=== PATIENT | female | born 1995 | race Caucasian/White ===

== ENCOUNTER 2020-08-02 21:28 | Emergency (ER) | payer OTHER, SELFPAY ==
[2020-08-02 21:30] VITALS: PULSE 84; RESP 16; TEMP 37.3; O2SAT 100; BMI 21.5
[2020-08-02 22:00] VITALS: BP 127/61; PULSE 92; PULSE 98; RESP 18; TEMP 37.3; O2SAT 98
--- NOTE | 2020-08-02 22:18 | ED.CHESTPAIN ---
HPI - Chest Pain General Chief Complaint: Chest Pain Stated Complaint: chest pressure Time Seen by Provider: 08/02/20 22:18 Source: patient Mode of arrival: ambulatory Limitations: no limitations History of Present Illness HPI narrative: Patient with chest pain that started this afternoon, patient states she has depression but is not suicidal. Vesna has had chest pain due to stress. Patient states that she has anterior chest pain with movement. MD complaint: chest pain Onset (ago): hour(s) Timing of current episode: constant Prior episodes: Yes Pain location: substernal Severity: mild Related Data Previous Rx's Medication Instructions Recorded naproxen [Naprosyn] 500 mg PO BID #20 tab 08/02/20 Allergies Allergy/AdvReac Type Severity Reaction Status Date / Time No Known Allergies Allergy Unverified 06/07/20 17:31 Review of Systems Constitutional: Constitutional: Reports no additional constitutional complaints Eyes: Eyes: Reports no additional eye complaints ENT: Denies dizziness Cardiovascular: Cardiovascular: Reports no additional cardiovascular complaints Respiratory: Respiratory: Reports as per HPI Gastrointestinal: Gastrointestinal: Reports no additional gastrointestinal complaints Genitourinary: Genitourinary: Reports no additional female genitourinary complaints Musculoskeletal: Musculoskeletal: Reports no additional musculoskeletal complaints Integumentary/Breasts: Skin/Breast: Denies rash Neurologic: Reports system reviewed and no additional complaints, except as documented, Denies dizziness and Denies Sensory deficit (Neuro) Psychiatric: Psychiatric: Denies anxiety PMFSH Past Medical History Medical History No known health problems Social History Social History Advance Directives: No Advance Directives Information Provided: Yes Physical Exam Vital Signs: Vital Signs: Last Vital Signs Temp 99.2 F 08/02/20 21:30 Pulse 84 08/02/20 21:30 Resp 16 08/02/20 21:30 Pulse Ox 100 08/02/20 21:30 Body Mass Index 21.5 Const: General: healthy appearing Nutritional Appearance: average body habitus Orientation/consciousness: oriented to person and patient oriented x3 Limitations: no limitations HENMT: Head: Yes normal to inspection Ears: external ears normal General nose exam: Normal external nose present Mouth: Normal oral and palatal mucosa present and oropharynx normal Throat: Yes posterior oropharynx normal Eyes: General: appearance normal, both eyes and all related structures Neck: Other: supple Neck: Yes normal visual inspection Chest: Other: reproducible chest pain on palpation Resp: Auscultation: clear to auscultation bilaterally Cardio: Jugular venous distension: no JVD Rate: regular rate Rhythm: regular rhythm Heart sounds: S1 normal heart sound present and S2 normal heart sound present GI: Inspection: Yes normal to inspection Palpation (GI): Soft to palpation, nontender and No hepatosplenomegaly present Auscultation: normal bowel sounds : General: Yes no CVA tenderness Back/Spine/Pelvis: Back: no CVA tenderness Skin: General skin exam: no rashes or lesions noted Neuro: General: oriented to person and patient oriented x3 Cranial nerves: Yes CN's II-XII intact bilaterally Motor exam (neuro): 5/5 motor strength present throughout Sensory Exam: No Sensory deficit (Neuro) Extrem: General: Yes normal to inspection Psych: Appearance: grossly normal Course Course Course Narrative: EKG and chest xray normal. patient with reproducible chest pain will dc home on NSAIDs MDM - Chest Pain MDM Narrative Medical decision making narrative: Patient with normal EKG and xray, physical exam most consistent with costrochondritis Differential Diagnosis Differential diagnosis: Likely atypical chest pain and costochondritis ECG Data ECG #1: Attestation: I personally reviewed and interpreted this ECG as follows: Interpretation: normal sinus rate of [address] or twave changes Discharge Plan Discharge Clinical Impression: Atypical chest pain, Costalchondritis Patient Disposition: Home, Self-Care Instructions: Costochondritis (ED) Prescriptions: New naproxen [Naprosyn] 500 mg tablet 500 mg PO BID Qty: 20 RF: 0 Referrals: Physician,Unknown [Primary Care Provider] - 2 days
--- NOTE | 2020-08-02 22:23 | XR_ITS ---
EXAMINATION: XR CHEST CLINICAL INFORMATION: Chest pain COMPARISON: None TECHNIQUE: Frontal view of the chest was obtained. FINDINGS: No significant abnormality is noted involving the heart, lungs, mediastinum, bony thorax or soft tissues. XR/XR chest 1V IMPRESSION: Unremarkable examination.
[2020-08-02] MEDS: Ketorolac Tromethamine 60 MG/2 ML VIAL IM (22:55)
== END 2020-08-02 23:01 | disposition home or self-care (01) ==
PROVIDERS: Emergency Provider Emergency Medicine
DX: M94.0 Chondrocostal junction syndrome [Tietze] (principal); R07.9 Chest pain, unspecified; Z79.899 Other long term (current) drug therapy; Z20.828 Contact with and (suspected) exposure to other viral communicable diseases
CPT/HCPCS: 71045; 96372; 99284; J1885; U0003

== ENCOUNTER 2020-11-22 12:43 | Emergency (ER) | payer OTHER, SELFPAY ==
[2020-11-22 12:45] VITALS: BP 151/80; PULSE 84; RESP 16; TEMP 36.5; O2SAT 99; BMI 22.1
--- NOTE | 2020-11-22 13:11 | ECG_ITS ---
Test Reason : ARM PAIN Blood Pressure : / mmHG Vent. Rate : 073 BPM Atrial Rate : 073 BPM P-R Int : 176 ms QRS Dur : 076 ms QT Int : 342 ms P-R-T Axes : 028 077 045 degrees QTc Int : 376 ms Normal sinus rhythm Normal ECG When compared with ECG of 02-AUG-2020 21:33, No significant change was found Referred By: Bladimir Jackson Electronically Signed By:ROGERIO HIGGINS
[2020-11-22 13:47] LABS: COVID-19 Test Negative (Negative)
--- NOTE | 2020-11-22 14:07 | ED_ITS ---
HPI - General Adult General Chief complaint: General Medical Stated complaint: pain and numbness arm and leg Time Seen by Provider: 11/22/20 13:11 History of Present Illness HPI narrative: Patient complains of left arm pain that began this morning with some tingling, was there when she woke up, the pain continues but the tingling is gone, the pain is worse with certain movements and when pressed around the biceps area, there is no chest pain no shortness of breath no palpitations no s weating no nausea no vomiting, no injury to the arm, there is no relation to exertion, there was no injury Patient also complains of for about a week having runny nose body aches fatigue and a mild sore throat, has not yet been tested for COVID Related Data Previous Rx's Medication Instructions Recorded naproxen [Naprosyn] 500 mg PO BID #20 tab 08/02/20 ibuprofen 600 mg PO Q6H PRN #20 tab 11/22/20 Allergies Allergy/AdvReac Type Severity Reaction Status Date / Time No Known Allergies Allergy Unverified 06/07/20 17:31 Review of Systems Review of Systems: Review of systems is positive for left arm pain, runny nose body aches and fatigue Negatives are no fever no chills no dizziness no weakness no numbness no fainting no confusion no headache no neck pain no chest pain no shortness of breath no palpitations no diaphoresis no exertional symptoms no abdominal pain no nausea no vomiting no diarrhea no changes to bowel or bladder no dysuria no urinary symptoms no rash no numbness no weakness Yes all other systems are reviewed and are negative [facility] [place] Past Medical History [facility] [place] Narrative: Patient did developed hypertension during and was told to follow-up to see if it resolved on its own but has not followed up with a primary doctor and is not sure if the hypertension resolved Medical History No known health problems Social History Social History Alcohol intake: never Smoking Status: Never smoker Smoked in Last 30 Days: No Use of substances other than those prescribed or required for medical reasons: No Advance Directives: No Advance Directives Information Provided: No Physical Exam Vital Signs: Vital Signs: Last Vital Signs Temp 97.7 F 11/22/20 12:45 Pulse 84 11/22/20 12:45 Resp 16 11/22/20 12:45 BP 151/80 H 11/22/20 12:45 Pulse Ox 99 11/22/20 12:45 Body Mass Index 22.1 General appearance is no acute distress comfortable cooperative The head is normocephalic atraumatic Neck is supple and nontender The chest is clear to auscultation bilaterally with full symmetric and breath sounds The abdomen is soft and nontender Extremities is full range of motion x4 The left arm did have tenderness around the bicep area and pain was reproduced with movement in the upper arm area, the arm is normal in appearance and neurovascular intact distal The skin no rash Neuro is no focal deficit, there is no facial asymmetry there is no motor deficit, motor is 5/5 x4, sensation is intact and symmetrical, gait is normal, balance and cerebellar are normal, cranial nerves 2-12 are intact as tested, gait is normal Course Course Course Narrative: EKG was normal sinus rhythm no evidence of ischemia, patient's symptoms were not consistent with cardiac event as pain was reproducible in the left upper arm there was no chest pain or shortness of breath and symptoms were not related to exertion COVID testing was negative and patient is diagnosed with both viral syndrome for about a week and left arm pain musculoskeletal pain for a day Medical Decision Making Lab Data Labs: Lab Results 11/22/20 Range/Units 13:23 COVID-19 ([facility]IAM) Negative (Negative) COVID-19 Clin Com See Note Discharge Plan Discharge Clinical Impression: Arm pain, left, Acute viral syndrome High blood pressure Qualifiers: Hypertension type: unspecified Qualified Code(s): I10 - Essential (primary) hypertension Patient Disposition: Home, Self-Care Additional Instructions: At this time there is no sign of heart attack or stroke or any dangerous condition Her COVID test today was negative, but your symptoms may have been from COVID and testing does not always find it so wear mask and use care being around other people Her blood pressure was high in the emergency room today, we recommend to get a home blood pressure cuff keep a log of the readings and follow with primary care doctor to determine whether you actually have high blood pressure or for was just 1 reading here in the ER Return any time any worse condition or concerns Prescriptions: New ibuprofen 600 mg tablet 600 mg PO Q6H PRN (Reason: pain) Qty: 20 RF: 0 No Action naproxen [Naprosyn] 500 mg tablet 500 mg PO BID Qty: 20 RF: 0
== END 2020-11-22 14:30 | disposition home or self-care (01) ==
PROVIDERS: Physician Assistant Medical; Emergency Provider Emergency Medicine
DX: M79.602 Pain in left arm (principal); B34.9 Viral infection, unspecified; I10 Essential (primary) hypertension; Z20.822 Contact with and (suspected) exposure to COVID-19
CPT/HCPCS: 36415; 87635; 93005; 99283

== ENCOUNTER 2021-02-06 00:06 | Emergency (ER) | payer OTHER, SELFPAY ==
--- NOTE | ~2021-02-06 | CT_ITS ---
EXAMINATION: CT ABDOMEN AND PELVIS WITH CONTRAST CLINICAL INFORMATION: Right lower quadrant pain COMPARISON: None TECHNIQUE: Multidetector volumetric images were obtained from the superior aspect of the liver through the pubic symphysis following administration 85 mL of Omnipaque 350 intravenous contrast. Sagittal and coronal reformatted images were obtained on the technologist's workstation. Oral contrast: No This CT examination was performed using dose optimization techniques as appropriate, variously including the following: *Automated exposure control *Adjustment of mA and/or kV according to patient size (this includes techniques or standardized protocols for targeted exams where dose is matched to indication/reason for exam; i.e. extremities or head) *Use of iterative reconstruction technique DLP: 372 mGy-cm FINDINGS: LUNG BASES: The visualized lung bases are unremarkable. LIVER, GALLBLADDER, AND BILIARY TREE: The liver is normal in size, shape, and attenuation. No focal hepatic lesion or biliary ductal dilatation is present. The gallbladder is unremarkable with no evidence of radiopaque gallstones, gallbladder wall thickening, or obvious pericholecystic inflammatory changes. PANCREAS: Unremarkable. SPLEEN: Unremarkable. ADRENAL GLANDS: Unremarkable. KIDNEYS AND URETERS: The kidneys are normal in size, shape, and attenuation. No hydronephrosis, hydroureter, or obstructing calculi seen. No perinephric stranding. BLADDER: Unremarkable. GASTROINTESTINAL TRACT: The small and large bowel are unremarkable. The appendix is unremarkable. No free air identified. ABDOMINAL WALL: No significant hernia is appreciated. LYMPH NODES: Normal. VASCULAR: Unremarkable. PELVIC VISCERA: There is a right adnexal cyst measuring up to approximately 4.7 cm. Small amount of pelvic free fluid is noted. OSSEOUS STRUCTURES: Unremarkable. CT/CT abdomen pelvis w con IMPRESSION: Right adnexal cyst measuring up to 4.7 cm, presumably ovarian. Follow-up pelvic ultrasound is recommended to assess for resolution. Small amount of pelvic free fluid.
[2021-02-06 00:53] VITALS: BP 150/102; PULSE 73; RESP 18; TEMP 37; O2SAT 100; BMI 21.9
[2021-02-06 01:27] LABS: Glucose Urine UA NEG (NEG); Leukocyte Esterase Urine NEG (NEG); Nitrite Urine NEG (NEG); Specific Gravity - Urine >= 1.030 (1.005-1.025); Urine Blood NEG (NEG); Urine Ketones NEG (NEG); Urine Protein NEG (NEG-TRACE)
[2021-02-06 01:29] LABS: Appearance Urine CLEAR; Color Urine YELLOW; UPreg QC Valid YES; Urine Pregnancy NEGATIVE (NEGATIVE)
--- NOTE | 2021-02-06 02:42 | ED.ABDPAIN ---
HPI - Abdominal Pain General Chief Complaint: Abdominal Pain Stated Complaint: Abdominal pain Time Seen by Provider: 02/06/21 02:39 Source: patient Mode of arrival: ambulatory Limitations: no limitations History of Present Illness MD elicited complaint: abdominal pain Onset (ago): day(s) (started this weekend on Thursday ) Pain Consistency: intermittent Location: RLQ and pelvis Severity: moderate Quality: cramping Radiation: none Migration to: no migration Exacerbating factors: movement Relieving factors: nothing Associated symptoms: nausea Related Data Previous Rx's Medication Instructions Recorded naproxen [Naprosyn] 500 mg PO BID #20 tab 08/02/20 ibuprofen 600 mg PO Q6H PRN #20 tab 11/22/20 cyclobenzaprine 10 mg PO TID PRN #14 tab 02/06/21 ondansetron 4 mg PO Q8H PRN #20 tab 02/06/21 Allergies Allergy/AdvReac Type Severity Reaction Status Date / Time No Known Allergies Allergy Verified 02/06/21 00:53 Review of Systems Review of Systems Constitutional : No Weight loss, No Fever, No Chills ENT/Mouth : No sore throat, No Rhinorrhea Eyes: No Swelling, No Redness Cardiovascular : No Chest Pain, No SOB, NoEdema Respiratory : No Cough, No Sputum, No Wheezing Gastrointestinal : Positive Nausea, no Vomiting, no Diarrhea, positive abdominal Pain, No Hematochezia, No Melena Genitourinary : No Dysuria, No Urinary Frequency, No Hematuria, No Urgency Musculoskeletal : No joint pain, No Myalgias, No Joint Swelling Skin : No Skin Lesions, No rash Neuro : No Weakness, No Numbness, No Dizziness, No Headache Psych : No Anxiety/Panic, No Depression Heme/Lymph: No Bruising, No Lymphadenopathy Endocrine : No Polyuria, No Polydipsia All other systems reviewed and are negative. Physical Exam Vital Signs: Vital Signs: Last Vital Signs Temp 99.0 F 02/06/21 03:33 Pulse 66 02/06/21 03:33 Resp 17 02/06/21 03:33 BP 125/91 H 02/06/21 03:33 Pulse Ox 100 02/06/21 03:33 Body Mass Index 21.9 Appearance: Alert. Oriented X3. No acute distress. Eyes: Pupils equal, round and reactive to light. ENT: Pharynx normal. Neck: Normal inspection. Neck supple. CVS: Normal heart rate and rhythm. Pulses normal. Respiratory: No respiratory distress. Breath sounds normal. Abdomen: Soft and very mild ttp in RLQ no rebound or guarding Skin: Skin warm and dry. Normal skin color. Normal skin turgor. Extremities: No lower extremity edema. No calf ttp Neuro: Oriented X 3. No motor deficit. No sensory deficit. Course Course Course Narrative: benign abdominal exam doubt torsion at this time, plan to DC with [facility] follow up MDM - Abdominal Pain MDM Narrative Medical decision making narrative: 25 yo female no sig PMH here with RLQ pain since Thursday with some nausea at this time will need labs, UA, CT scan for appendicitis, dispo per results and findings. Differential Diagnosis Differential diagnosis: Likely abdominal pain, acute appendicitis, calculus of kidney, constipation, endometriosis and ovarian cyst; Unlikely mesenteric ischemia Lab Data Result diagrams: 02/06/21 03:40 02/06/21 03:40 Labs: Lab Results 02/06/21 02/06/21 02/06/21 Range/Units 01:15 01:15 03:40 WBC 7.4 (4.8-10.8) X10*3/uL RBC 4.82 (4.20-5.50) X10*6/uL Hgb 13.8 (12.0-16.0) g/dl Hct 41.1 (37-47) % MCV 85.3 (80-98) fL MCH 28.6 (27.0-33.0) pg MCHC 33.6 (31.0-35.0) g/dl RDW 12.8 (11.0-16.0) % Plt Count 260 (160-400) X10*3/uL MPV 10.2 (9.4-12.3) fL Immature Gran % (Auto) 0.3 (0.0-0.4) % Neut % (Auto) 65.8 (45-73) % Lymph % (Auto) 26.8 (20-40) % [place] % (Auto) 5.3 (2-11) % Eos % (Auto) 1.1 (0-4) % Baso % (Auto) 0.7 (0-2) % Lymph # (Auto) 2.0 (1.2-4.9) X10*3/uL [place] # (Auto) 0.4 (0.1-1.2) X10*3/uL Eos # (Auto) 0.1 (0.0-0.4) X10*3/uL Baso # (Auto) 0.1 (0.0-0.2) X10*3/uL Abs Immat Gran (auto) 0.02 (0.00-0.03) X10*3/uL Absolute Neuts (auto) 4.9 (2.0-8.3) X10*3/uL Absolute Nucleated RBC 0.000 (0.0-0.012) X10*3/uL Nucleated RBC % (auto) 0.0 (0.0-0.2) /100WBC Hold Blue Top Sodium (135-145) mmol/L Potassium (3.3-5.1) mmol/L Chloride (96-108) mmol/L Carbon Dioxide (22-29) mmol/L Anion Gap (12-20) BUN (9-16) mg/dL Creatinine (0.5-1.4) mg/dL Estim Creat Clear Calc Estimated GFR Random Glucose (60-115) mg/dL Calcium (8.4-10.2) mg/dL Magnesium (1.6-2.6) mg/dL Total Bilirubin (0.0-1.0) mg/dL Direct Bilirubin (0.0-0.5) mg/dL AST (5-31) U/L ALT (0-31) U/L Alkaline Phosphatase (39-117) U/L Total Protein (6.5-8.0) g/dL Albumin (3.5-5.0) g/dL Lipase (8-78) U/L Beta HCG, Quant mIU/mL Urine Color YELLOW Urine Appearance CLEAR Urine pH 6.0 (5.0-8.0) Ur Specific [place] >= 1.030 H (1.005-1.025) Urine Protein NEG (NEG-TRACE) MG/DL Urine Glucose (UA) NEG (NEG) MG/DL Urine Ketones NEG (NEG) MG/DL Urine Blood NEG (NEG) Urine Nitrite NEG (NEG) Ur Leukocyte Esterase NEG (NEG) Urine Test NEGATIVE (NEGATIVE) 02/06/21 02/06/21 Range/Units 03:40 03:40 WBC (4.8-10.8) X10*3/uL RBC (4.20-5.50) X10*6/uL Hgb (12.0-16.0) g/dl Hct (37-47) % MCV (80-98) fL MCH (27.0-33.0) pg MCHC (31.0-35.0) g/dl RDW (11.0-16.0) % Plt Count (160-400) X10*3/uL MPV (9.4-12.3) fL Immature Gran % (Auto) (0.0-0.4) % Neut % (Auto) (45-73) % Lymph % (Auto) (20-40) % [place] % (Auto) (2-11) % Eos % (Auto) (0-4) % Baso % (Auto) (0-2) % Lymph # (Auto) (1.2-4.9) X10*3/uL [place] # (Auto) (0.1-1.2) X10*3/uL Eos # (Auto) (0.0-0.4) X10*3/uL Baso # (Auto) (0.0-0.2) X10*3/uL Abs Immat Gran (auto) (0.00-0.03) X10*3/uL Absolute Neuts (auto) (2.0-8.3) X10*3/uL Absolute Nucleated RBC (0.0-0.012) X10*3/uL Nucleated RBC % (auto) (0.0-0.2) /100WBC Hold Blue Top SEE NOTE Sodium 140 (135-145) mmol/L Potassium 3.8 (3.3-5.1) mmol/L Chloride 107 (96-108) mmol/L Carbon Dioxide 24 (22-29) mmol/L Anion Gap 13 (12-20) BUN 10 (9-16) mg/dL Creatinine 0.74 (0.5-1.4) mg/dL Estim Creat Clear Calc 81.9 Estimated GFR > 60 Random Glucose 91 (60-115) mg/dL Calcium 9.7 (8.4-10.2) mg/dL Magnesium 2.0 (1.6-2.6) mg/dL Total Bilirubin 0.7 (0.0-1.0) mg/dL Direct Bilirubin 0.3 (0.0-0.5) mg/dL AST 19 (5-31) U/L ALT 23 (0-31) U/L Alkaline Phosphatase 69 (39-117) U/L Total Protein 7.0 (6.5-8.0) g/dL Albumin 4.4 (3.5-5.0) g/dL Lipase 18 (8-78) U/L Beta HCG, Quant < 2 mIU/mL Urine Color Urine Appearance Urine pH (5.0-8.0) Ur Specific [place] (1.005-1.025) Urine Protein (NEG-TRACE) MG/DL Urine Glucose (UA) (NEG) MG/DL Urine Ketones (NEG) MG/DL Urine Blood (NEG) Urine Nitrite (NEG) Ur Leukocyte Esterase (NEG) Urine Test (NEGATIVE) Discharge Plan Discharge Clinical Impression: Abdominal pain Qualifiers: Abdominal location: right lower quadrant Qualified Code(s): R10.31 - Right lower quadrant pain Ovarian cyst Qualifiers: Laterality: right Qualified Code(s): N83.201 - Unspecified ovarian cyst, right side Patient Disposition: Home, Self-Care Instructions: Ovarian Cyst (ED), Abdominal Pain (ED) Additional Instructions: return to ED for any worsening symptoms or concerns REPEAT ULTRASOUND IN 4 WEEKS TO ENSURE CYST RESOLVES Prescriptions: New cyclobenzaprine 10 mg tablet 10 mg PO TID PRN (Reason: muscle spasm) Qty: 14 RF: 0 ondansetron 4 mg tablet,disintegrating 4 mg PO Q8H PRN (Reason: nausea and vomiting) Qty: 20 RF: 0 No Action naproxen [Naprosyn] 500 mg tablet 500 mg PO BID Qty: 20 RF: 0 ibuprofen 600 mg tablet 600 mg PO Q6H PRN (Reason: pain) Qty: 20 RF: 0 PMFSH Past Medical History Attestation statement: The following information was validated with the patient. Medical History No known health problems Social History Social History Alcohol intake: never Smoking Status: Never smoker Advance Directives: No Advance Directives Information Provided: No
[2021-02-06 03:33] VITALS: BP 125/91; PULSE 66; RESP 17; TEMP 37.2; O2SAT 100
[2021-02-06 03:48] LABS: MANUAL DIFF FLAG NO
[2021-02-06 03:50] LABS: Basophils Absolute Auto 0.1 X10*3/uL (0.0-0.2); Basophils Percent Auto 0.7 % (0-2); Eosinophils Absolute Auto 0.1 X10*3/uL (0.0-0.4); Eosinophils Percent Auto 1.1 % (0-4); Hematocrit 41.1 % (37-47); Hemoglobin 13.8 g/dl (12.0-16.0); Imm Gran Abs Auto 0.02 X10*3/uL (0.00-0.03); Imm Gran Pct Auto 0.3 % (0.0-0.4); Lymphocytes Percent Auto 26.8 % (20-40); Mean Corpuscular HGB Conc 33.6 g/dl (31.0-35.0); Mean Corpuscular Hemoglobin 28.6 pg (27.0-33.0); Mean Corpuscular Volume 85.3 fL (80-98); Mean Platelet Volume 10.2 fL (9.4-12.3); Monocytes Absolute Auto 0.4 X10*3/uL (0.1-1.2); Monocytes Percent Auto 5.3 % (2-11); Neutrophils Absolute Auto 4.9 X10*3/uL (2.0-8.3); Neutrophils Percent Auto 65.8 % (45-73); Platelet Count 260 X10*3/uL (160-400); Red Blood Count 4.82 X10*6/uL (4.20-5.50); Red Cell Distribution Width 12.8 % (11.0-16.0); White Blood Count 7.4 X10*3/uL (4.8-10.8)
[2021-02-06 04:13] LABS: Alanine Aminotransferase 23 U/L (0-31); Albumin Level 4.4 g/dL (3.5-5.0); Alkaline Phosphatase 69 U/L (39-117); Anion Gap 13 (12-20); Aspartate Amino Transferase 19 U/L (5-31); Bilirubin Direct 0.3 mg/dL (0.0-0.5); Bilirubin Total 0.7 mg/dL (0.0-1.0); Blood Urea Nitrogen 10 mg/dL (9-16); Calcium 9.7 mg/dL (8.4-10.2); Carbon Dioxide 24 mmol/L (22-29); Chloride 107 mmol/L (96-108); Creatinine Clr Calc Pharmacy 81.9; Estimated Glomerular Filt Rate > 60; Glucose Random 91 mg/dL (60-115); Lipase 18 U/L (8-78); Potassium 3.8 mmol/L (3.3-5.1); Sodium 140 mmol/L (135-145)
[2021-02-06 04:19] LABS: HCG Quantitative < 2 mIU/mL
[2021-02-06] MEDS: iohexoL 350 MG/ML 100 ML INFUS..BTL 85 ML IV (04:31)
== END 2021-02-06 05:36 | disposition home or self-care (01) ==
PROVIDERS: Emergency Provider Emergency Medicine; PCP Nurse Practitioner Family
DX: N83.201 Unspecified ovarian cyst, right side (principal); R10.31 Right lower quadrant pain; Z79.899 Other long term (current) drug therapy
CPT/HCPCS: 36415; 74177; 80048; 80076; 81003; 81025; 83690; 83735; 84702; 85025; 99284; Q9967

== ENCOUNTER → 2021-07-04 13:14 | Outpatient (BNVA) | payer SELFPAY | PROVIDERS: PCP Nurse Practitioner Family; Visit Provider Internal Medicine | DX: Z02.79 Encounter for issue of other medical certificate (principal) ==

== ENCOUNTER 2021-08-05 21:32 | Emergency (ER) | payer OTHER, SELFPAY ==
--- NOTE | ~2021-08-05 | XR_ITS ---
EXAMINATION: XR HUMERUS, RIGHT XR FOREARM, RIGHT CLINICAL INFORMATION: Arm pain after working out COMPARISON: None TECHNIQUE: 2 views of the right forearm. 2 views of the right humerus. FINDINGS: Alignment at the glenohumeral and acromioclavicular joints appears anatomic on these views. No acute fracture identified in the humerus or forearm. Alignment at the elbow is anatomic, without evidence of effusion. No significant focal soft tissue abnormality identified. XR/XR humerus RT IMPRESSION: No acute findings identified in the right humerus or forearm.
--- NOTE | ~2021-08-05 | XR_ITS ---
EXAMINATION: XR HUMERUS, LEFT XR FOREARM, LEFT CLINICAL INFORMATION: Arm pain after working out COMPARISON: None TECHNIQUE: 2 views of the left humerus. 2 views of the left forearm. FINDINGS: Alignment at the glenohumeral and acromioclavicular joints appears anatomic on these views. No acute fracture identified in the humerus or forearm. Alignment at the elbow is anatomic, without evidence of effusion. No significant focal soft tissue abnormality identified. XR/XR forearm LT 2V IMPRESSION: No acute findings identified in the left humerus or forearm.
--- NOTE | ~2021-08-05 | XR_ITS ---
EXAMINATION: XR HUMERUS, RIGHT XR FOREARM, RIGHT CLINICAL INFORMATION: Arm pain after working out COMPARISON: None TECHNIQUE: 2 views of the right forearm. 2 views of the right humerus. FINDINGS: Alignment at the glenohumeral and acromioclavicular joints appears anatomic on these views. No acute fracture identified in the humerus or forearm. Alignment at the elbow is anatomic, without evidence of effusion. No significant focal soft tissue abnormality identified. XR/XR forearm RT 2V IMPRESSION: No acute findings identified in the right humerus or forearm.
--- NOTE | ~2021-08-05 | CT_ITS ---
EXAMINATION: CT ABDOMEN AND PELVIS WITHOUT CONTRAST CLINICAL INFORMATION: Epigastric and mid back pain after working out COMPARISON: 02/06/2021 TECHNIQUE: Multidetector volumetric imaging was performed from the superior aspect of the liver through the pubic symphysis. Sagittal and coronal reformatted images were obtained on the technologist's workstation. This CT examination was performed using dose optimization techniques as appropriate, variously including the following: *Automated exposure control *Adjustment of mA and/or kV according to patient size (this includes techniques or standardized protocols for targeted exams where dose is matched to indication/reason for exam; i.e. extremities or head) *Use of iterative reconstruction technique DLP: 341 mGy-cm FINDINGS: LUNG BASES: The visualized lung bases are unremarkable. LIVER, GALLBLADDER, AND BILIARY TREE: The liver is normal in size, shape, and attenuation. No focal hepatic lesion or biliary ductal dilatation is present. The gallbladder is unremarkable with no evidence of radiopaque gallstones, gallbladder wall thickening, or obvious pericholecystic inflammatory changes. PANCREAS: Unremarkable. SPLEEN: Unremarkable. ADRENAL GLANDS: Unremarkable. KIDNEYS AND URETERS: The kidneys are normal in size, shape, and attenuation. No hydronephrosis, hydroureter, or calculi seen. No perinephric stranding. BLADDER: Minimally distended and grossly unremarkable. GASTROINTESTINAL TRACT: The small and large bowel are unremarkable. The appendix is unremarkable. No free fluid or free air is seen. ABDOMINAL WALL: No significant hernia is appreciated. LYMPH NODES: No lymphadenopathy is seen, though assessment is limited in the absence of intravenous contrast. VASCULAR: Unremarkable. PELVIC VISCERA: Unremarkable. OSSEOUS STRUCTURES: Unremarkable. CT/CT abdomen pelvis wo con IMPRESSION: No acute findings identified in the abdomen/pelvis.
--- NOTE | ~2021-08-05 | XR_ITS ---
EXAMINATION: XR CHEST CLINICAL INFORMATION: Anterior chest wall pain after working out COMPARISON: 08/02/2020 TECHNIQUE: Frontal view of the chest was obtained. FINDINGS: The lungs are clear with no focal consolidation. No evidence of pneumothorax, pulmonary edema, or pleural effusions. The cardiomediastinal silhouette is unremarkable. No acute osseous findings. XR/XR chest 1V IMPRESSION: No acute findings.
--- NOTE | ~2021-08-05 | XR_ITS ---
EXAMINATION: XR HUMERUS, LEFT XR FOREARM, LEFT CLINICAL INFORMATION: Arm pain after working out COMPARISON: None TECHNIQUE: 2 views of the left humerus. 2 views of the left forearm. FINDINGS: Alignment at the glenohumeral and acromioclavicular joints appears anatomic on these views. No acute fracture identified in the humerus or forearm. Alignment at the elbow is anatomic, without evidence of effusion. No significant focal soft tissue abnormality identified. XR/XR humerus LT IMPRESSION: No acute findings identified in the left humerus or forearm.
[2021-08-05 21:37] VITALS: BP 107/76; PULSE 82; RESP 17; TEMP 36.8; O2SAT 98; BMI 21.1
[2021-08-06 00:09] LABS: UPreg QC Valid YES; Urine Pregnancy NEGATIVE (NEGATIVE)
--- NOTE | 2021-08-06 00:42 | ED_ITS ---
HPI - General Adult General Chief complaint: General Medical <NEDA Mcmillan Last Filed: 08/06/21 01:09> Stated complaint: back pain no injury <NEDA Mcmillan Last Filed: 08/06/21 01:09> Time Seen by Provider: 08/05/21 22:55 <NEDA Mcmillan Last Filed: 08/06/21 01:09> Source: patient <NEDA Mcmillan Last Filed: 08/06/21 01:09> Mode of arrival: ambulatory <NEDA Mcmillan Last Filed: 08/06/21 01:09> Limitations: no limitations <NEDA Mcmillan Last Filed: 08/06/21 01:09> History of Present Illness HPI narrative: 26-year-old female presenting to the ED with complaints of bilateral upper and lower arm pain along with her ribcage pain and epigastric abdominal pain that radiates to her midback for the past few days worse today after she was working out doing bench presses. She reports that she has not worked out in a while since she has had her 4 kids. She is also unsure if she could possibly be due to she has not had a period. She denies any dizziness, headaches, chest pain, shortness of breath, sore throat, cough, trouble swallowing or breathing, nausea/vomiting/diarrhea, dysuria, hematuria, abnormal vaginal discharge, rashes, recent travel or sick contacts or any other symptoms complaints or concerns at this time. <NDEA Mcmillan Last Filed: 08/06/21 01:09> MD complaint: Multiple complaints <NEDA Mcmillan Last Filed: 08/06/21 01:09> Onset (ago): day(s) <NEDA Mcmillan Last Filed: 08/06/21 01:09> Related Data Home medications: Previous Rx's Medication Instructions Recorded naproxen 500 mg tablet (Naprosyn) 500 mg PO BID #20 tab 08/02/20 ibuprofen 600 mg tablet 600 mg PO Q6H PRN #20 tab 11/22/20 cyclobenzaprine 10 mg tablet 10 mg PO TID PRN #14 tab 02/06/21 ondansetron 4 mg disintegrating 4 mg PO Q8H PRN #20 tab 02/06/21 tablet acetaminophen 500 mg tablet 1,000 mg PO QID PRN #14 tab 08/06/21 (Tylenol Extra Strength) cyclobenzaprine 10 mg tablet 10 mg PO Q8H PRN #14 tab 08/06/21 <NEDA Mcmillan Last Filed: 08/06/21 01:09> Allergies/adverse reactions: Allergies Allergy/AdvReac Type Severity Reaction Status Date / Time No Known Allergies Allergy Verified 08/05/21 21:37 <NEDA Mcmillan Last Filed: 08/06/21 01:09> Review of Systems Review of Systems: Constitutional : No Weight loss, No Fever, No Chills, No Night Sweats, No Fatigue, No Malaise ENT/Mouth : No Hearing loss, No Ear Pain, No Nasal Congestion, No Sinus Pain, No Hoarseness, No sore throat, No Rhinorrhea, No Swallowing Difficulty Eyes: No Eye Pain, No Swelling, No Redness, No Foreign Body, No Discharge, No Vision Changes Cardiovascular : No Chest Pain, No SOB, No Dyspnea on Exertion, No Orthopnea, No Edema, No Palpitations Respiratory : No Cough, No Sputum, No Wheezing, No Smoke Exposure, No Dyspnea Gastrointestinal : + abdominal pain, No Nausea, No Vomiting, No Diarrhea, No Constipation, No abdominal Pain, No Hematochezia, No Melena Genitourinary : no irregular bleeding, No Dysuria, No Urinary Frequency, No Hem aturia, No Urinary Incontinence, No Urgency, No Flank Pain, No Urinary Flow Changes, No Hesitancy Musculoskeletal : + bilateral upper and lower arm pain, + Back pain, No Myalgias, No Joint Swelling Skin : No Skin Lesions, No rash Neuro : No Weakness, No Numbness, No Paresthesias, No Loss of Consciousness, No Dizziness, No Headache Psych : No Anxiety/Panic, No Depression, No SI/HI/AH/VH, No Social Issues, Heme/Lymph: No Bruising, No Bleeding,No Lymphadenopathy Endocrine : No Polyuria, No Polydipsia, No Temperature Intolerance <NEDA Mcmillan Last Filed: 08/06/21 01:09> Yes all other systems are reviewed and are negative <NEDA Mcmillan Last Filed: 08/06/21 01:09> [facility] Past Medical History Attestation statement: The following information was validated with the patient. <NEDA Mcmillan - Last Filed: 08/06/21 01:09> Medical History: Medical History No known health problems <NEDA Mcmillan - Last Filed: 08/06/21 01:09> Social History Social History: Social History Alcohol intake: never Advance Directives: No Advance Directives Information Provided: No Patient : No <NEDA Mcmillan - Last Filed: 08/06/21 01:09> Physical Exam Vital Signs: Vital Signs: Last Vital Signs Temp 98.3 F 08/05/21 21:37 Pulse 82 08/05/21 21:37 Resp 17 08/05/21 21:37 BP 107/76 08/05/21 21:37 Pulse Ox 98 08/05/21 21:37 Body Mass Index 21.1 vital signs have been reviewed as normal and appeared to be correct. Blood pressure normal. Heart rate normal. Respiration rate normal. Temperature normal. Oxygen saturation normal. <NEDA Mcmillan - Last Filed: 08/06/21 01:09> Vital Signs: Last Vital Signs Temp 98.3 F 08/05/21 21:37 Pulse 82 08/05/21 21:37 Resp 17 08/05/21 21:37 BP 107/76 08/05/21 21:37 Pulse Ox 98 08/05/21 21:37 Body Mass Index 21.1 <Shabnam Figueroa MD - Last Filed: 08/06/21 01:36> Appearance: Alert. Oriented X3. No acute distress. Head: Normal external exam. Normocephalic. Atraumatic. Eyes: PERRLA. EOMI. Conjunctiva and sclera normal. Eyelids normal. ENT: Pharynx normal. Uvula midline. Moist mucous membranes. Neck: Normal inspection. Neck supple. FROM. No adenopathy. Thyroid Normal. No meningeal signs. No neck mass noted. CVS: Normal heart rate and rhythm. Heart sound normal. Pulses normal throughout. No murmurs/rales/gallops. Respiratory: No respiratory distress. Painless inspiration. Breath sounds normal. No wheezes/rales/rhonchi noted. Chest nontender. No accessory muscle usage noted or decreased air movement noted. Abdomen: Soft and mild tenderness palpation to epigastric area. Bowel sounds normal in all 4 quadrants. No distention noted. No organomegaly noted. No visible injury noted. Back: No CVA tenderness. Full range of motion noted. No obvious deformities, or edema. Mild para-spinal muscular tenderness at the thoracic region. Full ROM in back and lower extremities. 5/5 strength hip extension/flexion, abduction, adduction. Mild Lumbar pain with hip flexion against resistance. Straight leg raise test negative on right; Straight leg raise test negative on left; Reflexes normal ankle and knee bilaterally; EHL motor strength normal bilaterally. No rashes/lesion/induration/fluctuance or signs infection noted. Skin: Skin warm and dry. Normal skin color. Normal skin turgor. No rashes/lesions/lacerations noted. Extremities: Patient reports tenderness up patient to bilateral upper and lower arms although on my exam there is no obvious tenderness she has full range of motion no obvious ligamentous or tendon injury noted to shoulder/elbow/hand and wrist joints bilaterally. No upper extremity edema is noted. Otherwise all other Extremities exhibit normal range of motion and nontender. Neuro: Oriented X 3. No motor deficit. No sensory deficit. Reflexes normal. Normal steady gait. No focal neuro deficits noted. Vascular: + radial pulses/+ 2 distal pedal pulses/+2 dorsalis pedis b/l. Normal cap refill. No cyanosis noted to upper extremity nails and lower extremity toes nails. <NEDA Mcmillan - Last Filed: 08/06/21 01:09> Course Course Course Narrative: 23:45pm - 26-year-old female presenting to the ED with complaints of bilateral upper and lower arm pain along with her ribcage pain and epigastric abdominal pain that radiates to her midback for the past few days worse today after she was working out doing bench presses. She reports that she has not worked out in a while since she has had her 4 kids. She is also unsure if she could possibly be due to she has not had a period. I explained to the patient that most likely it is all muscular in nature and that I would send her home with muscle relaxants although the patient was requesting an MRI of her abdomen and x-rays of her arms I explained to her that I cannot obtain an MRI of her abdomen especially if this was after working out therefore I offered a CT scan of abdomen pelvis without IV contrast and x-rays of her humerus and her forearms. UHCG ordered at this time and negative. <NEDA Mcmillan - Last Filed: 08/06/21 01:09> Reevaluation(s) Reevaluation #1: - X-rays of chest bilateral humerus and forearm negative for any acute processes. - CT scan abdomen pelvis without IV contrast pending at this time. - I discussed this case with Dr. Figueroa and she recommended a CPK therefore I obtain a CBC with basic metabolic and a CPK ordered at this time. Sign out to Dr. Figueroa pending labs and CT scan abdomen pelvis without IV contrast. <NEDA Mcmillan - Last Filed: 08/06/21 01:09> Time: 01:08 <NEDA Mcmillan - Last Filed: 08/06/21 01:09> Reevaluation #2: Patient signed out to me. History sounds like musculoskeletal pain secondary to exercise regimen and multiple imaging studies were found to be negative. There is no evidence to suggest acute infection or anemia as contributing factors. All results and findings were discussed with patient at bedside and she was discharged home in stable condition. <Shabnam Figueroa MD - Last Filed: 08/06/21 01:36> Medical Decision Making Lab Data Lab results reviewed: Yes I reviewed the patient's lab results. <NEDA Mcmillan - Last Filed: 08/06/21 01:09> Labs: Lab Results 08/05/21 Range/Units 23:50 Urine Test NEGATIVE (NEGATIVE) <NEDA Mcmillan - Last Filed: 08/06/21 01:09> Lab Results 08/05/21 Range/Units 23:50 Urine Test NEGATIVE (NEGATIVE) <Shabnam Figueroa MD - Last Filed: 08/06/21 01:36> Imaging Data Chest x-ray: Attestation: I personally reviewed and interpreted this imaging study as follows: <NEDA Mcmillan - Last Filed: 08/06/21 01:09> Radiologist's impression: FINDINGS: The lungs are clear with no focal consolidation. No evidence of pneumothorax, pulmonary edema, or pleural effusions. The cardiomediastinal silhouette is unremarkable. No acute osseous findings. XR/XR chest 1V IMPRESSION: No acute findings. <NEDA Mcmillan - Last Filed: 08/06/21 01:09> Bilateral forearm x-rays and humerus x-rays: Attestation: I personally reviewed and interpreted this imaging study as follows: <NEDA Mcmillan Last Filed: 08/06/21 01:09> Radiologist's impression: FINDINGS: Alignment at the glenohumeral and acromioclavicular joints appears anatomic on these views. No acute fracture identified in the humerus or forearm. Alignment at the elbow is anatomic, without evidence of effusion. No significant focal soft tissue abnormality identified.? XR/XR forearm LT 2V IMPRESSION: No acute findings identified in the left humerus or forearm. <NEDA Mcmillan Last Filed: 08/06/21 01:09> Discharge Plan Discharge Clinical Impression: Musculoskeletal pain <NEDA Mcmillan Last Filed: 08/06/21 01:09> Patient Disposition: Home, Self-Care <NEDA Mcmillan Last Filed: 08/06/21 01:09> Instructions: Musculoskeletal Pain (ED) <NEDA Mcmillan Last Filed: 08/06/21 01:09> Additional Instructions: Take the prescribed medication and follow-up with your primary care provider. Return to the ER for worsening symptoms. <NEDA Mcmillan Last Filed: 08/06/21 01:09> Prescriptions: New cyclobenzaprine 10 mg tablet 10 mg PO Q8H PRN (Reason: Muscle spasm) Qty: 14 RF: 0 acetaminophen [Tylenol Extra Strength] 500 mg tablet 1,000 mg PO QID PRN (Reason: fever or pain) Qty: 14 RF: 0 No Action naproxen [Naprosyn] 500 mg tablet 500 mg PO BID Qty: 20 RF: 0 ibuprofen 600 mg tablet 600 mg PO Q6H PRN (Reason: pain) Qty: 20 RF: 0 cyclobenzaprine 10 mg tablet 10 mg PO TID PRN (Reason: muscle spasm) Qty: 14 RF: 0 ondansetron 4 mg tablet,disintegrating 4 mg PO Q8H PRN (Reason: nausea and vomiting) Qty: 20 RF: 0 <NEDA Mcmillan - Last Filed: 08/06/21 01:09> Referrals: Physician,Unknown J [Primary Care Provider] - 2 days (your pcp) <NEDA Mcmillan - Last Filed: 08/06/21 01:09> Stand Alone Forms: Work/School Release <NEDA Mcmillan - Last Filed: 08/06/21 01:09> Print Language: Amharic <NEDA Mcmillan - Last Filed: 08/06/21 01:09>
--- NOTE | 2021-08-06 01:10 | PC.NURSE ---
MOVED TO [facility]. REPORT GIVEN TO GINA DIAZ.
--- NOTE | 2021-08-06 01:31 | PC.NURSE ---
Pt arrives to [facility] from [facility], per previous RN, pt awaiting CT.
== END 2021-08-06 02:01 | disposition home or self-care (01) ==
PROVIDERS: Physician Assistant Medical; Emergency Provider Student in an Organized Health Care Education/Training Program
DX: M79.18 Myalgia, other site (principal); M79.602 Pain in left arm; M79.601 Pain in right arm
CPT/HCPCS: 71045; 73060; 73090; 74176; 81025; 99284

== ENCOUNTER 2021-08-13 16:54 | Emergency (ER) | payer OTHER, SELFPAY ==
[2021-08-13 18:13] VITALS: BP 100/58; PULSE 82; RESP 16; TEMP 36.6; O2SAT 100
--- NOTE | 2021-08-13 18:20 | ED_ITS ---
HPI - URI/Sore Throat General Chief Complaint: Upper Respiratory Symptoms Stated Complaint: ?strep throat Time Seen by Provider: 08/13/21 18:16 Source: patient Mode of arrival: ambulatory Limitations: no limitations History of Present Illness HPI Narrative: 26-year-old female here with complaints of sore throat for several days. No fevers, chills, cough, headache, neck pain or stiffness, rash, vomiting or diarrhea. Patient has history of strep throat and feels this is similar Related Data Previous Rx's Medication Instructions Recorded naproxen 500 mg tablet (Naprosyn) 500 mg PO BID #20 tab 08/02/20 ibuprofen 600 mg tablet 600 mg PO Q6H PRN #20 tab 11/22/20 cyclobenzaprine 10 mg tablet 10 mg PO TID PRN #14 tab 02/06/21 ondansetron 4 mg disintegrating 4 mg PO Q8H PRN #20 tab 02/06/21 tablet acetaminophen 500 mg tablet 1,000 mg PO QID PRN #14 tab 08/06/21 (Tylenol Extra Strength) cyclobenzaprine 10 mg tablet 10 mg PO Q8H PRN #14 tab 08/06/21 amoxicillin 500 mg tablet 500 mg PO BID #20 tab 08/13/21 ibuprofen 600 mg tablet 600 mg PO Q8H PRN #20 tab 08/13/21 Allergies Allergy/AdvReac Type Severity Reaction Status Date / Time No Known Allergies Allergy Verified 08/05/21 21:37 Review of Systems Review of Systems: Yes all other systems are reviewed and are negative Constitutional: Constitutional: Reports no additional constitutional complaints, Denies body ache(s), Denies chills, Denies fever(s), Denies headache(s) and Denies weakness Eyes: Eyes: Reports no additional eye complaints and Denies change in vision ENT: Reports system reviewed and no additional complaints, except as documented, Denies dizziness, Denies headache(s), Denies nasal congestion, Denies nasal discharge, Denies neck pain and Reports sore throat Cardiovascular: Cardiovascular: Reports no additional cardiovascular complaints, Denies chest pain, Denies leg edema and Denies dyspnea Respiratory: Respiratory: Reports no additional respiratory complaints, Denies cough and Denies dyspnea Gastrointestinal: Gastrointestinal: Reports no additional gastrointestinal complaints, Denies abdominal pain, Denies diarrhea, Denies nausea and Denies vomiting Genitourinary: Genitourinary: Reports no additional female genitourinary complaints and Denies urinary incontinence Musculoskeletal: Musculoskeletal: Reports no additional musculoskeletal complaints, Denies back pain, Denies arthralgias, Denies joint swelling, Denies neck pain, Denies numbness and Denies tingling Integumentary/Breasts: Skin/Breast: Reports system reviewed and no additional complaints, except as docu and Denies rash Neurologic: Reports system reviewed and no additional complaints, except as documented, Denies Abnormal speech present, Denies dizziness, Denies headach e(s), Denies numbness, Denies tingling and Denies weakness PMFSH Past Medical History Attestation statement: The following information was validated with the patient. Source: old records reviewed and nursing notes reviewed Medical History No known health problems Social History Social History Alcohol intake: never Advance Directives: No Advance Directives Information Provided: No Patient : No Physical Exam Vital Signs: Vital Signs: Last Vital Signs Temp 98.0 F 08/13/21 18:25 Pulse 82 08/13/21 18:25 Resp 16 08/13/21 18:25 BP 100/58 L 08/13/21 18:25 Pulse Ox 100 08/13/21 18:25 Body Mass Index 21.1 Const: General: cooperative, healthy appearing, comfortable and no acute distress Orientation/consciousness: patient oriented x3 Limitations: no limitations HENMT: Head: Yes normal to inspection Ears: hearing grossly normal bilaterally and TM's normal bilaterally General nose exam: Normal external nose present Face and sinus: Yes normal facial exam Mouth: Normal oral and palatal mucosa present Throat: Yes posterior oropharynx normal, Yes uvula midline and Yes abnormal tonsil (Bilateral tonsillar swelling and erythema) Eyes: General: appearance normal, both eyes and all related structures Pupils: Equal, round and reactive pupils present Neck: Neck: Yes normal visual inspection, Yes full ROM, Yes no lymphadenopathy and Yes no meningeal signs Chest: Chest palpation & inspection: normal inspection of the chest Resp: Effort & Inspection: normal respiratory effort Auscultation: clear to auscultation bilaterally Cardio: Rate: regular rate Rhythm: regular rhythm Peripheral pulses: Peripheral pulses 2+ throughout GI: Inspection: Yes normal to inspection Palpation (GI): Soft to palpation and nontender Auscultation: normal bowel sounds Back/Spine/Pelvis: Thoracic/Lumbar Spine: thoracic and lumbar spine normal to inspection Skin: General skin exam: no rashes or lesions noted Neuro: General: patient oriented x3, no meningeal signs, no focal motor deficits and normal sensation to monofilament Cranial nerves: Yes Equal, round and reactive pupils present Cognition (Neuro): normal cognition Speech: No Abnormal speech present Gait exam (Neuro): Normal gait present Motor exam (neuro): 5/5 motor strength present throughout Extrem: General: Yes normal to inspection, Yes no pedal edema and Yes no calf tenderness Course Course Course Narrative: 26-year-old female here with complaints of sore throat for several days. History of strep in feels similar. Will send COVID screen and strep swab 1850-rapid strep is positive. 1900-rapid COVID is negative. Will discharge patient home with course of antibiotics. Reviewed worrisome signs and symptoms of when to return to the emergency department. Comfortable discharge home. MDM - URI/Sore Throat Medical Records Attestation: I reviewed the patient's medical records. Lab Data Attestation: I reviewed the patient's lab results. Labs: Lab Results 08/13/21 08/13/21 Range/Units 18:31 18:31 COVID-19 ([facility]ILLIAM) Negative (Negative) COVID-19 Clin Com See Note S. pyogenes GrpA JOSE Positive A (Negative) Discharge Plan Discharge Clinical Impression: Pharyngitis Patient Disposition: Home, Self-Care Instructions: Pharyngitis (ED) Additional Instructions: Strep test is positive. Rapid COVID is negative. Increase fluids, rest, alternate Motrin or Tylenol if able as needed for pain or fever Saltwater gargles as needed. Prescriptions: New amoxicillin 500 mg tablet 500 mg PO BID Qty: 20 RF: 0 ibuprofen 600 mg tablet 600 mg PO Q8H PRN (Reason: fever or pain) Qty: 20 RF: 0 No Action naproxen [Naprosyn] 500 mg tablet 500 mg PO BID Qty: 20 RF: 0 ibuprofen 600 mg tablet 600 mg PO Q6H PRN (Reason: pain) Qty: 20 RF: 0 cyclobenzaprine 10 mg tablet 10 mg PO TID PRN (Reason: muscle spasm) Qty: 14 RF: 0 ondansetron 4 mg tablet,disintegrating 4 mg PO Q8H PRN (Reason: nausea and vomiting) Qty: 20 RF: 0 cyclobenzaprine 10 mg tablet 10 mg PO Q8H PRN (Reason: Muscle spasm) Qty: 14 RF: 0 acetaminophen [Tylenol Extra Strength] 500 mg tablet 1,000 mg PO QID PRN (Reason: fever or pain) Qty: 14 RF: 0 Referrals: Physician,None [Primary Care Provider] - 2 days Interventions: ED Discharge Assessment Last Done: 08/13/21 19:06 Discharge Date/Time: 08/13/21 19:06
[2021-08-13 18:25] VITALS: BP 100/58; PULSE 82; RESP 16; TEMP 36.7; O2SAT 100; BMI 21.1
[2021-08-13 18:44] LABS: IDNOW Serial# 9DD0AD1C; Strep A Nucleic Acid Positive (Negative)
[2021-08-13 18:54] LABS: COVID-19 Test Negative (Negative)
== END 2021-08-13 19:06 | disposition home or self-care (01) ==
PROVIDERS: Nurse Practitioner Family; Emergency Provider Internal Medicine
DX: J02.9 Acute pharyngitis, unspecified (principal); Z20.822 Contact with and (suspected) exposure to COVID-19; Z79.899 Other long term (current) drug therapy
CPT/HCPCS: 36415; 87635; 87651; 99283

== ENCOUNTER 2021-10-11 18:38 | Emergency (ER) | payer OTHER, SELFPAY ==
[2021-10-11 19:05] VITALS: BP 119/79; PULSE 74; RESP 16; TEMP 36.8; O2SAT 100; BMI 21.1
[2021-10-11 19:12] VITALS: BMI 21.3
--- NOTE | 2021-10-11 19:50 | ED_ITS ---
HPI - General Adult General Chief complaint: General Medical Stated complaint: bodyaches Time Seen by Provider: 10/11/21 19:50 Source: patient Mode of arrival: ambulatory Limitations: no limitations History of Present Illness HPI narrative: Patient is a 26 year old female presenting to the emergency department today with body aches. Patient states that for the last week, she has felt unwell with body aches. Patient states she took a at home COVID-19 rapid test was positive however, she took another 1 a few days later that was negative. Patient denies any dizziness, lightheadedness, abdominal pain, nausea, vomiting, fever, chills, blurry vision, double vision, loss of vision, chest pain, difficulty breathing, shortness of breath, back pain, night sweats, pain with urination, increased urinary frequency, increased urinary urgency, blood in her urine or stool, syncope or a near syncopal episode, recent trauma or falls, bowel incontinence, bladder incontinence, bowel retention, bladder retention, or any other complaints at this time. Onset (ago): day(s) Severity: mild Severity scale (1-10): 3 Relieving factors: none Exacerbating factors: none Associated symptoms: denies other symptoms Related Data Previous Rx's Medication Instructions Recorded naproxen 500 mg tablet (Naprosyn) 500 mg PO BID #20 tab 08/02/20 ibuprofen 600 mg tablet 600 mg PO Q6H PRN #20 tab 11/22/20 cyclobenzaprine 10 mg tablet 10 mg PO TID PRN #14 tab 02/06/21 ondansetron 4 mg disintegrating 4 mg PO Q8H PRN #20 tab 02/06/21 tablet acetaminophen 500 mg tablet 1,000 mg PO QID PRN #14 tab 08/06/21 (Tylenol Extra Strength) cyclobenzaprine 10 mg tablet 10 mg PO Q8H PRN #14 tab 08/06/21 amoxicillin 500 mg tablet 500 mg PO BID #20 tab 08/13/21 ibuprofen 600 mg tablet 600 mg PO Q8H PRN #20 tab 08/13/21 fluticasone propionate 50 1 spray INTRANASAL BID #1 units 10/11/21 mcg/actuation nasal spray,suspension (Flonase Allergy Relief) Allergies Allergy/AdvReac Type Severity Reaction Status Date / Time No Known Allergies Allergy Verified 08/05/21 21:37 Review of Systems Constitutional: Constitutional: Reports no additional constitutional complaints, Reports body ache(s), Denies chills, Denies fever(s) and Denies night sweats Eyes: Eyes: Reports no additional eye complaints, Denies blurry vision, Denies change in vision, Denies diplopia, Denies eye discharge, Denies loss of vision a nd Denies eye pain ENT: Denies dizziness Cardiovascular: Cardiovascular: Reports no additional cardiovascular compla ints, Denies chest pain, Denies lightheadedness, Denies Loss of Consciousness and Denies dyspnea Respiratory: Respiratory: Reports no additional respiratory complaints and Denies dyspnea Gastrointestinal: Gastrointestinal: Reports no additional gastrointestinal complaints, Denies abdominal pain, Denies melena, Denies hematochezia, Denies change in bowel habits and Denies change in stool character Genitourinary: Genitourinary: Denies hematuria, Denies urinary frequency, Denies dysuria, Denies urinary incontinence, Denies urinary hesitancy and Denies urinary urgency Musculoskeletal: Musculoskeletal: Reports no additional musculoskeletal complaints, Denies numbness and Denies tingling Neurologic: Denies dizziness, Denies loss of vision, Denies numbness and Denies tingling Psychiatric: Psychiatric: Reports no additional psychiatric complaints Endocrine: Endocrine: Reports no additional endocrine complaints Hematologic/Lymphatic: Hematologic/Lymphatic: Reports no additional hematolo gic/lymphatic complaints Allergic/Immunologic: Allergic/Immunologic: Reports no additional allergic/immunologic complaints [facility] Past Medical History Attestation statement: The following information was validated with the patient. Medical History No known health problems Social History Social History Alcohol intake: never Advance Directives: No Patient : No Physical Exam Vital Signs: Vital Signs: Last Vital Signs Temp 98.2 F 10/11/21 19:05 Pulse 74 10/11/21 19:05 Resp 16 10/11/21 19:05 BP 119/79 10/11/21 19:05 Pulse Ox 100 10/11/21 19:05 BMI result Body Mass Index 21.3 Resp: Effort & Inspection: normal respiratory effort and able to speak in complete sentences Auscultation: clear to auscultation bilaterally GI: Palpation (GI): Soft to palpation, not firm and nontender Medical Decision Making MDM Narrative Medical decision making narrative: Patient is a 26 year old female presenting to the emergency department today with generalized body aches. Patient's physical exam was unremarkable. Patient's rapid COVID test was positive with a negative influenza test. I explained my physical exam findings as well as all test results to the patient. I answered all questions asked by the patient. Patient received IM Toradol which she stated helped her symptoms significantly. I stressed the importance of the patient taking her medication as prescribed. I stressed the importance of the patient following up with her primary care provider. I stressed the importance of the patient returning to the emergency department immediately if her symptoms were to worsen or if she were to develop any dizziness, shortness of breath, difficulty breathing, chest pain, blurry vision, loss of vision, nausea, vomiting, abdominal pain, fever, chills, back pain, or any other complaints. Patient verbalized agreement and understanding with this treatment plan and d ischarge. Differential Diagnosis Differential Diagnosis: COVID-19, influenza, viral illness Medical Records Medical records reviewed: Yes I reviewed the patient's medical records. Lab Data Lab results reviewed: Yes I reviewed the patient's lab results. Labs: Lab Results 10/11/21 Range/Units 21:05 Influenza Type A (PCR) NEGATIVE (Negative) Influenza Type B (PCR) NEGATIVE (Negative) RSV RNA Qual (PCR) NEGATIVE (Negative) SARS-CoV-2 RNA (RT-PCR) POSITIVE A (Negative) Discharge Plan Discharge Clinical Impression: COVID-19 Patient Disposition: Home, Self-Care Instructions: COVID-19 (Coronavirus Disease 2019) (ED) Additional Instructions: Call to discuss finding and establishing with a primary care provider. Prescriptions: New fluticasone propionate [Flonase Allergy Relief] 50 mcg/actuation spray,suspension 1 spray intranasal BID Qty: 1 RF: 0 No Action naproxen [Naprosyn] 500 mg tablet 500 mg PO BID Qty: 20 RF: 0 ibuprofen 600 mg tablet 600 mg PO Q6H PRN (Reason: pain) Qty: 20 RF: 0 cyclobenzaprine 10 mg tablet 10 mg PO TID PRN (Reason: muscle spasm) Qty: 14 RF: 0 ondansetron 4 mg tablet,disintegrating 4 mg PO Q8H PRN (Reason: nausea and vomiting) Qty: 20 RF: 0 amoxicillin 500 mg tablet 500 mg PO BID Qty: 20 RF: 0 ibuprofen 600 mg tablet 600 mg PO Q8H PRN (Reason: fever or pain) Qty: 20 RF: 0 cyclobenzaprine 10 mg tablet 10 mg PO Q8H PRN (Reason: Muscle spasm) Qty: 14 RF: 0 acetaminophen [Tylenol Extra Strength] 500 mg tablet 1,000 mg PO QID PRN (Reason: fever or pain) Qty: 14 RF: 0 Interventions: ED Discharge Assessment Last Done: 10/11/21 23:13 Print Language: [place]
[2021-10-11] MEDS: Ketorolac Tromethamine 30 MG/ML VIAL IM (20:47)
[2021-10-11 21:50] LABS: Influenza A PCR NEGATIVE (Negative); Influenza B PCR NEGATIVE (Negative); Resp Syncy Virus RNA Qual PCR NEGATIVE (Negative); SARS COV2 PCR INHOUSE POSITIVE (Negative)
== END 2021-10-11 23:15 | disposition home or self-care (01) ==
PROVIDERS: Physician Assistant Medical; Emergency Provider Internal Medicine
DX: U07.1 COVID-19 (principal)
CPT/HCPCS: 0241U; 96372; 99283; 99284; J1885

== ENCOUNTER 2021-10-13 23:31 | Emergency (ER) | payer OTHER, SELFPAY ==
--- NOTE | 2021-10-13 | ECG_ITS ---
Test Reason : CP Blood Pressure : / mmHG Vent. Rate : 079 BPM Atrial Rate : 079 BPM P-R Int : 152 ms QRS Dur : 078 ms QT Int : 346 ms P-R-T Axes : 064 079 027 degrees QTc Int : 396 ms Normal sinus rhythm Normal ECG When compared with ECG of 22-NOV-2020 13:39, No significant change was found Referred By: Generic ED Physician Electronically Signed By:SOURAV ALMONTE MD
--- NOTE | ~2021-10-13 | XR_ITS ---
EXAMINATION: XR CHEST CLINICAL INFORMATION: COVID positive. COMPARISON: Chest radiograph dated from 08/06/2021. TECHNIQUE: AP view of the chest was obtained. FINDINGS: No significant abnormality is noted involving the heart, lungs, mediastinum, bony thorax or soft tissues. XR/XR chest 1V IMPRESSION: No acute cardiopulmonary findings.
[2021-10-13 23:41] VITALS: BP 116/88; PULSE 73; RESP 16; TEMP 37.2; O2SAT 100; BMI 20.7
--- NOTE | 2021-10-13 23:57 | ED_ITS ---
HPI - Chest Pain General Chief Complaint: Chest Pain Stated Complaint: chest pain, L arm pain Time Seen by Provider: 10/13/21 23:37 Source: patient Mode of arrival: ambulatory Limitations: no limitations History of Present Illness HPI narrative: Patient wakened against COVID has not received a booster dose tested positive for COVID on 10/05 been coughing body aches burning sensation in the chest got worse today also has a malaise and body aches no fever no chills having lot of dry cough Related Data Previous Rx's Medication Instructions Recorded naproxen 500 mg tablet (Naprosyn) 500 mg PO BID #20 tab 08/02/20 ibuprofen 600 mg tablet 600 mg PO Q6H PRN #20 tab 11/22/20 cyclobenzaprine 10 mg tablet 10 mg PO TID PRN #14 tab 02/06/21 ondansetron 4 mg disintegrating 4 mg PO Q8H PRN #20 tab 02/06/21 tablet acetaminophen 500 mg tablet 1,000 mg PO QID PRN #14 tab 08/06/21 (Tylenol Extra Strength) cyclobenzaprine 10 mg tablet 10 mg PO Q8H PRN #14 tab 08/06/21 amoxicillin 500 mg tablet 500 mg PO BID #20 tab 08/13/21 ibuprofen 600 mg tablet 600 mg PO Q8H PRN #20 tab 08/13/21 fluticasone propionate 50 1 spray INTRANASAL BID #1 units 10/11/21 mcg/actuation nasal spray,suspension (Flonase Allergy Relief) codeine 10 mg-guaifenesin 100 mg/5 10 ml PO Q6-8H PRN #240 ml 10/14/21 mL oral liquid Allergies Allergy/AdvReac Type Severity Reaction Status Date / Time No Known Allergies Allergy Verified 10/13/21 23:46 Review of Systems 2 Review of Systems: Yes all other systems are reviewed and are negative PMFSH Past Medical History Medical History No known health problems Social History Social History Alcohol intake: never Advance Directives: No Patient : No Physical Exam Vital Signs: Vital Signs: Last Vital Signs Temp 98.9 F 10/14/21 00:19 Pulse 80 10/14/21 00:19 Resp 18 10/14/21 00:19 BP 116/77 10/14/21 00:19 Pulse Ox 98 10/14/21 00:19 BMI result Body Mass Index 20.7 Appearance: Alert. Oriented X3. No acute distress. ENT: Pharynx normal. Oral Mucosa moist Neck: Normal inspection. Neck supple. CVS: Normal heart rate and rhythm. Pulses normal. Respiratory: No respiratory distress. Equal air entry bilateral, no wheezing/rales/rhonchi Abdomen: Soft and nontender. Skin: Skin warm and dry. Normal skin color. Normal skin turgor. Extremities: No lower extremity edema. No calf tenderness Neuro: Oriented X 3. MDM - Chest Pain MDM Narrative Medical decision making narrative: Patient post COVID-19 symptoms with dry cough and burning sensation in the chest will do a chest x-ray and give cough syrup CXR negative for infiltrate will discharge patient home ECG Data ECG #1: Attestation: I personally reviewed and interpreted this ECG as follows: Interpretation: Normal sinus rhythm heart rate 79 beats per minute normal interval normal axis ischemic changes impression normal EKG Discharge Plan Discharge Clinical Impression: COVID-19 Patient Disposition: Home, Self-Care Instructions: COVID-19 (Coronavirus Disease 2019) (ED) Additional Instructions: Take cough syrup as advised Drink plenty of fluids Prescriptions: New codeine-guaifenesin 10-100 mg/5 mL liquid 10 ml PO Q6-8H PRN (Reason: Cough) Qty: 240 RF: 0 No Action naproxen [Naprosyn] 500 mg tablet 500 mg PO BID Qty: 20 RF: 0 ibuprofen 600 mg tablet 600 mg PO Q6H PRN (Reason: pain) Qty: 20 RF: 0 cyclobenzaprine 10 mg tablet 10 mg PO TID PRN (Reason: muscle spasm) Qty: 14 RF: 0 ondansetron 4 mg tablet,disintegrating 4 mg PO Q8H PRN (Reason: nausea and vomiting) Qty: 20 RF: 0 amoxicillin 500 mg tablet 500 mg PO BID Qty: 20 RF: 0 ibuprofen 600 mg tablet 600 mg PO Q8H PRN (Reason: fever or pain) Qty: 20 RF: 0 fluticasone propionate [Flonase Allergy Relief] 50 mcg/actuation spray,s uspension 1 spray intranasal BID Qty: 1 RF: 0 cyclobenzaprine 10 mg tablet 10 mg PO Q8H PRN (Reason: Muscle spasm) Qty: 14 RF: 0 acetaminophen [Tylenol Extra Strength] 500 mg tablet 1,000 mg PO QID PRN (Reason: fever or pain) Qty: 14 RF: 0
[2021-10-14] MEDS: guaiFEN/Codeine SF 200/20/10ML 10 ML LIQUID PO (00:18)
[2021-10-14 00:19] VITALS: BP 116/77; PULSE 80; RESP 18; TEMP 37.2; O2SAT 98
== END 2021-10-14 01:16 | disposition home or self-care (01) ==
PROVIDERS: Emergency Provider Internal Medicine
DX: U07.1 COVID-19 (principal); R07.89 Other chest pain; M79.10 Myalgia, unspecified site; R50.9 Fever, unspecified; Z79.899 Other long term (current) drug therapy
CPT/HCPCS: 71045; 93005; 99284

== ENCOUNTER 2021-10-21 09:20 | Emergency (ER) | payer OTHER, SELFPAY ==
[2021-10-21 09:21] VITALS: BP 146/88; PULSE 89; RESP 18; TEMP 36.6; O2SAT 99; BMI 20.7
--- NOTE | 2021-10-21 09:48 | ED_ITS ---
HPI - Neuro Symptoms/Deficit General Chief Complaint: Neuro Symptoms/Deficit Stated Complaint: Body aches Time Seen by Provider: 10/21/21 09:34 Source: patient Mode of arrival: ambulatory Limitations: no limitations History of Present Illness HPI Narrative: 26-year-old female COVID positive patient presents to ED for recurring body aches, generalized tingling, and resolved headache. Patient states she had loss of taste and smell but they returned. patients still having body aches, and fatigue. Patient admits to history of migraine headache. patient states headache last night improved with Motrin and Tylenol. Patient states Motrin does alleviate body aches but came to ED to be evaluated. Patient states presently she is asymptomatic. Patient denies any slurred speech, loss of vision paralysis of extremities, facial droop dizziness, chest pain, shortness of breath, passing out, or trouble walking. Related Data Previous Rx's Medication Instructions Recorded naproxen 500 mg tablet (Naprosyn) 500 mg PO BID #20 tab 08/02/20 ibuprofen 600 mg tablet 600 mg PO Q6H PRN #20 tab 11/22/20 cyclobenzaprine 10 mg tablet 10 mg PO TID PRN #14 tab 02/06/21 ondansetron 4 mg disintegrating 4 mg PO Q8H PRN #20 tab 02/06/21 tablet acetaminophen 500 mg tablet 1,000 mg PO QID PRN #14 tab 08/06/21 (Tylenol Extra Strength) cyclobenzaprine 10 mg tablet 10 mg PO Q8H PRN #14 tab 08/06/21 amoxicillin 500 mg tablet 500 mg PO BID #20 tab 08/13/21 ibuprofen 600 mg tablet 600 mg PO Q8H PRN #20 tab 08/13/21 fluticasone propionate 50 1 spray INTRANASAL BID #1 units 10/11/21 mcg/actuation nasal spray,suspension (Flonase Allergy Relief) codeine 10 mg-guaifenesin 100 mg/5 10 ml PO Q6-8H PRN #240 ml 10/14/21 mL oral liquid Allergies Allergy/AdvReac Type Severity Reaction Status Date / Time No Known Allergies Allergy Verified 10/13/21 23:46 Review of Systems Verdana 4l Review of Systems: Verdana 4d Resolved headache. Verdana 4d Generalized body aches. Generalized tingling Verdana 4d Yes all other systems are reviewed and are negative Verdana 4l ENT: Verdana 4d Reports Normal hearing present Verdana 4l Neurologic: Verdana 4d Reports Normal hearing present and Reports Abnormal speech present [facility] Past Medical History Medical History No known health problems Social History Social History Alcohol intake: never Advance Directives: No Advance Directives Information Provided: No Patient : No Physical Exam Verdana 4l Vital Signs: Verdana 4d Verdana 4d Vital Signs: Verdana 4d Verdana 4Bd Last Vital Signs Verdana 4d R D Engineer New 4d R D Engineer New 4d Temp 97.8 F 10/21/21 09:21 R D Engineer New 4d Pulse 89 10/21/21 09:21 R D Engineer New 4d Resp 18 10/21/21 09:21 BP 146/88 H 10/21/21 09:21 Pulse Ox 99 10/21/21 09:21 BMI result Body Mass Index 20.7 Const: General: cooperative, healthy appearing, comfortable, no acute distress, well developed, alert, awake and Physically active Orientation/consciousness: oriented to person, oriented to place, oriented to time and patient oriented x3 HENMT: Head: Yes normal to inspection, Yes No palpable skull fracture present, Yes normocephalic and Yes atraumatic Ears: hearing grossly normal bilaterally, external ears normal, TM's normal bilaterally, EAC's normal, mastoids normal and no periauricular adenopathy Eyes: Other: Negative nystagmus General: appearance normal, both eyes and all related structures Pupils: Equal, round and reactive pupils present Neck: Neck: Yes normal visual inspection, Yes full ROM, Yes no lymphadenopathy, Yes no meningeal signs, Yes trachea midline, Yes supple, No anterior neck swelling and No tender Chest: Chest palpation & inspection: normal inspection of the chest and normal palpation of entire chest wall Resp: Effort & Inspection: normal respiratory effort and able to speak in complete sentences Auscultation: clear to auscultation bilaterally Cardio: Jugular venous distension: no JVD Heart sounds: S1 normal heart sound present and S2 normal heart sound present GI: Inspection: Yes normal to inspection and No abdominal wall ecchymosis Palpation (GI): Soft to palpation, not firm, nontender, no guarding and not rigid : General: No CVA tenderness and Yes no CVA tenderness Back/Spine/Pelvis: Back: no CVA tenderness, No CVA tenderness and No back tenderness Skin: General skin exam: no rashes or lesions noted, elasticity normal and turgor normal Neuro: Other: Negative facial droop. Other extremities equal strength 5+. [id number] and rapid hand movement intact. Negative Romberg. Negative pronator drift. Negative slurred speech General: oriented to person, oriented to place, orient ed to time, patient oriented x3, gait normal, moves all extremities, Normal light touch and pain sensation, no meningeal signs, no focal motor deficits, CN's II-XI intact bilaterally and normal sensation to monofilament Cranial nerves: Yes CN's II-XII intact bilaterally, Yes Facial sensation intact/muscles of mastication intact, Yes Intact sense of smell present, Yes Equal, round and reactive pupils present, Yes Normal accommodation reflex present, Yes Bilaterally intact EOM present, Yes Nystagmus not present, Yes Normal facial strength present, Yes Midline tongue present, Yes Normal gag reflex present, Yes Normal hearing present, Yes Ability to bilaterally rotate head present and Yes Ability to bilaterally elevate shoulders present Cognition (Neuro): normal cognition Speech: Abnormal speech present Gait exam (Neuro): Normal gait present Motor exam (neuro): 5/5 motor strength present throughout, Pronator motor function not present, no tremor noted, no asterixis and Motor fasciculations not present Sensory Exam: Normal double simultaneous stimulation for sensation Course Course Course Narrative: Physical exam performed. Reevaluation(s) Reevaluation #1: Vital signs are stable. Negative for any neuro deficits. NIH score 0. Patient given reassurance. Presently not suspecting any stroke, brain bleed, brain mass, meningitis, or cavernous sinus thrombosis. Presently patient is asymptomatic. Patient states history of migraine. Patient informed she tested once she is tested negative for COVID she could contact her PCP for referral to Neurology. Patient is safe for discharge. NO imaging indicated. Patient educated on symptoms of stroke, brain bleed, brain mass, meningitis, and cavernous sinus thrombosis and informed to return to ED immediately if she has them. Patient states she has NSAIDs at home. Time: 09:57 NIH Stroke Scale Level of Consciousness: Alert Level of Consciousness Questions: Answers both questions correctly Level of Consciousness Commands: Performs both tasks correctly Best Gaze: Normal Visual: No visual loss Facial Palsy: Normal Motor Arm (Right): No drift Motor Arm (Left): No drift Motor Leg (Right): No drift Motor Leg (Left): No drift Limb Ataxia: Absent Sensory: Normal Best Language: No aphasia Dysarthia: Normal Extinction and Inattention: No abnormality Score: 0 Discharge Plan Discharge Clinical Impression: COVID-19, Myalgia, Migraine Patient Disposition: Home, Self-Care Instructions: Migraine Headache (ED), Musculoskeletal Pain (ED), COVID-19 (Coronavirus Disease 2019) (ED) Additional Instructions: Return to the ED immediately for any slurred speech, loss of vision, paralysis of her extremities, facial droop, headache, dizziness, weakness, shortness of breath, chest pain on exertion, coughing up blood, intractable fever, inability to tolerate solid food/liquid, or any other concerning symptoms. Please follow- up with primary care provider for referral to Neurology for management of migraine. Prescriptions: No Action naproxen [Naprosyn] 500 mg tablet 500 mg PO BID Qty: 20 0RF ibuprofen 600 mg tablet 600 mg PO Q6H PRN (Reason: pain) Qty: 20 0RF cyclobenzaprine 10 mg tablet 10 mg PO TID PRN (Reason: muscle spasm) Qty: 14 0RF ondansetron 4 mg tablet,disintegrating 4 mg PO Q8H PRN (Reason: nausea and vomiting) Qty: 20 0RF amoxicillin 500 mg tablet 500 mg PO BID Qty: 20 0RF ibuprofen 600 mg tablet 600 mg PO Q8H PRN (Reason: fever or pain) Qty: 20 0RF fluticasone propionate [Flonase Allergy Relief] 50 mcg/actuation spray,suspension 1 spray intranasal BID Qty: 1 0RF Rx Instructions: administer into each nostril codeine-guaifenesin 10-100 mg/5 mL liquid 10 ml PO Q6-8H PRN (Reason: Cough) Qty: 240 0RF cyclobenzaprine 10 mg tablet 10 mg PO Q8H PRN (Reason: Muscle spasm) Qty: 14 0RF acetaminophen [Tylenol Extra Strength] 500 mg tablet 1,000 mg PO QID PRN (Reason: fever or pain) Qty: 14 0RF Stand Alone Forms: Work/School Release Interventions: ED Discharge Assessment Last Done: 10/21/21 10:15 Discharge Date/Time: 10/21/21 10:16 Print Language: Ukrainian
== END 2021-10-21 10:16 | disposition home or self-care (01) ==
PROVIDERS: Emergency Provider Emergency Medicine Emergency Medical Services
DX: U07.1 COVID-19 (principal); G43.909 Migraine, unspecified, not intractable, without status migrainosus; M79.10 Myalgia, unspecified site
CPT/HCPCS: 99283

== ENCOUNTER 2021-12-22 14:38 | Emergency (ER) | payer OTHER, SELFPAY ==
--- NOTE | 2021-12-22 | ECG_ITS ---
Test Reason : chest pain Blood Pressure : / mmHG Vent. Rate : 067 BPM Atrial Rate : 067 BPM P-R Int : 158 ms QRS Dur : 078 ms QT Int : 360 ms P-R-T Axes : 053 088 055 degrees QTc Int : 380 ms Normal sinus rhythm Normal ECG When compared with ECG of 13-OCT-2021 23:35, No significant change was found Referred By: Generic ED Physician Electronically Signed By:SOURAV ALMONTE MD
--- NOTE | ~2021-12-22 | XR_ITS ---
EXAMINATION: XR CHEST CLINICAL INFORMATION: Chest x-ray COMPARISON: 10/14/2021 TECHNIQUE: Frontal view of the chest was obtained. FINDINGS: No acute finding. No pneumothorax. No effusion. The cardiac silhouette is within normal limits. Mild scoliosis in the spine. The hilar regions are comparable to previous. XR/XR chest 1V IMPRESSION: No acute finding.
[2021-12-22 14:41] VITALS: BP 135/96; PULSE 71; RESP 16; TEMP 36.7; O2SAT 100; BMI 21.1
== END 2021-12-22 17:44 | disposition left against medical advice (07) ==
PROVIDERS: Emergency Provider Emergency Medicine; PCP Internal Medicine
DX: R07.89 Other chest pain (principal)
CPT/HCPCS: 71045; 93005; 99283

== ENCOUNTER 2021-12-23 00:50 | Emergency (ER) | payer OTHER, SELFPAY ==
[2021-12-23 00:55] VITALS: BP 125/83; PULSE 68; RESP 16; TEMP 36.6; O2SAT 98; BMI 21.1
[2021-12-23 01:58] LABS: MANUAL DIFF FLAG NO
[2021-12-23 01:59] LABS: Basophils Absolute Auto 0.1 X10*3/uL (0.0-0.2); Basophils Percent Auto 0.9 % (0-2); Eosinophils Absolute Auto 0.2 X10*3/uL (0.0-0.4); Hematocrit 40.9 % (37.0-47.0); Hemoglobin 13.4 g/dl (12.0-16.0); Imm Gran Abs Auto 0.01 X10*3/uL (0.00-0.03); Imm Gran Pct Auto 0.1 % (0.0-0.4); Lymphocytes Absolute Auto 2.8 X10*3/uL (1.2-4.9); Lymphocytes Percent Auto 32.4 % (20-40); Mean Corpuscular HGB Conc 32.8 g/dl (31.0-35.0); Mean Corpuscular Hemoglobin 28.8 pg (27.0-33.0); Monocytes Absolute Auto 0.4 X10*3/uL (0.1-1.2); Neutrophils Absolute Auto 5.1 x10*3/uL (2.0-8.3); Neutrophils Percent Auto 59.6 % (45-73); Platelet Count 266 X10*3/uL (160-400); Red Blood Count 4.65 X10*6/uL (4.20-5.50); Red Cell Distribution Width 13.5 % (11.0-16.0); White Blood Count 8.6 X10*3/uL (4.8-10.8)
[2021-12-23 02:16] LABS: Alanine Aminotransferase 31 U/L (0-31); Albumin Level 4.4 g/dL (3.5-5.0); Alkaline Phosphatase 68 U/L (39-117); Anion Gap 13 (12-20); Aspartate Amino Transferase 21 U/L (5-31); Bilirubin Total 0.6 mg/dL (0.0-1.0); Blood Urea Nitrogen 13 mg/dL (9-16); Calcium 9.9 mg/dL (8.4-10.2); Carbon Dioxide 26 mmol/L (22-29); Chloride 107 mmol/L (96-108); Creatinine Clr Calc Pharmacy 77.9; D Dimer High Sensitivity < 150 NG/ML; Estimated Glomerular Filt Rate > 60; Glucose Random 91 mg/dL (60-115); Potassium 4.4 mmol/L (3.3-5.1); Sodium 142 mmol/L (135-145); Total Protein 7.1 g/dL (6.5-8.0)
[2021-12-23 02:19] LABS: Troponin-I High Sensitivity < 3.5 ng/L (<3.5-17.0)
--- NOTE | 2021-12-23 03:52 | ED.CHESTPAIN ---
HPI - Chest Pain General Chief Complaint: Chest Pain Stated Complaint: chest pain & pressure around back Time Seen by Provider: 12/23/21 02:30 Source: patient Mode of arrival: ambulatory History of Present Illness HPI narrative: 26-year-old female without significant past medical history presents with chest wall pain and sharpness that is like a needle poking her, transient nature and nonradiating and no trauma. This is stop med associated with any fever, chills, nausea, vomiting, diaphoresis/dizziness/headache/shortness of breath. Patient does states that on deep inspiration she will sometimes feel that the pain worsens. Related Data Previous Rx's Medication Instructions Recorded naproxen 500 mg tablet (Naprosyn) 500 mg PO BID #20 tab 08/02/20 ibuprofen 600 mg tablet 600 mg PO Q6H PRN #20 tab 11/22/20 cyclobenzaprine 10 mg tablet 10 mg PO TID PRN #14 tab 02/06/21 ondansetron 4 mg disintegrating 4 mg PO Q8H PRN #20 tab 02/06/21 tablet acetaminophen 500 mg tablet 1,000 mg PO QID PRN #14 tab 08/06/21 (Tylenol Extra Strength) cyclobenzaprine 10 mg tablet 10 mg PO Q8H PRN #14 tab 08/06/21 amoxicillin 500 mg tablet 500 mg PO BID #20 tab 08/13/21 ibuprofen 600 mg tablet 600 mg PO Q8H PRN #20 tab 08/13/21 fluticasone propionate 50 1 spray INTRANASAL BID #1 units 10/11/21 mcg/actuation nasal spray,suspension (Flonase Allergy Relief) codeine 10 mg-guaifenesin 100 mg/5 10 ml PO Q6-8H PRN #240 ml 10/14/21 mL oral liquid acetaminophen 500 mg tablet 1,000 mg PO Q6H PRN #240 tab 12/23/21 (Tylenol Extra Strength) ibuprofen 400 mg tablet 400 mg PO Q6H PRN #240 tab 12/23/21 Allergies Allergy/AdvReac Type Severity Reaction Status Date / Time No Known Allergies Allergy Verified 12/22/21 14:46 Review of Systems Review of Systems: Pertinent positives and negatives as stated in HPI 10 point review of systems is otherwise negative. [facility] Past Medical History Source: nursing notes reviewed Medical History No known health problems Social History Social History Alcohol intake: never Advance Directives: No Patient : No Physical Exam Vital Signs: Vital Signs: Last Vital Signs Temp 97.9 F 12/23/21 00:55 Pulse 68 12/23/21 00:55 Resp 16 12/23/21 00:55 BP 125/83 12/23/21 00:55 Pulse Ox 98 12/23/21 00:55 BMI result Body Mass Index 21.1 VITAL SIGNS: Reviewed. GENERAL: Well developed, well nourished, in no acute distress. HEAD: Normocephalic/atraumatic EYES: PERRLA, EOMI EARS: Ext canals without abnormality OROPHARYNX: no oral lesions noted, posterior pharynx clear LUNGS: Normal breath sounds, no tachypnea/wheeze/rhonchi/rales. SpO2<98> CARDIOVASCULAR: Regular rate and rhythm without noted murmurs ABDOMEN: Soft, non-tender, non-distended with bowel sounds. MUSCULOSKELETAL: No tenderness, deformities, or effusions noted on gross inspection. EXTREMITIES: No cyanosis, clubbing or edema. SKIN: Inspection of the skin reveals no rashes NEUROLOGIC: Alert and oriented x 4. Strength and sensation to light touch were grossly intact x 4. Course Course Course Narrative: 26-year-old female with history and clinical presentation most consistent with chest wall pain in suspect costochondritis and on review of all investigations there are no acute findings to suggest PE, pneumonia, cardiac ischemia. Patient was informed of all results and findings and is otherwise discharged home in stable condition. MDM - Chest Pain Lab Data Result diagrams: 12/23/21 01:52 12/23/21 01:52 Labs: Lab Results 12/23/21 12/23/21 12/23/21 Range/Units 01:52 01:52 01:52 WBC 8.6 (4.8-10.8) X10*3/uL RBC 4.65 (4.20-5.50) X10*6/uL Hgb 13.4 (12.0-16.0) g/dl Hct 40.9 (37.0-47.0) % MCV 88.0 (80.0-98.0) fL MCH 28.8 (27.0-33.0) pg MCHC 32.8 (31.0-35.0) g/dl RDW 13.5 (11.0-16.0) % Plt Count 266 (160-400) X10*3/uL MPV 10.0 (9.4-12.3) fL Immature Gran % (Auto) 0.1 (0.0-0.4) % Neut % (Auto) 59.6 (45-73) % Lymph % (Auto) 32.4 (20-40) % [place] % (Auto) 5.0 (2-11) % Eos % (Auto) 2.0 (0-4) % Baso % (Auto) 0.9 (0-2) % Lymph # (Auto) 2.8 (1.2-4.9) X10*3/uL [place] # (Auto) 0.4 (0.1-1.2) X10*3/uL Eos # (Auto) 0.2 (0.0-0.4) X10*3/uL Baso # (Auto) 0.1 (0.0-0.2) X10*3/uL Abs Immat Gran (auto) 0.01 (0.00-0.03) X10*3/uL Absolute Neuts (auto) 5.1 (2.0-8.3) x10*3/uL Absolute Nucleated RBC 0.000 (0.0-0.012) X10*3/uL Nucleated RBC % (auto) 0.0 (0.0-0.2) /100WBC D-Dimer High Sensitivty < 150 NG/ML Sodium 142 (135-145) mmol/L Potassium 4.4 (3.3-5.1) mmol/L Chloride 107 (96-108) mmol/L Carbon Dioxide 26 (22-29) mmol/L Anion Gap 13 (12-20) BUN 13 (9-16) mg/dL Creatinine 0.81 (0.5-1.4) mg/dL Estim Creat Clear Calc 77.9 Estimated GFR > 60 Random Glucose 91 (60-115) mg/dL Calcium 9.9 (8.4-10.2) mg/dL Total Bilirubin 0.6 (0.0-1.0) mg/dL AST 21 (5-31) U/L ALT 31 (0-31) U/L Alkaline Phosphatase 68 (39-117) U/L Troponin I High Sens (<3.5-17.0) ng/L Total Protein 7.1 (6.5-8.0) g/dL Albumin 4.4 (3.5-5.0) g/dL 12/23/21 Range/Units 01:52 WBC (4.8-10.8) X10*3/uL RBC (4.20-5.50) X10*6/uL Hgb (12.0-16.0) g/dl Hct (37.0-47.0) % MCV (80.0-98.0) fL MCH (27.0-33.0) pg MCHC (31.0-35.0) g/dl RDW (11.0-16.0) % Plt Count (160-400) X10*3/uL MPV (9.4-12.3) fL Immature Gran % (Auto) (0.0-0.4) % Neut % (Auto) (45-73) % Lymph % (Auto) (20-40) % [place] % (Auto) (2-11) % Eos % (Auto) (0-4) % Baso % (Auto) (0-2) % Lymph # (Auto) (1.2-4.9) X10*3/uL [place] # (Auto) (0.1-1.2) X10*3/uL Eos # (Auto) (0.0-0.4) X10*3/uL Baso # (Auto) (0.0-0.2) X10*3/uL Abs Immat Gran (auto) (0.00-0.03) X10*3/uL Absolute Neuts (auto) (2.0-8.3) x10*3/uL Absolute Nucleated RBC (0.0-0.012) X10*3/uL Nucleated RBC % (auto) (0.0-0.2) /100WBC D-Dimer High Sensitivty NG/ML Sodium (135-145) mmol/L Potassium (3.3-5.1) mmol/L Chloride (96-108) mmol/L Carbon Dioxide (22-29) mmol/L Anion Gap (12-20) BUN (9-16) mg/dL Creatinine (0.5-1.4) mg/dL Estim Creat Clear Calc Estimated GFR Random Glucose (60-115) mg/dL Calcium (8.4-10.2) mg/dL Total Bilirubin (0.0-1.0) mg/dL AST (5-31) U/L ALT (0-31) U/L Alkaline Phosphatase (39-117) U/L Troponin I High Sens < 3.5 (<3.5-17.0) ng/L Total Protein (6.5-8.0) g/dL Albumin (3.5-5.0) g/dL Discharge Plan Discharge Clinical Impression: Atypical chest pain, Costalchondritis Patient Disposition: Home, Self-Care Instructions: Costochondritis (ED), Chest Wall Pain (ED) Additional Instructions: 1. Recommend [id number] Tylenol/ibuprofen as needed for pain control. 2. Recommend follow-up with your primary care provider in the next 1-2 days for re-evaluation. Return to the ER for worsening symptoms. Prescriptions: New acetaminophen [Tylenol Extra Strength] 500 mg tablet 1,000 mg PO Q6H PRN (Reason: pain) Qty: 240 0RF ibuprofen 400 mg tablet 400 mg PO Q6H PRN (Reason: pain) Qty: 240 0RF No Action naproxen [Naprosyn] 500 mg tablet 500 mg PO BID Qty: 20 0RF ibuprofen 600 mg tablet 600 mg PO Q6H PRN (Reason: pain) Qty: 20 0RF cyclobenzaprine 10 mg tablet 10 mg PO TID PRN (Reason: muscle spasm) Qty: 14 0RF ondansetron 4 mg tablet,disintegrating 4 mg PO Q8H PRN (Reason: nausea and vomiting) Qty: 20 0RF amoxicillin 500 mg tablet 500 mg PO BID Qty: 20 0RF ibuprofen 600 mg tablet 600 mg PO Q8H PRN (Reason: fever or pain) Qty: 20 0RF fluticasone propionate [Flonase Allergy Relief] 50 mcg/actuation spray,suspension 1 spray intranasal BID Qty: 1 0RF Rx Instructions: administer into each nostril codeine-guaifenesin 10-100 mg/5 mL liquid 10 ml PO Q6-8H PRN (Reason: Cough) Qty: 240 0RF cyclobenzaprine 10 mg tablet 10 mg PO Q8H PRN (Reason: Muscle spasm) Qty: 14 0RF acetaminophen [Tylenol Extra Strength] 500 mg tablet 1,000 mg PO QID PRN (Reason: fever or pain) Qty: 14 0RF
[2021-12-23] MEDS: Acetaminophen 325 MG TABLET 975 MG PO (04:10)
[2021-12-23] MEDS: Ibuprofen 400 MG TABLET PO (04:11)
== END 2021-12-23 04:17 | disposition home or self-care (01) ==
PROVIDERS: Emergency Provider Student in an Organized Health Care Education/Training Program
DX: R07.9 Chest pain, unspecified (principal); M94.0 Chondrocostal junction syndrome [Tietze]
CPT/HCPCS: 36415; 80053; 84484; 85025; 85379; 99283

== ENCOUNTER 2022-06-02 16:11 | Emergency (ER) | payer OTHER, SELFPAY ==
--- NOTE | 2022-06-02 | ECG_ITS ---
Test Reason : chest pain Blood Pressure : / mmHG Vent. Rate : 095 BPM Atrial Rate : 095 BPM P-R Int : 156 ms QRS Dur : 080 ms QT Int : 336 ms P-R-T Axes : 065 084 030 degrees QTc Int : 422 ms Normal sinus rhythm Normal ECG When compared with ECG of 22-DEC-2021 14:55, No significant change was found Referred By: Generic ED Physician Electronically Signed By:JUDI CONWAY
[2022-06-02 17:24] VITALS: BP 140/90; PULSE 79; RESP 12; TEMP 36; O2SAT 100; BMI 21.1
[2022-06-02 17:37] LABS: MANUAL DIFF FLAG NO
[2022-06-02 17:40] LABS: Basophils Absolute Auto 0.1 X10*3/uL (0.0-0.2); Basophils Percent Auto 0.9 % (0-2); Eosinophils Percent Auto 0.4 % (0-4); Hemoglobin 14.8 g/dl (12.0-16.0); Imm Gran Abs Auto 0.02 X10*3/uL (0.00-0.03); Imm Gran Pct Auto 0.2 % (0.0-0.4); Lymphocytes Absolute Auto 1.7 X10*3/uL (1.2-4.9); Lymphocytes Percent Auto 18.8 % (20-40); Mean Corpuscular HGB Conc 34.4 g/dl (31.0-35.0); Mean Corpuscular Hemoglobin 29.2 pg (27.0-33.0); Mean Platelet Volume 10.4 fL (9.4-12.3); Monocytes Absolute Auto 0.5 X10*3/uL (0.1-1.2); Monocytes Percent Auto 5.9 % (2-11); Neutrophils Absolute Auto 6.6 x10*3/uL (2.0-8.3); Neutrophils Percent Auto 73.8 % (45-73); Platelet Count 308 X10*3/uL (160-400); Red Blood Count 5.06 X10*6/uL (4.20-5.50)
[2022-06-02 18:02] LABS: Anion Gap 17 (12-20); Blood Urea Nitrogen 7 mg/dL (9-16); Carbon Dioxide 23 mmol/L (22-29); Chloride 107 mmol/L (96-108); Creatinine Clr Calc Pharmacy 79.2; Estimated Glomerular Filt Rate > 60; Glucose Random 92 mg/dL (60-115); Potassium 3.5 mmol/L (3.3-5.1); Sodium 143 mmol/L (135-145)
== END 2022-06-02 21:25 | disposition left against medical advice (07) ==
PROVIDERS: Emergency Provider Emergency Medicine
DX: R07.89 Other chest pain (principal); K21.9 Gastro-esophageal reflux disease without esophagitis
CPT/HCPCS: 36415; 80048; 85025; 93005; 99283

== ENCOUNTER 2022-06-03 08:52 | Emergency (ER) | payer OTHER, SELFPAY ==
--- NOTE | ~2022-06-03 | XR_ITS ---
EXAMINATION: XR CHEST CLINICAL INFORMATION: Chest pain. COMPARISON: 12/22/2021 chest radiograph. TECHNIQUE: Frontal view of the chest was obtained. FINDINGS: No significant abnormality is noted involving the heart, lungs, mediastinum, bony thorax or soft tissues. XR/XR chest 1V IMPRESSION: No acute cardiopulmonary process.
--- NOTE | 2022-06-03 09:08 | ECG_ITS ---
Test Reason : chest pain Blood Pressure : / mmHG Vent. Rate : 086 BPM Atrial Rate : 086 BPM P-R Int : 162 ms QRS Dur : 080 ms QT Int : 338 ms P-R-T Axes : 066 081 033 degrees QTc Int : 404 ms Normal sinus rhythm with sinus arrhythmia Normal ECG When compared with ECG of 02-JUN-2022 16:16, No significant change was found Referred By: Polly Gustafson Electronically Signed By:JUDI CONWAY
[2022-06-03 09:31] VITALS: BP 141/87; PULSE 84; RESP 18; TEMP 36.9; O2SAT 100; BMI 21.1
[2022-06-03 09:57] LABS: MANUAL DIFF FLAG NO
[2022-06-03 10:04] LABS: Basophils Absolute Auto 0.1 X10*3/uL (0.0-0.2); Basophils Percent Auto 1.1 % (0-2); Eosinophils Absolute Auto 0.1 X10*3/uL (0.0-0.4); Hematocrit 42.5 % (37.0-47.0); Hemoglobin 14.6 g/dl (12.0-16.0); Imm Gran Abs Auto 0.01 X10*3/uL (0.00-0.03); Imm Gran Pct Auto 0.2 % (0.0-0.4); Lymphocytes Absolute Auto 1.4 X10*3/uL (1.2-4.9); Lymphocytes Percent Auto 21.9 % (20-40); Mean Corpuscular HGB Conc 34.4 g/dl (31.0-35.0); Mean Corpuscular Hemoglobin 29.8 pg (27.0-33.0); Mean Corpuscular Volume 86.7 fL (80.0-98.0); Mean Platelet Volume 10.4 fL (9.4-12.3); Monocytes Absolute Auto 0.4 X10*3/uL (0.1-1.2); Monocytes Percent Auto 5.7 % (2-11); Neutrophils Absolute Auto 4.3 x10*3/uL (2.0-8.3); Neutrophils Percent Auto 70.1 % (45-73); Platelet Count 291 X10*3/uL (160-400); Red Cell Distribution Width 12.9 % (11.0-16.0); White Blood Count 6.2 X10*3/uL (4.8-10.8)
[2022-06-03 10:08] LABS: INTERNATIONAL NORM RATIO 1.1 (0.9-1.1); Prothrombin Time 12.9 SEC (10.0-13.1)
[2022-06-03 10:14] LABS: Anion Gap 15 (12-20); Blood Urea Nitrogen 9 mg/dL (9-16); Calcium 10.7 mg/dL (8.4-10.2); Carbon Dioxide 26 mmol/L (22-29); Chloride 105 mmol/L (96-108); Creatinine Clr Calc Pharmacy 77.3; Estimated Glomerular Filt Rate > 60; Glucose Random 99 mg/dL (60-115); Potassium 3.7 mmol/L (3.3-5.1); Sodium 142 mmol/L (135-145)
[2022-06-03 10:16] LABS: COVID-19 Test Negative (Negative)
[2022-06-03 10:21] LABS: Troponin-I High Sensitivity < 3.5 ng/L (<3.5-17.0)
--- NOTE | 2022-06-03 11:05 | ED.CHESTPAIN ---
HPI - Chest Pain General Chief Complaint: Chest Pain Stated Complaint: chest pain Time Seen by Provider: 06/03/22 09:07 Source: patient Mode of arrival: ambulatory History of Present Illness HPI narrative: 27-year-old female with no significant past medical history presenting to the ED complaining of intermittent substernal/L sided chest pressure radiating to back and down left upper extremity x1 week. Reports pain worse with sitting. Presenting to ED yesterday however LWT'd. Denies fever, cough, SOB, pedal edema, abdominal pain, nausea/vomiting, numbness/tingling. Denies recent vaccinations/boosters. MD complaint: chest pain Related Data Previous Rx's Medication Instructions Recorded naproxen 500 mg tablet (Naprosyn) 500 mg PO BID #20 tabs 08/02/20 ibuprofen 600 mg tablet 600 mg PO Q6H PRN pain #20 tabs 11/22/20 cyclobenzaprine 10 mg tablet 10 mg PO TID PRN muscle spasm #14 02/06/21 tabs ondansetron 4 mg disintegrating 4 mg PO Q8H PRN nausea and 02/06/21 tablet vomiting #20 tabs acetaminophen 500 mg tablet 1,000 mg PO QID PRN fever or pain 08/06/21 (Tylenol Extra Strength) #14 tabs cyclobenzaprine 10 mg tablet 10 mg PO Q8H PRN Muscle spasm #14 08/06/21 tabs amoxicillin 500 mg tablet 500 mg PO BID #20 tabs 08/13/21 ibuprofen 600 mg tablet 600 mg PO Q8H PRN fever or pain 08/13/21 #20 tabs fluticasone propionate 50 1 spray intranasal BID #1 units 10/11/21 mcg/actuation nasal spray,suspension (Flonase Allergy Relief) codeine 10 mg-guaifenesin 100 mg/5 10 ml PO Q6-8H PRN Cough #240 mL 10/14/21 mL oral liquid acetaminophen 500 mg tablet 1,000 mg PO Q6H PRN pain #240 tabs 12/23/21 (Tylenol Extra Strength) ibuprofen 400 mg tablet 400 mg PO Q6H PRN pain #240 tabs 12/23/21 naproxen 500 mg tablet 500 mg PO BID PRN pain 10 days #20 06/03/22 tabs Allergies Allergy/AdvReac Type Severity Reaction Status Date / Time No Known Allergies Allergy Verified 12/22/21 14:46 Review of Systems Review of Systems: Constitutional: No Fever, No Chills, No Fatigue, No Malaise ENT/Mouth: No Ear Pain, No Nasal Congestion, No sore throat, No Rhinorrhea Eyes: No Eye Pain, No Swelling, No Redness, No Vision Changes Cardiovascular: + Chest Pain, No SOB, No Dyspnea on Exertion, No Edema, No Palpitations Respiratory: No Cough, No Sputum, o Dyspnea Gastrointestinal: No Nausea, No Vomiting, No Diarrhea, No Constipation, No Abdominal pain Genitourinary: No Dysuria, No Urinary Frequency, No Hematuria, No Flank Pain Musculoskeletal: No joint pain, No Myalgias, No Joint Swelling Skin: No Skin Lesions, No rash Neuro: No Weakness, No Numbness, No Dizziness, No Headache Yes all other systems are reviewed and are negative Constitutional: Constitutional: Reports as per [facility] Past Medical History Attestation statement: The following information was validated with the patient. Medical History No known health problems Social History Social History Alcohol intake: never Advance Directives: No Physical Exam Vital Signs: Vital Signs: Last Vital Signs Temp 98.1 F 06/03/22 11:33 Pulse 66 06/03/22 11:33 Resp 18 06/03/22 11:33 BP 128/83 06/03/22 11:33 Pulse Ox 99 06/03/22 11:33 O2 Del Method 06/03/22 11:33 BMI result Body Mass Index 21.1 Const: General: cooperative, healthy appearing and no acute distress Orientation/consciousness: patient oriented x3 Limitations: no limitations HEENT: Head: Yes normal to inspection and Yes atraumatic Ears: hearing grossly normal bilaterally General nose exam: Normal external nose present Face and sinus: Yes normal facial exam Eyes: General: appearance normal, both eyes and all related structures EOM: EOMs intact bilaterally Neck: Neck: Yes normal visual inspection and Yes no meningeal signs Chest: Chest palpation & inspection: normal inspection of the chest, normal palpation of entire chest wall and no crepitus Resp: Effort & Inspection: normal respiratory effort and no respiratory distress Auscultation: clear to auscultation bilaterally, no crackles, no rales, no rhonchi and no wheezes Cardio: Rate: regular rate Heart sounds: S1 normal heart sound present and S2 normal heart sound present GI: Inspection: Yes normal to inspection Palpation (GI): Soft to palpation, nontender, no guarding and not rigid : General: Yes no CVA tenderness Back/Spine/Pelvis: Back: no CVA tenderness Skin: Rashes: no rashes Wounds: no wounds Neuro: General: patient oriented x3, tone normal and no meningeal signs Gait exam (Neuro): Normal gait present Extrem: General: Yes normal to inspection, Yes no pedal edema and Yes no calf tenderness Course Course Course Narrative: -labs reviewed from yesterday and today. No leukocytosis. Troponin negative today. XR chest 1V IMPRESSION: No acute cardiopulmonary process. -COVID 19 negative Results discussed with patient including worrisome signs and symptoms and strict return precautions, and when to return to the emergency department. They verbalized understanding and feel safe for discharge at this time. MDM - Chest Pain MDM Narrative Medical decision making narrative: 27-year-old female with no significant past medical history presenting to the ED complaining of intermittent substernal/L sided chest pressure radiating to back and down left upper extremity x1 week. Reports pain worse with sitting. On exam vital signs stable, NAD, nontoxic appearing, lungs CTA, abdomen soft/nontender, no pedal edema. Concern for viral syndrome vs costochondritis vs PNA vs GERD vs Pericarditis/myocarditis. Symptoms atypical for ACS/PE PERC negative Plan: EKG, labs, CXR, COVID-19 testing Differential Diagnosis Differential diagnosis: Likely atypical chest pain, costochondritis and chest pain Medical Records Data Attestation: I reviewed the patient's medical records. Lab Data Attestation: I reviewed the patient's lab results. Result diagrams: 06/03/22 09:46 06/03/22 09:46 Labs: Lab Results 06/03/22 06/03/22 06/03/22 Range/Units 09:46 09:46 09:46 WBC 6.2 (4.8-10.8) X10*3/uL RBC 4.90 (4.20-5.50) X10*6/uL Hgb 14.6 (12.0-16.0) g/dl Hct 42.5 (37.0-47.0) % MCV 86.7 (80.0-98.0) fL MCH 29.8 (27.0-33.0) pg MCHC 34.4 (31.0-35.0) g/dl RDW 12.9 (11.0-16.0) % Plt Count 291 (160-400) X10*3/uL MPV 10.4 (9.4-12.3) fL Immature Gran % (Auto) 0.2 (0.0-0.4) % Neut % (Auto) 70.1 (45-73) % Lymph % (Auto) 21.9 (20-40) % [place] % (Auto) 5.7 (2-11) % Eos % (Auto) 1.0 (0-4) % Baso % (Auto) 1.1 (0-2) % Lymph # (Auto) 1.4 (1.2-4.9) X10*3/uL [place] # (Auto) 0.4 (0.1-1.2) X10*3/uL Eos # (Auto) 0.1 (0.0-0.4) X10*3/uL Baso # (Auto) 0.1 (0.0-0.2) X10*3/uL Abs Immat Gran (auto) 0.01 (0.00-0.03) X10*3/uL Absolute Neuts (auto) 4.3 (2.0-8.3) x10*3/uL Absolute Nucleated RBC 0.000 (0.0-0.012) X10*3/uL Nucleated RBC % (auto) 0.0 (0.0-0.2) /100WBC PT 12.9 (10.0-13.1) SEC INR 1.1 (0.9-1.1) Sodium 142 (135-145) mmol/L Potassium 3.7 (3.3-5.1) mmol/L Chloride 105 (96-108) mmol/L Carbon Dioxide 26 (22-29) mmol/L Anion Gap 15 (12-20) BUN 9 (9-16) mg/dL Creatinine 0.81 (0.5-1.4) mg/dL Estim Creat Clear Calc 77.3 Estimated GFR > 60 Random Glucose 99 (60-115) mg/dL Calcium 10.7 H D (8.4-10.2) mg/dL Total Bilirubin 1.1 H (0.0-1.0) mg/dL Direct Bilirubin 0.4 (0.0-0.5) mg/dL AST 17 (5-31) U/L ALT 15 (0-31) U/L Alkaline Phosphatase 62 (39-117) U/L Troponin I High Sens (<3.5-17.0) ng/L Total Protein 8.0 (6.5-8.0) g/dL Albumin 4.8 (3.5-5.0) g/dL Lipase 20 (8-78) U/L COVID-19 ([facility]) (Negative) COVID-19 Clin Com 06/03/22 06/03/22 Range/Units 09:46 09:46 WBC (4.8-10.8) X10*3/uL RBC (4.20-5.50) X10*6/uL Hgb (12.0-16.0) g/dl Hct (37.0-47.0) % MCV (80.0-98.0) fL MCH (27.0-33.0) pg MCHC (31.0-35.0) g/dl RDW (11.0-16.0) % Plt Count (160-400) X10*3/uL MPV (9.4-12.3) fL Immature Gran % (Auto) (0.0-0.4) % Neut % (Auto) (45-73) % Lymph % (Auto) (20-40) % [place] % (Auto) (2-11) % Eos % (Auto) (0-4) % Baso % (Auto) (0-2) % Lymph # (Auto) (1.2-4.9) X10*3/uL [place] # (Auto) (0.1-1.2) X10*3/uL Eos # (Auto) (0.0-0.4) X10*3/uL Baso # (Auto) (0.0-0.2) X10*3/uL Abs Immat Gran (auto) (0.00-0.03) X10*3/uL Absolute Neuts (auto) (2.0-8.3) x10*3/uL Absolute Nucleated RBC (0.0-0.012) X10*3/uL Nucleated RBC % (auto) (0.0-0.2) /100WBC PT (10.0-13.1) SEC INR (0.9-1.1) Sodium (135-145) mmol/L Potassium (3.3-5.1) mmol/L Chloride (96-108) mmol/L Carbon Dioxide (22-29) mmol/L Anion Gap (12-20) BUN (9-16) mg/dL Creatinine (0.5-1.4) mg/dL Estim Creat Clear Calc Estimated GFR Random Glucose (60-115) mg/dL Calcium (8.4-10.2) mg/dL Total Bilirubin (0.0-1.0) mg/dL Direct Bilirubin (0.0-0.5) mg/dL AST (5-31) U/L ALT (0-31) U/L Alkaline Phosphatase (39-117) U/L Troponin I High Sens < 3.5 (<3.5-17.0) ng/L Total Protein (6.5-8.0) g/dL Albumin (3.5-5.0) g/dL Lipase (8-78) U/L COVID-19 ([facility]IAM) Negative (Negative) COVID-19 Clin Com See Note ECG Data ECG #1: Attestation: I personally reviewed and interpreted this ECG as follows: ECG interpretation date: 06/03/22 ECG interpretation time: 09:33 Prior ECG tracings: available for review Interpretation: EKG normal sinus rhythm with sinus arrhythmia at a rate of 86. QTC 404. No STEMI. No significant change when compared to prior Discharge Plan Discharge Clinical Impression: Atypical chest pain, Acute costochondritis Patient Disposition: Home, Self-Care Instructions: Costochondritis (ED), Noncardiac Chest Pain (ED) Additional Instructions: Your blood work and chest x-ray were reassuring today in the emergency department. You tested negative for COVID-19. Continue taking Tylenol and Naproxen which is anti-inflammatory/pain medication, take with food If symptoms persist or worsen please return to the emergency department. Please have close follow-up with her doctor Prescriptions: New naproxen 500 mg tablet 500 mg PO BID PRN (Reason: pain) 10 Days Qty: 20 0RF No Action naproxen [Naprosyn] 500 mg tablet 500 mg PO BID Qty: 20 0RF ibuprofen 600 mg tablet 600 mg PO Q6H PRN (Reason: pain) Qty: 20 0RF cyclobenzaprine 10 mg tablet 10 mg PO TID PRN (Reason: muscle spasm) Qty: 14 0RF ondansetron 4 mg tablet,disintegrating 4 mg PO Q8H PRN (Reason: nausea and vomiting) Qty: 20 0RF amoxicillin 500 mg tablet 500 mg PO BID Qty: 20 0RF ibuprofen 600 mg tablet 600 mg PO Q8H PRN (Reason: fever or pain) Qty: 20 0RF fluticasone propionate [Flonase Allergy Relief] 50 mcg/actuation spray,suspension 1 spray intranasal BID Qty: 1 0RF Rx Instructions: administer into each nostril codeine-guaifenesin 10-100 mg/5 mL liquid 10 ml PO Q6-8H PRN (Reason: Cough) Qty: 240 0RF cyclobenzaprine 10 mg tablet 10 mg PO Q8H PRN (Reason: Muscle spasm) Qty: 14 0RF acetaminophen [Tylenol Extra Strength] 500 mg tablet 1,000 mg PO QID PRN (Reason: fever or pain) Qty: 14 0RF acetaminophen [Tylenol Extra Strength] 500 mg tablet 1,000 mg PO Q6H PRN (Reason: pain) Qty: 240 0RF ibuprofen 400 mg tablet 400 mg PO Q6H PRN (Reason: pain) Qty: 240 0RF Referrals: Physician,Unknown J [Primary Care Provider] -
[2022-06-03 11:33] VITALS: BP 128/83; PULSE 66; RESP 18; TEMP 36.7; O2SAT 99
[2022-06-03 11:40] LABS: Alanine Aminotransferase 15 U/L (0-31); Albumin Level 4.8 g/dL (3.5-5.0); Alkaline Phosphatase 62 U/L (39-117); Aspartate Amino Transferase 17 U/L (5-31); Bilirubin Direct 0.4 mg/dL (0.0-0.5); Bilirubin Total 1.1 mg/dL (0.0-1.0); Lipase 20 U/L (8-78)
[2022-06-03 12:01] VITALS: BP 131/82; PULSE 87; RESP 16; O2SAT 99
[2022-06-03] MEDS: Magnesium Hydrox/Alum Hydrox 30 ML ORAL.SUSP PO (12:01)
[2022-06-03] MEDS: Ketorolac Tromethamine 30 MG/ML VIAL IM (12:01)
--- NOTE | 2022-06-03 12:02 | PC.NURSE ---
NSR on monitor, 2/10 epigastric lyn at this time, at times radiate to left chest and left arm.
== END 2022-06-03 12:09 | disposition home or self-care (01) ==
PROVIDERS: Physician Assistant; Emergency Provider Emergency Medicine
DX: R07.89 Other chest pain (principal); M94.0 Chondrocostal junction syndrome [Tietze]; Z20.822 Contact with and (suspected) exposure to COVID-19
CPT/HCPCS: 71045; 80048; 80076; 83690; 84484; 85025; 85610; 87635; 93005; 96372; 99284; J1885

== ENCOUNTER 2022-08-27 18:35 | Emergency (ER) | payer OTHER, SELFPAY ==
[2022-08-27 19:57] VITALS: BP 135/94; PULSE 76; RESP 16; TEMP 36.6; O2SAT 96; BMI 23.0
--- NOTE | 2022-08-27 20:02 | ED_ITS ---
HPI - Animal Bite General Chief Complaint: Animal Bite Stated Complaint: animal bite at work L Leg Time Seen by Provider: 08/27/22 20:02 History of Present Illness HPI narrative: Patient is a 27-year-old female status post dog bite to the right leg. 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 Complaining of pain localized to the leg. There is no fever no chills no systemic complaints. The dog's immunization is up-to-date. Patient has no allergies. Related Data Previous Rx's Medication Instructions Recorded naproxen 500 mg tablet (Naprosyn) 500 mg PO BID #20 tabs 08/02/20 ibuprofen 600 mg tablet 600 mg PO Q6H PRN pain #20 tabs 11/22/20 cyclobenzaprine 10 mg tablet 10 mg PO TID PRN muscle spasm #14 02/06/21 tabs ondansetron 4 mg disintegrating 4 mg PO Q8H PRN nausea and 02/06/21 tablet vomiting #20 tabs acetaminophen 500 mg tablet 1,000 mg PO QID PRN fever or pain 08/06/21 (Tylenol Extra Strength) #14 tabs cyclobenzaprine 10 mg tablet 10 mg PO Q8H PRN Muscle spasm #14 08/06/21 tabs amoxicillin 500 mg tablet 500 mg PO BID #20 tabs 08/13/21 ibuprofen 600 mg tablet 600 mg PO Q8H PRN fever or pain 08/13/21 #20 tabs fluticasone propionate 50 1 spray intranasal BID #1 units 10/11/21 mcg/actuation nasal spray,suspension (Flonase Allergy Relief) codeine 10 mg-guaifenesin 100 mg/5 10 ml PO Q6-8H PRN Cough #240 mL 10/14/21 mL oral liquid acetaminophen 500 mg tablet 1,000 mg PO Q6H PRN pain #240 tabs 12/23/21 (Tylenol Extra Strength) ibuprofen 400 mg tablet 400 mg PO Q6H PRN pain #240 tabs 12/23/21 naproxen 500 mg tablet 500 mg PO BID PRN pain 10 days #20 06/03/22 tabs amoxicillin 875 mg-potassium 1 tab PO BID dog bit #10 tabs 08/27/22 clavulanate 125 mg tablet Allergies Allergy/AdvReac Type Severity Reaction Status Date / Time No Known Allergies Allergy Verified 12/22/21 14:46 Review of Systems Review of Systems: Positive dog bite to the right leg Yes all other systems are reviewed and are negative [facility] Past Medical History Attestation statement: The following information was validated with the patient. Medical History No known health problems Social History Social History Alcohol intake: never Physical Exam ED Vital Signs: Vital Signs - 24 hr 08/27/22 19:57 Temperature 97.8 F Pulse Rate 76 Respiratory Rate 16 Blood Pressure 135/94 H Pulse Oximetry 96 Oxygen Delivery Method Room Air BMI result Body Mass Index 23.0 Appearance: Alert. Oriented X3. No acute distress. Eyes: Pupils equal, round and reactive to light. ENT: Pharynx normal. Neck: Normal inspection. Neck supple. No lymph nodes noted. No crepitus CVS: Normal heart rate and rhythm. Pulses normal. Normal S1 and S2 Respiratory: No respiratory distress. Breath sounds normal. No Wheezing. No rales Abdomen: Soft and nontender. No rigidity. No distention. good BS x4 Skin: Skin warm and dry. Normal skin color. Normal skin turgor. Extremities: No lower extremity edema. Neurovascular intact to all extremities. Positive puncture wound to the right mid leg. Distal pulses intact sensation intact Neuro: Oriented X 3. No motor deficit. No sensory deficit. Moving all extermities. 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 The dog is immunized. Patient's wound was clean. Subsequently Augmentin was prescribed. Tetanus was updated. Patient to follow up with [facility] on an outpatient basis. Discharge Plan Discharge Clinical Impression: Bite by animal, Dog bite Patient Disposition: Home, Self-Care Instructions: Animal Bite (ED) Prescriptions: New amoxicillin-pot clavulanate 875-125 mg tablet 1 tab PO BID Qty: 10 0RF No Action naproxen [Naprosyn] 500 mg tablet 500 mg PO BID Qty: 20 0RF ibuprofen 600 mg tablet 600 mg PO Q6H PRN (Reason: pain) Qty: 20 0RF cyclobenzaprine 10 mg tablet 10 mg PO TID PRN (Reason: muscle spasm) Qty: 14 0RF ondansetron 4 mg tablet,disintegrating 4 mg PO Q8H PRN (Reason: nausea and vomiting) Qty: 20 0RF amoxicillin 500 mg tablet 500 mg PO BID Qty: 20 0RF ibuprofen 600 mg tablet 600 mg PO Q8H PRN (Reason: fever or pain) Qty: 20 0RF fluticasone propionate [Flonase Allergy Relief] 50 mcg/actuation spray,suspension 1 spray intranasal BID Qty: 1 0RF Rx Instructions: administer into each nostril codeine-guaifenesin 10-100 mg/5 mL liquid 10 ml PO Q6-8H PRN (Reason: Cough) Qty: 240 0RF naproxen 500 mg tablet 500 mg PO BID PRN (Reason: pain) 10 Days Qty: 20 0RF cyclobenzaprine 10 mg tablet 10 mg PO Q8H PRN (Reason: Muscle spasm) Qty: 14 0RF acetaminophen [Tylenol Extra Strength] 500 mg tablet 1,000 mg PO QID PRN (Reason: fever or pain) Qty: 14 0RF acetaminophen [Tylenol Extra Strength] 500 mg tablet 1,000 mg PO Q6H PRN (Reason: pain) Qty: 240 0RF ibuprofen 400 mg tablet 400 mg PO Q6H PRN (Reason: pain) Qty: 240 0RF Referrals: [facility] [Provider Group] - 08/28/22 Stand Alone Forms: Work/School Release
[2022-08-27] MEDS: Diphth,Pertus(ACell),Tet Adult 0.5 ML SYRINGE IM (20:17)
--- OUTSIDE RECORDS SUMMARY | 2022-08-27 20:26 | XMS_ITS | Continuity of Care Document ---
:1995 Author Organization [facility] Address [address] [place] [address], [address] [place] [id number]- Care Team Providers Name Role Phone Donna JEREZ, Vera Bernstein Primary Care Physician Encounter [facility] Date(s): 09/06/19 [facility] [address] [place] [address], [address] [place] [phone]- Attending Physician: Leslie Gil MD Referring Physician: Ayse Londono CNM Allergies, Adverse Reactions, Alerts No Known Medication Allergies Immunizations Given and Recorded Vaccine Date Status Refusal Reason tetanus/diphtheria/pertussis, acel(Tdap) 09/06/19 Given tetanus/diphtheria/pertussis, acel(Tdap) 12/31/17 Given tetanus/diphtheria/pertussis, acel(Tdap) 04/18/15 Given tetanus/diphtheria/pertussis, acel(Tdap)1 03/12/04 Record ed influenza virus vaccine, inactivated 06/13/19 Given influenza virus vaccine, inactivated2 06/10/17 Given influenza virus vaccine, inactivated 10/27/16 Given influenza virus vaccine, inactivated 07/10/15 Given Human Papillomavirus Vaccine3 03/12/11 Recorded 1Result Comment: [10/07/2016] done at [id number] Comment: [06/10/2017] AI SORIANO [facility] [id number] Comment: [10/07/2016] done at [place] [facility] Claritin 10 mg oral tablet 10 mg, 1, tablet, By Mouth, Daily, Refills 0, Maintenance, 10/28/19 19:25:00 EST Start Date: 10/28/19 Status: OrderedFlonase 50 mcg/inh nasal spray 1 sprays, Nares, Both, 2 times a day, PRN Congestion, # 16 Gm, 1 Refills, Maintenance, 07/08/19 19:10:20 EDT, [place], 1 sprays Nares, Both 2 times a day,PRN:Congestion Start Date: 07/08/19 Status: OrderedLoestrin Fe 1.5/30 oral tablet 1 tablet, By Mouth, Daily, starting on the first day of the menstrual cycle, # 28 tablet, 6 Refills,Maintenance, 12/15/19 14:53:00 EDT, [facility] #[id number], 1 tablet By Mouth Daily,x28 days,Instr:starting on the first day of the menstrual cyc... Start Date: 12/15/19 Stop Date: 06/28/20 Status: OrderedPrenatal Multivitamins with Folic Acid 1 mg oral tablet 1 tablet, By Mouth, Daily, # 90 tablet, 3 Refills, Maintenance, 06/13/19 9:20:31 EDT, Tablet, 1 tablet By Mouth Daily Start Date: 06/13/19 Status: Ordered Problem List Condition Effective Dates Status Health Status Informant Suspicion of autism in the patient Active herself and in her first child(Confirmed) Last pap smear 10/24/16 Active negative(Confirmed) Learning disability. She went through Active 12th grade but did not get a diploma because she could not pass the math part of the [employer]. 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
--- OUTSIDE RECORDS SUMMARY | 2022-08-27 20:26 | XMS_ITS | Continuity of Care Document ---
:1995 Author Organization [facility] p Address [address] [place] [address], [address] [place] [phone]- Care Team Providers Name Role Phone Donna JEREZ, Vera Bernstein Primary Care Physician [place] [facility] [place]20 [place] 10/11/20 [facility] [address] [place] [address], [address] [place] [id number] Allergies, Adverse Reactions, Alerts No Known Medication [...] 03/12/11 Recorded 1Result Comment: [10/07/2016] done at [id number] Comment: [06/10/2017] AI SORIANO [facility] [id number] Comment: [10/07/2016] done at [place] [facility] Claritin 10 mg oral tablet 10 mg, 1, tablet, By Mouth, Daily, Refills 0, Maintenance, 10/28/19 19:25:00 EST Start Date: 10/28/19 Status: OrderedFlonase 50 mcg/inh nasal spray 1 sprays, Nares, Both, 2 times a day, PRN Congestion, # 16 Gm, 1 Refills, Maintenance, 07/08/19 19:10:20 EDT, [place], 1 sprays Nares, Both 2 times a day,PRN:Congestion Start Date: 07/08/19 Status: OrderedLoestrin Fe 1.5/30 oral tablet 1 tablet, By Mouth, Daily, starting on the first day of the menstrual cycle, # 28 tablet, 6 Refills,Maintenance, 12/15/19 14:53:00 EDT, [facility] #[id number], 1 tablet By Mouth Daily,x28 days,Instr:starting on [...]
--- OUTSIDE RECORDS SUMMARY | 2022-08-27 20:26 | XMS_ITS | Continuity of Care Document ---
:1995 Author Organization [facility] p Address [address] [place] [address], [address] [place] [phone]- Care Team Providers Name Role Phone Donna JEREZ, Vera Bernstein Primary Care Physician Encounter [facility] Date(s): 04/18/21 - 04/25/21 [facility] [employer] [facility] [address] [place] [address], [address] [place] [id number] Attending Physician: Not on Staff, Attending MD Referring Physician: Vera Thompson NP Allergies, Adverse Reactions, Alerts No Known Medication [...] 03/12/11 Recorded 1Result Comment: [10/07/2016] done at [id number] Comment: [06/10/2017] AI SORIANO [facility] [id number] Comment: [10/07/2016] done at [place] [facility] Claritin 10 mg oral tablet 10 mg, 1, tablet, By Mouth, Daily, Refills 0, Maintenance, 10/28/19 19:25:00 EST Start Date: 10/28/19 Status: OrderedErrin 0.35 mg oral tablet 1 tablet = 0.35 mg, By Mouth, Daily, # 84 tablet, 6 Refills, Maintenance, 07/23/22 10:36:00 EDT, Tablet, [facility] #[id number], Partial fill upon patient request if the prescription is for a schedule II opioid drug., 155, cm, 12/12/20 10:32:00 E... Start Date: 07/23/22 Stop Date: 03/02/24 Status: OrderedErrin 0.35 mg oral tablet 1 tablet = 0.35 mg, By Mouth, Daily, for 84 days, # 84 tablet, 6 Refills, Hard Stop 07/23/22 10:36:00 EDT, 12/12/20 10:36:00 EDT, Tablet, [facility] #[id number], Partial fill upon patient request if the prescription is for a schedule II opioid drShawn. Start Date: 12/12/20 Stop Date: 07/23/22 Status: OrderedFlonase 50 mcg/inh nasal spray 1 sprays, Nares, Both, 2 times a day, PRN Congestion, # 16 Gm, 1 Refills, Maintenance, 07/08/19 19:10:20 EDT, [place], 1 sprays Nares, Both 2 times a day,PRN:Congestion Start Date: 07/08/19 Status: Ordered Problem List Condition Effective Dates Status Health Status Informant Suspicion of autism in the patient Active herself and in her first child(Confirmed) Learning disability. She went through Active 12th grade but did not get a diploma because she could not pass the math part of the [employer]. She has considered getting a GED(Confirmed) Headaches(Confirmed) Active Subclinical hypothyroidism(Confirmed) Active Major depression(Confirmed) Active Vital Signs Most recent to oldest [Reference Range]: 1 Height 155 cm (04/18/21 5:23 PM) Weight 50.4 kg (04/18/21 5:23 PM) Body Mass Index [18.5-24.99] 20.98 (04/18/21 5:23 PM) Blood Pressure [90-138/55-84 mm Hg] 102/69 mm Hg (04/18/21 5:23 PM) Blood pressure sites Arm, right (04/18/21 5:23 PM) Weight Obtained Via Standing scale (7/29/21 5:23 PM) Social History Social History Type Response Smoking Status Never (less than 100 in life time); Tobacco user in household: No entered on: 04/27/19 Sex
--- OUTSIDE RECORDS SUMMARY | 2022-08-27 20:26 | XMS_ITS | Continuity of Care Document ---
:1995 Author Organization [facility] Address [address] [place] [address], [address] [place] [id number]- Care Team Providers Name Role Phone Donna JEREZ, Vera Bernstein Primary Care Physician En[facility] Date(s): 09/06/19 - [facility] [address] [place] [address], [address] [place] [id number]- Attending Physician: Leslie Gil MD Referring Physician: [...] 03/12/11 Recorded 1Result Comment: [10/07/2016] done at [id number] Comment: [06/10/2017] AI SORIANO [facility] [id number] Comment: [10/07/2016] done at [place] [facility] Claritin 10 mg oral tablet 10 mg, 1, tablet, By Mouth, Daily, Refills 0, Maintenance, 10/28/19 19:25:00 EST Start Date: 10/28/19 Status: OrderedFlonase 50 mcg/inh nasal spray 1 sprays, Nares, Both, 2 times a day, PRN Congestion, # 16 Gm, 1 Refills, Maintenance, 07/08/19 19:10:20 EDT, [place], 1 sprays Nares, Both 2 times a day,PRN:Congestion Start Date: 07/08/19 Status: OrderedLoestrin Fe 1.5/30 oral tablet 1 tablet, By Mouth, Daily, starting on the first day of the menstrual cycle, # 28 tablet, 6 Refills,Maintenance, 12/15/19 14:53:00 EDT, [facility] #[id number], 1 tablet By Mouth Daily,x28 days,Instr:starting on [...]
--- OUTSIDE RECORDS SUMMARY | 2022-08-27 20:26 | XMS_ITS | Continuity of Care Document ---
:1995 Author Organization [facility] Address [address] [place] [address]- Care Team Providers Name Role Phone Contractor Madelyn GOMEZ Primary Care Physician Encounter [facility] Date(s): 10/18/21 - 11/17/[address] [id number]- Allergies, Adverse Reactions, Alerts No Known Medication Allergies Immunizations Given and Recorded Vaccine Date Status Refusal Reason influenza virus vaccine, inactivated 09/02/21 Given influenza virus vaccine, inactivated 06/13/19 Given influenza virus vaccine, inactivated1 06/10/17 Given influenza virus vaccine, inactivated 10/27/16 Given influenza virus vaccine, inactivated 07/10/15 Given SARS-CoV-2 (COVID-19) mRNA BNT-162b2 vac 05/24/21 Recorde d SARS-CoV-2 (COVID-19) mRNA BNT-162b2 vac2 02/12/21 Record ed SARS-CoV-2 (COVID-19) mRNA BNT-162b2 vac 01/22/21 Recorde d tetanus/diphtheria/pertussis, acel(Tdap) 09/06/19 Given tetanus/diphtheria/pertussis, acel(Tdap) 12/31/17 Given tetanus/diphtheria/pertussis, acel(Tdap) 04/18/15 Given tetanus/diphtheria/pertussis, acel(Tdap)3 03/12/04 Record ed Human Papillomavirus Vaccine4 03/12/11 Recorded 1Result Comment: [06/10/2017] AI SORIANO [facility] [id number] Comment: incorrect [id number] Comment: [10/07/2016] done at [id number] Comment: [10/07/2016] done at [facility] Claritin 10 mg oral tablet 10 mg, 1, tablet, By Mouth, Daily, # 30 tablet, Refills 0, Tot. Refills 0, Maintenance, 10/28/21 15:55:00 EST, Route to Pharmacy Electronically, [facility] #[id number], Partial fill upon patient request if the prescription is for a schedule II op... Start Date: 10/28/21 Status: OrderedErrin 0.35 mg oral tablet 1 tablet = 0.35 mg, By Mouth, Daily, # 84 tablet, 6 Refills, Maintenance, 07/23/22 10:36:00 EDT, Tablet, [facility] #[id number], Partial fill upon patient request if the prescription is for a schedule II opioid drug., 155, cm, 12/12/20 10:32:00 E... Start Date: 07/23/22 Stop Date: 03/02/24 Status: OrderedErrin 0.35 mg oral tablet 1 tablet = 0.35 mg, By Mouth, Daily, for 84 days, # 84 tablet, 6 Refills, Hard Stop 07/23/22 10:36:00 EDT, 12/12/20 10:36:00 EDT, Tablet, [facility] #[id number], Partial fill upon patient request if the prescription is for a schedule II opioid Start Date: 12/12/20 Stop Date: 07/23/22 Status: OrderedFlonase 50 mcg/inh nasal spray 1 sprays, Nares, Both, 2 times a day, PRN Congestion, # 16 Gm, 1 Refills, Maintenance, 07/08/19 19:10:20 EDT, [place], 1 sprays Nares, Both 2 times a day,PRN:Congestion Start Date: 07/08/19 Status: Ordered Problem List Condition Effective Dates Status Health Status Informant Suspicion of autism in the patient Active herself and in her first child(Confirmed) [place] eye(Confirmed) Active Learning disability. She went through Active 12th grade but did not get a diploma because she could not pass the math part of the [employer]. She has considered getting a GED(Confirmed) Headaches(Confirmed) Active Subclinical hypothyroidism(Confirmed) Active Itchy eyes(Confirmed) Active Major depression(Confirmed) Active Social History Social History Type Response Smoking Status Never (less than 100 in life time); Tobacco user in household: No entered on: 04/27/19 Sex
--- OUTSIDE RECORDS SUMMARY | 2022-08-27 20:26 | XMS_ITS | Continuity of Care Document ---
:1995 Author Organization [facility] Address [address] [place] [address]- Care Team Providers Name Role Phone Contractor Madelyn GOMEZ Primary Care Physician Encounter [facility] Date(s): 10/08/21 - 11/07/[address] [address]- Allergies, Adverse Reactions, Alerts No Known Medication Allergies Immunizations Given and Recorded Vaccine Date Status Refusal Reason influenza virus vaccine, inactivated 09/02/21 Given influenza virus vaccine, inactivated 06/13/19 Given influenza virus vaccine, inactivated1 06/10/17 Given influenza virus vaccine, inactivated 10/27/16 Given influenza virus vaccine, inactivated 07/10/15 Given SARS-CoV-2 (COVID-19) mRNA BNT-162b2 vac 05/24/21 Recorde d SARS-CoV-2 (COVID-19) mRNA BNT-162b2 vac 02/12/21 Recorde d SARS-CoV-2 (COVID-19) mRNA BNT-162b2 vac 01/22/21 Recorde d tetanus/diphtheria/pertussis, acel(Tdap) 09/06/19 Given tetanus/diphtheria/pertussis, acel(Tdap) 12/31/17 Given tetanus/diphtheria/pertussis, acel(Tdap) 04/18/15 Given tetanus/diphtheria/pertussis, acel(Tdap)2 03/12/04 Record ed Human Papillomavirus Vaccine3 03/12/11 Recorded 1Result Comment: [06/10/2017] AI [facility] [id number] Comment: [10/07/2016] done at [id number] Comment: [10/07/2016] done at [place] [facility] Claritin 10 mg oral tablet 10 mg, 1, tablet, By Mouth, Daily, # 30 tablet, Refills 0, Tot. Refills 0, Maintenance, 10/28/21 15:55:00 EST, Route to Pharmacy Electronically, [email or web address] #[id number], Partial fill upon patient request if the prescription is for a schedule II op... Start Date: 10/28/21 Status: OrderedErrin 0.35 mg oral tablet 1 tablet = 0.35 mg, By Mouth, Daily, # 84 tablet, 6 Refills, Maintenance, 07/23/22 10:36:00 EDT, Tablet, [email or web address] #[id number], Partial fill upon patient request if the prescription is for a schedule II opioid drug., 155, cm, 12/12/20 10:32:00 E... Start Date: 07/23/22 Stop Date: 03/02/24 Status: OrderedErrin 0.35 mg oral tablet 1 tablet = 0.35 mg, By Mouth, Daily, for 84 days, # 84 tablet, 6 Refills, Hard Stop 07/23/22 10:36:00 EDT, 12/12/20 10:36:00 EDT, Tablet, [facility] #[id number], Partial fill upon patient request if the prescription is for a schedule II opioid dr.Shawn Start Date: 12/12/20 Stop Date: 07/23/22 Status: OrderedFlonase 50 mcg/inh nasal spray 1 sprays, Nares, Both, 2 times a day, PRN Congestion, # 16 Gm, 1 Refills, Maintenance, 07/08/19 19:10:20 EDT, [place], 1 sprays Nares, Both 2 times a day,PRN:Congestion Start Date: 07/08/19 Status: Ordered Problem List Condition Effective Dates Status Health Status Informant Suspicion of autism in the patient Active herself and in her first child(Confirmed) [place] eye(Confirmed) Active Learning disability. She went through [...]
--- OUTSIDE RECORDS SUMMARY | 2022-08-27 20:26 | XMS_ITS | Continuity of Care Document ---
:1995 Author Organization [facility] p Address [address] [place] [address], [address] [place] [id number]- Care Team Providers Name Role Phone Donna JEREZ, Vera Bernstein Primary Care Physician [place] [facility] [place] 12/15/19 - 12/22/19 [facility] [address] [place] [address], [address] [place] [id number]- Attending Physician: Tulio ERNST, Sushila Martinez Referring Physician: Kasie Rojas MD Allergies, Adverse Reactions, Alerts No Known Medication [...] 03/12/11 Recorded 1Result Comment: [10/07/2016] done at [id number] Comment: [06/10/2017] AI SORIANO [facility] [id number] Comment: [10/07/2016] done at [place] [facility] Claritin 10 mg oral tablet 10 mg, 1, tablet, By Mouth, Daily, Refills 0, Maintenance, 10/28/19 19:25:00 EST Start Date: 10/28/19 Status: OrderedFlonase 50 mcg/inh nasal spray 1 sprays, Nares, Both, 2 times a day, PRN Congestion, # 16 Gm, 1 Refills, Maintenance, 07/08/19 19:10:20 EDT, [place], 1 sprays Nares, Both 2 times a day,PRN:Congestion Start Date: 07/08/19 Status: OrderedLoestrin Fe 1.5/30 oral tablet 1 tablet, By Mouth, Daily, starting on the first day of the menstrual cycle, # 28 tablet, 6 Refills,Maintenance, 12/15/19 14:53:00 EDT, [facility] #[id number], 1 tablet By Mouth Daily,x28 days,Instr:starting on [...]
--- OUTSIDE RECORDS SUMMARY | 2022-08-27 20:26 | XMS_ITS | Continuity of Care Document ---
:1995 Author Organization [facility] Address [address] [place] [address]- Care Team Providers Name Role Phone Contractor Madelyn GOMEZ Primary Care Physician [place] [facility] [facility] [place] - 02/22/[address] [address]- Attending Physician: Not on Staff, Attending MD Allergies, Adverse Reactions, Alerts No Known [...] 03/12/11 Recorded 1Result Comment: [06/10/2017] AI SORIANO [facility] [phone] Comment: incorrect [id number] Comment: [10/07/2016] done at [id number] Comment: [10/07/2016] done at [place] [facility] Claritin 10 mg oral tablet 10 mg, 1, tablet, By Mouth, Daily, # 30 tablet, Refills 0, Tot. Refills 0, Maintenance, 10/28/21 15:55:00 EST, Route to Pharmacy Electronically, [facility] #[id number], Partial fill upon patient request if the prescription is for a schedule II op... Start Date: 10/28/21 Status: OrderedErrin 0.35 mg oral tablet 1 tablet = 0.35 mg, By Mouth, Daily, # 84 tablet, 6 Refills, Maintenance, 07/23/22 10:36:00 EDT, Tablet, [facility] #[id number], Partial fill upon patient request if the prescription is for a schedule II opioid drug., 155, cm, 12/12/20 10:32:00 E... Start Date: 07/23/22 Stop Date: 03/02/24 Status: OrderedErrin 0.35 mg oral tablet 1 tablet = 0.35 mg, By Mouth, Daily, for 84 days, # 84 tablet, 6 Refills, Hard Stop 07/23/22 10:36:00 EDT, 12/12/20 10:36:00 EDT, Tablet, [facility] #[id number], Partial fill upon patient request if the prescription is for a schedule II opioid dr... Start Date: 12/12/20 Stop Date: 07/23/22 Status: Orderedfluticasone 50 mcg/inh nasal spray See Instructions, SHAKE LIQUID AND USE 1 SPRAY IN EACH NOSTRIL DAILY IN THE MORNING, # 48 Gm, 0 Refills, [facility] #[id number], 90, SHAKE LIQUID AND USE 1 SPRAY IN EACH NOSTRIL DAILY IN THE MORNING, 157.2, cm, 01/30/22 11:33:00 EDT, Height, 53.5... Start Date: 01/31/22 Status: OrderedZyrTEC-D 5 mg-120 mg oral tablet, extended release 1 tablet, By Mouth, Every 24 hours, # 30 tablet, 2 Refills, Maintenance, 01/30/22 11:47:00 EDT, ER Tablet, [facility] #[id number], Partial fill upon patient request if the prescription is for a schedule II opioid drug., 1 tablet By Mouth Every 24... Start Date: 01/30/22 Stop Date: 04/30/22 Status: Ordered Problem List Condition Effective Dates Status Health Status Informant Suspicion of autism in the patient Active herself and in her first child(Confirmed) [place] eye(Confirmed) Active Learning disability. She went through [...]
--- OUTSIDE RECORDS SUMMARY | 2022-08-27 20:26 | XMS_ITS | Continuity of Care Document ---
:1995 Author Organization [facility] Address [address] [place] [address]- Care Team Providers Name Role Phone Florence Vasquez NP Primary Care Physician Encounter [facility] Date(s): 06/23/22 - 07/23/[address] [address] Allergies, Adverse Reactions, Alerts No Known Medication Allergies Immunizations Given and Recorded Vaccine Date Status Refusal Reason SARS-CoV-2 mRNA (niljrzc-wgzo-zitfa) vax 11/21/21 Recorde d influenza virus vaccine, inactivated 09/02/21 Given influenza virus vaccine, inactivated 06/13/19 Given influenza virus vaccine, inactivated1 06/10/17 Given influenza virus vaccine, inactivated 10/27/16 Given influenza virus vaccine, inactivated 07/10/15 Given SARS-CoV-2 (COVID-19) mRNA BNT-162b2 vac 05/24/21 Recorde d SARS-CoV-2 (COVID-19) mRNA BNT-162b2 vac 02/12/21 Recorde d SARS-CoV-2 (COVID-19) mRNA BNT-162b2 vac2 02/12/21 Record ed SARS-CoV-2 (COVID-19) mRNA BNT-162b2 vac 01/22/21 Recorde d tetanus/diphtheria/pertussis, acel(Tdap) 09/06/19 Given tetanus/diphtheria/pertussis, acel(Tdap) 12/31/17 Given tetanus/diphtheria/pertussis, acel(Tdap) 04/18/15 Given tetanus/diphtheria/pertussis, acel(Tdap)3 03/12/04 Record ed Human Papillomavirus Vaccine4 03/12/11 Recorded 1Result Comment: [06/10/2017] AI SORIANO [facility] [place] [phone] Comment: incorrect [id number] Comment: [10/07/2016] done at [id number] Comment: [10/07/2016] done at [place] [facility] Claritin 10 mg oral tablet 10 mg, 1, tablet, By Mouth, Daily, # 30 tablet, Refills 0, Tot. Refills 0, Maintenance, 10/28/21 15:55:00 EST, Route to Pharmacy Electronically, [facility] #[id number], Partial fill upon patient request if the prescription is for a schedule II op... Start Date: 10/28/21 Status: Orderedcyclobenzaprine 10 mg oral tablet 10 mg, 1, tablet, By Mouth, Daily, PRN, As needed for muscle pain/ muscle spasm. caution: can cause sleepiness, # 30 tablet, Refills 1, Tot. Refills 1, Maintenance, Pain , Mild, 04/09/22 12:13:00 EDT, Route to Pharmacy Electronically, [facility] Start Date: 04/09/22 Status: Orderedfluconazole 150 mg oral tablet 1 tablet = 150 mg, By Mouth, Once, epeat dose if still having symptoms in 72 hours, # 2 tablet, 0 Refills, Soft Stop, 04/07/22 16:30:00 EDT, Tablet, [facility] #[id number], Partial fill upon patient request if the prescription is for a schedule I... Start Date: 04/07/22 Status: Orderedfluticasone 50 mcg/inh nasal spray See Instructions, SHAKE LIQUID AND USE 1 SPRAY IN EACH NOSTRIL DAILY IN THE MORNING, # 48 Gm, 0 Refills, [facility] #[id number], 90, SHAKE LIQUID AND USE 1 SPRAY IN EACH NOSTRIL DAILY IN THE MORNING, 157.2, cm, 01/30/22 11:33:00 EDT, Height, 53.5... Start Date: 01/31/22 Status: OrderedZyrTEC-D 5 mg-120 mg oral tablet, extended release 1 tablet, By Mouth, Every 24 hours, # 30 tablet, 2 Refills, Maintenance, 01/30/22 11:47:00 EDT, ER Tablet, [facility] #[id number], Partial fill upon patient request if the prescription is for a schedule II opioid drug., 1 tablet By Mouth Every 24... Start Date: 01/30/22 Stop Date: 04/30/22 Status: Ordered Problem List Condition Confirmation Course Effective Dates Status Health I nformant Status Suspicion of autism Confirmed Active in the patient herself and in her first child Chronic headache Confirmed Active [place] eye Confirmed Active Learning disability. Confirmed Active She went through 12th grade but did not get a diploma because she could not pass the math part of the [employer]. She has considered getting a GED Headaches Confirmed Active Subclinical Confirmed Active hypothyroidism Itchy eyes Confirmed Active Major depression Confirmed Active Vertigo Confirmed Active Social History Social History Type Response Smoking Status Never (less than 100 in life time); Tobacco user in household: No entered on: 04/27/19 Sex Patient Care team information PersonnelName: Florence Vasquez NP Address: Address: [address] [place] [address]
--- OUTSIDE RECORDS SUMMARY | 2022-08-27 20:26 | XMS_ITS | Continuity of Care Document ---
:1995 Author Organization [facility] Address [address] [place] [address], [address] [place] [address]- Care Team Providers Name Role Phone Donna JEREZ, Vera Bernstein Primary Care Physician [place] [facility] [place]06[facility] [facility] [address] [place] [address], [address] [place] [address]- Attending Physician: Leslie Gil MD Referring Physician: [...] 03/12/11 Recorded 1Result Comment: [10/07/2016] done at [id number] Comment: [06/10/2017] AI SORIANO [facility] [place] 2[place] [phone] Comment: [10/07/2016] done at [place] [facility] Claritin 10 mg oral tablet 10 mg, 1, tablet, By Mouth, Daily, Refills 0, Maintenance, 10/28/19 19:25:00 EST Start Date: 10/28/19 Status: OrderedFlonase 50 mcg/inh nasal spray 1 sprays, Nares, Both, 2 times a day, PRN Congestion, # 16 Gm, 1 Refills, Maintenance, 07/08/19 19:10:20 EDT, [place], 1 sprays Nares, Both 2 times a day,PRN:Congestion Start Date: 07/08/19 Status: Orderedibuprofen 800 mg oral tablet 800 mg, 1, tablet, By Mouth, Every 8 hours, PRN, with food or milk, # 30 tablet, Refills 1, Tot. Refills 1, Acute 12/21/19 0:00:00 EDT, Pain , Moderate, 11/07/19 10:20:00 EST, Route to Pharmacy Electronically, [facility] #[id number], 155, cm, . Start Date: 11/07/19 Stop Date: 12/21/19 Status: OrderedPrenatal Multivitamins with Folic Acid 1 [...]
--- OUTSIDE RECORDS SUMMARY | 2022-08-27 20:26 | XMS_ITS | Continuity of Care Document ---
:1995 Author Organization [facility] Address [address] [place] [address]- Care Team Providers Name Role Phone Florence Vasquez NP Primary Care Physician [phone] [place] [facility] [place]/05/22 - 06/05/[address] [address]- Discharge Disposition: A-D/C Home Attending Physician: Geno Dean MD Admitting Physician: Geno Dean MD Referring Physician: Not on Staff, Referring MD Allergies, Adverse Reactions, Alerts No Known Medication Allergies Immunizations Given and Recorded Vaccine Date Status Refusal Reason SARS-CoV-2 mRNA (difwwmh-yxci-nxqwm) vax 11/21/21 Recorde d influenza virus vaccine, [...] Recorded 1Result Comment: [06/10/2017] AI SORIANO [facility] [phone] Comment: incorrect [id number] Comment: [10/07/2016] done at Kjxatodhl4Kciyal Comment: [10/07/2016] done at [facility] Claritin 10 mg oral tablet 10 mg, 1, tablet, By Mouth, Daily, # 30 tablet, Refills 0, Tot. Refills 0, Maintenance, 10/28/21 15:55:00 EST, Route to Pharmacy Electronically, [facility] #[id number], Partial fill upon patient request if the prescription is for a schedule II op... Start Date: 10/28/21 Status: Orderedcyclobenzaprine 10 mg oral tablet 10 mg, 1, tablet, By Mouth, Daily, PRN, As needed for muscle pain/ muscle spasm. caution: can cause sleepiness, # 30 tablet, Refills 1, Tot. Refills 1, Maintenance, Pain , Mild, 04/09/22 12:13:00 EDT, Route to Pharmacy Electronically, [facility] Start Date: 04/09/22 Status: Orderedfluconazole 150 mg oral tablet 1 tablet = 150 mg, By Mouth, Once, epeat dose if still having symptoms in 72 hours, # 2 tablet, 0 Refills, Soft Stop, 04/07/22 16:30:00 EDT, Tablet, [facility] #[id number], Partial fill upon patient request if the prescription is for a schedule I... Start Date: 04/07/22 Status: Orderedfluticasone 50 mcg/inh nasal spray See Instructions, SHAKE LIQUID AND USE 1 SPRAY IN EACH NOSTRIL DAILY IN THE MORNING, # 48 Gm, 0 Refills, [facility] #[id number], 90, SHAKE LIQUID AND USE 1 SPRAY IN EACH NOSTRIL DAILY IN THE MORNING, 157.2, cm, 01/30/22 11:33:00 EDT, Height, 53.5... Start Date: 01/31/22 Status: OrderedZyrTEC-D 5 mg-120 mg oral tablet, extended release 1 tablet, By Mouth, Every 24 hours, # 30 tablet, 2 Refills, Maintenance, 01/30/22 11:47:00 EDT, ER Tablet, [facility] #[id number], Partial fill upon patient request if the prescription is for a schedule II opioid drug., 1 tablet By Mouth Every 24... Start Date: 01/30/22 Stop Date: 04/30/22 Status: Ordered Problem List Condition Effective Dates Status Health Status Informant Suspicion of autism in the patient Active herself and in her first child(Confirmed) Chronic headache(Confirmed) Active [place] eye(Confirmed) Active Learning disability. She went through Active 12th grade but did not get a diploma because she could not pass the math part of the [employer]. She has considered getting a GED(Confirmed) Headaches(Confirmed) Active Subclinical hypothyroidism(Confirmed) Active Itchy eyes(Confirmed) Active Major depression(Confirmed) Active Vertigo(Confirmed) Active Results Radiology Reports Exam Date Time Procedure Performing Provider Status 06/05/22 3:51 AM Chest 2 Views Frontal and Lat Lira , Bryan; Au th (Verified) Notes:(Chest 2 Views Frontal and Lat) Reason For Exam: Chest Pain;Other:RESULT: Chest 2 Views Frontal and Lat PROCEDURE: Chest 2 Views Frontal and Lat INDICATION: 27 years old Female with Hx of Present Illness: cp into back and arm and breast neg workup at [facility] on Thursday; Reason: Other:; Chest Pain; Clinical Question(s): Other:. COMPARISON: None. FINDINGS: PA and lateral upright views of the chest obtained. Lines and tubes:None. Lungs and pleura: Lungs are clear. No pleural effusions.No evidence of pneumothorax. Heart, mediastinum and ricardo: The cardiomediastinal silhouette and pulmonary vasculature are unremarkable. No cardiomegaly or pulmonary venous hypertension. Bones and soft tissues: No other demonstrable abnormality. IMPRESSION: 1. No evidence of acute cardiopulmonary disease. Thank you for allowing me to participate in the care of this patient. WSN: [id number] Ordering Physician: Lee Trinidad Dictated By: Glen Denise MD Dictated Date/Time: 06/05/22 7:56 am Reviewed By: Glen Denise MD Signed By: Glen Denise MD Signed Date/Time: 06/05/22 7:56 am Transcribed By: PATRICIA Transcribed Date/Time: 06/05/22 7:55 am Vital Signs Most recent to oldest 1 2 3 [Reference Range]: Weight 55.8 kg 55.8 kg (06/05/22 3:16 AM) (06/05/22 3:13 AM) Oxygen Saturation [94-100 %] 99 % 100 % 100 % (06/05/22 9:20 AM) (06/05/22 6:27 AM) (06/05/22 3:1 3 AM) Pulse Rate [55-90 bpm] 87 bpm 71 bpm 87 bpm (06/05/22 9:20 AM) (06/05/22 6:27 AM) (06/05/22 3:1 3 AM) Blood Pressure [90-138/55-84 mm 121/79 mm Hg 111/78 mm Hg 124/88 mm Hg Hg] (06/05/22 9:20 AM) (06/05/22 6:27 AM) (06/05/22 3:1 3 AM) Respiratory Rate [16-30 br/min] 18 br/min 16 br/min (06/05/22 9:20 AM) (06/05/22 3:13 AM) Temperature [96.8-100.4 DegF] 98.7 DegF 98 DegF 98 .2 DegF (06/05/22 9:20 AM) (06/05/22 6:27 AM) (06/05/22 3:1 3 AM) Mode of Delivery (Oxygen) Room air Room air Room a ir (06/05/22 9:20 AM) (06/05/22 6:27 AM) (06/05/22 3:1 3 AM) Blood pressure sites Arm, left Arm, left Arm, right (06/05/22 9:20 AM) (06/05/22 6:27 AM) (06/05/22 3:1 3 AM) Temperature Route Oral Oral Oral (06/05/22 9:20 AM) (06/05/22:27 AM) (06/05/22 3:1 3 AM) Dry Weight 55.8 kg 55.8 kg (06/05/22 3:16 AM) (06/05/22 3:13 AM) Social History Social History Type Response Smoking Status Never (less than 100 in life time); Tobacco user in household: No entered on: 04/27/19 Sex Note BHSPowerscribe , CIS S: TRANSCRIBE Glen Denise MD: VERIFY Event Display: Result: Authored Date: [id number] PROCEDURE: Chest 2 Views Frontal and Lat INDICATION: 27 years old Female with Hx of Present Illness: cp into back and arm and breast neg workup at [facility] on Thursday; Reason: Other:; Chest Pain; Clinical Question(s): Other:. COMPARISON: None. FINDINGS: PA and lateral upright views of the chest obtained. Lines and tubes:None. Lungs and pleura: Lungs are clear. No pleural effusions.No evidence of pneumothorax. Heart, mediastinum and ricardo: The cardiomediastinal silhouette and pulmonary vasculature are unremarkable. No cardiomegaly or pulmonary venous hypertension. Bones and soft tissues: No other demonstrable abnormality. IMPRESSION: 1. No evidence of acute cardiopulmonary disease. Thank you for allowing me to participate in the care of this patient. WSN: [id number] Ordering Physician: Lee Trinidad Dictated By: Glen Denise MD Dictated Date/Time: 06/05/22 7:56 am Reviewed By: Glen Denise MD Signed By: Glen Denise MD Signed Date/Time: 06/05/22 7:56 am Transcribed By: PATRICIA Transcribed Date/Time: 06/05/22 7:55 am Care Team PersonnelName: Florence Vasquez NP Address: [address] [place] [address]
--- OUTSIDE RECORDS SUMMARY | 2022-08-27 20:26 | XMS_ITS | Continuity of Care Document ---
:1995 Author Organization [facility] Address [address] [place] [address]- Care Team Providers Name Role Phone Contractor Madelyn GOMEZ Primary Care Physician [place] [facility] [id number] Date(s[place] 10/18/21 - 10/18/[address] [address]- Discharge Disposition: A-D/C Home Attending Physician: Ivette Hunt MD Admitting Physician: Ivette Hunt MD Referring Physician: Not on Staff, Referring MD Allergies, Adverse Reactions, Alerts No Known Medication Allergies Immunizations Given and Recorded Vaccine Date Status Refusal Reason influenza virus vaccine, inactivated 09/02/21 Given influenza virus vaccine, inactivated 06/13/19 Given influenza virus vaccine, inactivated1 06/10/17 Given influenza virus vaccine, inactivated 10/27/16 Given influenza virus vaccine, inactivated 07/10/15 Given SARS-CoV-2 (COVID-19) mRNA BNT-162b2 vac 02/12/21 Recorde d tetanus/diphtheria/pertussis, acel(Tdap) 09/06/19 Given tetanus/diphtheria/pertussis, acel(Tdap) 12/31/17 Given tetanus/diphtheria/pertussis, acel(Tdap) 04/18/15 Given tetanus/diphtheria/pertussis, acel(Tdap)2 03/12/04 Record ed Human Papillomavirus Vaccine3 03/12/11 Recorded 1Result Comment: [06/10/2017] AI SORIANO [facility] [phone] Comment: [10/07/2016] done at Uegsoqbsn1Mwhujs Comment: [10/07/2016] done at [place] [facility] Claritin 10 mg oral tablet 10 mg, 1, tablet, By Mouth, Daily, Refills 0, Maintenance, 10/28/19 19:25:00 EST Start Date: 10/28/19 Status: OrderedErrin 0.35 mg oral tablet 1 tablet = 0.35 mg, By Mouth, Daily, # 84 tablet, 6 Refills, Maintenance, 07/23/22 10:36:00 EDT, Tablet, [facility] #[id number], Partial fill upon patient request if the prescription is for a schedule II opioid drug., 155, cm, 12/12/20 10:32:00 E... Start Date: 07/23/22 Stop Date: 03/02/24 Status: OrderedErrin 0.35 mg oral tablet 1 tablet = 0.35 mg, By Mouth, Daily, for 84 days, # 84 tablet, 6 Refills, Hard Stop 07/23/22 10:36:00 EDT, 12/12/20 10:36:00 EDT, Tablet, [facility] #[id number], Partial fill upon patient request if the prescription is for a schedule II opioid dr... Start Date: 12/12/20 Stop Date: 07/23/22 Status: OrderedFlonase 50 mcg/inh nasal spray 1 sprays, Nares, Both, 2 times a day, PRN Congestion, # 16 Gm, 1 Refills, Maintenance, 07/08/19 19:10:20 EDT, [place], 1 sprays Nares, Both 2 times a [...] Active Vital Signs Most recent to oldest 1 2 3 [Reference Range]: Oxygen Saturation [94-100 %] 99 % 99 % 100 % (10/18/21 6:35 PM) (10/18/21 4:45 PM) (10/18/21 4:3 5 PM) Pulse Rate [55-90 bpm] 88 bpm 87 bpm 90 bpm (10/18/21 6:35 PM) (10/18/21 4:45 PM) (10/18/21 4:3 5 PM) Blood Pressure [90-138/55-84 mm 103/67 mm Hg 135/67 mm Hg Hg] (10/18/21 6:35 PM) (10/18/21 4:45 PM) Respiratory Rate [16-30 br/min] 19 br/min 24 br/min (10/18/21 6:35 PM) (10/18/21 4:45 PM) Temperature [96.8-100.4 DegF] 98.5 DegF 97.9 DegF (10/18/21 6:35 PM) (10/18/21 4:45 PM) Mode of Delivery (Oxygen) Room air Room air Room a ir (10/18/21 6:35 PM) (10/18/21 4:45 PM) (10/18/21 4:3 5 PM) Blood pressure sites Arm, left Arm, left (10/18/21 6:35 PM) (10/18/21 4:45 PM) Temperature Route Oral Oral (10/18/21 6:35 PM) (10/18/21 4:45 PM) Social History Social History Type Response Smoking Status Never (less than 100 in life time); Tobacco user in household: No entered on: 04/27/19 Sex
--- OUTSIDE RECORDS SUMMARY | 2022-08-27 20:26 | XMS_ITS | Continuity of Care Document ---
:1995 [facility] Address [address] [place] [address], [address] [place] [address]- Care Team Providers Name Role Phone Donna JEREZ, Vera Bernstein Primary Care Physician [place] [facility] [place] Date(s): 10/17/19 - 10/24/19 [facility] [address] [place] [address], [address] [place] [address]- Attending Physician: Fatimah Obrien MD Referring Physician: Ayse Londono CNM Allergies, [...] 03/12/11 Recorded 1Result Comment: [10/07/2016] done at Alqbwnadu4Pddsoc Comment: [06/10/2017] AI SORIANO 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
--- OUTSIDE RECORDS SUMMARY | 2022-08-27 20:26 | XMS_ITS | Continuity of Care Document ---
:1995 Author Organization [facility] Address [address] [place] [address]- Care Team Providers Name Role Phone Contractor Madelyn GOMEZ Primary Care Physician Encounter [facility] Date(s): 02/11/22 - 03/13/[address] [address]- Allergies, Adverse Reactions, Alerts No Known Medication [...] 03/12/11 Recorded 1Result Comment: [06/10/2017] AI SORIANO [facility] [id number] Comment: incorrect [id number] Comment: [10/07/2016] done at [id number] Comment: [10/07/2016] done at [place] [facility] Claritin 10 mg oral tablet 10 mg, 1, tablet, By Mouth, Daily, # 30 tablet, Refills 0, Tot. Refills 0, Maintenance, 10/28/21 15:55:00 EST, Route to Pharmacy Electronically, [facility][id number], Partial fill upon patient request if the prescription is for a schedule II op... Start Date: 10/28/21 Status: OrderedErrin 0.35 mg oral tablet 1 tablet = 0.35 mg, By Mouth, Daily, # 84 tablet, 6 Refills, Maintenance, 07/23/22 10:36:00 EDT, Tablet, [facility] #[id number], Partial fill upon patient request if the prescription is for a schedule II opioid drug., 155, cm, 12/12/20 10:32:00 E... Start Date: 07/23/22 Stop Date: 03/02/24 Status: OrderedErrin 0.35 mg oral tablet 1 tablet = 0.35 mg, By Mouth, Daily, for 84 days, # 84 tablet, 6 Refills, Hard Stop 07/23/22 10:36:00 EDT, 12/12/20 10:36:00 EDT, Tablet, [facility][id number], Partial fill upon patient request if the prescription is for a schedule II opioid dr... Start Date: 12/12/20 Stop Date: 07/23/22 Status: Orderedfluticasone 50 mcg/inh nasal spray See Instructions, SHAKE LIQUID AND USE 1 SPRAY IN EACH NOSTRIL DAILY IN THE MORNING, # 48 Gm, 0 Refills, [facility][id number], 90, SHAKE LIQUID AND USE 1 SPRAY IN EACH NOSTRIL DAILY IN THE MORNING, 157.2, cm, 01/30/22 11:33:00 EDT, Height, 53.5... Start Date: 01/31/22 Status: OrderedZyrTEC-D 5 mg-120 mg oral tablet, extended release 1 tablet, By Mouth, Every 24 hours, # 30 tablet, 2 Refills, Maintenance, 01/30/22 11:47:00 EDT, ER Tablet, [facility] #[id number], Partial fill upon patient request if the prescription is for a schedule II opioid drug., 1 tablet By Mouth Every 24... Start Date: 01/30/22 Stop Date: 04/30/22 Status: Ordered Problem List Condition Effective Dates Status Health Status Informant Suspicion of autism in the patient Active herself and in her first child(Confirmed) [place] eye(Confirmed) Active Learning disability. She went through [...]
--- OUTSIDE RECORDS SUMMARY | 2022-08-27 20:26 | XMS_ITS | Continuity of Care Document ---
:1995 Author [facility] [employer] Address [address] [place] [address], [address] [place] [address]- Care Team Providers Name Role Phone Donna JEREZ, Vera Bernstein Primary Care Physician [place] [facility] [place] 09/27/19 [facility] [address] [place] [address], [address] [place] [address]- Attending Physician: Fatimah Obrien MD Referring Physician: [...] 03/12/11 Recorded 1Result Comment: [10/07/2016] done at [id number] Comment: [06/10/2017] AI SORIANO [facility] [phone] Comment: [10/07/2016] done at [facility] Flonase 50 mcg/inh nasal spray 1 sprays, Nares, Both, 2 times a day, PRN Congestion, # 16 Gm, 1 Refills, Maintenance, 07/08/19 19:10:20 EDT, [place], 1 sprays Nares, Both 2 times a [...] oldest [Reference Range]: 1 Height 154 cm (09/20/19 8:57 AM) Weight 53.6 kg (09/20/19 8:57 AM) Body Mass Index [18.5-24.99] 22.6 (09/20/19 8:57 AM) Blood Pressure [90-138/55-84 mm Hg] 105/58 mm Hg (09/20/19 8:57 AM) Blood pressure sites Arm, right (09/20/19 8:57 AM) Weight Obtained Via Standing scale (09/20/19 8:57 AM) Social History Social History Type Response Smoking Status Never (less than 100 in life time); Tobacco user in household: No entered on: 04/27/19 Sex
--- OUTSIDE RECORDS SUMMARY | 2022-08-27 20:26 | XMS_ITS | Continuity of Care Document ---
:1995 Author [facility] p Address [address] [place] [address], [address] [place] [address]- Care Team Providers Name Role Phone Donna JEREZ, Vera Bernstein Primary Care Physician [place] [facility] [place]19 - 09/13/19 [facility] [address] [place] [address], [address] [place] [address]- Attending Physician: Fatimah Obrien MD Referring Physician: [...] 03/12/11 Recorded 1Result Comment: [10/07/2016] done at [id number] Comment: [06/10/2017] AI SORIANO [facility] [phone] Comment: [10/07/2016] done at [facility] Flonase 50 mcg/inh nasal spray 1 sprays, Nares, Both, 2 times a day, PRN Congestion, # 16 Gm, 1 Refills, Maintenance, 07/08/19 19:10:20 EDT, [place], 1 sprays Nares, Both 2 times a [...] oldest [Reference Range]: 1 Height 154 cm (09/06/19 2:03 PM) Weight 52.7 kg (09/06/19 2:03 PM) Body Mass Index [18.5-24.99] 22.22 (09/06/19 2:03 PM) Blood Pressure [90-138/55-84 mm Hg] 113/67 mm Hg (09/06/19 2:03 PM) Blood pressure sites Arm, right (09/06/19 2:03 PM) Weight Obtained Via Standing scale (09/06/19 2:03 PM) Social History Social History Type Response Smoking Status Never (less than 100 in life time); Tobacco user in household: No entered on: 04/27/19 Sex
--- OUTSIDE RECORDS SUMMARY | 2022-08-27 20:26 | XMS_ITS | Continuity of Care Document ---
:1995 Author Organization [facility] Address [address] [place] [address]- Care Team Providers Name Role Phone Donna JEREZ, Vera Bernstein Primary Care Physician [facility] Date(s): 03/22/20 - 03/23/[address] [place] [address] [address]- [facility] Discharge Disposition: A-D/C Walkout Attending Physician: Not on Staff, Attending MD Admitting Physician: Not on Staff, Admitting MD Referring Physician: Not on Staff, Referring [...] 03/12/11 Recorded 1Result Comment: [10/07/2016] done at [id number] Comment: [06/10/2017] AI SORIANO [facility] [phone] Comment: [10/07/2016] done at [facility] Claritin 10 mg oral tablet 10 mg, 1, tablet, By Mouth, Daily, Refills 0, Maintenance, 10/28/19 19:25:00 EST Start Date: 10/28/19 Status: OrderedFlonase 50 mcg/inh nasal spray 1 sprays, Nares, Both, 2 times a day, PRN Congestion, # 16 Gm, 1 Refills, Maintenance, 07/08/19 19:10:20 EDT, [place], 1 sprays Nares, Both 2 times a day,PRN:Congestion Start Date: 07/08/19 Status: OrderedLoestrin Fe 1.5/30 oral tablet 1 tablet, By Mouth, Daily, starting on the first day of the menstrual cycle, # 28 tablet, 6 Refills,Maintenance, 12/15/19 14:53:00 EDT, [facility] #[id number], 1 tablet By Mouth Daily,x28 days,Instr:starting on [...] Most recent to oldest [Reference Range]: 1 Oxygen Saturation [94-100 %] 98 % (03/22/20 10:34 PM) Pulse Rate [55-90 bpm] 85 bpm (03/22/20 10:34 PM) Blood Pressure [90-138/55-84 mm Hg] 136/83 mm Hg (03/22/20 10:34 PM) Respiratory Rate [16-30 br/min] 16 br/min (03/22/20 10:34 PM) Temperature [96.8-100.4 DegF] 98.5 DegF (03/22/20 10:34 PM) Mode of Delivery (Oxygen) Room air (03/22/20 10:34 PM) Blood pressure sites Arm, right (03/22/20 10:34 PM) Temperature Route Oral (03/22/20 10:34 PM) Social History Social History Type Response Smoking Status Never (less than 100 in life time); Tobacco user in household: No entered on: 04/27/19 Sex
--- OUTSIDE RECORDS SUMMARY | 2022-08-27 20:26 | XMS_ITS | Continuity of Care Document ---
:1995 Author Organization [facility] Address [address] [place] [address]- Care Team Providers Name Role Phone Florence Vasquez NP Primary Care Physician [facility]counter [facility] Date(s): 06/25/22 - 07/25/[address] [address] Allergies, Adverse Reactions, Alerts No Known Medication Allergies Immunizations Given and Recorded Vaccine Date Status Refusal Reason SARS-CoV-2 mRNA (jbjnhtr-cazy-polmz) vax 11/21/21 Recorde d influenza virus vaccine, [...] 03/12/11 Recorded 1Result Comment: [06/10/2017] AI SORIANO [facility] [id number] Comment: incorrect [id number] Comment: [10/07/2016] done at [id number] Comment: [10/07/2016] done at [facility] Claritin 10 mg oral tablet 10 mg, 1, tablet, By Mouth, Daily, # 30 tablet, Refills 0, Tot. Refills 0, Maintenance, 10/28/21 15:55:00 EST, Route to Pharmacy Electronically, [facility] #[id number], Partial fill upon patient request if the prescription is for a schedule II op... Start Date: 10/28/21 Status: Orderedcyclobenzaprine 10 mg oral tablet 10 mg, 1, tablet, By Mouth, Daily, PRN, As needed for muscle pain/ muscle spasm. caution: can cause sleepiness, # 30 tablet, Refills 1, Tot. Refills 1, Maintenance, Pain , Mild, 04/09/22 12:13:00 EDT, Route to Pharmacy Electronically, [facility] Start Date: 04/09/22 Status: Orderedfluconazole 150 mg oral tablet 1 tablet = 150 mg, By Mouth, Once, epeat dose if still having symptoms in 72 hours, # 2 tablet, 0 Refills, Soft Stop, 04/07/22 16:30:00 EDT, Tablet, [facility] #[id number], Partial fill upon patient request if the prescription is for a schedule I... Start Date: 04/07/22 Status: Orderedfluticasone 50 mcg/inh nasal spray See Instructions, SHAKE LIQUID AND USE 1 SPRAY IN EACH NOSTRIL DAILY IN THE MORNING, # 48 Gm, 0 Refills, [facility] #[id number], 90, SHAKE LIQUID AND USE 1 SPRAY IN EACH NOSTRIL DAILY IN THE MORNING, 157.2, cm, 01/30/22 11:33:00 EDT, Height, 53.5... Start Date: 01/31/22 Status: OrderedZyrTEC-D 5 mg-120 mg oral tablet, extended release 1 tablet, By Mouth, Every 24 hours, # 30 tablet, 2 Refills, Maintenance, 01/30/22 11:47:00 EDT, ER Tablet, [facility] #[id number], Partial fill upon patient request if the prescription is for a schedule II opioid drug., 1 tablet By Mouth Every 24... Start Date: 01/30/22 Stop Date: 04/30/22 Status: Ordered Problem List Condition Confirmation Course Effective Dates Status Health I nformant Status Suspicion of autism Confirmed Active in the patient herself and in her first child Chronic headache Confirmed Active [place] eye Confirmed Active Learning disability. Confirmed Active [...] information PersonnelName: Florence Vasquez NP Address: Address: [address] [place] [address]
--- OUTSIDE RECORDS SUMMARY | 2022-08-27 20:26 | XMS_ITS | Continuity of Care Document ---
:1995 Author Organization [facility] Address [address] [place] [address]- Care Team Providers Name Role Phone Florence Vasquez NP Primary Care Physician [phone] Encounter [facility] Date(s): 04/29/22 - 05/29/[address] [address] Attending Physician: AdmMaryan schwartz Admitting Physician: Admtr, Afshin8 Referring Physician: Admtr, Ar8 Allergies, Adverse Reactions, Alerts No Known Medication Allergies Immunizations Given and Recorded Vaccine Date Status Refusal Reason SARS-CoV-2 mRNA ([id number]-qymk-ptwci) vax 11/21/21 Recorde d influenza virus vaccine, [...] 03/12/11 Recorded 1Result Comment: [06/10/2017] AI SORIANO [facility] [phone] Comment: incorrect [id number] Comment: [10/07/2016] done at [id number] Comment: [10/07/2016] done at [facility] Claritin 10 mg oral tablet 10 mg, 1, tablet, By Mouth, Daily, # 30 tablet, Refills 0, Tot. Refills 0, Maintenance, 10/28/21 15:55:00 EST, Route to Pharmacy Electronically, [facility] #[id number], Partial fill upon patient request if the prescription is for a schedule II op... Start Date: 10/28/21 Status: Orderedcyclobenzaprine 10 mg oral tablet 10 mg, 1, tablet, By Mouth, Daily, PRN, As needed for muscle pain/ muscle spasm. caution: can cause sleepiness, # 30 tablet, Refills 1, Tot. Refills 1, Maintenance, Pain , Mild, 04/09/22 12:13:00 EDT, Route to Pharmacy Electronically, [facility] Start Date: 04/09/22 Status: Orderedfluconazole 150 mg oral tablet 1 tablet = 150 mg, By Mouth, Once, epeat dose if still having symptoms in 72 hours, # 2 tablet, 0 Refills, Soft Stop, 04/07/22 16:30:00 EDT, Tablet, [facility] #[id number], Partial fill upon patient request if the prescription is for a schedule I... Start Date: 04/07/22 Status: Orderedfluticasone 50 mcg/inh nasal spray See Instructions, SHAKE LIQUID AND USE 1 SPRAY IN EACH NOSTRIL DAILY IN THE MORNING, # 48 Gm, 0 Refills, [facility] #[id number], 90, SHAKE LIQUID AND USE 1 SPRAY IN EACH NOSTRIL DAILY IN THE MORNING, 157.2, cm, 01/30/22 11:33:00 EDT, Height, 53.5... Start Date: 01/31/22 Status: OrderedZyrTEC-D 5 mg-120 mg oral tablet, extended release 1 tablet, By Mouth, Every 24 hours, # 30 tablet, 2 Refills, Maintenance, 01/30/22 11:47:00 EDT, ER Tablet, [facility] #[id number], Partial fill upon patient request if the prescription is for a schedule II opioid drug., 1 tablet By Mouth Every 24... Start Date: 01/30/22 Stop Date: 04/30/22 Status: Ordered Problem List Condition Effective Dates Status Health Status Informant Suspicion of autism in the patient Active herself and in her first child(Confirmed) Chronic headache(Confirmed) Active [place] eye(Confirmed) Active Learning disability. She went through Active 12th grade but did not get a diploma because she could not pass the math part of the [employer]. She has considered getting a GED(Confirmed) Headaches(Confirmed) Active Subclinical hypothyroidism(Confirmed) Active Itchy eyes(Confirmed) Active Major depression(Confirmed) Active Vertigo(Confirmed) Active Social History Social History Type Response Smoking Status Never (less than 100 in life time); Tobacco user in household: No entered on: 04/27/19 Sex Care Team PersonnelName: Florence Vasquez NP Address: [address] [place] [address]
--- OUTSIDE RECORDS SUMMARY | 2022-08-27 20:26 | XMS_ITS | Continuity of Care Document ---
:1995 Author [facility] Address [address] [place] [address], [address] [place] [address]- Care Team Providers Name Role Phone Donna JEREZ, Vera Bernstein Primary Care Physician [facility] [facility] [place] Date(s): 03/05/20 - 03/12/20 [facility] [address] [place] [address], [address] [place] [address] [facility] Attending Physician: Not on Staff, Attending MD Referring Physician: Ayse Londono CNM Allergies, [...] 03/12/11 Recorded 1Result Comment: [10/07/2016] done at [id number] Comment: [06/10/2017] AI SORIANO [facility] [phone] Comment: [10/07/2016] done at [facility] Claritin 10 mg oral tablet 10 mg, 1, tablet, By Mouth, Daily, Refills 0, Maintenance, 10/28/19 19:25:00 EST Start Date: 10/28/19 Status: OrderedFlonase 50 mcg/inh nasal spray 1 sprays, Nares, Both, 2 times a day, PRN Congestion, # 16 Gm, 1 Refills, Maintenance, 07/08/19 19:10:20 EDT, [place], 1 sprays Nares, Both 2 times a day,PRN:Congestion Start Date: 07/08/19 Status: OrderedLoestrin Fe 1.5/30 oral tablet 1 tablet, By Mouth, Daily, starting on the first day of the menstrual cycle, # 28 tablet, 6 Refills,Maintenance, 12/15/19 14:53:00 EDT, [facility] #[id number], 1 tablet By Mouth Daily,x28 days,Instr:starting on [...]
--- OUTSIDE RECORDS SUMMARY | 2022-08-27 20:26 | XMS_ITS | Continuity of Care Document ---
:1995 Author Organization [facility] Address [address] [place] [address], [address] [place] [address]- Care Team Providers Name Role Phone Pedro JEREZ, Florence Ruby Primary Care Physician [phone] Encounter [facility] [place] Date(s): 04/04/22 - 04/11/22 [facility] [address] [place] [address], [address] [place] [address] [address] Attending Physician: Kiley Stewart MD Referring Physician: Florence Vasquez NP Allergies, Adverse Reactions, Alerts No Known Medication Allergies Immunizations Given and Recorded Vaccine Date Status Refusal Reason SARS-CoV-2 mRNA (gghwznj-lffw-xggbo) vax 11/21/21 Recorde d influenza virus vaccine, [...] Recorded 1Result Comment: [06/10/2017] AI SORIANO [facility] [phone] Comment: incorrect [id number] Comment: [10/07/2016] done at [id number] Comment: [10/07/2016] done at [facility] Claritin 10 mg oral tablet 10 mg, 1, tablet, By Mouth, Daily, # 30 tablet, Refills 0, Tot. Refills 0, Maintenance, 10/28/21 15:55:00 EST, Route to Pharmacy Electronically, [facility] #[id number], Partial fill upon patient request if the prescription is for a schedule II op... Start Date: 10/28/21 Status: Orderedcyclobenzaprine 10 mg oral tablet 10 mg, 1, tablet, By Mouth, Daily, PRN, As needed for muscle pain/ muscle spasm. caution: can cause sleepiness, # 30 tablet, Refills 1, Tot. Refills 1, Maintenance, Pain , Mild, 04/09/22 12:13:00 EDT, Route to Pharmacy Electronically, [facility] Start Date: 04/09/22 Status: Orderedfluconazole 150 mg oral tablet 1 tablet = 150 mg, By Mouth, Once, epeat dose if still having symptoms in 72 hours, # 2 tablet, 0 Refills, Soft Stop, 04/07/22 16:30:00 EDT, Tablet, [facility] #[id number], Partial fill upon patient request if the prescription is for a schedule I... Start Date: 04/07/22 Status: Orderedfluticasone 50 mcg/inh nasal spray See Instructions, SHAKE LIQUID AND USE 1 SPRAY IN EACH NOSTRIL DAILY IN THE MORNING, # 48 Gm, 0 Refills, [facility] #[id number], 90, SHAKE LIQUID AND USE 1 SPRAY IN EACH NOSTRIL DAILY IN THE MORNING, 157.2, cm, 01/30/22 11:33:00 EDT, Height, 53.5... Start Date: 01/31/22 Status: OrderedZyrTEC-D 5 mg-120 mg oral tablet, extended release 1 tablet, By Mouth, Every 24 hours, # 30 tablet, 2 Refills, Maintenance, 01/30/22 11:47:00 EDT, ER Tablet, [facility] #[id number], Partial fill upon patient request if the prescription is for a schedule II opioid drug., 1 tablet By Mouth Every 24... Start Date: 01/30/22 Stop Date: 04/30/22 Status: Ordered Problem List Condition Effective Dates Status Health Status Informant Suspicion of autism in the patient Active herself and in her first child(Confirmed) Chronic headache(Confirmed) Active [place] eye(Confirmed) Active Learning disability. She went through Active 12th grade but did not get a diploma because she could not pass the math part of the [employer]. She has considered getting a GED(Confirmed) Headaches(Confirmed) Active Subclinical hypothyroidism(Confirmed) Active Itchy eyes(Confirmed) Active Major depression(Confirmed) Active Vertigo(Confirmed) Active Vital Signs Most recent to oldest [Reference Range]: 1 Height 157.2 cm (04/04/22 10:55 AM) Weight 55.72 kg (04/04/22 10:55 AM) Pulse Rate [55-90 bpm] 75 bpm (04/04/22 10:55 AM) Body Mass Index [18.5-24.99] 22.55 (04/04/22 10:55 AM) Blood Pressure [90-138/55-84 mm Hg] 112/84 mm Hg (04/04/22 10:55 AM) Respiratory Rate [16-30 br/min] 19 br/min (04/04/22 10:55 AM) Blood pressure sites Arm, left (04/04/22 10:55 AM) Weight Obtained Via Standing scale (04/04/22 10:55 AM) Social History Social History Type Response Smoking Status Never (less than 100 in life time); Tobacco user in household: No entered on: 04/27/19 Sex
--- OUTSIDE RECORDS SUMMARY | 2022-08-27 20:26 | XMS_ITS | Continuity of Care Document ---
:1995 Author Organization [facility] Address [address] [place] [address], [address] [place] [address]- Care Team Providers Name Role Phone Donna JEREZ, Vera Bernstein Primary Care Physician En[place] [facility] [place] [facility] [id number] Date(s): 09/20/19 - 09/30/19 [facility]onal[facility] [address] [place] [address], [address] [place] [address]- Attending Physician: Maryan Ceballos Admitting Physician: AdmMaryan schwartz Referring Physician: AdmtrMaryan Allergies, Adverse Reactions, Alerts No Known Medication [...] 03/12/11 Recorded 1Result Comment: [10/07/2016] done at [id number] Comment: [06/10/2017] AI SORIANO [facility] [phone] Comment: [10/07/2016] done at [place] [facility] Flonase 50 mcg/inh nasal spray 1 sprays, Nares, Both, 2 times a day, PRN Congestion, # 16 Gm, 1 Refills, Maintenance, 07/08/19 19:10:20 EDT, [place], 1 sprays Nares, Both 2 times a [...]
--- OUTSIDE RECORDS SUMMARY | 2022-08-27 20:26 | XMS_ITS | Continuity of Care Document ---
:1995 Author Organization [facility] Address [address] [place] [address]- Care Team Providers Name Role Phone Donna JEREZ, Vera Bernstein Primary Care Physician [facility] Date(s): 09/06/19 - 09/06/[address] [address]- [facility] Attending Physician: Ayse Londono CNM Allergies, Adverse Reactions, [...] 03/12/11 Recorded 1Result Comment: [10/07/2016] done at [id number] Comment: [06/10/2017] AI SORIANO [facility] [phone] Comment: [10/07/2016] done at [facility] Flonase 50 mcg/inh nasal spray 1 sprays, Nares, Both, 2 times a day, PRN Congestion, # 16 Gm, 1 Refills, Maintenance, 07/08/19 19:10:20 EDT, [place], 1 sprays Nares, Both 2 times a [...]
--- OUTSIDE RECORDS SUMMARY | 2022-08-27 20:26 | XMS_ITS | Continuity of Care Document ---
:1995 Author Organization [facility] Address [address] [place] [address]- Care Team Providers Name Role Phone Florence Vasquez NP Primary Care Physician [phone] [facility]counter [facility] Date(s): 03/21/22 - 04/20/[address] [address]- Allergies, Adverse Reactions, Alerts No Known Medication Allergies Immunizations Given and Recorded Vaccine Date Status Refusal Reason SARS-CoV-2 mRNA (xwliayu-jgma-gtevz) vax 11/21/21 Recorde d influenza virus vaccine, [...] 03/12/11 Recorded 1Result Comment: [06/10/2017] AI SORIANO [facility] [phone] Comment: incorrect [id number] Comment: [10/07/2016] done at Sgzyztuey4Pxrinw Comment: [10/07/2016] done at [facility] Claritin 10 mg oral tablet 10 mg, 1, tablet, By Mouth, Daily, # 30 tablet, Refills 0, Tot. Refills 0, Maintenance, 10/28/21 15:55:00 EST, Route to Pharmacy Electronically, [facility] #[id number], Partial fill upon patient request if the prescription is for a schedule II op... Start Date: 10/28/21 Status: Orderedcyclobenzaprine 10 mg oral tablet 10 mg, 1, tablet, By Mouth, Daily, PRN, As needed for muscle pain/ muscle spasm. caution: can cause sleepiness, # 30 tablet, Refills 1, Tot. Refills 1, Maintenance, Pain , Mild, 04/09/22 12:13:00 EDT, Route to Pharmacy Electronically, [facility] Start Date: 04/09/22 Status: Orderedfluconazole 150 mg oral tablet 1 tablet = 150 mg, By Mouth, Once, epeat dose if still having symptoms in 72 hours, # 2 tablet, 0 Refills, Soft Stop, 04/07/22 16:30:00 EDT, Tablet, [facility] #[id number], Partial fill upon patient request if the prescription is for a schedule I... Start Date: 04/07/22 Status: Orderedfluticasone 50 mcg/inh nasal spray See Instructions, SHAKE LIQUID AND USE 1 SPRAY IN EACH NOSTRIL DAILY IN THE MORNING, # 48 Gm, 0 Refills, [facility] #[id number], 90, SHAKE LIQUID AND USE 1 SPRAY IN EACH NOSTRIL DAILY IN THE MORNING, 157.2, cm, 01/30/22 11:33:00 EDT, Height, 53.5... Start Date: 01/31/22 Status: OrderedZyrTEC-D 5 mg-120 mg oral tablet, extended release 1 tablet, By Mouth, Every 24 hours, # 30 tablet, 2 Refills, Maintenance, 01/30/22 11:47:00 EDT, ER Tablet, [facility] #[id number], Partial fill upon patient request if the prescription is for a schedule II opioid drug., 1 tablet By Mouth Every 24... Start Date: 01/30/22 Stop Date: 04/30/22 Status: Ordered Problem List Condition Effective Dates Status Health Status Informant Suspicion of autism in the patient Active herself and in her first child(Confirmed) Chronic headache(Confirmed) Active [place] eye(Confirmed) Active Learning disability. She went through [...]
--- OUTSIDE RECORDS SUMMARY | 2022-08-27 20:26 | XMS_ITS | Continuity of Care Document ---
:1995 Author Organization [facility] Address [address] [place] [address], [address] [place] [address]- Care Team Providers Name Role Phone Contractor Madelyn GOMEZ Primary Care Physician [place] [facility] [place] Date(s): 08/26/21 - 09/25/21 [facility] [address] [place] [address], [address] [place] [id number] Allergies, Adverse Reactions, Alerts No Known Medication [...] 03/12/11 Recorded 1Result Comment: [06/10/2017] AI SORIANO [facility] [phone] Comment: [10/07/2016] done at Bugqysgcy2Ngefon Comment: [10/07/2016] done at [place] Claritin 10 mg oral tablet 10 mg, 1, tablet, By Mouth, Daily, Refills 0, Maintenance, 10/28/19 19:25:00 EST Start Date: 10/28/19 Status: OrderedErrin 0.35 mg oral tablet 1 tablet = 0.35 mg, By Mouth, Daily, # 84 tablet, 6 Refills, Maintenance, 07/23/22 10:36:00 EDT, Tablet, [facility] #[id number], Partial fill upon patient request if the prescription is for a schedule II opioid drug., 155, cm, 12/12/20 10:32:00 E... Start Date: 07/23/22 Stop Date: 03/02/24 Status: OrderedErrin 0.35 mg oral tablet 1 tablet = 0.35 mg, By Mouth, Daily, for 84 days, # 84 tablet, 6 Refills, Hard Stop 07/23/22 10:36:00 EDT, 12/12/20 10:36:00 EDT, Tablet, [facility] #[id number], Partial fill upon patient request if the prescription is for a schedule II opioid drVinny Start Date: 12/12/20 Stop Date: 07/23/22 Status: OrderedFlonase 50 mcg/inh nasal spray 1 sprays, Nares, Both, 2 times a day, PRN Congestion, # 16 Gm, 1 Refills, Maintenance, 07/08/19 19:10:20 EDT, [place], 1 sprays Nares, Both 2 times a [...] Active Subclinical hypothyroidism(Confirmed) Active Major depression(Confirmed) Active Social History Social History Type Response Smoking Status Never (less than 100 in life time); Tobacco user in household: No entered on: 04/27/19 Sex
--- OUTSIDE RECORDS SUMMARY | 2022-08-27 20:27 | XMS_ITS | Continuity of Care Document ---
:1995 Author [facility] Address [address] [place] [address], [address] [place] [address]- Care Team Providers Name Role Phone Florence Vasquez NP Primary Care Physician Encounter [facility] [facility] ACCT R [id number] Date(s): 04/04/22 - 05/04/22 [facility] [address] [facility], [address] [place] [address] Attending Physician: Admtr, [id number] Admitting Physician: Admtr, Ar8 Referring Physician: Admtr, Ar8 Allergies, Adverse Reactions, Alerts No Known Medication Allergies Immunizations Given and Recorded Vaccine Date Status Refusal Reason SARS-CoV-2 mRNA ([id number]-mtli-avapn) vax 11/21/21 Recorde d influenza virus vaccine, [...] 03/12/11 Recorded 1Result Comment: [06/10/2017] AI SORIANO [facility] [id number] Comment: incorrect [id number] Comment: [10/07/2016] done at [id number] Comment: [10/07/2016] done at [facility] [facility] Claritin 10 mg oral tablet 10 mg, 1, tablet, By Mouth, Daily, # 30 tablet, Refills 0, Tot. Refills 0, Maintenance, 10/28/21 15:55:00 EST, Route to Pharmacy Electronically, [facility][id number], Partial fill upon patient request if the prescription is for a schedule II op... Start Date: 10/28/21 Status: Orderedcyclobenzaprine 10 mg oral tablet 10 mg, 1, tablet, By Mouth, Daily, PRN, As needed for muscle pain/ muscle spasm. caution: can cause sleepiness, # 30 tablet, Refills 1, Tot. Refills 1, Maintenance, Pain , Mild, 04/09/22 12:13:00 EDT, Route to Pharmacy Electronically, [facility] Start Date: 04/09/22 Status: Orderedfluconazole 150 mg oral tablet 1 tablet = 150 mg, By Mouth, Once, epeat dose if still having symptoms in 72 hours, # 2 tablet, 0 Refills, Soft Stop, 04/07/22 16:30:00 EDT, Tablet, [facility] #[id number], Partial fill upon patient request if the prescription is for a schedule I... Start Date: 04/07/22 Status: Orderedfluticasone 50 mcg/inh nasal spray See Instructions, SHAKE LIQUID AND USE 1 SPRAY IN EACH NOSTRIL DAILY IN THE MORNING, # 48 Gm, 0 Refills, [facility] #[id number], 90, SHAKE LIQUID AND USE 1 SPRAY IN EACH NOSTRIL DAILY IN THE MORNING, 157.2, cm, 01/30/22 11:33:00 EDT, Height, 53.5... Start Date: 01/31/22 Status: OrderedZyrTEC-D 5 mg-120 mg oral tablet, extended release 1 tablet, By Mouth, Every 24 hours, # 30 tablet, 2 Refills, Maintenance, 01/30/22 11:47:00 EDT, ER Tablet, [facility] #[id number], Partial fill upon patient request if the prescription is for a schedule II opioid drug., 1 tablet By Mouth Every 24... Start Date: 01/30/22 Stop Date: 04/30/22 Status: Ordered Problem List Condition Effective Dates Status Health Status Informant Suspicion of autism in the patient Active herself and in her first child(Confirmed) Chronic headache(Confirmed) Active [place] eye(Confirmed) Active Learning disability. She went through [...]
--- OUTSIDE RECORDS SUMMARY | 2022-08-27 20:27 | XMS_ITS | Continuity of Care Document ---
:1995 Author Organization [facility] Address [address] [place] [address]- Care Team Providers Name Role Phone Donna JEREZ, Vera Bernstein Primary Care Physician Encounter [facility] Date(s): 11/02/19 - 11/03/[address] [address]- [facility] Discharge Disposition: A-D/C Home Attending Physician: Leslie Gil MD Admitting Physician: Leslie Gil MD Referring Physician: Leslie Gil MD Allergies, Adverse Reactions, Alerts No Known [...] 03/12/11 Recorded 1Result Comment: [10/07/2016] done at [id number] Comment: [06/10/2017] AI SORIANO [facility] [id number] Comment: [10/07/2016] done at [place] [facility] Claritin 10 mg oral tablet 10 mg, 1, tablet, By Mouth, Daily, Refills 0, Maintenance, 10/28/19 19:25:00 EST Start Date: 10/28/19 Status: OrderedFlonase 50 mcg/inh nasal spray 1 sprays, Nares, Both, 2 times a day, PRN Congestion, # 16 Gm, 1 Refills, Maintenance, 07/08/19 19:10:20 EDT, [place], 1 sprays Nares, Both 2 times a day,PRN:Congestion Start Date: 07/08/19 Status: OrderedPrenatal Multivitamins with Folic Acid 1 mg oral tablet 1 tablet, By Mouth, Daily, # 90 tablet, 3 Refills, Maintenance, 06/13/19 9:20:31 EDT, Tablet, 1 tablet By Mouth Daily Start Date: 06/13/19 Status: OrderedTamiflu 75 mg oral capsule 1 capsule = 75 mg, By Mouth, 2 times a day, for 7 days, # 14 capsule, 0 Refills, Acute 11/10/19 2:02:00 EST, 11/03/19 2:02:00 EST, Capsule, [facility] #[id number], 155, cm, 11/03/19 1:48:00 EST, Height, 53.6, kg, 10/30/19 19:13:00 EST, Dry Weight Start Date: 11/03/19 Stop Date: 11/10/19 Status: OrderedTamiflu 75 mg oral capsule 1 capsule = 75 mg, By Mouth, 2 times a day, for 5 days, # 10 capsule, 0 Refills, Acute 11/15/19 2:02:00 EST, 11/10/19 2:02:00 EST, Capsule, [facility] #[id number], 155, cm, 11/03/19 3:48:00 EST, Height, 53.6, kg, 10/30/19 19:13:00 EST, Dry Weight Start Date: 11/10/19 Stop Date: 11/15/19 Status: Ordered Problem List Condition Effective Dates Status Health Status Informant Suspicion of autism in the patient Active herself and in her first child(Confirmed) Last pap smear 10/24/16 Active negative(Confirmed) Learning disability. She went through Active 12th grade but did not get a diploma because she could not pass the math part of the [employer]. 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, antepartum(Confirmed) 1Problem added by Discern Expert Vital Signs Most recent to oldest 1 2 3 [Reference Range]: Height 155 cm 155 cm 155 cm (11/03/19 3:20 AM) (11/03/19 1:48 AM) (11/03/19 1:3 0 AM) Weight 53 kg (11/03/19 1:30 AM) Oxygen Saturation [94-100 %] 99 % 99 % (11/03/19 3:20 AM) (11/03/19 1:48 AM) Pulse Rate [55-90 bpm] 102 bpm 119 bpm 118 bpm *H* *H* *H* (11/03/19 3:20 AM) (11/03/19 1:48 AM) (11/03/19 1:3 0 AM) Body Mass Index [18.5-24.99] 22.06 (11/03/19 1:30 AM) Blood Pressure [90-138/55-84 mm 109/64 mm Hg Hg] (11/03/19 1:30 AM) Respiratory Rate [16-30 br/min] 20 br/min 20 br/min (11/03/19 3:20 AM) (11/03/19 1:30 AM) Temperature [96.8-100.4 DegF] 98.9 DegF (11/03/19 1:30 AM) Mode of Delivery (Oxygen) Room air Room air (11/03/19 3:20 AM) (11/03/19 1:48 AM) Blood pressure sites Arm, left (11/03/19 1:30 AM) Temperature Route Oral (11/03/19 1:30 AM) Social History Social History Type Response Smoking Status Never (less than 100 in life time); Tobacco user in household: No entered on: 04/27/19 Sex
--- OUTSIDE RECORDS SUMMARY | 2022-08-27 20:27 | XMS_ITS | Continuity of Care Document ---
:1995 Author Organization [facility] Address [address] [place] [address], [address] [place] [address]- Care Team Providers Name Role Phone Donna JEREZ, Vera Bernstein Primary Care Physician [place] [facility] [place] [id number] Date(s): 08/22/21 - 08/29/21 [facility] [address] [place] [address], [address] [place] [id number] Attending Physician: Sushila Antunez MD Referring Physician: Ayse Londono CNM Allergies, [...] 03/12/11 Recorded 1Result Comment: [10/07/2016] done at [id number] Comment: [06/10/2017] AI SORIANO [facility] [id number] Comment: [10/07/2016] done at [place] [facility] Claritin 10 mg oral tablet 10 mg, 1, tablet, By Mouth, Daily, Refills 0, Maintenance, 10/28/19 19:25:00 EST Start Date: 10/28/19 Status: OrderedErrin 0.35 mg oral tablet 1 tablet = 0.35 mg, By Mouth, Daily, # 84 tablet, 6 Refills, Maintenance, 07/23/22 10:36:00 EDT, Tablet, [facility] #[id number], Partial fill upon patient request if the prescription is for a schedule II opioid drug., 155, cm, 12/12/20 10:32:00 E... Start Date: 07/23/22 Stop Date: 03/02/24 Status: OrderedErrin 0.35 mg oral tablet 1 tablet = 0.35 mg, By Mouth, Daily, for 84 days, # 84 tablet, 6 Refills, Hard Stop 07/23/22 10:36:00 EDT, 12/12/20 10:36:00 EDT, Tablet, [facility] #[id number], Partial fill upon patient request if the prescription is for a schedule II opioid dr... Start Date: 12/12/20 Stop Date: 07/23/22 Status: OrderedFlonase 50 mcg/inh nasal spray 1 sprays, Nares, Both, 2 times a day, PRN Congestion, # 16 Gm, 1 Refills, Maintenance, 07/08/19 19:10:20 EDT, [place], 1 sprays Nares, Both 2 times a [...] oldest [Reference Range]: 1 Height 155 cm (08/22/21 11:59 AM) Weight 53.5 kg (08/22/21 11:59 AM) Pulse Rate [55-90 bpm] 71 bpm (08/22/21 11:59 AM) Body Mass Index [18.5-24.99] 22.27 (08/22/21 11:59 AM) Blood Pressure [90-138/55-84 mm Hg] 108/53 mm Hg (08/22/21 11:59 AM) Blood pressure sites Arm, right (08/22/21 11:59 AM) Dry Weight 53.5 kg (08/22/21 11:59 AM) Weight Obtained Via Standing scale (08/22/21 11:59 AM) Dry Weight Obtained Via Standing scale (08/22/21 11:59 AM) Social History Social History Type Response Smoking Status Never (less than 100 in life time); Tobacco user in household: No entered on: 04/27/19 Sex
--- OUTSIDE RECORDS SUMMARY | 2022-08-27 20:27 | XMS_ITS | Continuity of Care Document ---
:1995 [facility] Address [address] [place] [address], [address] [place] [address]- Care Team Providers Name Role Phone Donna JEREZ, Vera Bernstein Primary Care Physician Encounter [facility] [place] Date(s): 09/06/19 - 12/02/19 [facility] [address] [place] [address], [address] [place] [address]- Attending Physician: Fatimah Obrien MD Referring Physician: [...] 03/12/11 Recorded 1Result Comment: [10/07/2016] done at [id number] Comment: [06/10/2017] AI SORIANO [facility] [id number] Comment: [10/07/2016] done at [place] [facility] Claritin 10 mg oral tablet 10 mg, 1, tablet, By Mouth, Daily, Refills 0, Maintenance, 10/28/19 19:25:00 EST Start Date: 10/28/19 Status: OrderedFlonase 50 mcg/inh nasal spray 1 sprays, Nares, Both, 2 times a day, PRN Congestion, # 16 Gm, 1 Refills, Maintenance, 07/08/19 19:10:20 EDT, [place], 1 sprays Nares, Both 2 times a day,PRN:Congestion Start Date: 07/08/19 Status: Orderedibuprofen 800 mg oral tablet 800 mg, 1, tablet, By Mouth, Every 8 hours, PRN, with food or milk, # 30 tablet, Refills 1, Tot. Refills 1, Acute 12/21/19 0:00:00 EDT, Pain , Moderate, 11/07/19 10:20:00 EST, Route to Pharmacy Electronically, [facility] #[id number], 155, cm, . Start Date: 11/07/19 Stop [...]
--- OUTSIDE RECORDS SUMMARY | 2022-08-27 20:27 | XMS_ITS | Continuity of Care Document ---
:1995 Author Organization [facility] Address [address] [place] [address]- Care Team Providers Name Role Phone Florence Vasquez NP Primary Care Physician Encounter [facility] [place] [facility] Date(s): 06/11/22 - 08/06/[address] [address]- Encounter Diagnosis Occipital neuralgia (Final) - Discharge Disposition: A-D/C Home Attending Physician: Evita Tang MD Admitting Physician: Evita Tang MD Referring Physician: Evita Tang MD Allergies, Adverse Reactions, Alerts No Known Medication Allergies Immunizations Given and Recorded Vaccine Date Status Refusal Reason SARS-CoV-2 mRNA ([id number]) vax 11/21/21 Recorde d influenza virus vaccine, [...] 03/12/11 Recorded 1Result Comment: [06/10/2017] AI SORIANO [facility] [id number] Comment: incorrect [id number] Comment: [10/07/2016] done at [id number] Comment: [10/07/2016] done at [place] [facility] Claritin 10 mg oral tablet 10 mg, 1, tablet, By Mouth, Daily, # 30 tablet, Refills 0, Tot. Refills 0, Maintenance, 10/28/21 15:55:00 EST, Route to Pharmacy Electronically, [facility] #[id number], Partial fill upon patient request if the prescription is for a schedule II op... Start Date: 10/28/21 Status: Orderedcyclobenzaprine 10 mg oral tablet 10 mg, 1, tablet, By Mouth, Daily, PRN, As needed for muscle pain/ muscle spasm. caution: can cause sleepiness, # 30 tablet, Refills 1, Tot. Refills 1, Maintenance, Pain , Mild, 04/09/22 12:13:00 EDT, Route to Pharmacy Electronically, [facility] Start Date: 04/09/22 Status: Orderedfluconazole 150 mg oral tablet 1 tablet = 150 mg, By Mouth, Once, epeat dose if still having symptoms in 72 hours, # 2 tablet, 0 Refills, Soft Stop, 04/07/22 16:30:00 EDT, Tablet, [facility] #[id number], Partial fill upon patient request if the prescription is for a schedule I... Start Date: 04/07/22 Status: Orderedfluticasone 50 mcg/inh nasal spray See Instructions, SHAKE LIQUID AND USE 1 SPRAY IN EACH NOSTRIL DAILY IN THE MORNING, # 48 Gm, 0 Refills, [facility] #[id number], 90, SHAKE LIQUID AND USE 1 SPRAY IN EACH NOSTRIL DAILY IN THE MORNING, 157.2, cm, 01/30/22 11:33:00 EDT, Height, 53.5... Start Date: 01/31/22 Status: OrderedZyrTEC-D 5 mg-120 mg oral tablet, extended release 1 tablet, By Mouth, Every 24 hours, # 30 tablet, 2 Refills, Maintenance, 01/30/22 11:47:00 EDT, ER Tablet, [facility] #[id number], Partial fill upon patient request if the prescription is for a schedule II opioid drug., 1 tablet By Mouth Every 24... Start Date: 01/30/22 Stop Date: 04/30/22 Status: Ordered Problem List Condition Confirmation Course Effective Dates Status Health I nformant Status Suspicion of autism Confirmed Active in the patient herself and in her first child Chronic headache Confirmed Active [place] [facility] Confirmed Active Learning disability. Confirmed Active [...] on: 04/27/19 Sex Patient Care team information Care Team PersonnelName: Florence Vasquez NP Position: [facility] PCO Associate Professional Member Role: PCP Address: Address: [address] [place] [address] Name: Karime Wray NP Position: Reference Physician Member Role: Primary Care Nurse Care Team Related PersonsName: KO ROOT Address: home [address] [place] [address] Name: YU MACK Address: [facility] Address: home [address] [place] [address] [place] Name: YANNICK MACK Address: [employer] Address: home [address] [place] [address] [place] Name: NICHOLAS MACK Address: [place] [address]
--- OUTSIDE RECORDS SUMMARY | 2022-08-27 20:27 | XMS_ITS | Continuity of Care Document ---
:1995 Author Organization [facility] Address [address] [place] [address]- Care Team Providers Name Role Phone Florence Vasquez NP Primary Care Physician Encounter [facility] Date(s): 04/15/22 - 05/15/[address] [address] Allergies, Adverse Reactions, Alerts No Known Medication Allergies Immunizations Given and Recorded Vaccine Date Status Refusal Reason SARS-CoV-2 mRNA ([id number]-pxqdm) vax 11/21/21 Recorde d influenza virus vaccine, [...] Comment: [06/10/2017] AI SORIANO [facility] [id number] Comment: incorrect [id number] Comment: [10/07/2016] done at [id number] Comment: [10/07/2016] done at [place] [facility] Claritin 10 mg oral tablet 10 mg, 1, tablet, By Mouth, Daily, # 30 tablet, Refills 0, Tot. Refills 0, Maintenance, 10/28/21 15:55:00 EST, Route to Pharmacy Electronically, [facility] #[id number], Partial fill upon patient request if the prescription is for a schedule II op... Start Date: 10/28/21 Status: Orderedcyclobenzaprine 10 mg oral tablet 10 mg, 1, tablet, By Mouth, Daily, PRN, As needed for muscle pain/ muscle spasm. caution: can cause sleepiness, # 30 tablet, Refills 1, Tot. Refills 1, Maintenance, Pain , Mild, 04/09/22 12:13:00 EDT, Route to Pharmacy Electronically, [facility] Start Date: 04/09/22 Status: Orderedfluconazole 150 mg oral tablet 1 tablet = 150 mg, By Mouth, Once, epeat dose if still having symptoms in 72 hours, # 2 tablet, 0 Refills, Soft Stop, 04/07/22 16:30:00 EDT, Tablet, [facility] #[id number], Partial fill upon patient request if the prescription is for a schedule I... Start Date: 04/07/22 Status: Orderedfluticasone 50 mcg/inh nasal spray See Instructions, SHAKE LIQUID AND USE 1 SPRAY IN EACH NOSTRIL DAILY IN THE MORNING, # 48 Gm, 0 Refills, [facility] #[id number], 90, SHAKE LIQUID AND USE 1 SPRAY IN EACH NOSTRIL DAILY IN THE MORNING, 157.2, cm, 01/30/22 11:33:00 EDT, Height, 53.5... Start Date: 01/31/22 Status: OrderedZyrTEC-D 5 mg-120 mg oral tablet, extended release 1 tablet, By Mouth, Every 24 hours, # 30 tablet, 2 Refills, Maintenance, 01/30/22 11:47:00 EDT, ER Tablet, [facility] #[id number], Partial fill upon patient request if the prescription is for a schedule II opioid drug., 1 tablet By Mouth Every 24... Start Date: 01/30/22 Stop Date: 04/30/22 Status: Ordered Problem List Condition Effective Dates Status Health Status Informant Suspicion of autism in the patient Active herself and in her first child(Confirmed) Chronic headache(Confirmed) Active [place] eye(Confirmed) Active Learning disability. She went through [...] Care Team PersonnelName: Florence Vasquez NP Address: [address] [place] [address]
--- OUTSIDE RECORDS SUMMARY | 2022-08-27 20:27 | XMS_ITS | Continuity of Care Document ---
:1995 Author Organization [facility] Address [address] [place] [address]- Care Team Providers Name Role Phone Contractor Madelyn GOMEZ Primary Care Physician Encounter [facility] Date(s): 10/15/21 - 11/14/[address] [address]- Allergies, Adverse Reactions, Alerts No Known Medication [...] 03/12/11 Recorded 1Result Comment: [06/10/2017] AI SORIANO [facility] [id number] Comment: incorrect [id number] Comment: [10/07/2016] done at [id number] Comment: [10/07/2016] done at [place] [facility] Claritin 10 mg oral tablet 10 mg, 1, tablet, By Mouth, Daily, # 30 tablet, Refills 0, Tot. Refills 0, Maintenance, 10/28/21 15:55:00 EST, Route to Pharmacy Electronically, [facility] #[id number], Partial fill upon patient request if the prescription is for a schedule II op... Start Date: 10/28/21 Status: OrderedErrin 0.35 mg oral tablet 1 tablet = 0.35 mg, By Mouth, Daily, # 84 tablet, 6 Refills, Maintenance, 07/23/22 10:36:00 EDT, Tablet, [facility] #[id number], Partial fill upon patient request if the prescription is for a schedule II opioid drug., 155, cm, 12/12/20 10:32:00 E... Start Date: 07/23/22 Stop Date: 03/02/24 Status: OrderedErrin 0.35 mg oral tablet 1 tablet = 0.35 mg, By Mouth, Daily, for 84 days, # 84 tablet, 6 Refills, Hard Stop 07/23/22 10:36:00 EDT, 12/12/20 10:36:00 EDT, Tablet, [facility] #[id number], Partial fill upon patient request if the prescription is for a schedule II opioid Start Date: 12/12/20 Stop Date: 07/23/22 Status: OrderedFlonase 50 mcg/inh nasal spray 1 sprays, Nares, Both, 2 times a day, PRN Congestion, # 16 Gm, 1 Refills, Maintenance, 07/08/19 19:10:20 EDT, [place], 1 sprays Nares, Both 2 times a day,PRN:Congestion Start Date: 07/08/19 Status: Ordered Problem List Condition Effective Dates Status Health Status Informant Suspicion of autism in the patient Active herself and in her first child(Confirmed) [place] eye(Confirmed) Active Learning disability. She went through [...]
--- OUTSIDE RECORDS SUMMARY | 2022-08-27 20:27 | XMS_ITS | Continuity of Care Document ---
:1995 [facility] Address [address] [place] [address], [address] [place] [address]- Care Team Providers Name Role Phone Donna JEREZ, Vera Bernstein Primary Care Physician [place] [facility] [place]/12[place] - 01/11/21 [facility] [address] [place] [address], [address] [place] [address] Allergies, Adverse Reactions, Alerts No Known [...] 03/12/11 Recorded 1Result Comment: [10/07/2016] done at [id number] Comment: [06/10/2017] AI SORIANO [facility] [phone] Comment: [10/07/2016] done at [place] [facility] Claritin 10 mg oral tablet 10 mg, 1, tablet, By Mouth, Daily, Refills 0, Maintenance, 10/28/19 19:25:00 EST Start Date: 10/28/19 Status: OrderedErrin 0.35 mg oral tablet 1 tablet = 0.35 mg, By Mouth, Daily, # 84 tablet, 6 Refills, Maintenance, 12/12/20 10:36:00 EDT, Tablet, [facility] #[id number], Partial fill upon patient request if the prescription is for a schedule II opioid drug., 155, cm, 12/12/20 10:32:00 E... Start Date: 12/12/20 Stop Date: 07/23/22 Status: OrderedFlonase 50 mcg/inh nasal spray 1 sprays, Nares, Both, 2 times a day, PRN Congestion, # 16 Gm, 1 Refills, Maintenance, 07/08/19 19:10:20 EDT, [place], 1 sprays Nares, Both 2 times a [...]
--- OUTSIDE RECORDS SUMMARY | 2022-08-27 20:27 | XMS_ITS | Continuity of Care Document ---
:1995 Author Organization [facility] Address [address] [place] [address], [address] [place] [address]- Care Team Providers Name Role Phone Donna JEREZ, Vera Bernstein Primary Care Physician [facility] [facility] Date(s): 05/18/20 - 06/17/20 [facility] [address] [place] [address], [address] [place] [address] [facility] Attending Physician: AdmMaryan schwartz Admitting Physician: Admtr, Ar8 Referring Physician: Admtr, [...] 03/12/11 Recorded 1Result Comment: [10/07/2016] done at [id number] Comment: [06/10/2017] AI SORIANO [facility] [phone] Comment: [10/07/2016] done at [place] [facility] Claritin 10 mg oral tablet 10 mg, 1, tablet, By Mouth, Daily, Refills 0, Maintenance, 10/28/19 19:25:00 EST Start Date: 10/28/19 Status: OrderedFlonase 50 mcg/inh nasal spray 1 sprays, Nares, Both, 2 times a day, PRN Congestion, # 16 Gm, 1 Refills, Maintenance, 07/08/19 19:10:20 EDT, [place], 1 sprays Nares, Both 2 times a day,PRN:Congestion Start Date: 07/08/19 Status: OrderedLoestrin Fe 1.5/30 oral tablet 1 tablet, By Mouth, Daily, starting on the first day of the menstrual cycle, # 28 tablet, 6 Refills,Maintenance, 12/15/19 14:53:00 EDT, [facility] #[id number], 1 tablet By Mouth Daily,x28 days,Instr:starting on [...]
--- OUTSIDE RECORDS SUMMARY | 2022-08-27 20:27 | XMS_ITS | Continuity of Care Document ---
:1995 Author Organization [facility] Address [address] [place] [address], [address] [place] [address]- Care Team Providers Name Role Phone Donna JEREZ, Vera Bernstein Primary Care Physician [place] [facility] [place] [facility] [address] [place] [address], [address] [place] [address]- Attending Physician: Leslie Gil MD Referring Physician: [...] 03/12/11 Recorded 1Result Comment: [10/07/2016] done at [id number] Comment: [06/10/2017] AI [facility] [place] [phone] Comment: [10/07/2016] done at [place] [facility] Claritin 10 mg oral tablet 10 mg, 1, tablet, By Mouth, Daily, Refills 0, Maintenance, 10/28/19 19:25:00 EST Start Date: 10/28/19 Status: OrderedFlonase 50 mcg/inh nasal spray 1 sprays, Nares, Both, 2 times a day, PRN Congestion, # 16 Gm, 1 Refills, Maintenance, 07/08/19 19:10:20 EDT, [place], 1 sprays Nares, Both 2 times a day,PRN:Congestion Start Date: 07/08/19 Status: Orderedibuprofen 800 mg oral tablet 800 mg, 1, tablet, By Mouth, Every 8 hours, PRN, with food or milk, # 30 tablet, Refills 1, Tot. Refills 1, Acute 12/21/19 0:00:00 EDT, Pain , Moderate, 11/07/19 10:20:00 EST, Route to Pharmacy Electronically, [facility] #[id number], 155, cm, . Start Date: 11/07/19 Stop Date: 12/21/19 Status: OrderedLoestrin Fe 1.5/30 oral tablet 1 tablet, By Mouth, Daily, starting on the first day of the menstrual cycle, # 28 tablet, 6 Refills,Maintenance, 12/15/19 14:53:00 EDT, [facility] #[id number], 1 tablet By Mouth Daily,x28 days,Instr:starting on [...]
--- OUTSIDE RECORDS SUMMARY | 2022-08-27 20:27 | XMS_ITS | Continuity of Care Document ---
:1995 Author Organization [facility] Address [address] [place] [address]- Care Team Providers Name Role Phone Contractor Madelyn GOMEZ Primary Care Physician Encounter [facility] [place] Date(s): 01/22/22 - 02/22/[address] [address]- Attending Physician: Philomena PRODUCTION GENERALIST, Caroline Enrique Admitting Physician: Philomena PRODUCTION GENERALIST, Caroline Enrique Referring Physician: Contractor Madelyn GOMEZ Allergies, Adverse Reactions, Alerts No Known Medication [...] Comment: [06/10/2017] AI SORIANO [facility] [phone] Comment: incorrect [id number] Comment: [10/07/2016] done at [id number] Comment: [10/07/2016] done at [place] [facility] Claritin 10 mg oral tablet 10 mg, 1, tablet, By Mouth, Daily, # 30 tablet, Refills 0, Tot. Refills 0, Maintenance, 10/28/21 15:55:00 EST, Route to Pharmacy Electronically, [facility] #[id number], Partial fill upon patient request if the prescription is for a schedule II op... Start Date: 10/28/21 Status: OrderedErrin 0.35 mg oral tablet 1 tablet = 0.35 mg, By Mouth, Daily, # 84 tablet, 6 Refills, Maintenance, 07/23/22 10:36:00 EDT, Tablet, [facility] #[id number], Partial fill upon patient request if the prescription is for a schedule II opioid drug., 155, cm, 12/12/20 10:32:00 E... Start Date: 07/23/22 Stop Date: 03/02/24 Status: OrderedErrin 0.35 mg oral tablet 1 tablet = 0.35 mg, By Mouth, Daily, for 84 days, # 84 tablet, 6 Refills, Hard Stop 07/23/22 10:36:00 EDT, 12/12/20 10:36:00 EDT, Tablet, [facility] #[id number], Partial fill upon patient request if the prescription is for a schedule II opioid dr... Start Date: 12/12/20 Stop Date: 07/23/22 Status: Orderedfluticasone 50 mcg/inh nasal spray See Instructions, SHAKE LIQUID AND USE 1 SPRAY IN EACH NOSTRIL DAILY IN THE MORNING, # 48 Gm, 0 Refills, [facility] #[id number], 90, SHAKE LIQUID AND USE 1 SPRAY IN EACH NOSTRIL DAILY IN THE MORNING, 157.2, cm, 01/30/22 11:33:00 EDT, Height, 53.5... Start Date: 01/31/22 Status: OrderedZyrTEC-D 5 mg-120 mg oral tablet, extended release 1 tablet, By Mouth, Every 24 hours, # 30 tablet, 2 Refills, Maintenance, 01/30/22 11:47:00 EDT, ER Tablet, [facility] #[id number], Partial fill upon patient request if the prescription is for a schedule II opioid drug., 1 tablet By Mouth Every 24... Start Date: 01/30/22 Stop Date: 04/30/22 Status: Ordered Problem List Condition Effective Dates Status Health Status Informant Suspicion of autism in the patient Active herself and in her first child(Confirmed) [place] eye(Confirmed) Active Learning disability. She went through [...]
--- OUTSIDE RECORDS SUMMARY | 2022-08-27 20:27 | XMS_ITS | Continuity of Care Document ---
:1995 Author Organization [facility] Address [address] [place] [address], [address] [place] [address]- Care Team Providers Name Role Phone Donna JEREZ, Vera Bernstein Primary Care Physician [place] [facility] [place] 04[place]/20 [facility] [address] [place] [address], [address] [place] [address]- [facility] Attending Physician: Not on Staff, Attending [...] 03/12/11 Recorded 1Result Comment: [10/07/2016] done at [id number] Comment: [06/10/2017] AI SORIANO [facility] [phone] Comment: [10/07/2016] done at [place] [facility] Claritin 10 mg oral tablet 10 mg, 1, tablet, By Mouth, Daily, Refills 0, Maintenance, 10/28/19 19:25:00 EST Start Date: 10/28/19 Status: OrderedFlonase 50 mcg/inh nasal spray 1 sprays, Nares, Both, 2 times a day, PRN Congestion, # 16 Gm, 1 Refills, Maintenance, 07/08/19 19:10:20 EDT, [place], 1 sprays Nares, Both 2 times a day,PRN:Congestion Start Date: 07/08/19 Status: OrderedLoestrin Fe 1.5/30 oral tablet 1 tablet, By Mouth, Daily, starting on the first day of the menstrual cycle, # 28 tablet, 6 Refills,Maintenance, 12/15/19 14:53:00 EDT, [email or web address] #[id number], 1 tablet By Mouth Daily,x28 days,Instr:starting on [...]
--- OUTSIDE RECORDS SUMMARY | 2022-08-27 20:27 | XMS_ITS | Continuity of Care Document ---
:1995 Author Organization [facility] Address [address] [address]- Care Team Providers Name Role Phone Donna JEREZ, Vera Bernstein Primary Care Physician Encounter [facility] Date(s): 09/06/19 - 09/16/19 [facility] [address] [address]- [facility] Attending Physician: Maryan Ceballos Admitting Physician: Maryan Ceballos Referring Physician: AdmtrMaryan Allergies, Adverse Reactions, Alerts [...] 03/12/11 Recorded 1Result Comment: [10/07/2016] done at [id number] Comment: [06/10/2017] AI SORIANO [facility] [phone] Comment: [10/07/2016] done at [place] [facility] Flonase 50 mcg/inh nasal spray 1 sprays, Nares, Both, 2 times a day, PRN Congestion, # 16 Gm, 1 Refills, Maintenance, 07/08/19 19:10:20 EDT, [place], 1 sprays Nares, Both 2 times a [...]
--- OUTSIDE RECORDS SUMMARY | 2022-08-27 20:27 | XMS_ITS | Continuity of Care Document ---
:1995 Author Organization [facility] Address [address] [place] [address]- Care Team Providers Name Role Phone Donna JEREZ, Vera Bernstein Primary Care Physician Encounter [facility] Date(s): 11/05/19 - 11/07/[address] [address] [facility] Discharge Disposition: A-D/C Home Attending Physician: Danny ERNST, Nic Lopez Admitting Physician: Danny ERNST, Nic Lopez Referring Physician: Danny ERNST, Nic Lopez Allergies, Adverse Reactions, Alerts No Known Medication [...] 03/12/11 Recorded 1Result Comment: [10/07/2016] done at [id number] Comment: [06/10/2017] AI SORIANO [facility] [phone] Comment: [10/07/2016] done at [place] [facility] Claritin 10 mg oral tablet 10 mg, 1, tablet, By Mouth, Daily, Refills 0, Maintenance, 10/28/19 19:25:00 EST Start Date: 10/28/19 Status: OrderedFlonase 50 mcg/inh nasal spray 1 sprays, Nares, Both, 2 times a day, PRN Congestion, # 16 Gm, 1 Refills, Maintenance, 07/08/19 19:10:20 EDT, [place], 1 sprays Nares, Both 2 times a day,PRN:Congestion Start Date: 07/08/19 Status: Orderedibuprofen 800 mg oral tablet 800 mg, 1, tablet, By Mouth, Every 8 hours, PRN, with food or milk, # 30 tablet, Refills 1, Tot. Refills 1, Acute 12/21/19 0:00:00 EDT, Pain , Moderate, 11/07/19 10:20:00 EST, Route to Pharmacy Electronically, [facility] #[id number], 155, cm, .. Start Date: 11/07/19 Stop Date: 12/21/19 Status: [...] 11/15/19 2:02:00 EST, 11/10/19 2:02:00 EST, Capsule, [facility] #[id number], 155, cm, 11/03/19 3:48:00 EST, Height, 53.6, [...] antepartum(Confirmed) Vital Signs Most recent to oldest 1 2 3 4 [Reference Range]: Height 155 cm 155 cm 155 cm (11/06/19 9:56 AM) (11/06/19 12:00 AM) (11/05/19 4:57 AM) Weight 53.6 kg 53.7 kg 53.7 kg (11/05/19 7:22 AM) (11/05/19 4:57 AM) (11/05/19 3:46 AM) Oxygen Saturation 96 % 95 % 100 % [94-100 %] (11/07/19 8:18 AM) (11/06/19 10:44 PM) (11/06/19 5:20 PM) Pulse Rate [55-90 bpm] 86 bpm 61 bpm 72 bpm (11/06/19 9:56 AM) (11/06/19 12:00 AM) (11/05/19 5:32 PM) Body Mass Index 22.35 [18.5-24.99] (11/05/19 4:57 AM) Blood Pressure 94/56 mm Hg 113/79 mm Hg 102/84 mm Hg [90-138/55-84 mm Hg] (11/07/19 8:17 AM) (11/06/19 10:44 PM) (11/06/19 8:29 PM) Respiratory Rate [16-30 18 br/min 18 br/min 18 br/min 18 b r/min br/min] (11/06/19 8:29 PM) (11/06/19 5:20 PM) (11/06/19 10:00 AM) (11/06/19 10:00 AM) Temperature [96.8-100.4 97.7 DegF 98.3 DegF 100.0 DegF DegF] (11/07/19 8:15 AM) (11/06/19 8:29 PM) (11/06/19 5:20 PM) Mode of Delivery Room air Room air Room air (Oxygen) (11/07/19 8:18 AM) (11/06/19 5:20 PM) (11/06/19 9:56 AM) Blood pressure sites Arm, left Arm, left Arm, right (11/06/19 9:56 AM) (11/06/19 12:00 AM) (11/05/19 4:57 AM) Temperature Route Oral Oral Oral (11/07/19 8:15 AM) (11/06/19 8:29 PM) (11/06/19 5:20 PM) Dry Weight 53.7 kg (11/05/19 4:57 AM) Sensory deficits None (11/05/19 4:57 AM) Mobility assistance Independent (11/05/19 4:57 AM) Social History Social History Type Response Smoking Status Never (less than 100 in life time); Tobacco user in household: No entered on: 04/27/19 Sex
--- OUTSIDE RECORDS SUMMARY | 2022-08-27 20:27 | XMS_ITS | Continuity of Care Document ---
:1995 Author Organization [facility] Address [address] [place] [address], [address] [place] [address]- Care Team Providers Name Role Phone Donna JEREZ, Vera Bernstein Primary Care Physician Encounter [facility] [place] Date(s): 12/12/20 - 12/19/20 [facility] [address] [place] [address], [address] [place] [address] Attending Physician: Jeffery ERNST, Leslie Referring Physician: Vera Thompson NP Allergies, Adverse [...] 03/12/11 Recorded 1Result Comment: [10/07/2016] done at [id number] Comment: [06/10/2017] AI SORIANO [facility] [phone] Comment: [10/07/2016] done at [place] [facility] Claritin 10 mg oral tablet 10 mg, 1, tablet, By Mouth, Daily, Refills 0, Maintenance, 10/28/19 19:25:00 EST Start Date: 10/28/19 Status: OrderedErrin 0.35 mg oral tablet 1 tablet = 0.35 mg, By Mouth, Daily, # 84 tablet, 6 Refills, Maintenance, 12/12/20 10:36:00 EDT, Tablet, [facility] #[id number], Partial fill upon patient request if the prescription is for a schedule II opioid drug., 155, cm, 12/12/20 10:32:00 E... Start Date: 12/12/20 Stop Date: 07/23/22 Status: OrderedFlonase 50 mcg/inh nasal spray 1 sprays, Nares, Both, 2 times a day, PRN Congestion, # 16 Gm, 1 Refills, Maintenance, 07/08/19 19:10:20 EDT, [place], 1 sprays Nares, Both 2 times a [...] oldest [Reference Range]: 1 Height 155 cm (12/12/20 10:32 AM) Weight 52.7 kg (12/12/20 10:32 AM) Body Mass Index [18.5-24.99] 21.94 (12/12/20 10:32 AM) Blood Pressure [90-138/55-84 mm Hg] 112/72 mm Hg (12/12/20 10:32 AM) Blood pressure sites Arm, left (12/12/20 10:32 AM) Weight Obtained Via Standing scale (12/12/20 10:32 AM) Social History Social History Type Response Smoking Status Never (less than 100 in life time); Tobacco user in household: No entered on: 04/27/19 Sex
--- OUTSIDE RECORDS SUMMARY | 2022-08-27 20:27 | XMS_ITS | Continuity of Care Document ---
:1995 Author Organization [facility] Address [address] [place] [address]- Care Team Providers Name Role Phone Contractor Madelyn GOMEZ Primary Care Physician [place] [facility] [place] 12/21/[address] [address]- Attending Physician: Not on Staff, Attending MD Referring Physician: Contractor Madelyn GOMEZ Allergies, Adverse [...] 03/12/11 Recorded 1Result Comment: [06/10/2017] AI SORIANO [facility] [phone] Comment: incorrect [id number] Comment: [10/07/2016] done at [id number] Comment: [10/07/2016] done at [facility] Claritin 10 mg oral tablet 10 mg, 1, tablet, By Mouth, Daily, # 30 tablet, Refills 0, Tot. Refills 0, Maintenance, 10/28/21 15:55:00 EST, Route to Pharmacy Electronically, [facility] #[id number], Partial fill upon patient request if the prescription is for a schedule II op... Start Date: 10/28/21 Status: OrderedErrin 0.35 mg oral tablet 1 tablet = 0.35 mg, By Mouth, Daily, # 84 tablet, 6 Refills, Maintenance, 07/23/22 10:36:00 EDT, Tablet, [facility] #[id number], Partial fill upon patient request if the prescription is for a schedule II opioid drug., 155, cm, 12/12/20 10:32:00 E... Start Date: 07/23/22 Stop Date: 03/02/24 Status: OrderedErrin 0.35 mg oral tablet 1 tablet = 0.35 mg, By Mouth, Daily, for 84 days, # 84 tablet, 6 Refills, Hard Stop 07/23/22 10:36:00 EDT, 12/12/20 10:36:00 EDT, Tablet, [facility] #[id number], Partial fill upon patient request if the prescription is for a schedule II opioid drVinny Start Date: 12/12/20 Stop Date: 07/23/22 Status: OrderedFlonase 50 mcg/inh nasal spray 1 sprays, Nares, Both, 2 times a day, PRN Congestion, # 16 Gm, 1 Refills, Maintenance, 07/08/19 19:10:20 EDT, [place], 1 sprays Nares, Both 2 times a day,PRN:Congestion Start Date: 07/08/19 Status: Ordered Problem List Condition Effective Dates Status Health Status Informant Suspicion of autism in the patient Active herself and in her first child(Confirmed) [place] eye(Confirmed) Active Learning disability. She went through [...]
--- OUTSIDE RECORDS SUMMARY | 2022-08-27 20:27 | XMS_ITS | Continuity of Care Document ---
:1995 Author Organization [facility] Address [address] [place] [address]- Care Team Providers Name Role Phone Contractor Madelyn GOMEZ Primary Care Physician [place] [facility] [place] - 10/07/[address] [address]- Encounter Diagnosis COVID-19 (Final) - 10/07/21 Discharge Disposition: A-D/C Home Attending Physician: Joseph Grimes MD Admitting Physician: Joseph Grimes MD Referring Physician: Not on Staff, Referring [...] Comment: [06/10/2017] AI SORIANO [facility] [phone] Comment: [10/07/2016] done at [id number] Comment: [10/07/2016] done at [place] [facility] Claritin 10 mg oral tablet 10 mg, 1, tablet, By Mouth, Daily, Refills 0, Maintenance, 10/28/19 19:25:00 EST Start Date: 10/28/19 Status: OrderedErrin 0.35 mg oral tablet 1 tablet = 0.35 mg, By Mouth, Daily, # 84 tablet, 6 Refills, Maintenance, 07/23/22 10:36:00 EDT, Tablet, [email or web address] #[id number], Partial fill upon patient request if the prescription is for a schedule II opioid drug., 155, cm, 12/12/20 10:32:00 E... Start Date: 07/23/22 Stop Date: 03/02/24 Status: OrderedErrin 0.35 mg oral tablet 1 tablet = 0.35 mg, By Mouth, Daily, for 84 days, # 84 tablet, 6 Refills, Hard Stop 07/23/22 10:36:00 EDT, 12/12/20 10:36:00 EDT, Tablet, [email or web address] #[id number], Partial fill upon patient request if the prescription is for a schedule II opioid Start Date: 12/12/20 Stop Date: 07/23/22 Status: OrderedFlonase 50 mcg/inh nasal spray 1 sprays, Nares, Both, 2 times a day, PRN Congestion, # 16 Gm, 1 Refills, Maintenance, 07/08/19 19:10:20 EDT, [place], 1 sprays Nares, Both 2 times a [...] [Reference Range]: 1 Oxygen Saturation [94-100 %] 100 % (10/07/21 10:51 AM) Pulse Rate [55-90 bpm] 69 bpm (10/07/21 10:51 AM) Blood Pressure [90-138/55-84 mm Hg] 127/79 mm Hg (10/07/21 10:51 AM) Respiratory Rate [16-30 br/min] 18 br/min (10/07/21 10:51 AM) Temperature [96.8-100.4 DegF] 98.7 DegF (10/07/21 10:51 AM) Mode of Delivery (Oxygen) Room air (10/07/21 10:51 AM) Temperature Route Oral (10/07/21 10:51 AM) Social History Social History Type Response Smoking Status Never (less than 100 in life time); Tobacco user in household: No entered on: 04/27/19 Sex
--- OUTSIDE RECORDS SUMMARY | 2022-08-27 20:27 | XMS_ITS | Continuity of Care Document ---
:1995 Author Organization [facility] Address [address] [place] [address]- Care Team Providers Name Role Phone Contractor Madelyn GOMEZ Primary Care Physician [facility] [place] [facility] [id number] Date(s): 01/30/22 - 03/01/[address] [address]- Attending Physician: AdmMaryan schwartz Admitting Physician: AdmtrMaryan Referring Physician: Admtr, Ar8 Allergies, Adverse Reactions, [...] Comment: [06/10/2017] AI SORIANO [facility] [phone] Comment: incorrect [id number] Comment: [10/07/2016] done at [id number] Comment: [10/07/2016] done at [place] [facility] Claritin 10 mg oral tablet 10 mg, 1, tablet, By Mouth, Daily, # 30 tablet, Refills 0, Tot. Refills 0, Maintenance, 10/28/21 15:55:00 EST, Route to Pharmacy Electronically, [facility] #[id number], Partial fill upon patient request if the prescription is for a schedule II op... Start Date: 10/28/21 Status: OrderedErrin 0.35 mg oral tablet 1 tablet = 0.35 mg, By Mouth, Daily, # 84 tablet, 6 Refills, Maintenance, 07/23/22 10:36:00 EDT, Tablet, [facility] #[id number], Partial fill upon patient request if the prescription is for a schedule II opioid drug., 155, cm, 12/12/20 10:32:00 E... Start Date: 07/23/22 Stop Date: 03/02/24 Status: OrderedErrin 0.35 mg oral tablet 1 tablet = 0.35 mg, By Mouth, Daily, for 84 days, # 84 tablet, 6 Refills, Hard Stop 07/23/22 10:36:00 EDT, 12/12/20 10:36:00 EDT, Tablet, [facility] #[id number], Partial fill upon patient request if the prescription is for a schedule II opioid dr... Start Date: 12/12/20 Stop Date: 07/23/22 Status: Orderedfluticasone 50 mcg/inh nasal spray See Instructions, SHAKE LIQUID AND USE 1 SPRAY IN EACH NOSTRIL DAILY IN THE MORNING, # 48 Gm, 0 Refills, [facility] #[id number], 90, SHAKE LIQUID AND USE 1 SPRAY IN EACH NOSTRIL DAILY IN THE MORNING, 157.2, cm, 01/30/22 11:33:00 EDT, Height, 53.5... Start Date: 01/31/22 Status: OrderedZyrTEC-D 5 mg-120 mg oral tablet, extended release 1 tablet, By Mouth, Every 24 hours, # 30 tablet, 2 Refills, Maintenance, 01/30/22 11:47:00 EDT, ER Tablet, [facility] #[id number], Partial fill upon patient request if the prescription is for a schedule II opioid drug., 1 tablet By Mouth Every 24... Start Date: 01/30/22 Stop Date: 04/30/22 Status: Ordered Problem List Condition Effective Dates Status Health Status Informant Suspicion of autism in the patient Active herself and in her first child(Confirmed) [place] eye(Confirmed) Active Learning disability. She went through [...]
--- OUTSIDE RECORDS SUMMARY | 2022-08-27 20:27 | XMS_ITS | Continuity of Care Document ---
:1995 Author Organization [facility] Address [address] [place] [address]- Care Team Providers Name Role Phone Pedro JEREZ, Florence Ruby Primary Care Physician [phone] [place] [facility] [place] - 05/09/[address] [address]- Attending Physician: Evita Tang MD Admitting Physician: Evita Tang MD Allergies, Adverse Reactions, Alerts No Known Medication Allergies Immunizations Given and Recorded Vaccine Date Status Refusal Reason SARS-CoV-2 mRNA ([id number]) vax 11/21/21 Recorde d influenza virus vaccine, [...] SORIANO [facility] [phone] Comment: incorrect [id number] Comment: [10/07/2016] done at Krzstymuj8Sjuwgt Comment: [10/07/2016] done at [place] [facility] Claritin 10 mg oral tablet 10 mg, 1, tablet, By Mouth, Daily, # 30 tablet, Refills 0, Tot. Refills 0, Maintenance, 10/28/21 15:55:00 EST, Route to Pharmacy Electronically, [facility] #[id number], Partial fill upon patient request if the prescription is for a schedule II op... Start Date: 10/28/21 Status: Orderedcyclobenzaprine 10 mg oral tablet 10 mg, 1, tablet, By Mouth, Daily, PRN, As needed for muscle pain/ muscle spasm. caution: can cause sleepiness, # 30 tablet, Refills 1, Tot. Refills 1, Maintenance, Pain , Mild, 04/09/22 12:13:00 EDT, Route to Pharmacy Electronically, [facility] Start Date: 04/09/22 Status: Orderedfluconazole 150 mg oral tablet 1 tablet = 150 mg, By Mouth, Once, epeat dose if still having symptoms in 72 hours, # 2 tablet, 0 Refills, Soft Stop, 04/07/22 16:30:00 EDT, Tablet, [facility] #[id number], Partial fill upon patient request if the prescription is for a schedule I... Start Date: 04/07/22 Status: Orderedfluticasone 50 mcg/inh nasal spray See Instructions, SHAKE LIQUID AND USE 1 SPRAY IN EACH NOSTRIL DAILY IN THE MORNING, # 48 Gm, 0 Refills, [facility] #[id number], 90, SHAKE LIQUID AND USE 1 SPRAY IN EACH NOSTRIL DAILY IN THE MORNING, 157.2, cm, 01/30/22 11:33:00 EDT, Height, 53.5... Start Date: 01/31/22 Status: OrderedZyrTEC-D 5 mg-120 mg oral tablet, extended release 1 tablet, By Mouth, Every 24 hours, # 30 tablet, 2 Refills, Maintenance, 01/30/22 11:47:00 EDT, ER Tablet, [facility] #[id number], Partial fill upon patient request if the prescription is for a schedule II opioid drug., 1 tablet By Mouth Every 24... Start Date: 01/30/22 Stop Date: 04/30/22 Status: Ordered Problem List Condition Effective Dates Status Health Status Informant Suspicion of autism in the patient Active herself and in her first child(Confirmed) Chronic headache(Confirmed) Active [place] eye(Confirmed) Active Learning disability. She went through [...]
--- OUTSIDE RECORDS SUMMARY | 2022-08-27 20:27 | XMS_ITS | Continuity of Care Document ---
:1995 Author Organization [facility] Address [address] [place] [address]- Care Team Providers Name Role Phone Florence Vasquez NP Primary Care Physician [phone] Encounter [facility] [place] [facility] [place] [id number] Date(s): 07/07/22 - 08/06/[address] [address]- Attending Physician: AdmMaryan schwartz Admitting Physician: Admtr, Ar8 Referring Physician: Admtr, Ar8 Allergies, Adverse Reactions, Alerts No Known Medication Allergies Immunizations Given and Recorded Vaccine Date Status Refusal Reason SARS-CoV-2 mRNA (xdnzzvc-balc-ebdsk) vax 11/21/21 Recorde d influenza virus vaccine, [...] 03/12/11 Recorded 1Result Comment: [06/10/2017] AI SORIANO [facility] [id number] Comment: incorrect [id number] Comment: [10/07/2016] done at [id number] Comment: [10/07/2016] done at [place] [facility] Claritin 10 mg oral tablet 10 mg, 1, tablet, By Mouth, Daily, # 30 tablet, Refills 0, Tot. Refills 0, Maintenance, 10/28/21 15:55:00 EST, Route to Pharmacy Electronically, [id number], Partial fill upon patient request if the prescription is for a schedule II op... Start Date: 10/28/21 Status: Orderedcyclobenzaprine 10 mg oral tablet 10 mg, 1, tablet, By Mouth, Daily, PRN, As needed for muscle pain/ muscle spasm. caution: can cause sleepiness, # 30 tablet, Refills 1, Tot. Refills 1, Maintenance, Pain , Mild, 04/09/22 12:13:00 EDT, Route to Pharmacy Electronically, [facility] Start Date: 04/09/22 Status: Orderedfluconazole 150 mg oral tablet 1 tablet = 150 mg, By Mouth, Once, epeat dose if still having symptoms in 72 hours, # 2 tablet, 0 Refills, Soft Stop, 04/07/22 16:30:00 EDT, Tablet, [email or web address] #[id number], Partial fill upon patient request if the prescription is for a schedule I... Start Date: 04/07/22 Status: Orderedfluticasone 50 mcg/inh nasal spray See Instructions, SHAKE LIQUID AND USE 1 SPRAY IN EACH NOSTRIL DAILY IN THE MORNING, # 48 Gm, 0 Refills, [facility] #[id number], 90, SHAKE LIQUID AND USE 1 SPRAY IN EACH NOSTRIL DAILY IN THE MORNING, 157.2, cm, 01/30/22 11:33:00 EDT, Height, 53.5... Start Date: 01/31/22 Status: OrderedZyrTEC-D 5 mg-120 mg oral tablet, extended release 1 tablet, By Mouth, Every 24 hours, # 30 tablet, 2 Refills, Maintenance, 01/30/22 11:47:00 EDT, ER Tablet, [id number], Partial fill upon patient request if the prescription is for a schedule II opioid drug., 1 tablet By Mouth Every 24... Start Date: 01/30/22 Stop Date: 04/30/22 Status: Ordered Problem List Condition Confirmation Course Effective Dates Status Health I nformant Status Suspicion of autism Confirmed Active in the patient herself and in her first child Chronic headache Confirmed Active [place] [facility] Confirmed Active Learning disability. Confirmed Active [...] Care Team PersonnelName: Florence Vasquez NP Position: [facility] Associate Professional Member Role: PCP Address: Address: [address] [place] [address] Name: Karime Wray NP Position: Reference Physician Member Role: Primary Care Nurse Care Team Related PersonsName: KO ROOT Address: home [address] [place] [address] Name: YU MACK [facility] Address: home [address] [place] [address] [place] Name: YANNICK MACK Address: [facility] Address: [address] [address] [place] Name: NICHOLAS MACK Address: home [address] [place] [address]
--- OUTSIDE RECORDS SUMMARY | 2022-08-27 20:27 | XMS_ITS | Continuity of Care Document ---
:1995 Author Organization [facility] p Address [address] [place] [address], [address] [place] [address]- Care Team Providers Name Role Phone Donna JEREZ, Vera Bernstein Primary Care Physician [place] [facility] [place](s): 12/12/20 - 04/11/21 [facility] [address] [place] [address], [address] [place] [address]- Attending Physician: Not on Staff, Attending MD [...] 03/12/11 Recorded 1Result Comment: [10/07/2016] done at [id number] Comment: [06/10/2017] AI SORIANO [facility] [phone] Comment: [10/07/2016] done at [place] [facility] Claritin 10 mg oral tablet 10 mg, 1, tablet, By Mouth, Daily, Refills 0, Maintenance, 10/28/19 19:25:00 EST Start Date: 10/28/19 Status: OrderedErrin 0.35 mg oral tablet 1 tablet = 0.35 mg, By Mouth, Daily, # 84 tablet, 6 Refills, Maintenance, 12/12/20 10:36:00 EDT, Tablet, [id number], Partial fill upon patient request if the prescription is for a schedule II opioid drug., 155, cm, 12/12/20 10:32:00 E... Start Date: 12/12/20 Stop Date: 07/23/22 Status: OrderedFlonase 50 mcg/inh nasal spray 1 sprays, Nares, Both, 2 times a day, PRN Congestion, # 16 Gm, 1 Refills, Maintenance, 07/08/19 19:10:20 EDT, [place], 1 sprays Nares, Both 2 times a [...]
--- OUTSIDE RECORDS SUMMARY | 2022-08-27 20:27 | XMS_ITS | Continuity of Care Document ---
:1995 Author Organization [facility] Address [address] [place] [address], [address] [place] [address]- Care Team Providers Name Role Phone Donna JEREZ, Vera Bernstein Primary Care Physician [place] [facility] [place] - 06/17/20 [facility] [address] [place] [address], [address] [place] [address]- [facility] Attending Physician: Aretha ERNST, Anne Martinez Referring Physician: Ayse Londono CNM Allergies, Adverse [...] 03/12/11 Recorded 1Result Comment: [10/07/2016] done at [id number] Comment: [06/10/2017] AI SORIANO [facility] [phone] Comment: [10/07/2016] done at [place] [facility] Claritin 10 mg oral tablet 10 mg, 1, tablet, By Mouth, Daily, Refills 0, Maintenance, 10/28/19 19:25:00 EST Start Date: 10/28/19 Status: OrderedFlonase 50 mcg/inh nasal spray 1 sprays, Nares, Both, 2 times a day, PRN Congestion, # 16 Gm, 1 Refills, Maintenance, 07/08/19 19:10:20 EDT, [place], 1 sprays Nares, Both 2 times a day,PRN:Congestion Start Date: 07/08/19 Status: OrderedLoestrin Fe 1.5/30 oral tablet 1 tablet, By Mouth, Daily, starting on the first day of the menstrual cycle, # 28 tablet, 6 Refills,Maintenance, 12/15/19 14:53:00 EDT, [facility] #[id number], 1 tablet By Mouth Daily,x28 days,Instr:starting on [...]
--- OUTSIDE RECORDS SUMMARY | 2022-08-27 20:27 | XMS_ITS | Continuity of Care Document ---
:1995 Author Organization [facility] Address [address] [place] [address]- Care Team Providers Name Role Phone Contractor Madelyn GOMEZ Primary Care Physician Encounter [facility] Date(s): 10/14/21 - 11/13/[address] [address]- Allergies, Adverse Reactions, Alerts No Known Medication [...] 03/12/11 Recorded 1Result Comment: [06/10/2017] AI SORIANO [facility] [phone] Comment: incorrect [id number] Comment: [10/07/2016] done at [id number] Comment: [10/07/2016] done at [place] [facility] Claritin 10 mg oral tablet 10 mg, 1, tablet, By Mouth, Daily, # 30 tablet, Refills 0, Tot. Refills 0, Maintenance, 10/28/21 15:55:00 EST, Route to Pharmacy Electronically, [facility] #[id number], Partial fill upon patient request if the prescription is for a schedule II op... Start Date: 10/28/21 Status: OrderedErrin 0.35 mg oral tablet 1 tablet = 0.35 mg, By Mouth, Daily, # 84 tablet, 6 Refills, Maintenance, 07/23/22 10:36:00 EDT, Tablet, [facility] #[id number], Partial fill upon patient request if the prescription is for a schedule II opioid drug., 155, cm, 12/12/20 10:32:00 E... Start Date: 07/23/22 Stop Date: 03/02/24 Status: OrderedErrin 0.35 mg oral tablet 1 tablet = 0.35 mg, By Mouth, Daily, for 84 days, # 84 tablet, 6 Refills, Hard Stop 07/23/22 10:36:00 EDT, 12/12/20 10:36:00 EDT, Tablet, [facility] #[id number], Partial fill upon patient request if the prescription is for a schedule II opioid drVinny Start Date: 12/12/20 Stop Date: 07/23/22 Status: OrderedFlonase 50 mcg/inh nasal spray 1 sprays, Nares, Both, 2 times a day, PRN Congestion, # 16 Gm, 1 Refills, Maintenance, 07/08/19 19:10:20 EDT, [place], 1 sprays Nares, Both 2 times a day,PRN:Congestion Start Date: 07/08/19 Status: Ordered Problem List Condition Effective Dates Status Health Status Informant Suspicion of autism in the patient Active herself and in her first child(Confirmed) [place] [facility](Confirmed) Active Learning disability. She went through [...]
--- OUTSIDE RECORDS SUMMARY | 2022-08-27 20:27 | XMS_ITS | Continuity of Care Document ---
:1995 Author Organization [facility] Address [address] [place] [address]- Care Team Providers Name Role Phone Florence Vasquez NP Primary Care Physician [place] [facility] [place] [facility] [id number] Date(s): 04/09/22 - 05/09/[address] [address]- Attending Physician: AdmMaryan schwartz Admitting Physician: Admtr, Ar8 Referring Physician: Admtr, Ar8 Allergies, Adverse Reactions, Alerts No Known Medication Allergies Immunizations Given and Recorded Vaccine Date Status Refusal Reason SARS-CoV-2 mRNA (pylxycw-lvop-yphqc) vax 11/21/21 Recorde d influenza virus vaccine, [...] Comment: [06/10/2017] AI SORIANO [facility] [phone] Comment: incorrect [id number] Comment: [10/07/2016] done at Laweqockm5Bgwkbw Comment: [10/07/2016] done at [place] [facility] Claritin 10 mg oral tablet 10 mg, 1, tablet, By Mouth, Daily, # 30 tablet, Refills 0, Tot. Refills 0, Maintenance, 10/28/21 15:55:00 EST, Route to Pharmacy Electronically, [facility] #[id number], Partial fill upon patient request if the prescription is for a schedule II op... Start Date: 10/28/21 Status: Orderedcyclobenzaprine 10 mg oral tablet 10 mg, 1, tablet, By Mouth, Daily, PRN, As needed for muscle pain/ muscle spasm. caution: can cause sleepiness, # 30 tablet, Refills 1, Tot. Refills 1, Maintenance, Pain , Mild, 04/09/22 12:13:00 EDT, Route to Pharmacy Electronically, [facility] Start Date: 04/09/22 Status: Orderedfluconazole 150 mg oral tablet 1 tablet = 150 mg, By Mouth, Once, epeat dose if still having symptoms in 72 hours, # 2 tablet, 0 Refills, Soft Stop, 04/07/22 16:30:00 EDT, Tablet, [facility] #[id number], Partial fill upon patient request if the prescription is for a schedule I... Start Date: 04/07/22 Status: Orderedfluticasone 50 mcg/inh nasal spray See Instructions, SHAKE LIQUID AND USE 1 SPRAY IN EACH NOSTRIL DAILY IN THE MORNING, # 48 Gm, 0 Refills, [facility] #[id number], 90, SHAKE LIQUID AND USE 1 SPRAY IN EACH NOSTRIL DAILY IN THE MORNING, 157.2, cm, 01/30/22 11:33:00 EDT, Height, 53.5... Start Date: 01/31/22 Status: OrderedZyrTEC-D 5 mg-120 mg oral tablet, extended release 1 tablet, By Mouth, Every 24 hours, # 30 tablet, 2 Refills, Maintenance, 01/30/22 11:47:00 EDT, ER Tablet, [facility] #[id number], Partial fill upon patient request if the prescription is for a schedule II opioid drug., 1 tablet By Mouth Every 24... Start Date: 01/30/22 Stop Date: 04/30/22 Status: Ordered Problem List Condition Effective Dates Status Health Status Informant Suspicion of autism in the patient Active herself and in her first child(Confirmed) Chronic headache(Confirmed) Active [place] eye(Confirmed) Active Learning disability. She went [...]
--- OUTSIDE RECORDS SUMMARY | 2022-08-27 20:27 | XMS_ITS | Continuity of Care Document ---
:1995 Author Organization [facility] Address [address] [place] [address]- Care Team Providers Name Role Phone Contractor Madelyn GOMEZ Primary Care Physician Encounter [facility] Date(s): 01/27/22 - 02/26/[address] [address] Allergies, Adverse Reactions, Alerts No Known [...] 03/12/11 Recorded 1Result Comment: [06/10/2017] AI SORIANO [facility] [phone] Comment: incorrect [id number] Comment: [10/07/2016] done at [id number] Comment: [10/07/2016] done at [place] [facility] Claritin 10 mg oral tablet 10 mg, 1, tablet, By Mouth, Daily, # 30 tablet, Refills 0, Tot. Refills 0, Maintenance, 10/28/21 15:55:00 EST, Route to Pharmacy Electronically, [facility] #[id number], Partial fill upon patient request if the prescription is for a schedule II op... Start Date: 10/28/21 Status: OrderedErrin 0.35 mg oral tablet 1 tablet = 0.35 mg, By Mouth, Daily, # 84 tablet, 6 Refills, Maintenance, 07/23/22 10:36:00 EDT, Tablet, [facility] #[id number], Partial fill upon patient request if the prescription is for a schedule II opioid drug., 155, cm, 12/12/20 10:32:00 E... Start Date: 07/23/22 Stop Date: 03/02/24 Status: OrderedErrin 0.35 mg oral tablet 1 tablet = 0.35 mg, By Mouth, Daily, for 84 days, # 84 tablet, 6 Refills, Hard Stop 07/23/22 10:36:00 EDT, 12/12/20 10:36:00 EDT, Tablet, [facility] #[id number], Partial fill upon patient request if the prescription is for a schedule II opioid dr... Start Date: 12/12/20 Stop Date: 07/23/22 Status: Orderedfluticasone 50 mcg/inh nasal spray See Instructions, SHAKE LIQUID AND USE 1 SPRAY IN EACH NOSTRIL DAILY IN THE MORNING, # 48 Gm, 0 Refills, [facility] #[id number], 90, SHAKE LIQUID AND USE 1 SPRAY IN EACH NOSTRIL DAILY IN THE MORNING, 157.2, cm, 01/30/22 11:33:00 EDT, Height, 53.5... Start Date: 01/31/22 Status: OrderedZyrTEC-D 5 mg-120 mg oral tablet, extended release 1 tablet, By Mouth, Every 24 hours, # 30 tablet, 2 Refills, Maintenance, 01/30/22 11:47:00 EDT, ER Tablet, [facility] #[id number], Partial fill upon patient request if the prescription is for a schedule II opioid drug., 1 tablet By Mouth Every 24... Start Date: 01/30/22 Stop Date: 04/30/22 Status: Ordered Problem List Condition Effective Dates Status Health Status Informant Suspicion of autism in the patient Active herself and in her first child(Confirmed) [place] eye(Confirmed) Active Learning disability. She went through [...]
--- OUTSIDE RECORDS SUMMARY | 2022-08-27 20:27 | XMS_ITS | Continuity of Care Document ---
:1995 Author Organization [facility] Address [address] [place] [address]- Care Team Providers Name Role Phone Pedro JEREZ, Florence Ruby Primary Care Physician [phone] Encounter [facility] [place] Date(s): 04/23/22 - 05/29/[address] [address] Attending Physician: Evita Tang MD Admitting Physician: Evita Tang MD Referring Physician: Evita Tang MD Allergies, Adverse Reactions, Alerts No Known Medication Allergies Immunizations Given and Recorded Vaccine Date Status Refusal Reason SARS-CoV-2 mRNA (casplgl-lpar-gzsgy) vax 11/21/21 Recorde d influenza virus vaccine, [...] 03/12/11 Recorded 1Result Comment: [06/10/2017] AI SORIANO [facility] [phone] Comment: incorrect [id number] Comment: [10/07/2016] done at Olmbmqplj6Nuxbhf Comment: [10/07/2016] done at [place] [facility] Claritin 10 mg oral tablet 10 mg, 1, tablet, By Mouth, Daily, # 30 tablet, Refills 0, Tot. Refills 0, Maintenance, 10/28/21 15:55:00 EST, Route to Pharmacy Electronically, [facility] #[id number], Partial fill upon patient request if the prescription is for a schedule II op... Start Date: 10/28/21 Status: Orderedcyclobenzaprine 10 mg oral tablet 10 mg, 1, tablet, By Mouth, Daily, PRN, As needed for muscle pain/ muscle spasm. caution: can cause sleepiness, # 30 tablet, Refills 1, Tot. Refills 1, Maintenance, Pain , Mild, 04/09/22 12:13:00 EDT, Route to Pharmacy Electronically, [facility] Start Date: 04/09/22 Status: Orderedfluconazole 150 mg oral tablet 1 tablet = 150 mg, By Mouth, Once, epeat dose if still having symptoms in 72 hours, # 2 tablet, 0 Refills, Soft Stop, 04/07/22 16:30:00 EDT, Tablet, [facility] #[id number], Partial fill upon patient request if the prescription is for a schedule I... Start Date: 04/07/22 Status: Orderedfluticasone 50 mcg/inh nasal spray See Instructions, SHAKE LIQUID AND USE 1 SPRAY IN EACH NOSTRIL DAILY IN THE MORNING, # 48 Gm, 0 Refills, [facility] #[id number], 90, SHAKE LIQUID AND USE 1 SPRAY IN EACH NOSTRIL DAILY IN THE MORNING, 157.2, cm, 01/30/22 11:33:00 EDT, Height, 53.5... Start Date: 01/31/22 Status: OrderedZyrTEC-D 5 mg-120 mg oral tablet, extended release 1 tablet, By Mouth, Every 24 hours, # 30 tablet, 2 Refills, Maintenance, 01/30/22 11:47:00 EDT, ER Tablet, [facility][id number], Partial fill upon patient request if the prescription is for a schedule II opioid drug., 1 tablet By Mouth Every 24... Start Date: 01/30/22 Stop Date: 04/30/22 Status: Ordered Problem List Condition Effective Dates Status Health Status Informant Suspicion of autism in the patient Active herself and in her first child(Confirmed) Chronic headache(Confirmed) Active [place] eye(Confirmed) Active Learning disability. She went through [...] Care Team PersonnelName: Florence Vasquez NP Address: [address] [place] [address]
--- OUTSIDE RECORDS SUMMARY | 2022-08-27 20:27 | XMS_ITS | Continuity of Care Document ---
:1995 Author Organization [facility] Address [address] [place] [address]- Care Team Providers Name Role Phone Donna JEREZ, Vera Bernstein Primary Care Physician Encounter [facility] Date(s): 09/06/19 - 09/06/[address] [address]- [facility] Attending Physician: Fatimah Obrien MD Allergies, Adverse Reactions, Alerts No Known [...] 03/12/11 Recorded 1Result Comment: [10/07/2016] done at Wzyiqcget3Cgfhjh Comment: [06/10/2017] AI SORIANO [facility] [phone] Comment: [10/07/2016] done at [place] [facility] Flonase 50 mcg/inh nasal spray 1 sprays, Nares, Both, 2 times a day, PRN Congestion, # 16 Gm, 1 Refills, Maintenance, 07/08/19 19:10:20 EDT, [place], 1 sprays Nares, Both 2 times a [...]
--- OUTSIDE RECORDS SUMMARY | 2022-08-27 20:27 | XMS_ITS | Continuity of Care Document ---
:1995 Author Organization [facility] Address [address] [place] [address]- Care Team Providers Name Role Phone Contractor Madelyn GOMEZ Primary Care Physician Encounter [facility] [place] Date(s): 09/02/21 - 10/02/[address] [address]- Attending Physician: AdmMaryan schwartz Admitting Physician: AdmtrMaryan Referring Physician: AdmtrMaryan Allergies, Adverse Reactions, Alerts [...] AI SORIANO [facility] [phone] Comment: [10/07/2016] done at Gghfvolri1Dvqqwv Comment: [10/07/2016] done at [place] [facility] Claritin 10 mg oral tablet 10 mg, 1, tablet, By Mouth, Daily, Refills 0, Maintenance, 10/28/19 19:25:00 EST Start Date: 10/28/19 Status: OrderedErrin 0.35 mg oral tablet 1 tablet = 0.35 mg, By Mouth, Daily, # 84 tablet, 6 Refills, Maintenance, 07/23/22 10:36:00 EDT, Tablet, [facility][id number], Partial fill upon patient request if the prescription is for a schedule II opioid drug., 155, cm, 12/12/20 10:32:00 E... Start Date: 07/23/22 Stop Date: 03/02/24 Status: OrderedErrin 0.35 mg oral tablet 1 tablet = 0.35 mg, By Mouth, Daily, for 84 days, # 84 tablet, 6 Refills, Hard Stop 07/23/22 10:36:00 EDT, 12/12/20 10:36:00 EDT, Tablet, [facility] #[id number], Partial fill upon patient request if the prescription is for a schedule II opioid drShawn. Start Date: 12/12/20 Stop Date: 07/23/22 Status: OrderedFlonase 50 mcg/inh nasal spray 1 sprays, Nares, Both, 2 times a day, PRN Congestion, # 16 Gm, 1 Refills, Maintenance, 07/08/19 19:10:20 EDT, [place], 1 sprays Nares, Both 2 times a [...]
--- OUTSIDE RECORDS SUMMARY | 2022-08-27 20:27 | XMS_ITS | Continuity of Care Document ---
:1995 Author Organization [facility] Address [address] [place] [address]- Care Team Providers Name Role Phone Florence Vasquez NP Primary Care Physician Encounter [facility] Date(s): 03/19/22 - 04/18/[address] [address]- Allergies, Adverse Reactions, Alerts No Known Medication Allergies Immunizations Given and Recorded Vaccine Date Status Refusal Reason SARS-CoV-2 mRNA (fxahqex-yywj-ptovw) vax 11/21/21 Recorde d influenza virus vaccine, [...] AI SORIANO [facility] [phone] Comment: incorrect [id number] Comment: [10/07/2016] done at Cjkhnbajp5Utfved Comment: [10/07/2016] done at [place] [facility] Claritin 10 mg oral tablet 10 mg, 1, tablet, By Mouth, Daily, # 30 tablet, Refills 0, Tot. Refills 0, Maintenance, 10/28/21 15:55:00 EST, Route to Pharmacy Electronically, [facility] #[id number], Partial fill upon patient request if the prescription is for a schedule II op... Start Date: 10/28/21 Status: Orderedcyclobenzaprine 10 mg oral tablet 10 mg, 1, tablet, By Mouth, Daily, PRN, As needed for muscle pain/ muscle spasm. caution: can cause sleepiness, # 30 tablet, Refills 1, Tot. Refills 1, Maintenance, Pain , Mild, 04/09/22 12:13:00 EDT, Route to Pharmacy Electronically, [facility] Start Date: 04/09/22 Status: Orderedfluconazole 150 mg oral tablet 1 tablet = 150 mg, By Mouth, Once, epeat dose if still having symptoms in 72 hours, # 2 tablet, 0 Refills, Soft Stop, 04/07/22 16:30:00 EDT, Tablet, [facility] #[id number], Partial fill upon patient request if the prescription is for a schedule I... Start Date: 04/07/22 Status: Orderedfluticasone 50 mcg/inh nasal spray See Instructions, SHAKE LIQUID AND USE 1 SPRAY IN EACH NOSTRIL DAILY IN THE MORNING, # 48 Gm, 0 Refills, [facility] #[id number], 90, SHAKE LIQUID AND USE 1 SPRAY IN EACH NOSTRIL DAILY IN THE MORNING, 157.2, cm, 01/30/22 11:33:00 EDT, Height, 53.5... Start Date: 01/31/22 Status: OrderedZyrTEC-D 5 mg-120 mg oral tablet, extended release 1 tablet, By Mouth, Every 24 hours, # 30 tablet, 2 Refills, Maintenance, 01/30/22 11:47:00 EDT, ER Tablet, [facility] #[id number], Partial fill upon patient request if the prescription is for a schedule II opioid drug., 1 tablet By Mouth Every 24... Start Date: 01/30/22 Stop Date: 04/30/22 Status: Ordered Problem List Condition Effective Dates Status Health Status Informant Suspicion of autism in the patient Active herself and in her first child(Confirmed) Chronic headache(Confirmed) Active [place] eye(Confirmed) Active Learning disability. She went through [...]
--- OUTSIDE RECORDS SUMMARY | 2022-08-27 20:27 | XMS_ITS | Continuity of Care Document ---
:1995 Author Organization [facility] Address [address] [place] [address], [address] [place] [address]- Care Team Providers Name Role Phone Donna JEREZ, Vera Bernstein Primary Care Physician [place] [facility] [place] Date(s): 10/04/19 - 10/11/19 [facility] [address] [place] [address], [address] [place] [address]- Attending Physician: Fatimah Obrien MD Referring Physician: [...] 03/12/11 Recorded 1Result Comment: [10/07/2016] done at Ysdizbrwo4Jmszjd Comment: [06/10/2017] AI SORIANO [facility] [id number] Comment: [10/07/2016] done at [place] [facility] Flonase 50 mcg/inh nasal spray 1 sprays, Nares, Both, 2 times a day, PRN Congestion, # 16 Gm, 1 Refills, Maintenance, 07/08/19 19:10:20 EDT, [place], 1 sprays Nares, Both 2 times a [...] oldest [Reference Range]: 1 Height 154 cm (10/04/19 2:23 PM) Weight 53.2 kg (10/04/19 2:23 PM) Body Mass Index [18.5-24.99] 22.43 (10/04/19 2:23 PM) Blood Pressure [90-138/55-84 mm Hg] 97/58 mm Hg (10/04/19 2:23 PM) Blood pressure sites Arm, right (10/04/19 2:23 PM) Weight Obtained Via Standing scale (10/04/19 2:23 PM) Social History Social History Type Response Smoking Status Never (less than 100 in life time); Tobacco user in household: No entered on: 04/27/19 Sex
--- OUTSIDE RECORDS SUMMARY | 2022-08-27 20:27 | XMS_ITS | Continuity of Care Document ---
:1995 Author Organization [facility]onal[facility] Address [address] [place] [address], [address] [place] [id number]- Care Team Providers Name Role Phone Donna JEREZ, Vera Bernstein Primary Care Physician [place] [facility] [place] - 11[place]08/20 [facility] [address] [place] [address], [address] [place] [address] Allergies, Adverse Reactions, Alerts No Known [...] 03/12/11 Recorded 1Result Comment: [10/07/2016] done at [id number] Comment: [06/10/2017] AI SORIANO [facility] [phone] Comment: [10/07/2016] done at [place] [facility] Claritin 10 mg oral tablet 10 mg, 1, tablet, By Mouth, Daily, Refills 0, Maintenance, 10/28/19 19:25:00 EST Start Date: 10/28/19 Status: OrderedFlonase 50 mcg/inh nasal spray 1 sprays, Nares, Both, 2 times a day, PRN Congestion, # 16 Gm, 1 Refills, Maintenance, 07/08/19 19:10:20 EDT, [place], 1 sprays Nares, Both 2 times a day,PRN:Congestion Start Date: 07/08/19 Status: OrderedLoestrin Fe 1.5/30 oral tablet 1 tablet, By Mouth, Daily, starting on the first day of the menstrual cycle, # 28 tablet, 6 Refills,Maintenance, 12/15/19 14:53:00 EDT, [facility] #[id number], 1 tablet By Mouth Daily,x28 days,Instr:starting on [...]
--- OUTSIDE RECORDS SUMMARY | 2022-08-27 20:28 | XMS_ITS | Continuity of Care Document ---
:1995 Author Organization [facility] Address [address] [place] [address]- Care Team Providers Name Role Phone Florence Vasquez NP Primary Care Physician [facility]counter [facility] Date(s): 03/25/22 - 04/24/[address] [id number] Allergies, Adverse Reactions, Alerts No Known Medication Allergies Immunizations Given and Recorded Vaccine Date Status Refusal Reason SARS-CoV-2 mRNA ([id number]-lrgx-qqewa) vax 11/21/21 Recorde d influenza virus vaccine, [...] 03/12/11 Recorded 1Result Comment: [06/10/2017] AI SORIANO [facility] [id number] Comment: incorrect [id number] Comment: [10/07/2016] done at [id number] Comment: [10/07/2016] done at [place] [facility] Claritin 10 mg oral tablet 10 mg, 1, tablet, By Mouth, Daily, # 30 tablet, Refills 0, Tot. Refills 0, Maintenance, 10/28/21 15:55:00 EST, Route to Pharmacy Electronically, [facility] #[id number], Partial fill upon patient request if the prescription is for a schedule II op... Start Date: 10/28/21 Status: Orderedcyclobenzaprine 10 mg oral tablet 10 mg, 1, tablet, By Mouth, Daily, PRN, As needed for muscle pain/ muscle spasm. caution: can cause sleepiness, # 30 tablet, Refills 1, Tot. Refills 1, Maintenance, Pain , Mild, 04/09/22 12:13:00 EDT, Route to Pharmacy Electronically, [facility] Start Date: 04/09/22 Status: Orderedfluconazole 150 mg oral tablet 1 tablet = 150 mg, By Mouth, Once, epeat dose if still having symptoms in 72 hours, # 2 tablet, 0 Refills, Soft Stop, 04/07/22 16:30:00 EDT, Tablet, [facility] #[id number], Partial fill upon patient request if the prescription is for a schedule I... Start Date: 04/07/22 Status: Orderedfluticasone 50 mcg/inh nasal spray See Instructions, SHAKE LIQUID AND USE 1 SPRAY IN EACH NOSTRIL DAILY IN THE MORNING, # 48 Gm, 0 Refills, [facility] #[id number], 90, SHAKE LIQUID AND USE 1 SPRAY IN EACH NOSTRIL DAILY IN THE MORNING, 157.2, cm, 01/30/22 11:33:00 EDT, Height, 53.5... Start Date: 01/31/22 Status: OrderedZyrTEC-D 5 mg-120 mg oral tablet, extended release 1 tablet, By Mouth, Every 24 hours, # 30 tablet, 2 Refills, Maintenance, 01/30/22 11:47:00 EDT, ER Tablet, [facility] #[id number], Partial fill upon patient request if the prescription is for a schedule II opioid drug., 1 tablet By Mouth Every 24... Start Date: 01/30/22 Stop Date: 04/30/22 Status: Ordered Problem List Condition Effective Dates Status Health Status Informant Suspicion of autism in the patient Active herself and in her first child(Confirmed) Chronic headache(Confirmed) Active [place] eye(Confirmed) Active Learning disability. She went through [...]
--- OUTSIDE RECORDS SUMMARY | 2022-08-27 20:28 | XMS_ITS | Continuity of Care Document ---
:1995 Author Organization [facility]onaldo [facility] Address [address] [place] [address], [address] [place] [address]- Care Team Providers Name Role Phone Donna JEREZ, Vera Bernstein Primary Care Physician Encounter [facility] Date(s): 05/21/20 - 06/20/20 [facility] [address] [place] [address], [address] [place] [address] [facility] Allergies, Adverse Reactions, Alerts No Known Medication [...] 03/12/11 Recorded 1Result Comment: [10/07/2016] done at [id number] Comment: [06/10/2017] AI SORIANO [facility] [id number] Comment: [10/07/2016] done at [place] [facility] Claritin 10 mg oral tablet 10 mg, 1, tablet, By Mouth, Daily, Refills 0, Maintenance, 10/28/19 19:25:00 EST Start Date: 10/28/19 Status: OrderedFlonase 50 mcg/inh nasal spray 1 sprays, Nares, Both, 2 times a day, PRN Congestion, # 16 Gm, 1 Refills, Maintenance, 07/08/19 19:10:20 EDT, [place], 1 sprays Nares, Both 2 times a day,PRN:Congestion Start Date: 07/08/19 Status: OrderedLoestrin Fe 1.5/30 oral tablet 1 tablet, By Mouth, Daily, starting on the first day of the menstrual cycle, # 28 tablet, 6 Refills,Maintenance, 12/15/19 14:53:00 EDT, [id number], 1 tablet By Mouth Daily,x28 days,Instr:starting on [...]
--- OUTSIDE RECORDS SUMMARY | 2022-08-27 20:28 | XMS_ITS | Continuity of Care Document ---
:1995 Author Organization [facility] Address [address] [place] [address]- Care Team Providers Name Role Phone Contractor Madelyn GOMEZ Primary Care Physician Encounter [facility] [place] [facility] [id number] Date(s): 11/21/21 - 12/21/[address] [address]- Attending Physician: AdmMaryan schwartz Admitting Physician: AdmtrMaryan [...] Recorded 1Result Comment: [06/10/2017] AI SORIANO [facility] [id number] Comment: incorrect [id number] Comment: [10/07/2016] done at [id number] Comment: [10/07/2016] done at [place] [facility] Claritin 10 mg oral tablet 10 mg, 1, tablet, By Mouth, Daily, # 30 tablet, Refills 0, Tot. Refills 0, Maintenance, 10/28/21 15:55:00 EST, Route to Pharmacy Electronically, [facility] #[id number], Partial fill upon patient request if the prescription is for a schedule II op... Start Date: 10/28/21 Status: OrderedErrin 0.35 mg oral tablet 1 tablet = 0.35 mg, By Mouth, Daily, # 84 tablet, 6 Refills, Maintenance, 07/23/22 10:36:00 EDT, Tablet, [facility] #[id number], Partial fill upon patient request if the prescription is for a schedule II opioid drug., 155, cm, 12/12/20 10:32:00 E... Start Date: 07/23/22 Stop Date: 03/02/24 Status: OrderedErrin 0.35 mg oral tablet 1 tablet = 0.35 mg, By Mouth, Daily, for 84 days, # 84 tablet, 6 Refills, Hard Stop 07/23/22 10:36:00 EDT, 12/12/20 10:36:00 EDT, Tablet, [facility] #[id number], Partial fill upon patient request if the prescription is for a schedule II opioid dr... Start Date: 12/12/20 Stop Date: 07/23/22 Status: OrderedFlonase 50 mcg/inh nasal spray 1 sprays, Nares, Both, 2 times a day, PRN Congestion, # 16 Gm, 1 Refills, Maintenance, 07/08/19 19:10:20 EDT, [place], 1 sprays Nares, Both 2 times a day,PRN:Congestion Start Date: 07/08/19 Status: Ordered Problem List Condition Effective Dates Status Health Status Informant Suspicion of autism in the patient Active herself and in her first child(Confirmed) [place] eye(Confirmed) Active Learning disability. She went through [...]
--- OUTSIDE RECORDS SUMMARY | 2022-08-27 20:28 | XMS_ITS | Continuity of Care Document ---
:1995 Author Organization [facility] Address [address] [place] [address]- Care Team Providers Name Role Phone Pedro JEREZ, Florence Ruby Primary Care Physician Encounter [facility] Date(s): 05/07/22 - 06/06/[address] [address]- Allergies, Adverse Reactions, Alerts No Known Medication Allergies Immunizations Given and Recorded Vaccine Date Status Refusal Reason SARS-CoV-2 mRNA (qwvspmz-diam-ghepi) vax 11/21/21 Recorde d influenza virus vaccine, [...] Recorded 1Result Comment: [06/10/2017] AI SORIANO [facility] [phone] Comment: incorrect [id number] Comment: [10/07/2016] done at [id number] Comment: [10/07/2016] done at [place] [facility] Claritin 10 mg oral tablet 10 mg, 1, tablet, By Mouth, Daily, # 30 tablet, Refills 0, Tot. Refills 0, Maintenance, 10/28/21 15:55:00 EST, Route to Pharmacy Electronically, [facility] #[id number], Partial fill upon patient request if the prescription is for a schedule II op... Start Date: 10/28/21 Status: Orderedcyclobenzaprine 10 mg oral tablet 10 mg, 1, tablet, By Mouth, Daily, PRN, As needed for muscle pain/ muscle spasm. caution: can cause sleepiness, # 30 tablet, Refills 1, Tot. Refills 1, Maintenance, Pain , Mild, 04/09/22 12:13:00 EDT, Route to Pharmacy Electronically, [facility] Start Date: 04/09/22 Status: Orderedfluconazole 150 mg oral tablet 1 tablet = 150 mg, By Mouth, Once, epeat dose if still having symptoms in 72 hours, # 2 tablet, 0 Refills, Soft Stop, 04/07/22 16:30:00 EDT, Tablet, [facility] #[id number], Partial fill upon patient request if the prescription is for a schedule I... Start Date: 04/07/22 Status: Orderedfluticasone 50 mcg/inh nasal spray See Instructions, SHAKE LIQUID AND USE 1 SPRAY IN EACH NOSTRIL DAILY IN THE MORNING, # 48 Gm, 0 Refills, [facility] #[id number], 90, SHAKE LIQUID AND USE 1 SPRAY IN EACH NOSTRIL DAILY IN THE MORNING, 157.2, cm, 01/30/22 11:33:00 EDT, Height, 53.5... Start Date: 01/31/22 Status: OrderedZyrTEC-D 5 mg-120 mg oral tablet, extended release 1 tablet, By Mouth, Every 24 hours, # 30 tablet, 2 Refills, Maintenance, 01/30/22 11:47:00 EDT, ER Tablet, [facility] #[id number], Partial fill upon patient request if the prescription is for a schedule II opioid drug., 1 tablet By Mouth Every 24... Start Date: 01/30/22 Stop Date: 04/30/22 Status: Ordered Problem List Condition Effective Dates Status Health Status Informant Suspicion of autism in the patient Active herself and in her first child(Confirmed) Chronic headache(Confirmed) Active [place] eye(Confirmed) Active Learning disability. She went through [...] Care Team PersonnelName: Florence Vasquez NP Address: [address] [place] [address]
--- OUTSIDE RECORDS SUMMARY | 2022-08-27 20:28 | XMS_ITS | Continuity of Care Document ---
:1995 Author Organization [facility] Address [address] [place] [address], [address] [place] [address]- Care Team Providers Name Role Phone Florence Vasquez NP Primary Care Physician [place] [facility] [place] Date(s): 04/07/22 - 05/07/22 [facility] [employer] [address] [place] [address], [address] [place] [address] Allergies, Adverse Reactions, Alerts No Known Medication Allergies Immunizations Given and Recorded Vaccine Date Status Refusal Reason SARS-CoV-2 mRNA (qhbpdlf-raor-gglvi) vax 11/21/21 Recorde d influenza virus vaccine, [...] 03/12/11 Recorded 1Result Comment: [06/10/2017] AI SORIANO [facility] [phone] Comment: incorrect [id number] Comment: [10/07/2016] done at [id number] Comment: [10/07/2016] done at [place] [facility] Claritin 10 mg oral tablet 10 mg, 1, tablet, By Mouth, Daily, # 30 tablet, Refills 0, Tot. Refills 0, Maintenance, 10/28/21 15:55:00 EST, Route to Pharmacy Electronically, [facility] #[id number], Partial fill upon patient request if the prescription is for a schedule II op... Start Date: 10/28/21 Status: Orderedcyclobenzaprine 10 mg oral tablet 10 mg, 1, tablet, By Mouth, Daily, PRN, As needed for muscle pain/ muscle spasm. caution: can cause sleepiness, # 30 tablet, Refills 1, Tot. Refills 1, Maintenance, Pain , Mild, 04/09/22 12:13:00 EDT, Route to Pharmacy Electronically, [facility] Start Date: 04/09/22 Status: Orderedfluconazole 150 mg oral tablet 1 tablet = 150 mg, By Mouth, Once, epeat dose if still having symptoms in 72 hours, # 2 tablet, 0 Refills, Soft Stop, 04/07/22 16:30:00 EDT, Tablet, [facility] #[id number], Partial fill upon patient request if the prescription is for a schedule I... Start Date: 04/07/22 Status: Orderedfluticasone 50 mcg/inh nasal spray See Instructions, SHAKE LIQUID AND USE 1 SPRAY IN EACH NOSTRIL DAILY IN THE MORNING, # 48 Gm, 0 Refills, [facility] #[id number], 90, SHAKE LIQUID AND USE 1 SPRAY IN EACH NOSTRIL DAILY IN THE MORNING, 157.2, cm, 01/30/22 11:33:00 EDT, Height, 53.5... Start Date: 01/31/22 Status: OrderedZyrTEC-D 5 mg-120 mg oral tablet, extended release 1 tablet, By Mouth, Every 24 hours, # 30 tablet, 2 Refills, Maintenance, 01/30/22 11:47:00 EDT, ER Tablet, [facility] #[id number], Partial fill upon patient request if the prescription is for a schedule II opioid drug., 1 tablet By Mouth Every 24... Start Date: 01/30/22 Stop Date: 04/30/22 Status: Ordered Problem List Condition Effective Dates Status Health Status Informant Suspicion of autism in the patient Active herself and in her first child(Confirmed) Chronic headache(Confirmed) Active [place] eye(Confirmed) Active Learning disability. She went through [...]
--- OUTSIDE RECORDS SUMMARY | 2022-08-27 20:28 | XMS_ITS | Continuity of Care Document ---
:1995 Author Organization [facility] Address [address] [place] [address], [address] [place] [address]- Care Team Providers Name Role Phone Donna JEREZ, Vera Bernstein Primary Care Physician [place] [facility] [place](s[place] 03/27/20 - 05/11/20 [facility] [address] [place] [address], [address] [place] [address]- [facility] Attending Physician: Not on Staff, [...] 03/12/11 Recorded 1Result Comment: [10/07/2016] done at [id number] Comment: [06/10/2017] AI SORIANO [facility] [id number] Comment: [10/07/2016] done at [place] [facility] Claritin 10 mg oral tablet 10 mg, 1, tablet, By Mouth, Daily, Refills 0, Maintenance, 10/28/19 19:25:00 EST Start Date: 10/28/19 Status: OrderedFlonase 50 mcg/inh nasal spray 1 sprays, Nares, Both, 2 times a day, PRN Congestion, # 16 Gm, 1 Refills, Maintenance, 07/08/19 19:10:20 EDT, [place], 1 sprays Nares, Both 2 times a day,PRN:Congestion Start Date: 07/08/19 Status: OrderedLoestrin Fe 1.5/30 oral tablet 1 tablet, By Mouth, Daily, starting on the first day of the menstrual cycle, # 28 tablet, 6 Refills,Maintenance, 12/15/19 14:53:00 EDT, [facility] #[id number], 1 tablet By Mouth Daily,x28 days,Instr:starting on [...]
--- OUTSIDE RECORDS SUMMARY | 2022-08-27 20:28 | XMS_ITS | Continuity of Care Document ---
:1995 Author Organization [facility] Address [address] [place] [address], [address] [place] [address]- Care Team Providers Name Role Phone Contractor Madelyn GOMEZ Primary Care Physician [place] [facility] [place](s[place] 08/22/21 - 09/21/21 [facility] [address] [place] [address], [address] [place] [id number] Attending Physician: Maryan Ceballos Admitting Physician: AdmtrMaryan Referring Physician: Admtr ArBertin Allergies, Adverse Reactions, Alerts No Known Medication [...] 03/12/11 Recorded 1Result Comment: [06/10/2017] AI SORIANO [facility] [id number] Comment: [10/07/2016] done at [id number] Comment: [10/07/2016] done at [place] [facility] Claritin 10 mg oral tablet 10 mg, 1, tablet, By Mouth, Daily, Refills 0, Maintenance, 10/28/19 19:25:00 EST Start Date: 10/28/19 Status: OrderedErrin 0.35 mg oral tablet 1 tablet = 0.35 mg, By Mouth, Daily, # 84 tablet, 6 Refills, Maintenance, 07/23/22 10:36:00 EDT, Tablet, [facility] #[id number], Partial fill upon patient request if the prescription is for a schedule II opioid drug., 155, cm, 12/12/20 10:32:00 E... Start Date: 07/23/22 Stop Date: 03/02/24 Status: OrderedErrin 0.35 mg oral tablet 1 tablet = 0.35 mg, By Mouth, Daily, for 84 days, # 84 tablet, 6 Refills, Hard Stop 07/23/22 10:36:00 EDT, 12/12/20 10:36:00 EDT, Tablet, [facility] #[id number], Partial fill upon patient request if the prescription is for a schedule II opioid drVinny Start Date: 12/12/20 Stop Date: 07/23/22 Status: OrderedFlonase 50 mcg/inh nasal spray 1 sprays, Nares, Both, 2 times a day, PRN Congestion, # 16 Gm, 1 Refills, Maintenance, 07/08/19 19:10:20 EDT, [place], 1 sprays Nares, Both 2 times [...]
--- OUTSIDE RECORDS SUMMARY | 2022-08-27 20:28 | XMS_ITS | Continuity of Care Document ---
:1995 Author Organization [facility] Address [address] [place] [address]- Care Team Providers Name Role Phone Contractor Madelyn GOMEZ Primary Care Physician Encounter [facility] Date(s): 10/28/21 - 11/27/[address] [address]- Allergies, Adverse Reactions, Alerts No Known Medication [...] Recorded 1Result Comment: [06/10/2017] AI SORIANO [facility] [phone] Comment: incorrect [id number] Comment: [10/07/2016] done at [id number] Comment: [10/07/2016] done at [place] [facility] Claritin 10 mg oral tablet 10 mg, 1, tablet, By Mouth, Daily, # 30 tablet, Refills 0, Tot. Refills 0, Maintenance, 10/28/21 15:55:00 EST, Route to Pharmacy Electronically, [facility] #[id number], Partial fill upon patient request if the prescription is for a schedule II op... Start Date: 10/28/21 Status: OrderedErrin 0.35 mg oral tablet 1 tablet = 0.35 mg, By Mouth, Daily, # 84 tablet, 6 Refills, Maintenance, 07/23/22 10:36:00 EDT, Tablet, [facility] #[id number], Partial fill upon patient request if the prescription is for a schedule II opioid drug., 155, cm, 12/12/20 10:32:00 E... Start Date: 07/23/22 Stop Date: 03/02/24 Status: OrderedErrin 0.35 mg oral tablet 1 tablet = 0.35 mg, By Mouth, Daily, for 84 days, # 84 tablet, 6 Refills, Hard Stop 07/23/22 10:36:00 EDT, 12/12/20 10:36:00 EDT, Tablet, [facility] #[id number], Partial fill upon patient request if the prescription is for a schedule II opioid Start Date: 12/12/20 Stop Date: 07/23/22 Status: OrderedFlonase 50 mcg/inh nasal spray 1 sprays, Nares, Both, 2 times a day, PRN Congestion, # 16 Gm, 1 Refills, Maintenance, 07/08/19 19:10:20 EDT, [place], 1 sprays Nares, Both 2 times a day,PRN:Congestion Start Date: 07/08/19 Status: Ordered Problem List Condition Effective Dates Status Health Status Informant Suspicion of autism in the patient Active herself and in her first child(Confirmed) [place] eye(Confirmed) Active Learning disability. She went through [...]
== END 2022-08-27 20:33 | disposition home or self-care (01) ==
LOC: HO.ED 20:24
PROVIDERS: Emergency Provider Emergency Medicine Emergency Medical Services
DX: S81.851A Open bite, right lower leg, initial encounter (principal); S80.812A Abrasion, left lower leg, initial encounter; W54.0XXA Bitten by dog, initial encounter; Y99.0 Civilian activity done for income or pay; Y92.9 Unspecified place or not applicable; Y99.9 Unspecified external cause status; Z79.899 Other long term (current) drug therapy
CPT/HCPCS: 90471; 90715; 99282; 99284

== ENCOUNTER 2022-09-03 19:38 | Emergency (ER) | payer OTHER, SELFPAY ==
[2022-09-03 19:58] VITALS: BP 129/88; PULSE 74; RESP 16; TEMP 36.7; O2SAT 100; BMI 23.0
--- NOTE | 2022-09-03 19:58 | ED.ALLEREA ---
HPI - Allergic Reaction General Chief complaint: Headache <Urmila Torres NP - Last Filed: 09/03/22 20:01> Stated complaint: Allergic Reaction? <Urmila Torres NP - Last Filed: 09/03/22 20:01> Time Seen by Provider: 09/03/22 21:18 <Urmila Torres NP - Last Filed: 09/03/22 20:01> Source: patient <Shaq Griffin MD - Last Filed: 09/03/22 21:31> Mode of arrival: ambulatory <Shaq Griffin MD - Last Filed: 09/03/22 21:31> Limitations: no limitations <Shaq Griffin MD - Last Filed: 09/03/22 21:31> History of Present Illness HPI narrative: 27-year-old female came in 08/27 for dog bite in the right lower extremity patient was given tetanus shot and sent home on prophylactic Augmentin, patient started to have pressure headache in her head for the past 2 days headache respond well to Advil, declined any nausea or vomiting or photophobia or neck stiffness or fever, patient also has concern for recent exposure to person infected with COVID. Patient appeared in no distress while she is in the ED, patient almost finished with the antibiotic course. <Shaq Griffin MD - Last Filed: 09/03/22 21:31> Related Data Home medications: Previous Rx's Medication Instructions Recorded naproxen 500 mg tablet (Naprosyn) 500 mg PO BID #20 tabs 08/02/20 ibuprofen 600 mg tablet 600 mg PO Q6H PRN pain #20 tabs 11/22/20 cyclobenzaprine 10 mg tablet 10 mg PO TID PRN muscle spasm #14 02/06/21 tabs ondansetron 4 mg disintegrating 4 mg PO Q8H PRN nausea and 02/06/21 tablet vomiting #20 tabs acetaminophen 500 mg tablet 1,000 mg PO QID PRN fever or pain 08/06/21 (Tylenol Extra Strength) #14 tabs cyclobenzaprine 10 mg tablet 10 mg PO Q8H PRN Muscle spasm #14 08/06/21 tabs amoxicillin 500 mg tablet 500 mg PO BID #20 tabs 08/13/21 ibuprofen 600 mg tablet 600 mg PO Q8H PRN fever or pain 08/13/21 #20 tabs fluticasone propionate 50 1 spray intranasal BID #1 units 10/11/21 mcg/actuation nasal spray,suspension (Flonase Allergy Relief) codeine 10 mg-guaifenesin 100 mg/5 10 ml PO Q6-8H PRN Cough #240 mL 10/14/21 mL oral liquid acetaminophen 500 mg tablet 1,000 mg PO Q6H PRN pain #240 tabs 12/23/21 (Tylenol Extra Strength) ibuprofen 400 mg tablet 400 mg PO Q6H PRN pain #240 tabs 12/23/21 naproxen 500 mg tablet 500 mg PO BID PRN pain 10 days #20 06/03/22 tabs amoxicillin 875 mg-potassium 1 tab PO BID dog bit #10 tabs 08/27/22 clavulanate 125 mg tablet <Urmila Torres NP - Last Filed: 09/03/22 20:01> Allergies/adverse reactions: Allergies Allergy/AdvReac Type Severity Reaction Status Date / Time No Known Allergies Allergy Verified 12/22/21 14:46 <Urmila Torres NP - Last Filed: 09/03/22 20:01> Review of Systems Review of Systems: All other systems are reviewed and are negative Constitutional: Reports as per HPI and Reports no additional constitutional complaints Eyes: Reports as per HPI and Reports no additional eye complaints Reports system reviewed and no additional complaints, except as documented Cardiovascular: Reports as per HPI and Reports no additional cardiovascular complaints Respiratory: Reports as per HPI and Reports no additional respiratory complaints Gastrointestinal: Reports as per HPI and Reports no additional gastrointestinal complaints Genitourinary: Reports no additional female genitourinary complaints Musculoskeletal: Reports no additional musculoskeletal complaints Skin/Breast: Reports system reviewed and no additional complaints, except as docu Psychiatric: Reports no additional psychiatric complaints Endocrine: Reports no additional endocrine complaints Hematologic/Lymphatic: Reports no additional hematologic/lymphatic complaints Allergic/Immunologic: Reports no additional allergic/immunologic complaints Reports system reviewed and no additional complaints, except as documented and Reports Abnormal speech present <Shaq Griffin MD - Last Filed: 09/03/22 21:31> PMFSH Past Medical History Medical History: Medical History No known health problems <Urmila Torres NP - Last Filed: 09/03/22 20:01> Social History Social History: Social History Alcohol intake: never Advance Directives: No Advance Directives Information Provided: No <Urmila Torres NP - Last Filed: 09/03/22 20:01> Physical Exam ED Vital Signs: Vital Signs - 24 hr 09/03/22 19:58 Temperature 98.1 F Pulse Rate 74 Respiratory Rate 16 Blood Pressure 129/88 Pulse Oximetry 100 Oxygen Delivery Method Room Air BMI result Body Mass Index 23.0 <Urmila Torres NP - Last Filed: 09/03/22 20:01> Vital Signs - 24 hr 09/03/22 19:58 Temperature 98.1 F Pulse Rate 74 Respiratory Rate 16 Blood Pressure 129/88 Pulse Oximetry 100 Oxygen Delivery Method Room Air BMI result Body Mass Index 23.0 Vital signs have been reviewed as appeared to be correct. Blood pressure normal. Heart rate normal. Respiration rate normal. Temperature normal. Oxygen saturation normal. <Shaq Griffin MD - Last Filed: 09/03/22 21:31> Appearance: Alert. Oriented X3. No acute distress. Head: Normal external exam. Normocephalic. Atraumatic. No Aguilar signs noted. No raccoon eyes noted Eyes: PERRLA. EOMI. Conjunctiva and sclera normal. Eyelids normal. ENT: TM's Normal. Pharynx normal. Uvula midline. Moist mucous membranes. No trismus noted. No drooling noted. No muffled voice noted. Neck: Normal inspection. Neck supple. FROM. No adenopathy. Thyroid Normal. No meningeal signs. No neck mass noted. CVS: Normal heart rate and rhythm. Heart sound normal. No murmurs noted. Pulses normal throughout. Respiratory: No respiratory distress. Painless inspiration. Breath sounds normal. No wheezes/rales/rhonchi noted. Chest nontender. No accessory muscle usage noted or decreased air movement noted. Abdomen: Soft and nontender. Bowel sounds normal in all 4 quadrants. No distention noted. No organomegaly noted. No visible injury noted. Back: No CVA tenderness. Full range of motion noted. Skin: Skin warm and dry. Normal skin color. Normal skin turgor. No rashes/lesions/lacerations noted. Extremities: Right lower extremities: Area ecchymosis and hematoma, no redness, no hotness, no tenderness to the area no fluctuation, no discharge. Neuro: Oriented X 3. Cranial nerve exam: II-XII are grossly intact No motor deficit. No sensory deficit. Reflexes normal. <Shaq Griffin MD - Last Filed: 09/03/22 21:31> Course Course Course Narrative: This is a rapid medical exam. Deferred additional HPI, ROS, PE to primary provider. Got bit by a dog on right leg 08/27. Taking augmentin pptx. Woke up Thursday with GRIMM. Taking aleve, tylenol for headache which helps but headache returns. No fevers, chills, vomiting, dizziness or any other symptoms. Concerned her headache was an allergic reaction. Patient reports she was also exposed to someone who had COVID and would like to be tested. Will send testing for flu, covid, rsv. VSS. <Urmila Torres NP - Last Filed: 09/03/22 20:01> Reevaluation(s) Reevaluation #1: 27-year-old female came in for evaluation of headache patient was concern of side effect from tetanus shot, patient almost finished with Augmentin (tomorrow is the last day) no apparent distress, benign headache that respond to [id number] medication patient was instructed to continue with [id number] medication for headache control. Negative for COVID. <Shaq Griffin MD - Last Filed: 09/03/22 21:31> Time: :29 <Shaq Griffin MD - Last Filed: 09/03/22 21:31> Discharge Plan Discharge Clinical Impression: Headache <Urmila Torres NP - Last Filed: 09/03/22 20:01> Patient Disposition: Home, Self-Care <Urmila Torres NP - Last Filed: 09/03/22 20:01> Instructions: Acute Headache (ED) <Urmila Torres NP - Last Filed: 09/03/22 20:01> Additional Instructions: Follow-up with your PCP as schedule for wound check. <Urmila Torres NP - Last Filed: 09/03/22 20:01> Prescriptions: No Action naproxen [Naprosyn] 500 mg tablet 500 mg PO BID Qty: 20 0RF ibuprofen 600 mg tablet 600 mg PO Q6H PRN (Reason: pain) Qty: 20 0RF cyclobenzaprine 10 mg tablet 10 mg PO TID PRN (Reason: muscle spasm) Qty: 14 0RF ondansetron 4 mg tablet,disintegrating 4 mg PO Q8H PRN (Reason: nausea and vomiting) Qty: 20 0RF amoxicillin 500 mg tablet 500 mg PO BID Qty: 20 0RF ibuprofen 600 mg tablet 600 mg PO Q8H PRN (Reason: fever or pain) Qty: 20 0RF fluticasone propionate [Flonase Allergy Relief] 50 mcg/actuation spray,suspension 1 spray intranasal BID Qty: 1 0RF Rx Instructions: administer into each nostril codeine-guaifenesin 10-100 mg/5 mL liquid 10 ml PO Q6-8H PRN (Reason: Cough) Qty: 240 0RF naproxen 500 mg tablet 500 mg PO BID PRN (Reason: pain) 10 Days Qty: 20 0RF cyclobenzaprine 10 mg tablet 10 mg PO Q8H PRN (Reason: Muscle spasm) Qty: 14 0RF acetaminophen [Tylenol Extra Strength] 500 mg tablet 1,000 mg PO QID PRN (Reason: fever or pain) Qty: 14 0RF acetaminophen [Tylenol Extra Strength] 500 mg tablet 1,000 mg PO Q6H PRN (Reason: pain) Qty: 240 0RF ibuprofen 400 mg tablet 400 mg PO Q6H PRN (Reason: pain) Qty: 240 0RF amoxicillin-pot clavulanate 875-125 mg tablet 1 tab PO BID Qty: 10 0RF <Urmila Torres NP - Last Filed: 09/03/22 20:01>
[2022-09-03 21:36] LABS: Influenza A PCR NEGATIVE (Negative); Influenza B PCR NEGATIVE (Negative); Resp Syncy Virus RNA Qual PCR NEGATIVE (Negative); SARS COV2 PCR INHOUSE NEGATIVE (Negative)
[2022-09-03 21:41] VITALS: BP 120/60; PULSE 68; RESP 16; TEMP 36.7; O2SAT 99
== END 2022-09-03 22:04 | disposition home or self-care (01) ==
PROVIDERS: Nurse Practitioner Family; Emergency Provider Emergency Medicine
DX: R51.9 Headache, unspecified (principal); Z20.822 Contact with and (suspected) exposure to COVID-19
CPT/HCPCS: 0241U; 99282; 99283

== ENCOUNTER 2022-12-01 10:12 | Emergency (ER) | payer OTHER, SELFPAY ==
--- NOTE | ~2022-12-01 | CT_ITS ---
EXAMINATION: CT ABDOMEN AND PELVIS WITHOUT CONTRAST CLINICAL INFORMATION: Generalized abdominal pain and diarrhea. Gastric. Nausea. COMPARISON: 08/06/2021 TECHNIQUE: Multidetector volumetric imaging was performed from the superior aspect of the liver through the pubic symphysis. Sagittal and coronal reformatted images were obtained on the technologist's workstation. This CT examination was performed using dose optimization techniques as appropriate, variously including the following: *Automated exposure control *Adjustment of mA and/or kV according to patient size (this includes techniques or standardized protocols for targeted exams where dose is matched to indication/reason for exam; i.e. extremities or head) *Use of iterative reconstruction technique DLP: 322 mGy-cm FINDINGS: LUNG BASES: The visualized lung bases are unremarkable. LIVER, GALLBLADDER, AND BILIARY TREE: The liver is normal in size, shape, and attenuation. No focal hepatic lesion or biliary ductal dilatation is present. The gallbladder is unremarkable with no evidence of radiopaque gallstones, gallbladder wall thickening, or obvious pericholecystic inflammatory changes. PANCREAS: Unremarkable. SPLEEN: Unremarkable. ADRENAL GLANDS: Unremarkable. KIDNEYS AND URETERS: The kidneys are normal in size, shape, and attenuation. No hydronephrosis, hydroureter, or calculi seen. No perinephric stranding. BLADDER: Unremarkable. GASTROINTESTINAL TRACT: The stomach is unremarkable. Normal caliber small bowel. There is no obstruction. Normal appendix. Much of the colon is decompressed with no definite wall thickening seen. No adjacent inflammation. Mild fatty infiltration of the colonic wall which can be seen with chronic inflammatory process. No free air or free fluid. ABDOMINAL WALL: No significant hernia is appreciated. LYMPH NODES: Normal. VASCULAR: Unremarkable. PELVIC VISCERA: Anteverted uterus. Simple appearing cyst measures 3.8 cm in the right adnexa. No specific follow-up recommended. OSSEOUS STRUCTURES: No acute or suspicious osseous abnormality. Transitional anatomy of the lumbosacral junction. CT/CT abdomen pelvis wo IV con IMPRESSION: No acute findings in the abdomen or pelvis. No inflammatory changes. Mild fatty infiltration of the colonic wall can be seen with chronic inflammatory process. Fleischner guidelines were followed.
[2022-12-01 10:20] VITALS: BP 126/85; PULSE 88; RESP 18; TEMP 36; O2SAT 98; BMI 21.7
[2022-12-01 10:50] LABS: MANUAL DIFF FLAG NO
[2022-12-01 10:54] LABS: Basophils Absolute Auto 0.1 X10*3/uL (0.0-0.2); Basophils Percent Auto 0.8 % (0-2); Eosinophils Absolute Auto 0.1 X10*3/uL (0.0-0.4); Eosinophils Percent Auto 1.6 % (0-4); Hematocrit 49.7 % (37.0-47.0); Hemoglobin 16.7 g/dl (12.0-16.0); Imm Gran Abs Auto 0.02 X10*3/uL (0.00-0.03); Imm Gran Pct Auto 0.2 % (0.0-0.4); Lymphocytes Absolute Auto 1.7 X10*3/uL (1.2-4.9); Lymphocytes Percent Auto 19.7 % (20-40); Mean Corpuscular HGB Conc 33.6 g/dl (31.0-35.0); Mean Corpuscular Hemoglobin 28.9 pg (27.0-33.0); Mean Corpuscular Volume 86.1 fL (80.0-98.0); Monocytes Absolute Auto 0.5 X10*3/uL (0.1-1.2); Neutrophils Percent Auto 71.7 % (45-73); Platelet Count 290 X10*3/uL (160-400); Red Blood Count 5.77 X10*6/uL (4.20-5.50); Red Cell Distribution Width 12.5 % (11.0-16.0); White Blood Count 8.4 X10*3/uL (4.8-10.8)
[2022-12-01 11:12] LABS: Alanine Aminotransferase 19 U/L (0-31); Albumin Level 4.7 g/dL (3.5-5.0); Alkaline Phosphatase 69 U/L (39-117); Anion Gap 13 (12-20); Aspartate Amino Transferase 19 U/L (5-31); Bilirubin Direct 0.2 mg/dL (0.0-0.5); Bilirubin Total 0.9 mg/dL (0.0-1.0); Blood Urea Nitrogen 13 mg/dL (9-16); Calcium 9.8 mg/dL (8.4-10.2); Carbon Dioxide 24 mmol/L (22-29); Chloride 107 mmol/L (96-108); Creatinine Clr Calc Pharmacy 82.4; Estimated Glomerular Filt Rate > 60; Glucose Random 101 mg/dL (60-115); Lipase 26 U/L (8-78); Potassium 4.7 mmol/L (3.3-5.1); Sodium 139 mmol/L (135-145); Total Protein 7.6 g/dL (6.5-8.0)
[2022-12-01 12:45] LABS: HCG Quantitative < 2 mIU/mL
[2022-12-01 14:14] VITALS: BP 148/93; PULSE 78; RESP 16; TEMP 36.7; O2SAT 99
[2022-12-01 14:18] LABS: Appearance Urine Clear; Color Urine Yellow; Glucose Urine UA Negative (Negative); Leukocyte Esterase Urine Trace (Negative); Nitrite Urine Negative (Negative); UMIC TRIGGER UACC YES; Urine Blood Negative (Negative); Urine Ketones Negative (Negative); Urine Protein Negative (Neg-Trace)
[2022-12-01 14:20] LABS: Bacteria Urine None Seen (None Seen); Hyaline Casts Urine 0-2 /LPF (0-2); RBC Urine 0-2 /HPF (0-2); WBC Urine 0-5 /HPF (0-5)
--- NOTE | 2022-12-01 15:01 | ED.ABDPAIN ---
HPI - Abdominal Pain General Chief Complaint: Abdominal Pain Stated Complaint: gas, diarrhea, nausea, abd pain Time Seen by Provider: 12/01/22 14:02 Source: patient Mode of arrival: ambulatory Limitations: no limitations History of Present Illness HPI narrative: 27-year-old female with no major medical problems presents with abdominal bloating, nausea for 2 weeks. Symptoms been intermittent. There is no clear relieving or exacerbating features. It is associated with nausea but no vomiting. She had 1 loose bowel movement but no significant diarrhea constipation. She has no significant pain. She did no fevers or chills. No sick contacts. Related Data Previous Rx's Medication Instructions Recorded naproxen 500 mg tablet (Naprosyn) 500 mg PO BID #20 tabs 08/02/20 ibuprofen 600 mg tablet 600 mg PO Q6H PRN pain #20 tabs 11/22/20 cyclobenzaprine 10 mg tablet 10 mg PO TID PRN muscle spasm #14 02/06/21 tabs ondansetron 4 mg disintegrating 4 mg PO Q8H PRN nausea and 02/06/21 tablet vomiting #20 tabs acetaminophen 500 mg tablet 1,000 mg PO QID PRN fever or pain 08/06/21 (Tylenol Extra Strength) #14 tabs cyclobenzaprine 10 mg tablet 10 mg PO Q8H PRN Muscle spasm #14 08/06/21 tabs amoxicillin 500 mg tablet 500 mg PO BID #20 tabs 08/13/21 ibuprofen 600 mg tablet 600 mg PO Q8H PRN fever or pain 08/13/21 #20 tabs fluticasone propionate 50 1 spray intranasal BID #1 units 10/11/21 mcg/actuation nasal spray,suspension (Flonase Allergy Relief) codeine 10 mg-guaifenesin 100 mg/5 10 ml PO Q6-8H PRN Cough #240 mL 10/14/21 mL oral liquid acetaminophen 500 mg tablet 1,000 mg PO Q6H PRN pain #240 tabs 12/23/21 (Tylenol Extra Strength) ibuprofen 400 mg tablet 400 mg PO Q6H PRN pain #240 tabs 12/23/21 naproxen 500 mg tablet 500 mg PO BID PRN pain 10 days #20 06/03/22 tabs amoxicillin 875 mg-potassium 1 tab PO BID dog bit #10 tabs 08/27/22 clavulanate 125 mg tablet famotidine 20 mg tablet 20 mg PO BID #30 tabs 12/01/22 ondansetron 4 mg disintegrating 4 mg PO Q8H PRN nausea and 12/01/22 tablet vomiting #14 tabs Allergies Allergy/AdvReac Type Severity Reaction Status Date / Time No Known Allergies Allergy Verified 12/22/21 14:46 [facility] Past Medical History Medical History No known health problems Social History Social History Alcohol intake: never Smoked in Last 30 Days: No Use of substances other than those prescribed or required for medical reasons: No Advance Directives: Yes Advance Directives Information Provided: Yes Advance Directives on File: No Patient : No Physical Exam ED Vital Signs: Vital Signs - 24 hr 12/01/22 10:20 12/01/22 14:14 Temperature 96.8 F 98.0 F Pulse Rate 88 78 Respiratory Rate 18 16 Blood Pressure 126/85 148/93 H Pulse Oximetry 98 99 Oxygen Delivery Method Room Air Room Air BMI result Body Mass Index 21.7 GEN: Well developed, no acute distress, alert, oriented HEENT: Normocephalic, atraumatic, normal external ears, nose appears normal, no oropharyngeal edema or exudates Eyes: Normal to appearance Neck: Supple, no lymphadenopathy Respiratory: Talks in complete sentences, no respiratory distress, clear to auscultation bilaterally Cardiovascular: Regular rate and rhythm, no murmurs rubs or gallops Abdomen: Soft, nontender, nondistended, no guarding, no rebound Back: No CVA tenderness Extremities: No clubbing cyanosis or edema Neurologic: No focal neurologic deficits, cranial nerves 2-12 intact, strength is 5/5 bilaterally, gait normal Skin: No rash Course Course Course Narrative: 27-year-old female presents with abdominal bloating, nausea, loose bowel movement for 2 weeks intermittently. Examination is benign. Lab work is complete, imaging studies do not show clear etiology of her symptoms. Is likely bacterial overgrowth versus IBS versus dyspepsia. Will start patient on Pepcid, simethicone, probiotic, ondansetron. She will follow-up with Gastroenterology. Medical Decision Making Medical Decision Making MDM Narrative: 27-year-old female presents with abdominal bloating, nausea, loose bowel movement for 2 weeks intermittently. Examination is benign. Lab work is complete, imaging studies do not show clear etiology of her symptoms. Is likely bacterial overgrowth versus IBS versus dyspepsia. Will start patient on Pepcid, simethicone, probiotic, ondansetron. She will follow-up with Gastroenterology. Differential Diagnosis Differential Diagnoses: The differential diagnosis associated with the presentation includes (IBS, IBD, colitis, diverticulitis, gastroenteritis, cholecystitis, appendicitis) Bloating Admission/Observation Consideration of admission/observation: Escalation of care including admission/observation considered Lab Data MDM Lab Attestation statement: I reviewed the patient's lab results. 12/01/22 10:45 12/01/22 10:45 Labs: Lab Results 12/01/22 12/01/22 12/01/22 Range/Units 10:45 10:45 14:10 WBC 8.4 (4.8-10.8) X10*3/uL RBC 5.77 H (4.20-5.50) X10*6/uL Hgb 16.7 H (12.0-16.0) g/dl Hct 49.7 H (37.0-47.0) % MCV 86.1 (80.0-98.0) fL MCH 28.9 (27.0-33.0) pg MCHC 33.6 (31.0-35.0) g/dl RDW 12.5 (11.0-16.0) % Plt Count 290 (160-400) X10*3/uL MPV 10.0 (9.4-12.3) fL Immature Gran % (Auto) 0.2 (0.0-0.4) % Neut % (Auto) 71.7 (45-73) % Lymph % (Auto) 19.7 L (20-40) % Dewitt % (Auto) 6.0 (2-11) % Eos % (Auto) 1.6 (0-4) % Baso % (Auto) 0.8 (0-2) % Lymph # (Auto) 1.7 (1.2-4.9) X10*3/uL [place] # (Auto) 0.5 (0.1-1.2) X10*3/uL Eos # (Auto) 0.1 (0.0-0.4) X10*3/uL Baso # (Auto) 0.1 (0.0-0.2) X10*3/uL Abs Immat Gran (auto) 0.02 (0.00-0.03) X10*3/uL Absolute Neuts (auto) 6.0 (2.0-8.3) x10*3/uL Absolute Nucleated RBC 0.000 (0.0-0.012) X10*3/uL Nucleated RBC % (auto) 0.0 (0.0-0.2) /100WBC Sodium 139 (135-145) mmol/L Potassium 4.7 D (3.3-5.1) mmol/L Chloride 107 (96-108) mmol/L Carbon Dioxide 24 (22-29) mmol/L Anion Gap 13 (12-20) BUN 13 (9-16) mg/dL Creatinine 0.76 (0.5-1.4) mg/dL Estim Creat Clear Calc 82.4 Estimated GFR > 60 Random Glucose 101 (60-115) mg/dL Calcium 9.8 D (8.4-10.2) mg/dL Total Bilirubin 0.9 (0.0-1.0) mg/dL Direct Bilirubin 0.2 (0.0-0.5) mg/dL AST 19 (5-31) U/L ALT 19 (0-31) U/L Alkaline Phosphatase 69 (39-117) U/L Total Protein 7.6 (6.5-8.0) g/dL Albumin 4.7 (3.5-5.0) g/dL Lipase 26 (8-78) U/L Beta HCG, Quant < 2 mIU/mL Urine Color Yellow Urine Appearance Clear Urine pH 5.0 (5.0-9.0) Ur Specific [place] 1.020 (1.005-1.025) Urine Protein Negative (Neg-Trace) mg/dL Urine Glucose (UA) Negative (Negative) mg/dL Urine Ketones Negative (Negative) mg/dL Urine Blood Negative (Negative) Urine Nitrite Negative (Negative) Ur Leukocyte Esterase Trace H (Negative) Urine RBC 0-2 (0-2) /HPF Urine WBC 0-5 (0-5) /HPF Ur Squamous Epith Cells 3-5 (0-2) /HPF Urine Bacteria None Seen (None Seen) Hyaline Casts 0-2 (0-2) /LPF Independent Interpretation I performed an independent interpretation of an: CT Scan (No acute intra-abdominal findings) Radiology Impression Discussion of test interpretation with radiology: I have reviewed the radiologist's reading. (IMPRESSION: No acute findings in the abdomen or pelvis. No inflammatory changes. Mild fatty infiltration of the colonic wall can be seen with chronic inflammatory process. Fleischner guidelines were followed. Dictated By:Gennaro Reedigned By:<Electronically signed by Gennaro Aguilar) Prescription Management I considered prescription management with: Pain Medication Discharge Plan Discharge Clinical Impression: Abdominal pain Patient Disposition: Home, Self-Care Instructions: Gas and Bloating (ED), Abdominal Pain (ED) Additional Instructions: Pre discomfort I am recommending the following treatment: -famotidine 20 mg twice a day -probiotic daily -ondansetron as needed for nausea vomiting Gas-X or simethicone as needed 3 times daily Prescriptions: New famotidine 20 mg tablet 20 mg PO BID Qty: 30 0RF ondansetron 4 mg tablet,disintegrating 4 mg PO Q8H PRN (Reason: nausea and vomiting) Qty: 14 0RF No Action naproxen [Naprosyn] 500 mg tablet 500 mg PO BID Qty: 20 0RF ibuprofen 600 mg tablet 600 mg PO Q6H PRN (Reason: pain) Qty: 20 0RF cyclobenzaprine 10 mg tablet 10 mg PO TID PRN (Reason: muscle spasm) Qty: 14 0RF ondansetron 4 mg tablet,disintegrating 4 mg PO Q8H PRN (Reason: nausea and vomiting) Qty: 20 0RF amoxicillin 500 mg tablet 500 mg PO BID Qty: 20 0RF ibuprofen 600 mg tablet 600 mg PO Q8H PRN (Reason: fever or pain) Qty: 20 0RF fluticasone propionate [Flonase Allergy Relief] 50 mcg/actuation spray,suspension 1 spray intranasal BID Qty: 1 0RF Rx Instructions: administer into each nostril codeine-guaifenesin 10-100 mg/5 mL liquid 10 ml PO Q6-8H PRN (Reason: Cough) Qty: 240 0RF naproxen 500 mg tablet 500 mg PO BID PRN (Reason: pain) 10 Days Qty: 20 0RF cyclobenzaprine 10 mg tablet 10 mg PO Q8H PRN (Reason: Muscle spasm) Qty: 14 0RF acetaminophen [Tylenol Extra Strength] 500 mg tablet 1,000 mg PO QID PRN (Reason: fever or pain) Qty: 14 0RF acetaminophen [Tylenol Extra Strength] 500 mg tablet 1,000 mg PO Q6H PRN (Reason: pain) Qty: 240 0RF ibuprofen 400 mg tablet 400 mg PO Q6H PRN (Reason: pain) Qty: 240 0RF amoxicillin-pot clavulanate 875-125 mg tablet 1 tab PO BID Qty: 10 0RF Referrals: Alonzo Gilliam [Physician] -
== END 2022-12-01 16:03 | disposition home or self-care (01) ==
PROVIDERS: Physician Assistant Medical; Emergency Provider Emergency Medicine
DX: R10.9 Unspecified abdominal pain (principal); R14.0 Abdominal distension (gaseous); Z79.899 Other long term (current) drug therapy
CPT/HCPCS: 36415; 74176; 80048; 80076; 81001; 83690; 84702; 85025; 99284

== ENCOUNTER 2023-02-25 18:47 | Emergency (ER) | payer OTHER, SELFPAY ==
--- NOTE | ~2023-02-25 | CT_ITS ---
EXAMINATION: CT ABDOMEN AND PELVIS WITH CONTRAST CLINICAL INFORMATION: Lower abdominal pain. COMPARISON: CT abdomen and pelvis dated 12/01/2022. TECHNIQUE: Multidetector volumetric images were obtained from the superior aspect of the liver through the pubic symphysis following administration 85 mL of Omnipaque 350 intravenous contrast. Sagittal and coronal reformatted images were obtained on the technologist's workstation. Oral contrast: No This CT examination was performed using dose optimization techniques as appropriate, variously including the following: *Automated exposure control *Adjustment of mA and/or kV according to patient size (this includes techniques or standardized protocols for targeted exams where dose is matched to indication/reason for exam; i.e. extremities or head) *Use of iterative reconstruction technique DLP: 326 mGy-cm FINDINGS: LUNG BASES: The visualized lung bases are unremarkable. LIVER, GALLBLADDER, AND BILIARY TREE: The liver is normal in size, shape, and attenuation. No focal hepatic lesion or biliary ductal dilatation is present. The gallbladder is unremarkable with no evidence of radiopaque gallstones, gallbladder wall thickening, or obvious pericholecystic inflammatory changes. PANCREAS: Unremarkable. SPLEEN: Unremarkable. ADRENAL GLANDS: Unremarkable. KIDNEYS AND URETERS: The kidneys are normal in size, shape, and attenuation. No hydronephrosis, hydroureter, or calculi seen. No perinephric stranding. BLADDER: Decompressed and otherwise unremarkable. GASTROINTESTINAL TRACT: There is a fat halo sign noted of the ascending, distal transverse and descending colon segments. There is mild fat stranding adjacent to the descending colon. No obstruction, free intraperitoneal air or abscess is seen. There is no focal bowel wall thickening. The vermiform appendix is unremarkable (5:26 and 3:47). ABDOMINAL WALL: No significant hernia is appreciated. LYMPH NODES: Normal. VASCULAR: Unremarkable. PELVIC VISCERA: A 4.8 x 2.8 cm simple appearing right ovarian cyst is seen, with postcontrast Hounsfield value of 15.4 units. The uterus is unremarkable. A small amount nonspecific free fluid noted adjacent to the right ovary and within the cul-de-sac. OSSEOUS STRUCTURES: Unremarkable. CT/CT abdomen pelvis w IV con IMPRESSION: 1. A fat halo sign is seen of the ascending, distal transverse and descending colon segments. This can be seen in association with inflammatory bowel disease. There is mild fat stranding adjacent to the descending colon suggesting that this may be active. No obstruction, free intraperitoneal air or abscess is seen. 2. A 4.8 cm benign, simple appearing right ovarian cyst is seen. There is a small amount of free fluid noted adjacent to the right ovary and within the cul-de-sac. 3. Osseous structures are unremarkable. Fleischner guidelines were followed.
[2023-02-25 19:08] VITALS: BP 153/92; PULSE 99; RESP 18; TEMP 37.1; O2SAT 97; BMI 22.7
--- NOTE | 2023-02-25 19:11 | ED_ITS ---
HPI - General Adult General Chief complaint: Abdominal Pain Stated complaint: med express sent over for RLQ pain, needs scan Time Seen by Provider: 02/25/23 21:03 Source: patient Mode of arrival: ambulatory Limitations: no limitations History of Present Illness HPI narrative: Patient comes to the emergency room complaining of right lower quadrant pressure. Patient states it started approximately 1 week ago. Patient states it is related to meals, few hours after eating she has diarrhea. Patient went to Urgent Care today, she was asked to come to the emergency room for further evaluation. Patient states she does not have any periumbilical pain or light lower quadrant pain, but she does have pressure intermittently. Patient has history of ovarian cyst but her symptoms are not the same. Patient had 1 ep isode of vomiting 3 weeks ago, nothing recent. At this time, patient feeling well, minimal pressure in the right lower quadrant/suprapubic area. Related Data Previous Rx's Medication Instructions Recorded naproxen 500 mg tablet (Naprosyn) 500 mg PO BID #20 tabs 08/02/20 ibuprofen 600 mg tablet 600 mg PO Q6H PRN pain #20 tabs 11/22/20 cyclobenzaprine 10 mg tablet 10 mg PO TID PRN muscle spasm #14 02/06/21 tabs ondansetron 4 mg disintegrating 4 mg PO Q8H PRN nausea and 02/06/21 tablet vomiting #20 tabs acetaminophen 500 mg tablet 1,000 mg PO QID PRN fever or pain 08/06/21 (Tylenol Extra Strength) #14 tabs cyclobenzaprine 10 mg tablet 10 mg PO Q8H PRN Muscle spasm #14 08/06/21 tabs amoxicillin 500 mg tablet 500 mg PO BID #20 tabs 08/13/21 ibuprofen 600 mg tablet 600 mg PO Q8H PRN fever or pain 08/13/21 #20 tabs fluticasone propionate 50 1 spray intranasal BID #1 units 10/11/21 mcg/actuation nasal spray,suspension (Flonase Allergy Relief) codeine 10 mg-guaifenesin 100 mg/5 10 ml PO Q6-8H PRN Cough #240 mL 10/14/21 mL oral liquid acetaminophen 500 mg tablet 1,000 mg PO Q6H PRN pain #240 tabs 12/23/21 (Tylenol Extra Strength) ibuprofen 400 mg tablet 400 mg PO Q6H PRN pain #240 tabs 12/23/21 naproxen 500 mg tablet 500 mg PO BID PRN pain 10 days #20 06/03/22 tabs amoxicillin 875 mg-potassium 1 tab PO BID dog bit #10 tabs 08/27/22 clavulanate 125 mg tablet famotidine 20 mg tablet 20 mg PO BID #30 tabs 12/01/22 ondansetron 4 mg disintegrating 4 mg PO Q8H PRN nausea and 12/01/22 tablet vomiting #14 tabs prednisone 20 mg tablet 20 mg PO DAILY #4 tabs 02/25/23 Allergies Allergy/AdvReac Type Severity Reaction Status Date / Time No Known Allergies Allergy Verified 02/25/23 19:08 Review of Systems Review of Systems: Constitutional : No Weight loss, No Fever, No Chills, No Night Sweats, No Fatigue, No Malaise ENT/Mouth : No Hearing loss, No Ear Pain, No Nasal Congestion, No Sinus Pain, No Hoarseness, No sore throat, No Rhinorrhea, No Swallowing Difficulty Eyes: No Eye Pain, No Swelling, No Redness, No Foreign Body, No Discharge, No Vision Changes Cardiovascular : No Chest Pain, No SOB, No Dyspnea on Exertion, No Orthopnea, No Edema, No Palpitations Respiratory : No Cough, No Sputum, No Wheezing, No Smoke Exposure, No Dyspnea Gastrointestinal : No Nausea, No Vomiting, No Diarrhea, No Constipation, complaining of right lower quadrant and suprapubically in hospital pressure, no hematochezia or melena Genitourinary : no irregular bleeding, No Dysuria, No Urinary Frequency, No Hematuria, No Urinary Incontinence, No Urgency, No Flank Pain, No Urinary Flow Changes, No Hesitancy Musculoskeletal : No joint pain, No Myalgias, No Joint Swelling Skin : No Skin Lesions, No rash Neuro : No Weakness, No Numbness, No Paresthesias, No Loss of Consciousness, No Dizziness, No Headache Psych : No Anxiety/Panic, No Depression, No SI/HI/AH/VH, No Social Issues, Heme/Lymph: No Bruising, No Bleeding,No Lymphadenopathy Endocrine : No Polyuria, No Polydipsia, No Temperature Intolerance PMFSH Past Medical History Medical History No known health problems Social History Social History Alcohol intake: current Alcohol intake frequency: holidays/special occasions only Smoked in Last 30 Days: No Use of substances other than those prescribed or required for medical reasons: No Advance Directives: No Advance Directives Information Provided: Yes Patient : No Physical Exam ED Vital Signs: Vital Signs - 24 hr 02/25/23 19:08 02/25/23 21:40 Temperature 98.7 F Pulse Rate 99 86 Respiratory Rate 18 16 Blood Pressure 153/92 H 129/84 Pulse Oximetry 97 100 Oxygen Delivery Method Room Air Room Air BMI result Body Mass Index 22.7 Const Other: Appearance: Alert. Oriented X3. No acute distress. Eyes: Pupils equal, round and reactive to light. ENT: Pharynx normal. Neck: Normal inspection. Neck supple. No lymph nodes noted. No crepitus CVS: Normal heart rate and rhythm. Pulses normal. Normal S1 and S2 Respiratory: No respiratory distress. Breath sounds normal. No Wheezing. No rales Abdomen: Soft and nontender. No rigidity. No distention. Skin: Skin warm and dry. Normal skin color. Normal skin turgor. Extremities: No lower extremity edema. No Lacerations. No Rash Neuro: Oriented X 3. No motor deficit. No sensory deficit. Moving all extremities. No slurred speech. CN 2 through 12 grossly intact Psych: calm, cooperative, normal affect Course Course Course Narrative: RME- 27-year-old female presents for evaluation of lower abdominal pain x1 week with associated diarrhea. On exam she is not tender the right lower quadrant. Plan for labs, UA, , CT scan of the abdomen pelvis. Medications Administered Discontinued Medications Generic Name Dose Route Start Last Admin Trade Name Freq PRN Reason Stop Dose Admin Iohexol 100 ml 02/25/23 21:57 02/25/23 21:57 Iohexol 350 Mg/Ml 100 Ml Infus..Btl IV 02/25/23 21:58 85 ml ONCE ONE Administration Medical Decision Making Medical Decision Making [facility] Narrative: -She patient's white blood cell count 12.4 -he has CT scan and urinalysis pending -my interpretation of CT scan of the abdomen: No small bowel obstruction, there is a cyst, uterine versus ovarian on the right side, approximately 5 cm -CT scan report shows active inflammatory bowel disease. Patient was offered antibiotics, Solu-Medrol and prednisone. Patient agreeable to take prednisone, no antibiotics for now. 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 Lab Data MDM Lab Attestation statement: I reviewed the patient's lab results. 02/25/23 19:25 02/25/23 19:25 Labs: Lab Results 02/25/23 02/25/23 02/25/23 Range/Units 19:25 19:25 21:32 WBC 12.4 H (4.8-10.8) X10*3/uL RBC 5.27 (4.20-5.50) X10*6/uL Hgb 15.4 (12.0-16.0) g/dl Hct 45.6 (37.0-47.0) % MCV 86.5 (80.0-98.0) fL MCH 29.2 (27.0-33.0) pg MCHC 33.8 (31.0-35.0) g/dl RDW 12.4 (11.0-16.0) % Plt Count 280 (160-400) X10*3/uL MPV 9.8 (9.4-12.3) fL Immature Gran % (Auto) 0.2 (0.0-0.4) % Neut % (Auto) 76.3 H (45-73) % Lymph % (Auto) 18.8 L (20-40) % Wake % (Auto) 3.3 (2-11) % Eos % (Auto) 0.8 (0-4) % Baso % (Auto) 0.6 (0-2) % Lymph # (Auto) 2.3 (1.2-4.9) X10*3/uL Wake # (Auto) 0.4 (0.1-1.2) X10*3/uL Eos # (Auto) 0.1 (0.0-0.4) X10*3/uL Baso # (Auto) 0.1 (0.0-0.2) X10*3/uL Abs Immat Gran (auto) 0.03 (0.00-0.03) X10*3/uL Absolute Neuts (auto) 9.4 H (2.0-8.3) x10*3/uL Absolute Nucleated RBC 0.000 (0.0-0.012) X10*3/uL Nucleated RBC % (auto) 0.0 (0.0-0.2) /100WBC Sodium 140 (135-145) mmol/L Potassium 4.0 (3.3-5.1) mmol/L Chloride 107 (96-108) mmol/L Carbon Dioxide 25 (22-29) mmol/L Anion Gap 12 (12-20) BUN 7 L (9-16) mg/dL Creatinine 0.78 (0.5-1.4) mg/dL Estim Creat Clear Calc 80.2 Estimated GFR > 60 Random Glucose 90 (60-115) mg/dL Calcium 9.9 (8.4-10.2) mg/dL Total Bilirubin 0.9 (0.0-1.0) mg/dL AST 13 (5-31) U/L ALT 15 (0-31) U/L Alkaline Phosphatase 62 (39-117) U/L Total Protein 7.3 (6.5-8.0) g/dL Albumin 4.6 (3.5-5.0) g/dL Lipase 24 (8-78) U/L Beta HCG, Quant < 2 mIU/mL Urine Color Yellow Urine Appearance Clear Urine pH 5.5 (5.0-9.0) Ur Specific [place] 1.010 (1.005-1.025) Urine Protein Negative (Neg-Trace) mg/dL Urine Glucose (UA) Negative (Negative) mg/dL Urine Ketones Trace (Negative) mg/dL Urine Blood Negative (Negative) Urine Nitrite Negative (Negative) Ur Leukocyte Esterase Small (1+) H (Negative) Urine RBC 0-2 (0-2) /HPF Urine WBC 6-10 H (0-5) /HPF Ur Squamous Epith Cells 0-2 (0-2) /HPF Urine Bacteria None Seen (None Seen) Hyaline Casts 0-2 (0-2) /LPF Urine Test (NEGATIVE) 02/25/23 Range/Units 21:32 WBC (4.8-10.8) X10*3/uL RBC (4.20-5.50) X10*6/uL Hgb (12.0-16.0) g/dl Hct (37.0-47.0) % MCV (80.0-98.0) fL MCH (27.0-33.0) pg MCHC (31.0-35.0) g/dl RDW (11.0-16.0) % Plt Count (160-400) X10*3/uL MPV (9.4-12.3) fL Immature Gran % (Auto) (0.0-0.4) % Neut % (Auto) (45-73) % Lymph % (Auto) (20-40) % Wake % (Auto) (2-11) % Eos % (Auto) (0-4) % Baso % (Auto) (0-2) % Lymph # (Auto) (1.2-4.9) X10*3/uL Wake # (Auto) (0.1-1.2) X10*3/uL Eos # (Auto) (0.0-0.4) X10*3/uL Baso # (Auto) (0.0-0.2) X10*3/uL Abs Immat Gran (auto) (0.00-0.03) X10*3/uL Absolute Neuts (auto) (2.0-8.3) x10*3/uL Absolute Nucleated RBC (0.0-0.012) X10*3/uL Nucleated RBC % (auto) (0.0-0.2) /100WBC Sodium (135-145) mmol/L Potassium (3.3-5.1) mmol/L Chloride (96-108) mmol/L Carbon Dioxide (22-29) mmol/L Anion Gap (12-20) BUN (9-16) mg/dL Creatinine (0.5-1.4) mg/dL Estim Creat Clear Calc Estimated GFR Random Glucose (60-115) mg/dL Calcium (8.4-10.2) mg/dL Total Bilirubin (0.0-1.0) mg/dL AST (5-31) U/L ALT (0-31) U/L Alkaline Phosphatase (39-117) U/L Total Protein (6.5-8.0) g/dL Albumin (3.5-5.0) g/dL Lipase (8-78) U/L Beta HCG, Quant mIU/mL Urine Color Urine Appearance Urine pH (5.0-9.0) Ur Specific [place] (1.005-1.025) Urine Protein (Neg-Trace) mg/dL Urine Glucose (UA) (Negative) mg/dL Urine Ketones (Negative) mg/dL Urine Blood (Negative) Urine Nitrite (Negative) Ur Leukocyte Esterase (Negative) Urine RBC (0-2) /HPF Urine WBC (0-5) /HPF Ur Squamous Epith Cells (0-2) /HPF Urine Bacteria (None Seen) Hyaline Casts (0-2) /LPF Urine Test NEGATIVE (NEGATIVE) Radiology Impression Discussion of test interpretation with radiology: I have reviewed the radiologist's reading. Radiologist Impression: FINDINGS: VERTEBRAL BODIES AND PARASPINAL STRUCTURES: There is a mild levoscoliosis in the lower thoracic spine, with a slight dextroscoliosis in the mid lumbar region. The T12 ribs are hypoplastic bilaterally. Intervertebral disc heights are maintained. The vertebral bodies have normal height and contour, and no fractures are demonstrated. Bone mineralization appears normal. The retroperitoneal and visualized pelvic structures are unremarkable. There is a partially unfused posterior S1 spinous process. SPINAL LEVELS: Axial imaging of the thoracolumbar spine was obtained from the level of T9 through the sacrum. Posterior disc contours appear normal and there is no central stenosis. The neural foramina are patent bilaterally. L5-S1: There is a left L5 pars defect, with a mildly dysplastic left L5 lamina. The right pars appears intact. There is mild bilateral facet arthropathy. There is no central stenosis and the neural foramina are patent. CT/CT lumbar spine wo IV con IMPRESSION: 1. There are no acute fractures or subluxations. 2. There is a left L5 pars defect with a mildly dysplastic left L5 lamina. There is mild bilateral facet arthropathy. There is no central stenosis and the neural foramina are patent. Discharge Plan Discharge Clinical Impression: Inflammatory bowel disease, Ovarian cyst Patient Disposition: Home, Self-Care Instructions: Ovarian Cyst (ED), Irritable Bowel Syndrome (ED) Additional Instructions: Please follow-up with your primary care physician tomorrow. If you have any worsening or new symptoms, please return to the emergency room or call 911 Prescriptions: New prednisone 20 mg tablet 20 mg PO DAILY Qty: 4 0RF No Action naproxen [Naprosyn] 500 mg tablet 500 mg PO BID Qty: 20 0RF ibuprofen 600 mg tablet 600 mg PO Q6H PRN (Reason: pain) Qty: 20 0RF cyclobenzaprine 10 mg tablet 10 mg PO TID PRN (Reason: muscle spasm) Qty: 14 0RF ondansetron 4 mg tablet,disintegrating 4 mg PO Q8H PRN (Reason: nausea and vomiting) Qty: 20 0RF amoxicillin 500 mg tablet 500 mg PO BID Qty: 20 0RF ibuprofen 600 mg tablet 600 mg PO Q8H PRN (Reason: fever or pain) Qty: 20 0RF fluticasone propionate [Flonase Allergy Relief] 50 mcg/actuation spray,suspension 1 spray intranasal BID Qty: 1 0RF Rx Instructions: administer into each nostril codeine-guaifenesin 10-100 mg/5 mL liquid 10 ml PO Q6-8H PRN (Reason: Cough) Qty: 240 0RF naproxen 500 mg tablet 500 mg PO BID PRN (Reason: pain) 10 Days Qty: 20 0RF famotidine 20 mg tablet 20 mg PO BID Qty: 30 0RF ondansetron 4 mg tablet,disintegrating 4 mg PO Q8H PRN (Reason: nausea and vomiting) Qty: 14 0RF cyclobenzaprine 10 mg tablet 10 mg PO Q8H PRN (Reason: Muscle spasm) Qty: 14 0RF acetaminophen [Tylenol Extra Strength] 500 mg tablet 1,000 mg PO QID PRN (Reason: fever or pain) Qty: 14 0RF acetaminophen [Tylenol Extra Strength] 500 mg tablet 1,000 mg PO Q6H PRN (Reason: pain) Qty: 240 0RF ibuprofen 400 mg tablet 400 mg PO Q6H PRN (Reason: pain) Qty: 240 0RF amoxicillin-pot clavulanate 875-125 mg tablet 1 tab PO BID Qty: 10 0RF
[2023-02-25 19:30] LABS: MANUAL DIFF FLAG NO
--- OUTSIDE RECORDS SUMMARY | 2023-02-25 19:31 | XMS_ITS | Continuity of Care Document ---
Author Name Unknown Organization [facility] Address [address] [place] [address]- Care Team Providers Care Equipment Operator Wage Hand Name Role Phone Florence Vasquez NP Primary Care Physici an Encounter [facility] [place] [place] ACCT R [id number] Date(s): 09/17/22 - 10/17/[address] [address]- Attending Physician: AdmtrMaryan Admitting Physician: AdmtrMaryan Referring Physician: Admtr, Ar8 Allergies, Adverse Reactions, Alerts No Known Medication Allergies Immunizations Given and Recorded Vaccine Date Status Refusal Reason SARS-CoV-2 mRNA ([id number]) vax 11/21/21 Recorded influenza virus vaccine, inactivated 09/02/21 Give n influenza virus vaccine, inactivated 06/13/19 Give n influenza virus vaccine, inactivated 1 06/10/17 Gi breezy influenza virus vaccine, inactivated 10/27/16 Give n influenza virus vaccine, inactivated 07/10/15 Give n SARS-CoV-2 (COVID-19) mRNA BNT-162b2 vac 05/24/21 Recorded SARS-CoV-2 (COVID-19) mRNA BNT-162b2 vac 02/12/21 Recorded SARS-CoV-2 (COVID-19) mRNA BNT-162b2 vac 2 02/12/21 Recorded SARS-CoV-2 (COVID-19) mRNA BNT-162b2 vac 01/22/21 Recorded tetanus/diphtheria/pertussis, acel(Tdap) 09/06/19 Given tetanus/diphtheria/pertussis, acel(Tdap) 12/31/17 Given tetanus/diphtheria/pertussis, acel(Tdap) 04/18/15 Given tetanus/diphtheria/pertussis, acel(Tdap) 03/12/04 Recorded Human Papillomavirus Vaccine 4 03/12/11 Recorded 1Result Comment: [06/10/2017] AI SORIANO [facility] [id number] 2Result Comment: incorrect date 3Result Comment: [10/07/2016] done at [facility] 4Result Comment: [10/07/2016] done at [facility] Medications Claritin 10 mg oral tablet 10 mg, 1, tablet, By Mouth, Daily, # 30 tablet, Refills 0, Tot. Refills 0, Maintenance, 10/28/21 15:55:00 EST, Route to Pharmacy Electronically, [facility] #[id number], Partial fill upon patientrequest if the prescription is for a schedule II op... Start Date: 10/28/21 Status: Ordered cyclobenzaprine 10 mg oral tablet 10 mg, 1, tablet, By Mouth, Daily, PRN, As needed for muscle pain/ muscle spasm. caution: can causesleepiness, # 30 tablet, Refills 1, Tot. Refills 1, Maintenance, Pain , Mild, 04/09/22 12:13:00 EDT, Route to Pharmacy Electronically, [facility]... Start Date: 04/09/22 Status: Ordered fluconazole 150 mg oral tablet 1 tablet = 150 mg, By Mouth, Once, epeat dose if still having symptoms in 72 hours, # 2 tablet, 0 Refills, Soft Stop, 04/07/22 16:30:00 EDT, Tablet, [facility] #[id number], Partial fill upon patient request if the prescription is for a schedule I... Start Date: 04/07/22 Status: Ordered fluticasone 50 mcg/inh nasal spray See Instructions, SHAKE LIQUID AND USE 1 SPRAY IN EACH NOSTRIL DAILY IN THE MORNING, # 48 Gm, 11 Refills, 08/25/22 9:45:00 EST, [facility] #[id number], 90, SHAKE LIQUID AND USE 1 SPRAY IN EACH NOSTRIL DAILY IN THE MORNING, 157.2, cm, 08/25/22 9:2... Start Date: 08/25/22 Status: Ordered ZyrTEC-D 5 mg-120 mg oral tablet, extended release 1 tablet, By Mouth, Every 24 hours, # 30 tablet, 2 Refills, Maintenance, 01/30/22 11:47:00 EDT, ER Tablet, [facility] #[id number], Partial fill upon patient request if the prescription is for a schedule II opioid drug., 1 tablet By Mouth Every 24... Start Date: 01/30/22 Stop Date: 04/30/22 Status: Ordered Problem List Condition Confirmation Course Effective Dates Status H ealth Status Informant Suspicion of autism in the patient herself and in her first child Confirmed Active Chronic headache Confirmed Active [place] eye Confirmed Active Learning disability. She went through 12th grade but did not get a diploma because she could not pass the math part of the [employer]. She has considered getting a GED Confirmed Active Headaches Confirmed Active Subclinical hypothyroidism Confirmed Active Itchy eyes Confirmed Active Major depression Confirmed Active Vertigo Confirmed Active Social History Social History Type Response Smoking Status Never (less than 100 in lifetime); Tobacco user in household: No entered on: 04/27/19 Sex Patient Care team information Care Team Personnel Name: Florence Vasquez NP Position: [facility] PCO Associate Professional Member Role: PCP Address: Address: [address] [place] [address] Name: Karime Wray NP Position: Reference Physician Member Role: Primary Care Nurse Care Team Related Persons Name: KO ROOT Address: home [address] [place] [id number] Name: YU MACK Address: [facility] Address: home [address] [place] [address] [place] Name: YANNICK MACK Address: [employer] Address: [address] [address] [place] Name: NICHOLAS MACK Address: home [address] [place] [address]
--- OUTSIDE RECORDS SUMMARY | 2023-02-25 19:32 | XMS_ITS | Continuity of Care Document ---
Author Name Unknown Organization [facility] Address [address] [place] [address]- Care Team Providers Care Heel Packer Name Role Phone Florence Vasquez NP Tagjo-ann Primary Care Physici an Encounter [facility] [id number] Date(s): 11/27/22 - 12/27/[address] [address]- Attending Physician: Admlana, Maryan Admitting Physician: Admtr, Ar8 Referring Physician: Admtr, Ar8 Allergies, Adverse Reactions, Alerts No Known Medication Allergies Immunizations Given and Recorded Vaccine Date Status Refusal Reason tetanus/diphtheria/pertussis, acel(Tdap) 08/27/22 Recorded tetanus/diphtheria/pertussis, acel(Tdap) 09/06/19 Given tetanus/diphtheria/pertussis, acel(Tdap) 12/31/17 Given tetanus/diphtheria/pertussis, acel(Tdap) 04/18/15 Given tetanus/diphtheria/pertussis, acel(Tdap) 1 03/12/04 Recorded SARS-CoV-2 mRNA ([id number]) vax 11/21/21 Recorded influenza virus vaccine, inactivated 09/02/21 Give n influenza virus vaccine, inactivated 06/13/19 Give n influenza virus vaccine, inactivated 2 06/10/17 Gi breezy influenza virus vaccine, inactivated 10/27/16 Give n influenza virus vaccine, inactivated 07/10/15 Give n SARS-CoV-2 (COVID-19) mRNA BNT-162b2 vac 05/24/21 Recorded SARS-CoV-2 (COVID-19) mRNA BNT-162b2 vac 02/12/21 Recorded SARS-CoV-2 (COVID-19) mRNA BNT-162b2 vac 3 5/25/21 Recorded SARS-CoV-2 (COVID-19) mRNA BNT-162b2 vac 01/22/21 Recorded Human Papillomavirus Vaccine 4 03/12/11 Recorded 1Result Comment: [10/07/2016] done at [facility] 2Result Comment: [06/10/2017] AI SORIANO [facility] [id number] 3Result Comment: incorrect date 4Result Comment: [10/07/2016] done at [facility] Medications albuterol CFC free 90 mcg/inh inhalation aerosol 1, puffs, Inhalation, 4 times a day, PRN, # 25 Gm, Refills 0, Tot. Refills 0, Maintenance, 10/22/2310:50:00 EST, Aerosol, Route to Pharmacy Electronically, [id number], [facility] #[id number], 157.2, cm, 08/25/22 9:26:00... Start Date: 10/22/22 Status: Ordered Claritin 10 mg oral tablet 10 mg, 1, tablet, By Mouth, Daily, # 30 tablet, Refills 0, Tot. Refills 0, Maintenance, 10/28/21 15:55:00 EST, Route to Pharmacy Electronically, [facility] #[id number], Partial fill upon patientrequest if the prescription is for a schedule II op... Start Date: 10/28/21 Status: Ordered cyclobenzaprine 10 mg oral tablet 10 mg, 1, tablet, By Mouth, Daily, PRN, As needed for muscle pain/ muscle spasm. caution: can causesleepiness, # 30 tablet, Refills 1, Tot. Refills 1, Maintenance, Pain , Mild, 04/09/22 12:13:00 EDT, Route to Pharmacy Electronically, [facility]... Start Date: 04/09/22 Status: Ordered fluconazole 150 mg oral tablet 1 tablet = 150 mg, By Mouth, Once, epeat dose if still having symptoms in 72 hours, # 2 tablet, 0 Refills, Soft Stop, 04/07/22 16:30:00 EDT, Tablet, [facility] #[id number], Partial fill upon patient request if the prescription is for a schedule I... Start Date: 04/07/22 Status: Ordered fluticasone 50 mcg/inh nasal spray See Instructions, SHAKE LIQUID AND USE 1 SPRAY IN EACH NOSTRIL DAILY IN THE MORNING, # 48 Gm, 11 Refills, 10/22/22 11:49:00 EST, [facility] #[id number], 90, SHAKE LIQUID AND USE 1 SPRAY IN EACH NOSTRIL DAILY IN THE MORNING, 157.2, cm, 08/25/22 9:... Start Date: 10/22/22 Status: Ordered ZyrTEC-D 5 mg-120 mg oral tablet, extended release 1 tablet, By Mouth, Every 24 hours, # 30 tablet, 2 Refills, Maintenance, 10/22/22 11:49:00 EST, ER Tablet, [facility] #[id number], Partial fill upon patient request if the prescription is for a schedule II opioid drug., 1 tablet By Mouth Every 24... Start Date: 10/22/22 Stop Date: 01/20/23 Status: Ordered Problem List Condition Confirmation Course Effective Dates Status H ealth Status Informant Suspicion of autism in the patient herself and in her first child Confirmed Active Chronic headache Confirmed Active [place] eye Confirmed Active Learning disability. She went through 12th grade but did not get a diploma because she could not pass the math part of the [employer]. She has considered getting a GED Confirmed Active Headaches Confirmed Active Subclinical hypothyroidism Confirmed Active Itchy eyes Confirmed Active Major depression Confirmed Active Vertigo Confirmed Active Vomiting Confirmed Active Social History Social History Type Response Smoking Status Never (less than 100 in lifetime); Tobacco user in household: No entered on: 04/27/19 Sex Patient Care team information Care Team Personnel Name: Florence Vasquez NP Position: [facility] PCO Associate Professional Member Role: PCP Address: Address: [address] [place] [address] Name: Karime Wray NP Position: Reference Physician Member Role: Primary Care Nurse Care Team Related Persons Name: ROOTKO Address: home [address] [place] [address] Name: YU MACK Address: [employer] Address: [address] [place] Name: YANNICK MACK Address: [employer] Address: home [address] [address] [place] Name: NICHOLAS MACK Address: home [address] [place] [id number]
--- OUTSIDE RECORDS SUMMARY | 2023-02-25 19:32 | XMS_ITS | Continuity of Care Document ---
Author Name Unknown Organization [facility] Address [address] [place] [address]- Care Team Providers Care Character Actress Name Role Phone Florence Vasquez NP Primary Care Physici an Encounter [facility] [place] Date(s): 12/01/22 - 12/31/[address] [address]- Allergies, Adverse Reactions, Alerts No Known Medication Allergies Immunizations Given and Recorded Vaccine Date Status Refusal Reason tetanus/diphtheria/pertussis, acel(Tdap) 08/27/22 Recorded tetanus/diphtheria/pertussis, acel(Tdap) 09/06/19 Given tetanus/diphtheria/pertussis, acel(Tdap) 12/31/17 Given tetanus/diphtheria/pertussis, acel(Tdap) 04/18/15 Given tetanus/diphtheria/pertussis, acel(Tdap) 1 03/12/04 Recorded SARS-CoV-2 mRNA (uhubhut-jwqr-dzcof) vax 11/21/21 Recorded influenza virus vaccine, inactivated 09/02/21 Give n influenza virus vaccine, inactivated 06/13/19 Give n influenza virus vaccine, inactivated 2 06/10/17 Gi breezy influenza virus vaccine, inactivated 10/27/16 Give n influenza virus vaccine, inactivated 07/10/15 Give n SARS-CoV-2 (COVID-19) mRNA BNT-162b2 vac 05/24/21 Recorded SARS-CoV-2 (COVID-19) mRNA BNT-162b2 vac 02/12/21 Recorded SARS-CoV-2 (COVID-19) mRNA BNT-162b2 vac 3 02/12/21 Recorded SARS-CoV-2 (COVID-19) mRNA BNT-162b2 vac 01/22/21 Recorded Human Papillomavirus Vaccine 4 03/12/11 Recorded 1Result Comment: [10/07/2016] done at [place] 2Result Comment: [06/10/2017] AI SORIANO [facility] 24907-995-63 3Result Comment: incorrect date 4Result Comment: [10/07/2016] done at [place] Medications albuterol CFC free 90 mcg/inh inhalation aerosol 1, puffs, Inhalation, 4 times a day, PRN, # 25 Gm, Refills 0, Tot. Refills 0, Maintenance, 10/22/2310:50:00 EST, Aerosol, Route to Pharmacy Electronically, [id number], [facility] #[id number], 157.2, cm, 08/25/22 9:26:00... Start Date: 10/22/22 Status: Ordered Claritin 10 mg oral tablet 10 mg, 1, tablet, By Mouth, Daily, # 30 tablet, Refills 0, Tot. Refills 0, Maintenance, 10/28/21 15:55:00 EST, Route to Pharmacy Electronically, [facility] #[id number], Partial fill upon patientrequest if the prescription is for a schedule II op... Start Date: 10/28/21 Status: Ordered cyclobenzaprine 10 mg oral tablet 10 mg, 1, tablet, By Mouth, Daily, PRN, As needed for muscle pain/ muscle spasm. caution: can causesleepiness, # 30 tablet, Refills 1, Tot. Refills 1, Maintenance, Pain , Mild, 04/09/22 12:13:00 EDT, Route to Pharmacy Electronically, [facility]... Start Date: 04/09/22 Status: Ordered fluconazole 150 mg oral tablet 1 tablet = 150 mg, By Mouth, Once, epeat dose if still having symptoms in 72 hours, # 2 tablet, 0 Refills, Soft Stop, 04/07/22 16:30:00 EDT, Tablet, [facility] #[id number], Partial fill upon patient request if the prescription is for a schedule I... Start Date: 04/07/22 Status: Ordered fluticasone 50 mcg/inh nasal spray See Instructions, SHAKE LIQUID AND USE 1 SPRAY IN EACH NOSTRIL DAILY IN THE MORNING, # 48 Gm, 11 Refills, 10/22/22 11:49:00 EST, [facility] #[id number], 90, SHAKE LIQUID AND USE 1 SPRAY IN EACH NOSTRIL DAILY IN THE MORNING, 157.2, cm, 08/25/22 9:... Start Date: 10/22/22 Status: Ordered ZyrTEC-D 5 mg-120 mg oral tablet, extended release 1 tablet, By Mouth, Every 24 hours, # 30 tablet, 2 Refills, Maintenance, 10/22/22 11:49:00 EST, ER Tablet, [facility] #[id number], Partial fill upon patient request if the prescription is for a schedule II opioid drug., 1 tablet By Mouth Every 24... Start Date: 10/22/22 Stop Date: 01/20/23 Status: Ordered Problem List Condition Confirmation Course Effective Dates Status H ealth Status Informant Suspicion of autism in the patient herself and in her first child Confirmed Active Chronic headache Confirmed Active [place] [facility] Confirmed Active Learning disability. She went [...] Team Personnel Name: Florence Vasquez NP Position: [facility] PCO Associate Professional Member Role: PCP Address: Address: [address] [place] [address] Name: Karime Wray NP Position: Reference Physician Member Role: Primary Care Nurse Care Team Related Persons Name: ROOTKO Address: home [address] [place], [place] Name: YU MACK Address: [place] Address: [address] [place] Name: YANNICK MACK Address: [place] Address: home [address] [place] Name: NICHOLAS MACK Address: home [address] [address]
--- OUTSIDE RECORDS SUMMARY | 2023-02-25 19:32 | XMS_ITS | Continuity of Care Document ---
Author Name Unknown Organization [facility] Address [address] [place] [address]- Care Team Providers Care Newswriter Name Role Phone Florence Vasquez NP Primary Care Physici an Encounter [facility] [place] Date(s): 08/29/22 - 10/17/[address] [address]- Attending Physician: Not on Staff, Attending MD Allergies, Adverse Reactions, Alerts No Known Medication Allergies Immunizations Given and Recorded Vaccine Date Status Refusal Reason SARS-CoV-2 mRNA (tsvelqs-btex-feedz) vax 11/21/21 Recorded influenza virus vaccine, inactivated [...] Given tetanus/diphtheria/pertussis, acel(Tdap) 04/18/15 Given tetanus/diphtheria/pertussis, acel(Tdap) 3 03/12/04 Recorded Human Papillomavirus Vaccine 4 03/12/11 Recorded 1Result Comment: [06/10/2017] AI SORIANO [facility] [id number] 2Result Comment: incorrect date 3Result Comment: [10/07/2016] done at [place] 4Result Comment: [10/07/2016] done at [place] Medications Claritin 10 mg oral tablet 10 mg, 1, tablet, By Mouth, Daily, # 30 tablet, Refills 0, Tot. Refills 0, Maintenance, 10/28/21 15:55:00 EST, Route to Pharmacy Electronically, [facility] #[id number], Partial fill upon patientrequest if the prescription is for a schedule II op... Start Date: 10/28/21 Status: Ordered cyclobenzaprine 10 mg oral tablet 10 mg, 1, tablet, By Mouth, Daily, PRN, As needed for muscle pain/ muscle spasm. caution: can causesleepiness, # 30 tablet, Refills 1, Tot. Refills 1, Maintenance, Pain , Mild, 04/09/22 12:13:00 EDT, Route to Pharmacy Electronically, [facility]... Start Date: 04/09/22 Status: Ordered fluconazole 150 mg oral tablet 1 tablet = 150 mg, By Mouth, Once, epeat dose if still having symptoms in 72 hours, # 2 tablet, 0 Refills, Soft Stop, 04/07/22 16:30:00 EDT, Tablet, [facility] #[id number], Partial fill upon patient request if the prescription is for a schedule I... Start Date: 04/07/22 Status: Ordered fluticasone 50 mcg/inh nasal spray See Instructions, SHAKE LIQUID AND USE 1 SPRAY IN EACH NOSTRIL DAILY IN THE MORNING, # 48 Gm, 11 Refills, 08/25/22 9:45:00 EST, [facility] #[id number], 90, SHAKE LIQUID AND USE 1 SPRAY IN EACH NOSTRIL DAILY IN THE MORNING, 157.2, cm, 08/25/22 9:2... Start Date: 08/25/22 Status: Ordered ZyrTEC-D 5 mg-120 mg oral tablet, extended release 1 tablet, By Mouth, Every 24 hours, # 30 tablet, 2 Refills, Maintenance, 01/30/22 11:47:00 EDT, ER Tablet, [facility] #[id number], Partial fill upon patient request if the prescription is for a schedule II opioid drug., 1 tablet By Mouth Every 24... Start Date: 01/30/22 Stop Date: 04/30/22 Status: Ordered Problem List Condition Confirmation Course Effective Dates Status H ealth Status Informant Suspicion of autism in the patient herself and in her first child Confirmed Active Chronic headache Confirmed Active [place] eye Confirmed Active Learning disability. She went [...] Team Personnel Name: Florence Vasquez NP Position: [facility] PCO Associate Professional Member Role: PCP Address: Address: [address] [place] [address] Name: Karime Wray NP Position: Reference Physician Member Role: Primary Care Nurse Care Team Related Persons Name: KO ROOT Address: home [address] [place] [address] Name: YU MACK Address: [place] Address: home [address] [place] [address] [place] Name: YANNICK MACK Address: [place] Address: [address] [address] [place] Name: NICHOLAS MACK Address: home [address] [place] [id number]
--- OUTSIDE RECORDS SUMMARY | 2023-02-25 19:32 | XMS_ITS | Continuity of Care Document ---
Author Name Unknown Organization [facility] Address [address] [place] [address]- Care Team Providers Care Ecosystem Ecology Professor Name Role Phone Pedro JEREZ, Florence Ruby Primary Care Physici an Encounter [facility] [place] Date(s): 08/04/22 - 09/03/[address] [address] Attending Physician: AdmMaryan schwartz Admitting Physician: [id number] Referring Physician: Admtr, Ar8 Allergies, Adverse Reactions, Alerts No Known Medication Allergies Immunizations Given and Recorded Vaccine Date Status Refusal Reason SARS-CoV-2 mRNA (yzkmbeu-kjeu-amfkq) vax 11/21/21 Recorded influenza virus vaccine, inactivated [...] 1Result Comment: [06/10/2017] AI SORIANO [facility] [id number] 2Result Comment: incorrect date 3Result Comment: [10/07/2016] done at [place] 4Result Comment: [10/07/2016] done at [place] Medications Claritin 10 mg oral tablet 10 mg, 1, tablet, By Mouth, Daily, # 30 tablet, Refills 0, Tot. Refills 0, Maintenance, 10/28/21 15:55:00 EST, Route to Pharmacy Electronically, [facility] #[id number], Partial fill upon patientrequest if the prescription is for a schedule II op... Start Date: 10/28/21 Status: Ordered cyclobenzaprine 10 mg oral tablet 10 mg, 1, tablet, By Mouth, Daily, PRN, As needed for muscle pain/ muscle spasm. caution: can causesleepiness, # 30 tablet, Refills 1, Tot. Refills 1, Maintenance, Pain , Mild, 04/09/22 12:13:00 EDT, Route to Pharmacy Electronically, [facility]... Start Date: 04/09/22 Status: Ordered fluconazole 150 mg oral tablet 1 tablet = 150 mg, By Mouth, Once, epeat dose if still having symptoms in 72 hours, # 2 tablet, 0 Refills, Soft Stop, 04/07/22 16:30:00 EDT, Tablet, [facility] #[id number], Partial fill upon patient request if the prescription is for a schedule I... Start Date: 04/07/22 Status: Ordered fluticasone 50 mcg/inh nasal spray See Instructions, SHAKE LIQUID AND USE 1 SPRAY IN EACH NOSTRIL DAILY IN THE MORNING, # 48 Gm, 11 Refills, 08/25/22 9:45:00 EST, [facility] #[id number], 90, SHAKE LIQUID AND USE 1 SPRAY IN EACH NOSTRIL DAILY IN THE MORNING, 157.2, cm, 08/25/22 9:2... Start Date: 08/25/22 Status: Ordered ZyrTEC-D 5 mg-120 mg oral tablet, extended release 1 tablet, By Mouth, Every 24 hours, # 30 tablet, 2 Refills, Maintenance, 01/30/22 11:47:00 EDT, ER Tablet, [facility] #[id number], Partial fill upon patient request if the prescription is for a schedule II opioid drug., 1 tablet By Mouth Every 24... Start Date: 01/30/22 Stop Date: 04/30/22 Status: Ordered Problem List Condition Confirmation Course Effective Dates Status H ealth Status Informant Suspicion of autism in the patient herself and in her first child Confirmed Active Chronic headache Confirmed Active [place] [facility] Confirmed Active Learning disability. She went [...] Team Personnel Name: Florence Vasquez NP Position: [facility] PCO Associate Professional Member Role: PCP Address: Address: [address] [place] [address] Name: Karime Wray NP Position: Reference Physician Member Role: Primary Care Nurse Care Team Related Persons Name: KO ROOT Address: home [address] [place] [address] Name: YU MACK Address: [place] Address: home [address] [place] [address] [place] Name: YANNICK MACK Address: [place] Address: home [address] [place] [id number] [place] Name: NICHOLAS MACK Address: home [address] [place] [id number]
[2023-02-25 19:36] LABS: Basophils Absolute Auto 0.1 X10*3/uL (0.0-0.2); Basophils Percent Auto 0.6 % (0-2); Eosinophils Absolute Auto 0.1 X10*3/uL (0.0-0.4); Eosinophils Percent Auto 0.8 % (0-4); Hematocrit 45.6 % (37.0-47.0); Hemoglobin 15.4 g/dl (12.0-16.0); Imm Gran Abs Auto 0.03 X10*3/uL (0.00-0.03); Imm Gran Pct Auto 0.2 % (0.0-0.4); Lymphocytes Absolute Auto 2.3 X10*3/uL (1.2-4.9); Lymphocytes Percent Auto 18.8 % (20-40); Mean Corpuscular HGB Conc 33.8 g/dl (31.0-35.0); Mean Corpuscular Hemoglobin 29.2 pg (27.0-33.0); Mean Corpuscular Volume 86.5 fL (80.0-98.0); Mean Platelet Volume 9.8 fL (9.4-12.3); Monocytes Absolute Auto 0.4 X10*3/uL (0.1-1.2); Monocytes Percent Auto 3.3 % (2-11); Neutrophils Absolute Auto 9.4 x10*3/uL (2.0-8.3); Neutrophils Percent Auto 76.3 % (45-73); Platelet Count 280 X10*3/uL (160-400); Red Blood Count 5.27 X10*6/uL (4.20-5.50); Red Cell Distribution Width 12.4 % (11.0-16.0); White Blood Count 12.4 X10*3/uL (4.8-10.8)
[2023-02-25 19:45] LABS: Alanine Aminotransferase 15 U/L (0-31); Albumin Level 4.6 g/dL (3.5-5.0); Alkaline Phosphatase 62 U/L (39-117); Anion Gap 12 (12-20); Aspartate Amino Transferase 13 U/L (5-31); Bilirubin Total 0.9 mg/dL (0.0-1.0); Blood Urea Nitrogen 7 mg/dL (9-16); Calcium 9.9 mg/dL (8.4-10.2); Carbon Dioxide 25 mmol/L (22-29); Chloride 107 mmol/L (96-108); Creatinine Clr Calc Pharmacy 80.2; Estimated Glomerular Filt Rate > 60; Glucose Random 90 mg/dL (60-115); Lipase 24 U/L (8-78); Sodium 140 mmol/L (135-145); Total Protein 7.3 g/dL (6.5-8.0)
--- NOTE | 2023-02-25 21:27 | PC.NURSE ---
Pt A&Ox4, denies any pain. Pt reports intermittent RLQ cramping comes and goes , with worsening cramping/pressure and diarrhea after eating. Last BM was today, ABD non-tender, + bowel sounds x 4 quadrants. IV line placed, Pt ambulated to BR with steady gait.
[2023-02-25 21:39] LABS: Appearance Urine Clear; Color Urine Yellow; Glucose Urine UA Negative (Negative); Leukocyte Esterase Urine Small (1+) (Negative); Nitrite Urine Negative (Negative); PH 5.5 (5.0-9.0); UMIC TRIGGER UACC YES; Urine Blood Negative (Negative); Urine Ketones Trace mg/dL (Negative); Urine Protein Negative (Neg-Trace)
[2023-02-25 21:40] VITALS: BP 129/84; PULSE 86; RESP 16; O2SAT 100
[2023-02-25 21:41] LABS: UPreg QC Valid YES; Urine Pregnancy NEGATIVE (NEGATIVE)
[2023-02-25 21:42] LABS: Bacteria Urine None Seen (None Seen); Hyaline Casts Urine 0-2 /LPF (0-2); RBC Urine 0-2 /HPF (0-2); Squamous Epithelial Cell Urine 0-2 /HPF (0-2); UACC Culture Trigger YES
[2023-02-25 21:42] LABS: HCG Quantitative < 2 mIU/mL
[2023-02-25] MEDS: iohexoL 350 MG/ML 100 ML INFUS..BTL IV (21:57)
[2023-02-25] MEDS: methylPREDNISolone Sod Succ 125 MG/2 ML VIAL IVPUSH (22:55)
== END 2023-02-25 23:04 | disposition home or self-care (01) ==
PROVIDERS: Physician Assistant; Emergency Provider Emergency Medicine
DX: K58.0 Irritable bowel syndrome with diarrhea (principal); N83.291 Other ovarian cyst, right side
CPT/HCPCS: 36415; 74177; 80053; 81001; 81025; 83690; 84702; 85025; 87086; 96374; 99284; J2930; Q9967

== ENCOUNTER 2023-02-26 09:41 | Emergency (ER) | payer OTHER, SELFPAY ==
[2023-02-26 09:44] VITALS: BP 128/81; PULSE 87; RESP 16; TEMP 36.7; O2SAT 96; BMI 22.7
[2023-02-26] MEDS: Fluorescein Sodium STRIP 1 STRIP EYE-LEFT (10:53)
[2023-02-26] MEDS: Tetracaine HCl/PF 0.5% Oph Sol 4 ML DROPS 1 DROP EYE-LEFT (10:53)
--- NOTE | 2023-02-26 10:55 | ED_ITS ---
HPI - Eye Problem General Chief complaint: Eye Problems Stated complaint: ? side effects from steroids Time Seen by Provider: 02/26/23 10:12 Source: patient and RN notes reviewed Mode of arrival: ambulatory Limitations: no limitations History of Present Illness HPI Narrative: This is a [id number]-female, with no significant past medical history, who presents emergency department with complaints of left to dry and blurred vision which lasted for 1 hour upon awakening this morning. Patient reports that she typically gets dry eyes in the morning reports that this was unilateral, she used lubricating eyedrops and her symptoms resolved. She denies any pain with eye movements, denies eye pain denies photophobia, excessive tearing, or current visual changes. Patient was seen in the emergency department yesterday for abdominal pain and she had a CT abdomen with IV contrast and was given IV Solu- Medrol. She is concerned for an adverse reaction after receiving Solu-Medrol and wanted to ensure this is not a side effect so she can continue taking prednisone at home for her inflammatory bowel disease. She denies any fevers or chills. Denies headaches, dizziness, or lightheadedness. No other complaints or concerns at this time. MD chief complaint: vision change (Resolved) and other (Dry eye) Onset (ago): hour(s) Onset description: sudden Duration: constant Location: left eye Eye Symptoms: blurry vision (Resolved) Place: home Mechanism: none Associated symptoms: none Treatments Prior to Arrival: OTC eye drops Related Data Previous Rx's Medication Instructions Recorded naproxen 500 mg tablet (Naprosyn) 500 mg PO BID #20 tabs 08/02/20 ibuprofen 600 mg tablet 600 mg PO Q6H PRN pain #20 tabs 11/22/20 cyclobenzaprine 10 mg tablet 10 mg PO TID PRN muscle spasm #14 02/06/21 tabs ondansetron 4 mg disintegrating 4 mg PO Q8H PRN nausea and 02/06/21 tablet vomiting #20 tabs acetaminophen 500 mg tablet 1,000 mg PO QID PRN fever or pain 08/06/21 (Tylenol Extra Strength) #14 tabs cyclobenzaprine 10 mg tablet 10 mg PO Q8H PRN Muscle spasm #14 08/06/21 tabs amoxicillin 500 mg tablet 500 mg PO BID #20 tabs 11/23/21 ibuprofen 600 mg tablet 600 mg PO Q8H PRN fever or pain 08/13/21 #20 tabs fluticasone propionate 50 1 spray intranasal BID #1 units 10/11/21 mcg/actuation nasal spray,suspension (Flonase Allergy Relief) codeine 10 mg-guaifenesin 100 mg/5 10 ml PO Q6-8H PRN Cough #240 mL 10/14/21 mL oral liquid acetaminophen 500 mg tablet 1,000 mg PO Q6H PRN pain #240 tabs 12/23/21 (Tylenol Extra Strength) ibuprofen 400 mg tablet 400 mg PO Q6H PRN pain #240 tabs 12/23/21 naproxen 500 mg tablet 500 mg PO BID PRN pain 10 days #20 06/03/22 tabs amoxicillin 875 mg-potassium 1 tab PO BID dog bit #10 tabs 08/27/22 clavulanate 125 mg tablet famotidine 20 mg tablet 20 mg PO BID #30 tabs 12/01/22 ondansetron 4 mg disintegrating 4 mg PO Q8H PRN nausea and 12/01/22 tablet vomiting #14 tabs prednisone 20 mg tablet 20 mg PO DAILY #4 tabs 02/25/23 Allergies Allergy/AdvReac Type Severity Reaction Status Date / Time No Known Allergies Allergy Verified 02/26/23 09:44 Review of Systems Review of Systems: Constitutional: No Weight loss, No Fever, No Chills ENT/Mouth: No Ear Pain, No Nasal Congestion, No Sinus Pain, No Hoarseness, No sore throat, No Rhinorrhea, No Swallowing Difficulty Cardiovascular: No Chest Pain, No SOB Respiratory: No Cough, No Sputum, No Wheezing Gastrointestinal: No Nausea, No Vomiting, No Diarrhea, No Constipation, No Abdominal pain Genitourinary: No Dysuria, No Urinary Frequency, No Hematuria, No Urinary Incontinence/retention, No Urgency, No Flank Pain Musculoskeletal: No joint pain, No Myalgias, No Joint Swelling Skin: No Skin Lesions, No rash Neuro: No Weakness, No Numbness, No Paresthesias Yes all other systems are reviewed and are negative Constitutional: Constitutional: Reports as per [facility] Past Medical History Medical History No known health problems Social History Social History Alcohol intake: current Alcohol intake frequency: holidays/special occasions only Advance Directives: No Physical Exam Vital Signs: Vital Signs: Last Vital Signs Temp 98.0 F 02/26/23 09:44 Pulse 87 02/26/23 09:44 Resp 16 02/26/23 09:44 BP 128/81 02/26/23 09:44 Pulse Ox 96 02/26/23 09:44 O2 Del Method Room Air 02/26/23 09:44 BMI result Body Mass Index 22.7 Const: General: cooperative, comfortable and no acute distress Orientat ion/consciousness: patient oriented x3 Limitations: no limitations HEENT: Head: Yes normal to inspection, Yes normocephalic and Yes atraumatic Ears: hearing grossly normal bilaterally General nose exam: Normal external nose present Face and sinus: Yes normal facial exam Mouth: Normal oral and palatal mucosa present, oropharynx normal and moist mucous membranes Throat: Yes posterior oropharynx normal Eyes: Other: No pain with EOM. General: appearance normal, both eyes and all related structures Eyelids: Yes eyelids normal Conjunctivae: conjunctivae normal Sclerae: sclerae normal Corneas: corneas normal Pupils: Equal, round and reactive pupils present EOM: EOMs intact bilaterally Neck: Neck: Yes normal visual inspection, Yes full ROM and Yes no lymphadenopathy Lymphatic: no lymphadenopathy noted Chest: Chest palpation & inspection: normal inspection of the chest Resp: Effort & Inspection: normal respiratory effort and able to speak in complete sentences Auscultation: clear to auscultation bilaterally, no crackles, no rales, no rhonchi and no wheezes Cardio: Rate: regular rate Rhythm: regular rhythm Heart sounds: S1 normal heart sound present and S2 normal heart sound present GI: Inspection: Yes normal to inspection Skin: General skin exam: no rashes or lesions noted Trauma: no lacerations or abrasions Wounds: no wounds Neuro: General: patient oriented x3 and moves all extremities Cranial nerves: Yes Equal, round and reactive pupils present Extrem: General: Yes normal to inspection Right upper extremity: normal to inspection Left upper extremity: normal to inspection Right lower extremity: normal to inspection Left lower extremity: normal to inspection Course Reevaluation(s) Reevaluation #1: Intra-ocular pressures 19 mmHg bilaterally. Patient is asymptomatic, fluorescein stain normal. Patient has a history of dry eye syndromes and likely this is the case. I do not suspect that this is due to a Solu-Medrol reaction. Visual acuity within normal limits. Patient is asymptomatic, vital signs stable, patient stable for discharge. Medications Administered Discontinued Medications Generic Name Dose Route Start Last Admin Trade Name Gaganq PRN Reason Stop Dose Admin Fluorescein Sodium 1 strip 02/26/23 10:41 02/26/23 10:53 Fluorescein Sodium Strip EYE-LEFT 02/26/23 10:42 1 strip ONCE ONE Administration Tetracaine HCl 1 drop 02/26/23 10:41 02/26/23 10:53 Tetracaine Hcl/Pf 0.5% Oph Alayna 4 Ml Drops EYE-LEFT 02/26/23 10:42 1 drop ONCE ONE Administration Medical Decision Making Medical Decision Making MDM Narrative: This is a 89-[id number]-female, with no known past medical history, presenting to the emergency department for evaluation of episode of dry eye and blurred vision that lasted for 1 hour this morning. Patient was concerned as she was given IV steroids yesterday after being seen or inflammatory bowel disease. She has not taken her course of prednisone as she wanted to ensure this is not a medication side effect. Patient typically gets dry eyes in the morning so the symptoms are not unusual but wanted to be re-evaluated to ensure this was not a medication side effect. Vital signs are stable. Plan: Visual acuity, fluorescein stain, eye pressures Differential Diagnosis Differential Diagnoses: The differential diagnosis associated with the presentation includes Conjunctivitis, corneal abrasion, medication side effect, iritis, foreign Admission/Observation Consideration of admission/observation: Escalation of care including admission/observation considered Discharge Plan Discharge Clinical Impression: Dry eye Patient Disposition: Home, Self-Care Instructions: Dry Eye Syndrome (ED) Additional Instructions: Your eye exam was normal today. Her symptoms are likely not attributed to Solu- Medrol. Take all prescribed medications given to yesterday as directed. Please follow-up with your eye doctor as needed. If any new or worsening symptoms occur please return for re-evaluation. Prescriptions: No Action naproxen [Naprosyn] 500 mg tablet 500 mg PO BID Qty: 20 0RF ibuprofen 600 mg tablet 600 mg PO Q6H PRN (Reason: pain) Qty: 20 0RF cyclobenzaprine 10 mg tablet 10 mg PO TID PRN (Reason: muscle spasm) Qty: 14 0RF ondansetron 4 mg tablet,disintegrating 4 mg PO Q8H PRN (Reason: nausea and vomiting) Qty: 20 0RF amoxicillin 500 mg tablet 500 mg PO BID Qty: 20 0RF ibuprofen 600 mg tablet 600 mg PO Q8H PRN (Reason: fever or pain) Qty: 20 0RF fluticasone propionate [Flonase Allergy Relief] 50 mcg/actuation spray,suspension 1 spray intranasal BID Qty: 1 0RF Rx Instructions: administer into each nostril codeine-guaifenesin 10-100 mg/5 mL liquid 10 ml PO Q6-8H PRN (Reason: Cough) Qty: 240 0RF naproxen 500 mg tablet 500 mg PO BID PRN (Reason: pain) 10 Days Qty: 20 0RF famotidine 20 mg tablet 20 mg PO BID Qty: 30 0RF ondansetron 4 mg tablet,disintegrating 4 mg PO Q8H PRN (Reason: nausea and vomiting) Qty: 14 0RF cyclobenzaprine 10 mg tablet 10 mg PO Q8H PRN (Reason: Muscle spasm) Qty: 14 0RF acetaminophen [Tylenol Extra Strength] 500 mg tablet 1,000 mg PO QID PRN (Reason: fever or pain) Qty: 14 0RF acetaminophen [Tylenol Extra Strength] 500 mg tablet 1,000 mg PO Q6H PRN (Reason: pain) Qty: 240 0RF ibuprofen 400 mg tablet 400 mg PO Q6H PRN (Reason: pain) Qty: 240 0RF amoxicillin-pot clavulanate 875-125 mg tablet 1 tab PO BID Qty: 10 0RF prednisone 20 mg tablet 20 mg PO DAILY Qty: 4 0RF Interventions: ED Discharge Assessment Last Done: 02/26/23 13:00 Discharge Date/Time: 02/26/23 13:01
== END 2023-02-26 13:01 | disposition home or self-care (01) ==
PROVIDERS: Emergency Provider Emergency Medicine
DX: H04.122 Dry eye syndrome of left lacrimal gland (principal)
CPT/HCPCS: 99282; 99283

== ENCOUNTER 2023-03-01 13:36 | Emergency (ER) | payer OTHER, SELFPAY ==
[2023-03-01 14:45] VITALS: BP 141/102; PULSE 82; RESP 18; TEMP 36.7; O2SAT 99; BMI 22.7
--- NOTE | 2023-03-01 14:47 | ED_ITS ---
HPI - General Adult General Chief complaint: Abdominal Pain Stated complaint: abd pain Time Seen by Provider: 03/01/23 17:19 Source: patient Mode of arrival: ambulatory Limitations: no limitations History of Present Illness HPI narrative: 27-year-old female with no known medical history presents to the ER with comp laints of 3 weeks of intermittent abdominal pain. Patient reports she has longstanding history over the last few years of intermittent abdominal pain. She reports initially with this course of abdominal pain she had nausea, vomiting and diarrhea. Patient reports that she still has some nausea but her vomiting is resolved. She reports that she was having diarrhea but now has not had a bowel movement in 4 days. She was seen in this emergency room on February 25. She had a CT that was performed that was concerning for IBD which is a new diagnosis. She was given 1 dose of IV Solu-Medrol and was discharged home with 4 additional days of prednisone. Patient reports that overall she is feeling improved. She still is having some abdominal discomfort and bloating but denies any vomiting or fevers. She reports most of her abdominal pain is now her upper epigastric area which she contributes to taking the prednisone. She reports her lower abdomen feels okay. She does not currently have a registered nurse midwife. She does have a follow-up appointment next week with her primary care doctor. No black or bloody stools. No weight loss. No family history of IBD Related Data Previous Rx's Medication Instructions Recorded naproxen 500 mg tablet (Naprosyn) 500 mg PO BID #20 tabs 08/02/20 ibuprofen 600 mg tablet 600 mg PO Q6H PRN pain #20 tabs 11/22/20 cyclobenzaprine 10 mg tablet 10 mg PO TID PRN muscle spasm #14 02/06/21 tabs ondansetron 4 mg disintegrating 4 mg PO Q8H PRN nausea and 02/06/21 tablet vomiting #20 tabs acetaminophen 500 mg tablet 1,000 mg PO QID PRN fever or pain 08/06/21 (Tylenol Extra Strength) #14 tabs cyclobenzaprine 10 mg tablet 10 mg PO Q8H PRN Muscle spasm #14 08/06/21 tabs amoxicillin 500 mg tablet 500 mg PO BID #20 tabs 08/13/21 ibuprofen 600 mg tablet 600 mg PO Q8H PRN fever or pain 08/13/21 #20 tabs fluticasone propionate 50 1 spray intranasal BID #1 units 10/11/21 mcg/actuation nasal spray,suspension (Flonase Allergy Relief) codeine 10 mg-guaifenesin 100 mg/5 10 ml PO Q6-8H PRN Cough #240 mL 10/14/21 mL oral liquid acetaminophen 500 mg tablet 1,000 mg PO Q6H PRN pain #240 tabs 12/23/21 (Tylenol Extra Strength) ibuprofen 400 mg tablet 400 mg PO Q6H PRN pain #240 tabs 12/23/21 naproxen 500 mg tablet 500 mg PO BID PRN pain 10 days #20 06/03/22 tabs amoxicillin 875 mg-potassium 1 tab PO BID dog bit #10 tabs 08/27/22 clavulanate 125 mg tablet famotidine 20 mg tablet 20 mg PO BID #30 tabs 12/01/22 ondansetron 4 mg disintegrating 4 mg PO Q8H PRN nausea and 12/01/22 tablet vomiting #14 tabs prednisone 20 mg tablet 20 mg PO DAILY #4 tabs 02/25/23 prednisone 20 mg tablet 40 mg PO DAILY #10 tabs 03/01/23 Allergies Allergy/AdvReac Type Severity Reaction Status Date / Time No Known Allergies Allergy Verified 02/26/23 09:44 Review of Systems Review of Systems: Yes all other systems are reviewed and are negative Constitutional: Constitutional: Reports no additional constitutional complaints, Denies body ache(s), Denies chills, Denies fever(s), Denies headache(s), Denies weakness and Denies weight loss Eyes: Eyes: Reports no additional eye complaints and Denies change in vision ENT: Reports system reviewed and no additional complaints, except as documented, Denies dizziness, Denies headache(s), Denies nasal congestion, Denies nasal discharge and Denies neck pain Cardiovascular: Cardiovascular: Reports no additional cardiovascular complaints, Denies chest pain, Denies leg edema and Denies dyspnea Respiratory: Respiratory: Reports no additional respiratory complaints, Denies cough and Denies dyspnea Gastrointestinal: Gastrointestinal: Reports no additional gastrointestinal complaints, Reports abdominal pain, Denies hematochezia, Denies diarrhea, Reports nausea and Denies vomiting Genitourinary: Genitourinary: Reports no additional female genitourinary complaints and Denies urinary incontinence Musculoskeletal: Musculoskeletal: Reports no additional musculoskeletal complaints, Denies back pain, Denies arthralgias, Denies joint swelling, Denies neck pain, Denies numbness and Denies tingling Integumentary/Breasts: Skin/Breast: Reports system reviewed and no additional complaints, except as docu and Denies rash Neurologic: Reports system reviewed and no additional complaints, except as do cumented, Denies dizziness, Denies headache(s), Denies numbness, Denies tingling and Denies weakness PMFSH Past Medical History Attestation statement: The following information was validated with the patient. Source: old records reviewed and nursing notes reviewed Medical History No known health problems Social History Social History Alcohol intake: current Alcohol intake frequency: holidays/special occasions only Advance Directives: No Advance Directives Information Provided: No Physical Exam ED Vital Signs: Vital Signs - 24 hr 03/01/23 14:45 03/01/23 17:09 03/01/23 18:36 Temperature 98.1 F 97.9 F 98.1 F Pulse Rate 82 74 60 Respiratory Rate 18 16 16 Blood Pressure 141/102 H 129/84 123/85 Pulse Oximetry 99 98 97 Oxygen Delivery Method Room Air Room Air Room Air BMI result Body Mass Index 22.7 Const General: cooperative, healthy appearing, comfortable and no acute distress Orientation/consciousness: patient oriented x3 Limitations: no limitations HENMT Head: Yes normal to inspection Ears: hearing grossly normal bilaterally Eyes General: appearance normal, both eyes and all related structures Pupils: Equal, round and reactive pupils present Neck Neck: Yes normal visual inspection and Yes full ROM Chest Chest palpation & inspection: normal inspection of the chest Resp Effort & Inspection: normal respiratory effort Auscultation: clear to auscultation bilaterally Cardio Rate: regular rate Rhythm: regular rhythm GI Inspection: Yes normal to inspection Palpation (GI): Soft to palpation and nontender Auscultation: normal bowel sounds Skin General skin exam: no rashes or lesions noted Neuro General: patient oriented x3 and moves all extremities Cranial nerves: Yes Equal, round and reactive pupils present Cognition (Neuro): normal cognition Gait exam (Neuro): Normal gait present Course Course Course Narrative: RME: 27 yold female recently seen in the ED for recent IBD exacerbation and discharged with steriords return to the ED for abdominal bloating and cramping. repeat labs ordeed Reevaluation(s) Reevaluation #1: Labs show mild leukocytosis but this is likely secondary to prednisone use and not from infection. Additional labs including inflammatory markers are unremar kable. Abdomen is soft and nontender. Patient overall nontoxic appearing discussed GI with recommendations to continue prednisone course at home and follow up next week with them in the office. This is discussed with the patient who is agreeable with plan of care. I did review worrisome signs and symptoms with her and when to return to the emergency room. Comfortable with plan for discharge home. Medical Decision Making Medical Decision Making [facility] Narrative: This is a 27-year-old female who has a recent diagnosis of IBD from a CT scan that was completed on February 25 who has no GI or current plan to follow-up with GI who presents to the ER with complaints of abdominal discomfort and bloating and nausea. Patient reports overall she is feeling improved since her last ER visit but is still having some mild symptoms. She denies any vomiting currently, fever, black or bloody stools. She does have a follow-up next week with her primary care Her abdomen on exam is soft and nontender. She initially had diarrhea but is now complaining of constipation. Abdomen exam does not suggest an SBO Will obtain labs including inflammatory markers, discussed patient with GI Differential Diagnosis Differential Diagnoses: The differential diagnosis associated with the presentation includes IBD, low concern for SBO, appendicitis Consult Healthcare Provider Management of the patient was discussed with: [employer] Patient with recent CT concerning for IBD, finished prednisone course today with overall improving symptoms but still some residual abdominal discomfort and bloating as well as nausea I spoke to Dr. Cha from GI-he recommended continuing a prednisone course and they will follow up with the patient next week. Lab Data [facility] Lab Attestation statement: I reviewed the patient's lab results. 03/01/23 15:29 03/01/23 15:29 Labs: Lab Results 03/01/23 03/01/23 03/01/23 Range/Units 15:29 15:29 15:29 WBC 11.4 H (4.8-10.8) X10*3/uL RBC 5.64 H (4.20-5.50) X10*6/uL Hgb 16.4 H (12.0-16.0) g/dl Hct 48.6 H (37.0-47.0) % MCV 86.2 (80.0-98.0) fL MCH 29.1 (27.0-33.0) pg MCHC 33.7 (31.0-35.0) g/dl RDW 12.4 (11.0-16.0) % Plt Count 287 (160-400) X10*3/uL MPV 9.6 (9.4-12.3) fL Immature Gran % (Auto) 0.4 (0.0-0.4) % Neut % (Auto) 89.4 H (45-73) % Lymph % (Auto) 7.3 L (20-40) % [place] % (Auto) 2.6 (2-11) % Eos % (Auto) 0.0 (0-4) % Baso % (Auto) 0.3 (0-2) % Lymph # (Auto) 0.8 L (1.2-4.9) X10*3/uL [place] # (Auto) 0.3 (0.1-1.2) X10*3/uL Eos # (Auto) 0.0 (0.0-0.4) X10*3/uL Baso # (Auto) 0.0 (0.0-0.2) X10*3/uL Abs Immat Gran (auto) 0.04 H (0.00-0.03) X10*3/uL Absolute Neuts (auto) 10.2 H (2.0-8.3) x10*3/uL Absolute Nucleated RBC 0.000 (0.0-0.012) X10*3/uL Nucleated RBC % (auto) 0.0 (0.0-0.2) /100WBC ESR (0-20) MM/HR PT 11.7 (10.0-13.1) SEC INR 1.0 (0.9-1.1) APTT 23.3 L (26.0-36.4) SEC Sodium 139 (135-145) mmol/L Potassium 5.1 D (3.3-5.1) mmol/L Chloride 108 (96-108) mmol/L Carbon Dioxide 22 (22-29) mmol/L Anion Gap 14 (12-20) BUN 11 (9-16) mg/dL Creatinine 0.81 (0.5-1.4) mg/dL Estim Creat Clear Calc 77.3 Estimated GFR > 60 Random Glucose 99 (60-115) mg/dL Calcium 10.2 (8.4-10.2) mg/dL Total Bilirubin 1.6 H (0.0-1.0) mg/dL AST 14 (5-31) U/L ALT 15 (0-31) U/L Alkaline Phosphatase 56 (39-117) U/L C-Reactive Protein < 0.04 (< or = 0.50) mg/dL Total Protein 7.5 (6.5-8.0) g/dL Albumin 4.6 (3.5-5.0) g/dL Lipase 19 (8-78) U/L Beta HCG, Quant < 2 mIU/mL Urine Color Urine Appearance Urine pH (5.0-9.0) Ur Specific [place] (1.005-1.025) Urine Protein (Neg-Trace) mg/dL Urine Glucose (UA) (Negative) mg/dL Urine Ketones (Negative) mg/dL Urine Blood (Negative) Urine Nitrite (Negative) Ur Leukocyte Esterase (Negative) Urine RBC (0-2) /HPF Urine WBC (0-5) /HPF Ur Squamous Epith Cells (0-2) /HPF Urine Bacteria (None Seen) Hyaline Casts (0-2) /LPF 03/01/23 03/01/23 Range/Units 15:29 17:11 WBC (4.8-10.8) X10*3/uL RBC (4.20-5.50) X10*6/uL Hgb (12.0-16.0) g/dl Hct (37.0-47.0) % MCV (80.0-98.0) fL MCH (27.0-33.0) pg MCHC (31.0-35.0) g/dl RDW (11.0-16.0) % Plt Count (160-400) X10*3/uL MPV (9.4-12.3) fL Immature Gran % (Auto) (0.0-0.4) % Neut % (Auto) (45-73) % Lymph % (Auto) (20-40) % [place] % (Auto) (2-11) % Eos % (Auto) (0-4) % Baso % (Auto) (0-2) % Lymph # (Auto) (1.2-4.9) X10*3/uL [place] # (Auto) (0.1-1.2) X10*3/uL Eos # (Auto) (0.0-0.4) X10*3/uL Baso # (Auto) (0.0-0.2) X10*3/uL Abs Immat Gran (auto) (0.00-0.03) X10*3/uL Absolute Neuts (auto) (2.0-8.3) x10*3/uL Absolute Nucleated RBC (0.0-0.012) X10*3/uL Nucleated RBC % (auto) (0.0-0.2) /100WBC ESR 2 (0-20) MM/HR PT (10.0-13.1) SEC INR (0.9-1.1) APTT (26.0-36.4) SEC Sodium (135-145) mmol/L Potassium (3.3-5.1) mmol/L Chloride (96-108) mmol/L Carbon Dioxide (22-29) mmol/L Anion Gap (12-20) BUN (9-16) mg/dL Creatinine (0.5-1.4) mg/dL Estim Creat Clear Calc Estimated GFR Random Glucose (60-115) mg/dL Calcium (8.4-10.2) mg/dL Total Bilirubin (0.0-1.0) mg/dL AST (5-31) U/L ALT (0-31) U/L Alkaline Phosphatase (39-117) U/L C-Reactive Protein (< or = 0.50) mg/dL Total Protein (6.5-8.0) g/dL Albumin (3.5-5.0) g/dL Lipase (8-78) U/L Beta HCG, Quant mIU/mL Urine Color Yellow Urine Appearance Clear Urine pH 5.5 (5.0-9.0) Ur Specific [place] 1.015 (1.005-1.025) Urine Protein Negative (Neg-Trace) mg/dL Urine Glucose (UA) Negative (Negative) mg/dL Urine Ketones Negative (Negative) mg/dL Urine Blood Negative (Negative) Urine Nitrite Negative (Negative) Ur Leukocyte Esterase Small (1+) H (Negative) Urine RBC 0-2 (0-2) /HPF Urine WBC 11-20 H (0-5) /HPF Ur Squamous Epith Cells 0-2 (0-2) /HPF Urine Bacteria None Seen (None Seen) Hyaline Casts 0-2 (0-2) /LPF Discharge Plan Discharge Clinical Impression: IBD (inflammatory bowel disease) Patient Disposition: Home, Self-Care Instructions: Irritable Bowel Syndrome (ED) Additional Instructions: Return for worsening pain, fever, vomiting Prescriptions: New prednisone 20 mg tablet 40 mg PO DAILY Qty: 10 0RF No Action naproxen [Naprosyn] 500 mg tablet 500 mg PO BID Qty: 20 0RF ibuprofen 600 mg tablet 600 mg PO Q6H PRN (Reason: pain) Qty: 20 0RF cyclobenzaprine 10 mg tablet 10 mg PO TID PRN (Reason: muscle spasm) Qty: 14 0RF ondansetron 4 mg tablet,disintegrating 4 mg PO Q8H PRN (Reason: nausea and vomiting) Qty: 20 0RF amoxicillin 500 mg tablet 500 mg PO BID Qty: 20 0RF ibuprofen 600 mg tablet 600 mg PO Q8H PRN (Reason: fever or pain) Qty: 20 0RF fluticasone propionate [Flonase Allergy Relief] 50 mcg/actuation spray,suspension 1 spray intranasal BID Qty: 1 0RF Rx Instructions: administer into each nostril codeine-guaifenesin 10-100 mg/5 mL liquid 10 ml PO Q6-8H PRN (Reason: Cough) Qty: 240 0RF naproxen 500 mg tablet 500 mg PO BID PRN (Reason: pain) 10 Days Qty: 20 0RF famotidine 20 mg tablet 20 mg PO BID Qty: 30 0RF ondansetron 4 mg tablet,disintegrating 4 mg PO Q8H PRN (Reason: nausea and vomiting) Qty: 14 0RF cyclobenzaprine 10 mg tablet 10 mg PO Q8H PRN (Reason: Muscle spasm) Qty: 14 0RF acetaminophen [Tylenol Extra Strength] 500 mg tablet 1,000 mg PO QID PRN (Reason: fever or pain) Qty: 14 0RF acetaminophen [Tylenol Extra Strength] 500 mg tablet 1,000 mg PO Q6H PRN (Reason: pain) Qty: 240 0RF ibuprofen 400 mg tablet 400 mg PO Q6H PRN (Reason: pain) Qty: 240 0RF amoxicillin-pot clavulanate 875-125 mg tablet 1 tab PO BID Qty: 10 0RF prednisone 20 mg tablet 20 mg PO DAILY Qty: 4 0RF Referrals: Mendoza Cha MD [Physician] - 5 days Physician,Unknown J [Primary Care Provider] - 1 week Interventions: ED Discharge Assessment Last Done: 03/01/23 18:45 Discharge Date/Time: 03/01/23 18:45
[2023-03-01 15:33] LABS: MANUAL DIFF FLAG NO
[2023-03-01 15:35] LABS: Basophils Percent Auto 0.3 % (0-2); Hematocrit 48.6 % (37.0-47.0); Hemoglobin 16.4 g/dl (12.0-16.0); Imm Gran Abs Auto 0.04 X10*3/uL (0.00-0.03); Imm Gran Pct Auto 0.4 % (0.0-0.4); Lymphocytes Absolute Auto 0.8 X10*3/uL (1.2-4.9); Lymphocytes Percent Auto 7.3 % (20-40); Mean Corpuscular HGB Conc 33.7 g/dl (31.0-35.0); Mean Corpuscular Hemoglobin 29.1 pg (27.0-33.0); Mean Corpuscular Volume 86.2 fL (80.0-98.0); Mean Platelet Volume 9.6 fL (9.4-12.3); Monocytes Absolute Auto 0.3 X10*3/uL (0.1-1.2); Monocytes Percent Auto 2.6 % (2-11); Neutrophils Absolute Auto 10.2 x10*3/uL (2.0-8.3); Neutrophils Percent Auto 89.4 % (45-73); Platelet Count 287 X10*3/uL (160-400); Red Blood Count 5.64 X10*6/uL (4.20-5.50); Red Cell Distribution Width 12.4 % (11.0-16.0); White Blood Count 11.4 X10*3/uL (4.8-10.8)
[2023-03-01 16:00] LABS: Alanine Aminotransferase 15 U/L (0-31); Albumin Level 4.6 g/dL (3.5-5.0); Alkaline Phosphatase 56 U/L (39-117); Anion Gap 14 (12-20); Aspartate Amino Transferase 14 U/L (5-31); Bilirubin Total 1.6 mg/dL (0.0-1.0); Blood Urea Nitrogen 11 mg/dL (9-16); Calcium 10.2 mg/dL (8.4-10.2); Carbon Dioxide 22 mmol/L (22-29); Chloride 108 mmol/L (96-108); Creatinine Clr Calc Pharmacy 77.3; Estimated Glomerular Filt Rate > 60; Glucose Random 99 mg/dL (60-115); HCG Quantitative < 2 mIU/mL; Lipase 19 U/L (8-78); Potassium 5.1 mmol/L (3.3-5.1); Sodium 139 mmol/L (135-145); Total Protein 7.5 g/dL (6.5-8.0)
[2023-03-01 16:01] LABS: Prothrombin Time 11.7 SEC (10.0-13.1)
[2023-03-01 16:04] LABS: Partial Thromboplastin Time 23.3 SEC (26.0-36.4)
[2023-03-01 17:09] VITALS: BP 129/84; PULSE 74; RESP 16; TEMP 36.6; O2SAT 98
[2023-03-01 17:18] LABS: Appearance Urine Clear; Color Urine Yellow; Glucose Urine UA Negative (Negative); Leukocyte Esterase Urine Small (1+) (Negative); Nitrite Urine Negative (Negative); PH 5.5 (5.0-9.0); Specific Gravity - Urine 1.015 (1.005-1.025); UMIC TRIGGER UACC YES; Urine Blood Negative (Negative); Urine Ketones Negative (Negative); Urine Protein Negative (Neg-Trace)
[2023-03-01 17:23] LABS: Bacteria Urine None Seen (None Seen); Hyaline Casts Urine 0-2 /LPF (0-2); RBC Urine 0-2 /HPF (0-2); Squamous Epithelial Cell Urine 0-2 /HPF (0-2); UACC Culture Trigger YES
[2023-03-01 17:58] LABS: C Reactive Protein < 0.04 mg/dL (< or = 0.50)
[2023-03-01 18:36] VITALS: BP 123/85; PULSE 60; RESP 16; TEMP 36.7; O2SAT 97
[2023-03-01 18:56] LABS: Erythrocyte Sedimentation Rate 2 MM/HR (0-20)
== END 2023-03-01 18:45 | disposition home or self-care (01) ==
PROVIDERS: Nurse Practitioner Family; Physician Assistant; Emergency Provider Internal Medicine
DX: K58.9 Irritable bowel syndrome, unspecified (principal); R11.2 Nausea with vomiting, unspecified; R10.13 Epigastric pain; Z79.899 Other long term (current) drug therapy
CPT/HCPCS: 36415; 80053; 81001; 83690; 84702; 85025; 85610; 85652; 85730; 86140; 87086; 99283

== ENCOUNTER 2023-03-19 16:57 | Emergency (ER) | payer OTHER, SELFPAY ==
--- NOTE | ~2023-03-19 | XR_ITS ---
EXAMINATION: XR CHEST CLINICAL INFORMATION: Chest pain COMPARISON: None available. TECHNIQUE: Frontal view of the chest was obtained. FINDINGS: No significant abnormality is noted involving the heart, lungs, mediastinum, bony thorax or soft tissues. XR/XR chest 1V IMPRESSION: Unremarkable chest examination.
[2023-03-19 16:59] VITALS: BP 135/102; PULSE 87; RESP 18; TEMP 37.1; O2SAT 97; BMI 22.7
--- NOTE | 2023-03-19 16:59 | ECG_ITS ---
Test Reason : CP Blood Pressure : / mmHG Vent. Rate : 087 BPM Atrial Rate : 087 BPM P-R Int : 162 ms QRS Dur : 086 ms QT Int : 336 ms P-R-T Axes : 062 084 043 degrees QTc Int : 404 ms Normal sinus rhythm with sinus arrhythmia Normal ECG When compared with ECG of 03-JUN-2022 09:33, No significant change was found Referred By: Nia Maurer Electronically Signed By:Calvin Nye
--- NOTE | 2023-03-19 16:59 | ED.GENADULT ---
HPI - General Adult General Chief complaint: Chest Pain Stated complaint: left side chest pain Time Seen by Provider: 03/19/23 20:14 Source: patient Mode of arrival: ambulatory Limitations: no limitations History of Present Illness HPI narrative: Patient is a 28-year-old female who presents emergency department for evaluation of chest pain. Onset was this morning, left-sided radiating to the left arm. Has been intermittent in nature, typically lasts about a minute and self resolves. Pain is exacerbated with movement. It is she denies any fall or injury. She does endorse the pain to occur at similar time that her symptoms of IBS are also occurring, for which she is undergoing outpatient evaluation with Gastroenterology. Denies fevers, chills, dizziness, lightheadedness, headache, neck pain, neck stiffness, shortness of breath, difficulty breathing, numbness or tingling of the extremities, weakness. Related Data Previous Rx's Medication Instructions Recorded naproxen 500 mg tablet (Naprosyn) 500 mg PO BID #20 tabs 08/02/20 ibuprofen 600 mg tablet 600 mg PO Q6H PRN pain #20 tabs 11/22/20 cyclobenzaprine 10 mg tablet 10 mg PO TID PRN muscle spasm #14 02/06/21 tabs ondansetron 4 mg disintegrating 4 mg PO Q8H PRN nausea and 02/06/21 tablet vomiting #20 tabs acetaminophen 500 mg tablet 1,000 mg PO QID PRN fever or pain 08/06/21 (Tylenol Extra Strength) #14 tabs cyclobenzaprine 10 mg tablet 10 mg PO Q8H PRN Muscle spasm #14 08/06/21 tabs amoxicillin 500 mg tablet 500 mg PO BID #20 tabs 08/13/21 ibuprofen 600 mg tablet 600 mg PO Q8H PRN fever or pain 08/13/21 #20 tabs fluticasone propionate 50 1 spray intranasal BID #1 units 10/11/21 mcg/actuation nasal spray,suspension (Flonase Allergy Relief) codeine 10 mg-guaifenesin 100 mg/5 10 ml PO Q6-8H PRN Cough #240 mL 10/14/21 mL oral liquid acetaminophen 500 mg tablet 1,000 mg PO Q6H PRN pain #240 tabs 12/23/21 (Tylenol Extra Strength) ibuprofen 400 mg tablet 400 mg PO Q6H PRN pain #240 tabs 12/23/21 naproxen 500 mg tablet 500 mg PO BID PRN pain 10 days #20 06/03/22 tabs amoxicillin 875 mg-potassium 1 tab PO BID dog bit #10 tabs 08/27/22 clavulanate 125 mg tablet famotidine 20 mg tablet 20 mg PO BID #30 tabs 12/01/22 ondansetron 4 mg disintegrating 4 mg PO Q8H PRN nausea and 12/01/22 tablet vomiting #14 tabs prednisone 20 mg tablet 20 mg PO DAILY #4 tabs 02/25/23 prednisone 20 mg tablet 40 mg PO DAILY #10 tabs 03/01/23 Allergies Allergy/AdvReac Type Severity Reaction Status Date / Time No Known Allergies Allergy Verified 03/19/23 17:06 Review of Systems Review of Systems: Yes all other systems are reviewed and are negative [facility] Past Medical History Attestation statement: The following information was validated with the patient. Source: old records reviewed Medical History No known health problems Social History Social History Alcohol intake: current Alcohol intake frequency: holidays/special occasions only Advance Directives: No Advance Directives Information Provided: Yes Physical Exam ED Vital Signs: Vital Signs - 24 hr 03/19/23 16:59 03/19/23 20:09 Temperature 98.8 F 98.1 F Pulse Rate 87 76 Respiratory Rate 18 15 Blood Pressure 135/102 H 121/86 Pulse Oximetry 97 99 Oxygen Delivery Method Room Air Room Air BMI result Body Mass Index 22.7 Appearance: Alert.?Oriented to person, place and time. No acute distress.?Normal affect. Eyes: Pupils equal, round and reactive to light.? ENT: Pharynx normal.?? Neck: Normal inspection.? Neck supple.?? CVS: Heart sounds normal. Normal heart rate and rhythm.? Pulses normal.?? Respiratory: No respiratory distress.? Lung sounds clear to auscultation bilaterally. Palpable tenderness along left lateral chest wall Abdomen: Soft and non-tender. Normoactive bowel sounds. Skin: Skin warm and dry.? Normal skin color.? Extremities: No lower extremity edema.? No calf ttp? Neuro: Moves all extremities spontaneously. Sensation intact bilaterally. No focal neuro deficits. Ambulates with normal steady gait. Course Course Course Narrative: This is an RME: Additional HPI, ROS, PE not included below will be deferred to primary provider. 28 yo F hx of IBS presents w/ subternal CP w/ radiation to L arm x1 day. Denies fevers, chills, sob, dizziness, weakness, nausea, abd pain, vomiting Plan- labs, ekg Reevaluation(s) Reevaluation #1: CBC reveals no leukocytosis or anemia. CMP is overall unremarkable. Troponin <2.7, EKG revealing normal sinus rhythm without acute ischemic findings, not consistent with ACS at this time. PERC negative not consistent with PE. Chest x-ray is without acute cardiopulmonary process, not consistent with pneumonia, pneumothorax, pulmonary edema. I reviewed these findings with patient. At this time feel she is stable for discharge home, outpatient follow-up with her primary care provider, discussed the use of NSAID/acetaminophen for pain. Reviewed worrisome signs and symptoms that would warrant re-evaluation in the emergency department. All questions answered. Time: 21:22 Medical Decision Making Medical Decision Making [facility] Narrative: Patient is a 28-year-old female past medical history of IBS presenting to emergency department for evaluation of chest pain. She is overall well-appearing. Vital signs are stable. She is nontoxic, afebrile. Physical examination is overall benign aside from some minor tenderness upon palpation of the left lateral chest wall. PERC negative unlikely pulmonary embolism. Will obtain CBC to evaluate for leukocytosis/ anemia, CMP and lipase to evaluate for abnormal electrolytes /abnormal renal function/ abnormal hepatic/biliary function, EKG and troponin to evaluate for ischemia/ACS. Chest x-ray to evaluate for consolidation/ infiltrate/ mass/ pulmonary congestion. Differential Diagnosis Differential Diagnoses: The differential diagnosis associated with the presentation includes (ACS, pulmonary embolism, pneumonia, costochondritis, GERD, pulled muscle) Admission/Observation Consideration of admission/observation: Escalation of care including admission/observation considered (I considered hospital admission for ACS rule out, however given negative troponin, normal EKG, low risk factors do not feel that admission is required at this time.) Lab Data [facility] Lab Attestation statement: I reviewed the patient's lab results. (Please review course for further detail) 03/19/23 17:14 03/19/23 17:14 Labs: Lab Results 03/19/23 03/19/23 03/19/23 Range/Units 17:14 17:14 17:14 WBC 9.2 (4.8-10.8) X10*3/uL RBC 4.97 (4.20-5.50) X10*6/uL Hgb 14.7 (12.0-16.0) g/dl Hct 43.0 (37.0-47.0) % MCV 86.5 (80.0-98.0) fL MCH 29.6 (27.0-33.0) pg MCHC 34.2 (31.0-35.0) g/dl RDW 12.3 (11.0-16.0) % Plt Count 263 (160-400) X10*3/uL MPV 9.8 (9.4-12.3) fL Immature Gran % (Auto) 0.3 (0.0-0.4) % Neut % (Auto) 77.7 H (45-73) % Lymph % (Auto) 16.5 L (20-40) % [place] % (Auto) 4.2 (2-11) % Eos % (Auto) 0.8 (0-4) % Baso % (Auto) 0.5 (0-2) % Lymph # (Auto) 1.5 (1.2-4.9) X10*3/uL [place] # (Auto) 0.4 (0.1-1.2) X10*3/uL Eos # (Auto) 0.1 (0.0-0.4) X10*3/uL Baso # (Auto) 0.1 (0.0-0.2) X10*3/uL Abs Immat Gran (auto) 0.03 (0.00-0.03) X10*3/uL Absolute Neuts (auto) 7.2 (2.0-8.3) x10*3/uL Absolute Nucleated RBC 0.000 (0.0-0.012) X10*3/uL Nucleated RBC % (auto) 0.0 (0.0-0.2) /100WBC Sodium 142 (135-145) mmol/L Potassium 3.7 D (3.3-5.1) mmol/L Chloride 107 (96-108) mmol/L Carbon Dioxide 25 (22-29) mmol/L Anion Gap 14 (12-20) BUN 9 (9-16) mg/dL Creatinine 0.70 (0.5-1.4) mg/dL Estim Creat Clear Calc 88.7 Estimated GFR > 60 Random Glucose 117 H (60-115) mg/dL Calcium 10.8 H (8.4-10.2) mg/dL Magnesium 2.0 (1.6-2.6) mg/dL Total Bilirubin 1.5 H (0.0-1.0) mg/dL AST 15 (5-31) U/L ALT 20 (0-31) U/L Alkaline Phosphatase 56 (39-117) U/L Troponin I High Sens < 2.7 (<3.5-17.0) ng/L Total Protein 7.4 (6.5-8.0) g/dL Albumin 4.6 (3.5-5.0) g/dL Independent Interpretation I performed an independent interpretation of an: EKG and Plain X-Ray (I personally interpreted chest x-ray in few radiologist impression, no acute cardiopulmonary process) Interpretation: Rate: 87 Rhythm:? Normal sinus rhythm [place]:? Normal Normal P waves.? Normal [place].?? Normal QRS complex.?? ST T wave :??No ST elevation, no ST depression, T-wave inversion qTC: 404 prior studies:? May 2022; no significant changes The study has been interpreted contemporaneously by me. Radiology Impression Discussion of test interpretation with radiology: I have reviewed the radiologist's reading. Radiologist Impression: XR/XR chest 1V IMPRESSION: Unremarkable chest examination. Prescription Management I considered prescription management with: Pain Medication (Acetaminophen/ibuprofen) Discharge Plan Discharge Clinical Impression: Chest pain Patient Disposition: Home, Self-Care Instructions: Chest Pain (ED) Additional Instructions: As discussed, your EKG and blood work today were all normal. This is very reassuring. Please follow-up with your primary care provider within 1-2 days. You may return back to emergency department any new or worsening symptoms or concerns. You can take ibuprofen 200 mg, 3 tablets (600mg) every 6-8 hours as needed for pain, in addition to Tylenol 500 mg, 2 tablets (1,000mg) every 4-6 hours as needed for pain, but not to exceed 3 doses daily (3,000mg).? Prescriptions: No Action naproxen [Naprosyn] 500 mg tablet 500 mg PO BID Qty: 20 0RF ibuprofen 600 mg tablet 600 mg PO Q6H PRN (Reason: pain) Qty: 20 0RF cyclobenzaprine 10 mg tablet 10 mg PO TID PRN (Reason: muscle spasm) Qty: 14 0RF ondansetron 4 mg tablet,disintegrating 4 mg PO Q8H PRN (Reason: nausea and vomiting) Qty: 20 0RF amoxicillin 500 mg tablet 500 mg PO BID Qty: 20 0RF ibuprofen 600 mg tablet 600 mg PO Q8H PRN (Reason: fever or pain) Qty: 20 0RF fluticasone propionate [Flonase Allergy Relief] 50 mcg/actuation spray,suspension 1 spray intranasal BID Qty: 1 0RF Rx Instructions: administer into each nostril codeine-guaifenesin 10-100 mg/5 mL liquid 10 ml PO Q6-8H PRN (Reason: Cough) Qty: 240 0RF naproxen 500 mg tablet 500 mg PO BID PRN (Reason: pain) 10 Days Qty: 20 0RF famotidine 20 mg tablet 20 mg PO BID Qty: 30 0RF ondansetron 4 mg tablet,disintegrating 4 mg PO Q8H PRN (Reason: nausea and vomiting) Qty: 14 0RF cyclobenzaprine 10 mg tablet 10 mg PO Q8H PRN (Reason: Muscle spasm) Qty: 14 0RF acetaminophen [Tylenol Extra Strength] 500 mg tablet 1,000 mg PO QID PRN (Reason: fever or pain) Qty: 14 0RF acetaminophen [Tylenol Extra Strength] 500 mg tablet 1,000 mg PO Q6H PRN (Reason: pain) Qty: 240 0RF ibuprofen 400 mg tablet 400 mg PO Q6H PRN (Reason: pain) Qty: 240 0RF amoxicillin-pot clavulanate 875-125 mg tablet 1 tab PO BID Qty: 10 0RF prednisone 20 mg tablet 20 mg PO DAILY Qty: 4 0RF prednisone 20 mg tablet 40 mg PO DAILY Qty: 10 0RF Referrals: Minoo Torres CNP [Primary Care Provider] -
[2023-03-19 17:18] LABS: MANUAL DIFF FLAG NO
[2023-03-19 17:20] LABS: Basophils Absolute Auto 0.1 X10*3/uL (0.0-0.2); Basophils Percent Auto 0.5 % (0-2); Eosinophils Absolute Auto 0.1 X10*3/uL (0.0-0.4); Eosinophils Percent Auto 0.8 % (0-4); Hemoglobin 14.7 g/dl (12.0-16.0); Imm Gran Abs Auto 0.03 X10*3/uL (0.00-0.03); Imm Gran Pct Auto 0.3 % (0.0-0.4); Lymphocytes Absolute Auto 1.5 X10*3/uL (1.2-4.9); Lymphocytes Percent Auto 16.5 % (20-40); Mean Corpuscular HGB Conc 34.2 g/dl (31.0-35.0); Mean Corpuscular Hemoglobin 29.6 pg (27.0-33.0); Mean Corpuscular Volume 86.5 fL (80.0-98.0); Mean Platelet Volume 9.8 fL (9.4-12.3); Monocytes Absolute Auto 0.4 X10*3/uL (0.1-1.2); Monocytes Percent Auto 4.2 % (2-11); Neutrophils Absolute Auto 7.2 x10*3/uL (2.0-8.3); Neutrophils Percent Auto 77.7 % (45-73); Platelet Count 263 X10*3/uL (160-400); Red Blood Count 4.97 X10*6/uL (4.20-5.50); Red Cell Distribution Width 12.3 % (11.0-16.0); White Blood Count 9.2 X10*3/uL (4.8-10.8)
--- OUTSIDE RECORDS SUMMARY | 2023-03-19 17:21 | XMS_ITS | Continuity of Care Document ---
Author Name Unknown Organization [facility] Address [address] [place] [address]- Care Team Providers Care [place] [facility] Supervisor Name Role Phone Florence Vasquez NP Primary Care Physici an Encounter [facility] Date(s): 02/02/23 - 03/04/[address] [address]- Allergies, Adverse Reactions, Alerts No Known Medication Allergies Immunizations Given and Recorded Vaccine Date Status Refusal Reason tetanus/diphtheria/pertussis, acel(Tdap) 08/27/22 Recorded tetanus/diphtheria/pertussis, acel(Tdap) 09/06/19 Given tetanus/diphtheria/pertussis, acel(Tdap) 12/31/17 Given tetanus/diphtheria/pertussis, acel(Tdap) 04/18/15 Given tetanus/diphtheria/pertussis, acel(Tdap) 1 03/12/04 Recorded SARS-CoV-2 mRNA ([id number]) vax 11/21/21 Recorded influenza virus vaccine, inactivated [...] 03/12/11 Recorded 1Result Comment: [10/07/2016] done at [facility] 2Result Comment: [06/10/2017] [facility] [id number] 3Result Comment: incorrect date 4Result Comment: [10/07/2016] done at [facility] Medications albuterol CFC free 90 mcg/inh inhalation aerosol 1, puffs, Inhalation, 4 times a day, PRN, # 25 Gm, Refills 0, Tot. Refills 0, Maintenance, 10/22/2310:50:00 EST, Aerosol, Route to Pharmacy Electronically, [id number], [facility] #[id number], 157.2, cm, 08/25/22 9:26:00... Start Date: 10/22/22 Status: Ordered Claritin 10 mg oral tablet 10 mg, 1, tablet, By Mouth, Daily, # 30 tablet, Refills 0, Tot. Refills 0, Maintenance, 10/28/21 15:55:00 EST, Route to Pharmacy Electronically, [facility] #[id number], Partial fill upon patientrequest if the prescription is for a schedule II op... Start Date: 10/28/21 Status: Ordered cyclobenzaprine 10 mg oral tablet 10 mg, 1, tablet, By Mouth, Daily, PRN, As needed for muscle pain/ muscle spasm. caution: can causesleepiness, # 30 tablet, Refills 1, Tot. Refills 1, Maintenance, Pain , Mild, 04/09/22 12:13:00 EDT, Route to Pharmacy Electronically, [facility]... Start Date: 04/09/22 Status: Ordered fluconazole 150 mg oral tablet 1 tablet = 150 mg, By Mouth, Once, epeat dose if still having symptoms in 72 hours, # 2 tablet, 0 Refills, Soft Stop, 04/07/22 16:30:00 EDT, Tablet, [facility] #[id number], Partial fill upon patient request if the prescription is for a schedule I... Start Date: 04/07/22 Status: Ordered fluticasone 50 mcg/inh nasal spray See Instructions, SHAKE LIQUID AND USE 1 SPRAY IN EACH NOSTRIL DAILY IN THE MORNING, # 48 Gm, 11 Refills, 10/22/22 11:49:00 EST, [facility] #[id number], 90, SHAKE LIQUID AND USE 1 SPRAY IN EACH NOSTRIL DAILY IN THE MORNING, 157.2, cm, 08/25/22 9:... Start Date: 10/22/22 Status: Ordered ZyrTEC-D 5 mg-120 mg oral tablet, extended release 1 tablet, By Mouth, Every 24 hours, # 30 tablet, 2 Refills, Maintenance, 10/22/22 11:49:00 EST, ER Tablet, [facility] #[id number], Partial fill upon patient request if the prescription is for a schedule II opioid drug., 1 tablet By Mouth Every 24... Start Date: 10/22/22 Stop Date: 01/20/23 Status: Ordered Problem List Condition Confirmation Course Effective Dates Status H ealth Status Informant Suspicion of autism in the patient herself and in her first child Confirmed Active Chronic headache Confirmed Active Maxeys eye Confirmed Active Learning disability. She went [...] Team Personnel Name: Florence Vasquez NP Position: [facility] PCO Associate Professional Member Role: PCP Address: Address: [address] [place] [address] Name: Karime Wray NP Position: Reference Physician Member Role: Primary Care Nurse Care Team Related Persons Name: KO ROOT Address: home [address] [place] [address] Name: YU MACK Address: [place] Address: home [address] [place] Name: YANNICK MACK Address: [place] Address: home [address] [place] [id number] [place] Name: NICHOLAS MACK Address: home [address]
[2023-03-19 18:01] LABS: Troponin-I High Sensitivity < 2.7 ng/L (<3.5-17.0)
[2023-03-19 18:02] LABS: Alanine Aminotransferase 20 U/L (0-31); Albumin Level 4.6 g/dL (3.5-5.0); Alkaline Phosphatase 56 U/L (39-117); Anion Gap 14 (12-20); Aspartate Amino Transferase 15 U/L (5-31); Bilirubin Total 1.5 mg/dL (0.0-1.0); Blood Urea Nitrogen 9 mg/dL (9-16); Calcium 10.8 mg/dL (8.4-10.2); Carbon Dioxide 25 mmol/L (22-29); Chloride 107 mmol/L (96-108); Creatinine Clr Calc Pharmacy 88.7; Estimated Glomerular Filt Rate > 60; Glucose Random 117 mg/dL (60-115); Potassium 3.7 mmol/L (3.3-5.1); Sodium 142 mmol/L (135-145); Total Protein 7.4 g/dL (6.5-8.0)
[2023-03-19 20:09] VITALS: BP 121/86; PULSE 76; RESP 15; TEMP 36.7; O2SAT 99
[2023-03-19 21:55] VITALS: PULSE 75
== END 2023-03-19 21:58 | disposition home or self-care (01) ==
PROVIDERS: Physician Assistant; Emergency Provider Student in an Organized Health Care Education/Training Program; PCP Nurse Practitioner Family
DX: R07.89 Other chest pain (principal); Z79.899 Other long term (current) drug therapy
CPT/HCPCS: 36415; 71045; 80053; 83735; 84484; 85025; 93005; 99283; 99284

== ENCOUNTER 2023-03-28 10:58 | Emergency (ER) | payer OTHER, SELFPAY ==
[2023-03-28 11:13] VITALS: BP 131/89; PULSE 80; RESP 14; TEMP 36.5; O2SAT 97; BMI 22.5
--- NOTE | 2023-03-28 11:14 | ED_ITS ---
HPI - Female Genitourinary General Chief complaint: Abdominal Pain Stated complaint: pelvic pain Time Seen by Provider: 03/28/23 12:29 Source: patient Mode of arrival: ambulatory Limitations: no limitations History of Present Illness HPI Narrative: 28-year-old female history of IBD came in with right lower quadrant abdominal pain for the past 2 days, patient was seen several times in the past for abdominal pain. Right lower quadrant pain was worst last night associated with nausea but no vomiting, no fever chills, patient stated last bowel movement was 3 days ago after taking laxative and had a loose bowel movement. Never had abdominal surgery. Related Data Previous Rx's Medication Instructions Recorded naproxen 500 mg tablet (Naprosyn) 500 mg PO BID #20 tabs 08/02/20 ibuprofen 600 mg tablet 600 mg PO Q6H PRN pain #20 tabs 11/22/20 cyclobenzaprine 10 mg tablet 10 mg PO TID PRN muscle spasm #14 02/06/21 tabs ondansetron 4 mg disintegrating 4 mg PO Q8H PRN nausea and 02/06/21 tablet vomiting #20 tabs acetaminophen 500 mg tablet 1,000 mg PO QID PRN fever or pain 08/06/21 (Tylenol Extra Strength) #14 tabs cyclobenzaprine 10 mg tablet 10 mg PO Q8H PRN Muscle spasm #14 08/06/21 tabs amoxicillin 500 mg tablet 500 mg PO BID #20 tabs 08/13/21 ibuprofen 600 mg tablet 600 mg PO Q8H PRN fever or pain 08/13/21 #20 tabs fluticasone propionate 50 1 spray intranasal BID #1 units 10/11/21 mcg/actuation nasal spray,suspension (Flonase Allergy Relief) codeine 10 mg-guaifenesin 100 mg/5 10 ml PO Q6-8H PRN Cough #240 mL 10/14/21 mL oral liquid acetaminophen 500 mg tablet 1,000 mg PO Q6H PRN pain #240 tabs 12/23/21 (Tylenol Extra Strength) ibuprofen 400 mg tablet 400 mg PO Q6H PRN pain #240 tabs 12/23/21 naproxen 500 mg tablet 500 mg PO BID PRN pain 10 days #20 06/03/22 tabs amoxicillin 875 mg-potassium 1 tab PO BID dog bit #10 tabs 08/27/22 clavulanate 125 mg tablet famotidine 20 mg tablet 20 mg PO BID #30 tabs 12/01/22 ondansetron 4 mg disintegrating 4 mg PO Q8H PRN nausea and 12/01/22 tablet vomiting #14 tabs prednisone 20 mg tablet 20 mg PO DAILY #4 tabs 02/25/23 prednisone 20 mg tablet 40 mg PO DAILY #10 tabs 03/01/23 Allergies Allergy/AdvReac Type Severity Reaction Status Date / Time No Known Allergies Allergy Verified 03/19/23 17:06 Review of Systems Review of Systems: All other systems are reviewed and are negative Constitutional: Reports as per HPI and Reports no additional constitutional complaints Eyes: Reports as per HPI and Reports no additional eye complaints Reports system reviewed and no additional complaints, except as documented Cardiovascular: Reports as per HPI and Reports no additional cardiovascular complaints Respiratory: Reports as per HPI and Reports no additional respiratory complaints Gastrointestinal: Reports as per HPI and Reports no additional gastrointestinal complaints Genitourinary: Reports no additional female genitourinary complaints Musculoskeletal: Reports no additional musculoskeletal complaints Skin/Breast: Reports system reviewed and no additional complaints, except as docu Psychiatric: Reports no additional psychiatric complaints Endocrine: Reports no additional endocrine complaints Hematologic/Lymphatic: Reports no additional hematologic/lymphatic complaints Allergic/Immunologic: Reports no additional allergic/immunologic complaints Reports system reviewed and no additional complaints, except as documented and Reports Abnormal speech present [facility] Past Medical History Medical History No known health problems Social History Social History Alcohol intake: never Smoked in Last 30 Days: No Advance Directives: No Advance Directives Information Provided: Yes Physical Exam Vital Signs: Vital Signs: Last Vital Signs Temp 97.6 F 03/28/23 12:08 Pulse 89 03/28/23 12:08 Resp 14 03/28/23 12:08 BP 119/80 03/28/23 12:08 Pulse Ox 99 03/28/23 12:08 O2 Del Method Room Air 03/28/23 12:08 BMI result Body Mass Index 22.5 Vital signs have been reviewed as appeared to be correct. Blood pressure normal. Heart rate normal. Respiration rate normal. Temperature normal. Oxygen saturation normal. Appearance: Alert. Oriented X3. No acute distress. Head: Normal external exam. Normocephalic. Atraumatic. No Aguilar signs noted. No raccoon eyes noted Eyes: PERRLA. EOMI. Conjunctiva and sclera normal. Eyelids normal. ENT: TM's Normal. Pharynx normal. Uvula midline. Moist mucous membranes. No trismus noted. No drooling noted. No muffled voice noted. Neck: Normal inspection. Neck supple. FROM. No adenopathy. Thyroid Normal. No meningeal signs. No neck mass noted. CVS: Normal heart rate and rhythm. Heart sound normal. No murmurs noted. Pulses normal throughout. Respiratory: No respiratory distress. Painless inspiration. Breath sounds normal . No wheezes/rales/rhonchi noted. Chest nontender. No accessory muscle usage noted or decreased air movement noted. Abdomen: Right lower quadrant abdominal tenderness, no rebound tenderness, no guarding. Bowel sounds normal in all 4 quadrants. No distention noted. No organomegaly noted. No visible injury noted. Back: No CVA tenderness. Full range of motion noted. Skin: Skin warm and dry. Normal skin color. Normal skin turgor. No rashes/lesions/lacerations noted. Extremities: No lower extremity edema. Extremities exhibit normal range of motion. Extremities nontender. Neuro: Oriented X 3. Cranial nerve exam: II-XII are grossly intact No motor deficit. No sensory deficit. Reflexes normal. Course Course Course Narrative: RME: 28yo F w/ PMHx IBD presenting to the ED c/o RLQ/pelvic pain x2 days. took OTC meds w/o relief. +nausea & dysuria. denies vomiting, fever, chills Nontoxic appearing, LMP 03/12 Labs, UA, ordered Full HPI, ROS and PE to be performed by primary ED provider. 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 Medications Administered Discontinued Medications Generic Name Dose Route Start Last Admin Trade Name Freq PRN Reason Stop Dose Admin Magnesium Hydroxide 30 ml 03/28/23 12:41 03/28/23 12:47 Milk Of Magnesia 30 Ml Oral.Susp PO 03/28/23 12:42 30 ml ONCE ONE Administration Medical Decision Making Differential Diagnosis Differential Diagnoses: The differential diagnosis associated with the presentation includes (Acute appendicitis, colitis, diverticulitis, electrolyte abnormalities, severe anemia, kidney stones, UTI, .) Admission/Observation Consideration of admission/observation: Escalation of care including admission/observation considered Lab Data MDM Lab Attestation statement: I reviewed the patient's lab results. 03/28/23 11:23 03/28/23 11:23 Labs: Lab Results 03/28/23 03/28/23 03/28/23 Range/Units 11:23 11:23 14:31 WBC 7.6 (4.8-10.8) X10*3/uL RBC 5.25 (4.20-5.50) X10*6/uL Hgb 15.3 (12.0-16.0) g/dl Hct 45.0 (37.0-47.0) % MCV 85.7 (80.0-98.0) fL MCH 29.1 (27.0-33.0) pg MCHC 34.0 (31.0-35.0) g/dl RDW 12.6 (11.0-16.0) % Plt Count 275 (160-400) X10*3/uL MPV 9.8 (9.4-12.3) fL Immature Gran % (Auto) 0.1 (0.0-0.4) % Neut % (Auto) 73.9 H (45-73) % Lymph % (Auto) 18.9 L (20-40) % [place] % (Auto) 5.2 (2-11) % Eos % (Auto) 1.1 (0-4) % Baso % (Auto) 0.8 (0-2) % Lymph # (Auto) 1.4 (1.2-4.9) X10*3/uL [place] # (Auto) 0.4 (0.1-1.2) X10*3/uL Eos # (Auto) 0.1 (0.0-0.4) X10*3/uL Baso # (Auto) 0.1 (0.0-0.2) X10*3/uL Abs Immat Gran (auto) 0.01 (0.00-0.03) X10*3/uL Absolute Neuts (auto) 5.6 (2.0-8.3) x10*3/uL Absolute Nucleated RBC 0.000 (0.0-0.012) X10*3/uL Nucleated RBC % (auto) 0.0 (0.0-0.2) /100WBC Sodium 142 (135-145) mmol/L Potassium 4.2 (3.3-5.1) mmol/L Chloride 110 H (96-108) mmol/L Carbon Dioxide 22 (22-29) mmol/L Anion Gap 14 (12-20) BUN 13 (9-16) mg/dL Creatinine 0.81 (0.5-1.4) mg/dL Estim Creat Clear Calc 76.6 Estimated GFR > 60 Random Glucose 93 (60-115) mg/dL Calcium 10.1 D (8.4-10.2) mg/dL Magnesium 2.1 (1.6-2.6) mg/dL Total Bilirubin 1.3 H (0.0-1.0) mg/dL Direct Bilirubin 0.4 (0.0-0.5) mg/dL AST 15 (5-31) U/L ALT 14 (0-31) U/L Alkaline Phosphatase 59 (39-117) U/L Total Protein 7.5 (6.5-8.0) g/dL Albumin 4.6 (3.5-5.0) g/dL Lipase 28 (8-78) U/L Urine Color Dark Yellow Urine Appearance Clear Urine pH 5.5 (5.0-9.0) Ur Specific [place] >= 1.030 H (1.005-1.025) Urine Protein Trace (Neg-Trace) mg/dL Urine Glucose (UA) Negative (Negative) mg/dL Urine Ketones 40 (Negative) mg/dL Urine Blood Negative (Negative) Urine Nitrite Negative (Negative) Ur Leukocyte Esterase Negative (Negative) Urine Test (NEGATIVE) 03/28/23 Range/Units 14:31 WBC (4.8-10.8) X10*3/uL RBC (4.20-5.50) X10*6/uL Hgb (12.0-16.0) g/dl Hct (37.0-47.0) % MCV (80.0-98.0) fL MCH (27.0-33.0) pg MCHC (31.0-35.0) g/dl RDW (11.0-16.0) % Plt Count (160-400) X10*3/uL MPV (9.4-12.3) fL Immature Gran % (Auto) (0.0-0.4) % Neut % (Auto) (45-73) % Lymph % (Auto) (20-40) % [place] % (Auto) (2-11) % Eos % (Auto) (0-4) % Baso % (Auto) (0-2) % Lymph # (Auto) (1.2-4.9) X10*3/uL [place] # (Auto) (0.1-1.2) X10*3/uL Eos # (Auto) (0.0-0.4) X10*3/uL Baso # (Auto) (0.0-0.2) X10*3/uL Abs Immat Gran (auto) (0.00-0.03) X10*3/uL Absolute Neuts (auto) (2.0-8.3) x10*3/uL Absolute Nucleated RBC (0.0-0.012) X10*3/uL Nucleated RBC % (auto) (0.0-0.2) /100WBC Sodium (135-145) mmol/L Potassium (3.3-5.1) mmol/L Chloride (96-108) mmol/L Carbon Dioxide (22-29) mmol/L Anion Gap (12-20) BUN (9-16) mg/dL Creatinine (0.5-1.4) mg/dL Estim Creat Clear Calc Estimated GFR Random Glucose (60-115) mg/dL Calcium (8.4-10.2) mg/dL Magnesium (1.6-2.6) mg/dL Total Bilirubin (0.0-1.0) mg/dL Direct Bilirubin (0.0-0.5) mg/dL AST (5-31) U/L ALT (0-31) U/L Alkaline Phosphatase (39-117) U/L Total Protein (6.5-8.0) g/dL Albumin (3.5-5.0) g/dL Lipase (8-78) U/L Urine Color Urine Appearance Urine pH (5.0-9.0) Ur Specific [place] (1.005-1.025) Urine Protein (Neg-Trace) mg/dL Urine Glucose (UA) (Negative) mg/dL Urine Ketones (Negative) mg/dL Urine Blood (Negative) Urine Nitrite (Negative) Ur Leukocyte Esterase (Negative) Urine Test NEGATIVE (NEGATIVE) Independent Interpretation I performed an independent interpretation of an: CT Scan (Abdomen pelvis: No acute intra-abdominal pathology.) Radiology Impression Discussion of test interpretation with radiology: I have reviewed the radiologist's reading. Chronic Conditions Patient?s care impacted by: Other (IBD) Discharge Plan Discharge Clinical Impression: Abdominal pain Patient Disposition: Home, Self-Care Instructions: Abdominal Pain (ED) Prescriptions: No Action naproxen [Naprosyn] 500 mg tablet 500 mg PO BID Qty: 20 0RF ibuprofen 600 mg tablet 600 mg PO Q6H PRN (Reason: pain) Qty: 20 0RF cyclobenzaprine 10 mg tablet 10 mg PO TID PRN (Reason: muscle spasm) Qty: 14 0RF ondansetron 4 mg tablet,disintegrating 4 mg PO Q8H PRN (Reason: nausea and vomiting) Qty: 20 0RF amoxicillin 500 mg tablet 500 mg PO BID Qty: 20 0RF ibuprofen 600 mg tablet 600 mg PO Q8H PRN (Reason: fever or pain) Qty: 20 0RF fluticasone propionate [Flonase Allergy Relief] 50 mcg/actuation spray,suspension 1 spray intranasal BID Qty: 1 0RF Rx Instructions: administer into each nostril codeine-guaifenesin 10-100 mg/5 mL liquid 10 ml PO Q6-8H PRN (Reason: Cough) Qty: 240 0RF naproxen 500 mg tablet 500 mg PO BID PRN (Reason: pain) 10 Days Qty: 20 0RF famotidine 20 mg tablet 20 mg PO BID Qty: 30 0RF ondansetron 4 mg tablet,disintegrating 4 mg PO Q8H PRN (Reason: nausea and vomiting) Qty: 14 0RF cyclobenzaprine 10 mg tablet 10 mg PO Q8H PRN (Reason: Muscle spasm) Qty: 14 0RF acetaminophen [Tylenol Extra Strength] 500 mg tablet 1,000 mg PO QID PRN (Reason: fever or pain) Qty: 14 0RF acetaminophen [Tylenol Extra Strength] 500 mg tablet 1,000 mg PO Q6H PRN (Reason: pain) Qty: 240 0RF ibuprofen 400 mg tablet 400 mg PO Q6H PRN (Reason: pain) Qty: 240 0RF amoxicillin-pot clavulanate 875-125 mg tablet 1 tab PO BID Qty: 10 0RF prednisone 20 mg tablet 20 mg PO DAILY Qty: 4 0RF prednisone 20 mg tablet 40 mg PO DAILY Qty: 10 0RF Referrals: Minoo Torres CNP [Primary Care Provider] -
[2023-03-28 12:08] VITALS: BP 119/80; PULSE 89; RESP 14; TEMP 36.4; O2SAT 99
== END 2023-03-28 15:55 | disposition home or self-care (01) ==
PROVIDERS: Emergency Provider Emergency Medicine; PCP Nurse Practitioner Family
DX: R10.31 Right lower quadrant pain (principal); Z79.899 Other long term (current) drug therapy
CPT/HCPCS: 36415; 74176; 80048; 80076; 81003; 81025; 83690; 83735; 85025; 99284

== ENCOUNTER 2023-06-05 17:14 | Emergency (ER) | payer OTHER, SELFPAY ==
--- NOTE | ~2023-06-05 | XR_ITS ---
EXAMINATION: XR CHEST CLINICAL INFORMATION: Chest pain COMPARISON: X-ray 03/19/2023 TECHNIQUE: 2 views of the chest were obtained. FINDINGS: The cardiomediastinal silhouette is within normal limits. The lungs are well expanded. There is no focal consolidation, edema, or effusion. No pneumothorax. No acute osseous abnormality. XR/XR chest 2V IMPRESSION: No acute process seen..
--- NOTE | 2023-06-05 17:16 | ED.GENADULT ---
HPI - General Adult General Chief complaint: Chest Pain Stated complaint: Chest pain Time Seen by Provider: 06/05/23 20:39 Related Data Previous Rx's Medication Instructions Recorded naproxen 500 mg tablet (Naprosyn) 500 mg PO BID #20 tabs 08/02/20 ibuprofen 600 mg tablet 600 mg PO Q6H PRN pain #20 tabs 11/22/20 cyclobenzaprine 10 mg tablet 10 mg PO TID PRN muscle spasm #14 02/06/21 tabs ondansetron 4 mg disintegrating 4 mg PO Q8H PRN nausea and 02/06/21 tablet vomiting #20 tabs acetaminophen 500 mg tablet 1,000 mg (2 x 500 mg) PO QID PRN 08/06/21 (Tylenol Extra Strength) fever or pain #14 tabs cyclobenzaprine 10 mg tablet 10 mg PO Q8H PRN Muscle spasm #14 08/06/21 tabs amoxicillin 500 mg tablet 500 mg PO BID #20 tabs 08/13/21 ibuprofen 600 mg tablet 600 mg PO Q8H PRN fever or pain 08/13/21 #20 tabs fluticasone propionate 50 1 spray intranasal BID #1 units 10/11/21 mcg/actuation nasal spray,suspension (Flonase Allergy Relief) codeine 10 mg-guaifenesin 100 mg/5 10 ml PO Q6-8H PRN Cough #240 mL 10/14/21 mL oral liquid acetaminophen 500 mg tablet 1,000 mg (2 x 500 mg) PO Q6H PRN 12/23/21 (Tylenol Extra Strength) pain #240 tabs ibuprofen 400 mg tablet 400 mg PO Q6H PRN pain #240 tabs 12/23/21 naproxen 500 mg tablet 500 mg PO BID PRN pain 10 days #20 06/03/22 tabs amoxicillin 875 mg-potassium 1 tab PO BID dog bit #10 tabs 08/27/22 clavulanate 125 mg tablet famotidine 20 mg tablet 20 mg PO BID #30 tabs 12/01/22 ondansetron 4 mg disintegrating 4 mg PO Q8H PRN nausea and 12/01/22 tablet vomiting #14 tabs prednisone 20 mg tablet 20 mg PO DAILY #4 tabs 02/25/23 prednisone 20 mg tablet 40 mg (2 x 20 mg) PO DAILY #10 tabs 03/01/23 Allergies Allergy/AdvReac Type Severity Reaction Status Date / Time No Known Allergies Allergy Verified 06/05/23 17:19 [facility] Past Medical History Medical History No known health problems Social History Social History Alcohol intake: current Alcohol intake frequency: holidays/special occasions only Alcohol type: wine Smoked in Last 30 Days: No Use of substances other than those prescribed or required for medical reasons: No Advance Directives: No Advance Directives Information Provided: No Patient : No Physical Exam ED Vital Signs: BMI result Body Mass Index 20.8 Course Course Course Narrative: This is a rapid medical exam: Additional HPI, ROS, PE not included below will be deferred to primary provider. Patient is a 28-year-old female presenting to the emergency department with complaint of left sided chest pain radiating to shoulder and down left arm since 9pm last night. Took Aleve and muscle relaxer last night with mild relief but pain was still there when she woke up today. Denies shortness of breath or cough. States pain is currently 5/10. Family hx of HTN, no personal history, is not on any BP meds. Plan: EKG, labs, CXR Medical Decision Making Lab Data 06/05/23 17:42 06/05/23 17:42 Labs: Lab Results 06/05/23 Range/Units 17:42 WBC 7.9 (4.8-10.8) X10*3/uL RBC 5.03 (4.20-5.50) X10*6/uL Hgb 14.9 (12.0-16.0) g/dl Hct 43.8 (37.0-47.0) % MCV 87.1 (80.0-98.0) fL MCH 29.6 (27.0-33.0) pg MCHC 34.0 (31.0-35.0) g/dl RDW 12.4 (11.0-16.0) % Plt Count 287 (160-400) X10*3/uL MPV 9.5 (9.4-12.3) fL Immature Gran % (Auto) 0.3 (0.0-0.4) % Neut % (Auto) 71.7 (45-73) % Lymph % (Auto) 20.1 (20-40) % [place] % (Auto) 5.1 (2-11) % Eos % (Auto) 1.9 (0-4) % Baso % (Auto) 0.9 (0-2) % Lymph # (Auto) 1.6 (1.2-4.9) X10*3/uL [place] # (Auto) 0.4 (0.1-1.2) X10*3/uL Eos # (Auto) 0.2 (0.0-0.4) X10*3/uL Baso # (Auto) 0.1 (0.0-0.2) X10*3/uL Abs Immat Gran (auto) 0.02 (0.00-0.03) X10*3/uL Absolute Neuts (auto) 5.6 (2.0-8.3) x10*3/uL Absolute Nucleated RBC 0.000 (0.0-0.012) X10*3/uL Nucleated RBC % (auto) 0.0 (0.0-0.2) /100WBC Sodium 142 (135-145) mmol/L Potassium 4.3 (3.3-5.1) mmol/L Chloride 106 (96-108) mmol/L Carbon Dioxide 28 (22-29) mmol/L Anion Gap 12 (12-20) BUN 11 (9-16) mg/dL Creatinine 0.82 (0.5-1.4) mg/dL Estim Creat Clear Calc 75.7 Estimated GFR > 60 Random Glucose 84 (60-115) mg/dL Calcium 9.7 (8.4-10.2) mg/dL Total Bilirubin 0.8 (0.0-1.0) mg/dL AST 20 (5-31) U/L ALT 30 (0-31) U/L Alkaline Phosphatase 75 (39-117) U/L Troponin I High Sens < 2.7 (<3.5-17.0) ng/L Total Protein 7.2 (6.5-8.0) g/dL Albumin 4.6 (3.5-5.0) g/dL Beta HCG, Quant < 2 mIU/mL Discharge Plan Discharge Clinical Impression: Chest pain Patient Disposition: Home, Self-Care Instructions: Chest Pain (ED) Prescriptions: No Action naproxen [Naprosyn] 500 mg tablet 500 mg PO BID Qty: 20 0RF ibuprofen 600 mg tablet 600 mg PO Q6H PRN (Reason: pain) Qty: 20 0RF cyclobenzaprine 10 mg tablet 10 mg PO TID PRN (Reason: muscle spasm) Qty: 14 0RF ondansetron 4 mg tablet,disintegrating 4 mg PO Q8H PRN (Reason: nausea and vomiting) Qty: 20 0RF amoxicillin 500 mg tablet 500 mg PO BID Qty: 20 0RF ibuprofen 600 mg tablet 600 mg PO Q8H PRN (Reason: fever or pain) Qty: 20 0RF fluticasone propionate [Flonase Allergy Relief] 50 mcg/actuation spray,suspension 1 spray intranasal BID Qty: 1 0RF Rx Instructions: administer into each nostril codeine-guaifenesin 10-100 mg/5 mL liquid 10 ml PO Q6-8H PRN (Reason: Cough) Qty: 240 0RF naproxen 500 mg tablet 500 mg PO BID PRN (Reason: pain) 10 Days Qty: 20 0RF famotidine 20 mg tablet 20 mg PO BID Qty: 30 0RF ondansetron 4 mg tablet,disintegrating 4 mg PO Q8H PRN (Reason: nausea and vomiting) Qty: 14 0RF cyclobenzaprine 10 mg tablet 10 mg PO Q8H PRN (Reason: Muscle spasm) Qty: 14 0RF acetaminophen [Tylenol Extra Strength] 500 mg tablet 1,000 mg PO QID PRN (Reason: fever or pain) Qty: 14 0RF acetaminophen [Tylenol Extra Strength] 500 mg tablet 1,000 mg PO Q6H PRN (Reason: pain) Qty: 240 0RF ibuprofen 400 mg tablet 400 mg PO Q6H PRN (Reason: pain) Qty: 240 0RF amoxicillin-pot clavulanate 875-125 mg tablet 1 tab PO BID Qty: 10 0RF prednisone 20 mg tablet 20 mg PO DAILY Qty: 4 0RF prednisone 20 mg tablet 40 mg PO DAILY Qty: 10 0RF Referrals: Bert Man MD [Physician] - 06/08/23 Interventions: ED Discharge Assessment Last Done: 06/05/23 21:59 Discharge Date/Time: 06/05/23 22:00
[2023-06-05 17:17] VITALS: BP 138/93; PULSE 89; RESP 18; TEMP 37; O2SAT 99; BMI 20.8
--- NOTE | 2023-06-05 17:18 | ECG_ITS ---
Test Reason : CHEST PAIN Blood Pressure : / mmHG Vent. Rate : 093 BPM Atrial Rate : 093 BPM P-R Int : 158 ms QRS Dur : 078 ms QT Int : 328 ms P-R-T Axes : 062 083 031 degrees QTc Int : 407 ms Normal sinus rhythm Normal ECG When compared with ECG of 19-MAR-2023 17:06, No significant change was found Referred By: Naomi Blum Electronically Signed By:JUDI CONWAY
--- OUTSIDE RECORDS SUMMARY | 2023-06-05 17:22 | XMS_ITS | Continuity of Care Document ---
Author Name Unknown Organization [facility] Address [address], [address] [place] [address]- Care Team Providers Care Air Saw Operator Name Role Phone Melissa JEREZ, Minoo Primary Care Physician [phone] Encounter [facility] Date(s): 04/29/23 - 05/06/23 [facility] [address], [address] [place] [address]- Attending Physician: Royal Monge MD Referring Physician: Florence Vasquez NP Allergies, Adverse Reactions, Alerts No Known Medication Allergies Immunizations Given and Recorded Vaccine Date Status Refusal Reason tetanus/diphtheria/pertussis, acel(Tdap) 08/27/22 Recorded tetanus/diphtheria/pertussis, acel(Tdap) 09/06/19 Given tetanus/diphtheria/pertussis, acel(Tdap) 12/31/17 Given tetanus/diphtheria/pertussis, acel(Tdap) 04/18/15 Given tetanus/diphtheria/pertussis, acel(Tdap) 1 03/12/04 Recorded SARS-CoV-2 mRNA (prvatez-yapq-yoouf) vax 11/21/21 Recorded influenza virus vaccine, inactivated 09/02/21 Give n influenza virus vaccine, inactivated 06/13/19 Give n influenza virus vaccine, inactivated 2 06/10/17 Gi breezy influenza virus vaccine, inactivated 10/27/16 Give n influenza virus vaccine, inactivated 07/10/15 Give n SARS-CoV-2 (COVID-19) mRNA BNT-162b2 vac 05/24/21 Recorded SARS-CoV-2 (COVID-19) mRNA BNT-162b2 vac 02/12/21 Recorded SARS-CoV-2 (COVID-19) mRNA BNT-162b2 vac 01/22/21 Recorded Human Papillomavirus Vaccine 3 03/12/11 Recorded 1Result Comment: [10/07/2016] done at [place] 2Result Comment: [06/10/2017] AI SORIANO [facility] [id number] 3Result Comment: [10/07/2016] done at [place] Medications albuterol CFC free 90 mcg/inh inhalation aerosol 1, puffs, Inhalation, 4 times a day, PRN, # 25 Gm, Refills 0, Tot. Refills 0, Maintenance, 10/22/2310:50:00 EST, Aerosol, Route to Pharmacy Electronically, [id number], [facility] #[id number], 157.2, cm, 08/25/22 9:26:00... Start Date: 10/22/22 Status: Ordered cyclobenzaprine 5 mg oral tablet See Instructions, 1 tablet By Mouth 3 times a day prn x 7 days, # 21 each, 0 Refills, Maintenance, 05/06/23 12:45:00 EDT, Tablet, [facility] #[id number], Partial fill upon patient request if theprescription is for a schedule II opioid drug., 15... Start Date: 05/06/23 Status: Ordered docusate sodium 100 mg oral tablet = 100 mg, By Mouth, 2 times a day, # 180 tablet, 0 Refills, Maintenance, 04/23/23 12:03:00 EDT, Tablet, [facility] #[id number], Partial fill upon patient request if the prescription is for a schedule II opioid drug., 155, cm, 04/20/23 15:46:00 ED... Start Date: 04/23/23 Stop Date: 07/22/23 Status: Ordered fluticasone 50 mcg/inh nasal spray See Instructions, SHAKE LIQUID AND USE 1 SPRAY IN EACH NOSTRIL DAILY IN THE MORNING, # 48 Gm, 11 Refills, 10/22/22 11:49:00 EST, [facility] #[id number], 90, SHAKE LIQUID AND USE 1 SPRAY IN EACH NOSTRIL DAILY IN THE MORNING, 157.2, cm, 08/25/22 9:... Start Date: 10/22/22 Status: Ordered omeprazole 20 mg oral delayed release tablet 1 tablet = 20 mg, By Mouth, Daily, do not crush or chew. rake 30 min before Breakfast, # 30 tablet,1 Refills, Maintenance, 04/06/23 9:39:00 EDT, [facility] #[id number], 157.2, cm, 04/06/23 9:08:00 EDT, Height, 55.4, kg, 07/07/22 11:56:00 EDT, Start Date: 04/06/23 Stop Date: 06/05/23 Status: Ordered ondansetron 8 mg oral tablet, disintegrating 1 tablet = 8 mg, By Mouth, Every 8 hours, Take 1 tablet every 8 hours as needed for nausea/vomiting., # 30 tablet, 0 Refills, Maintenance, 04/09/23 13:34:00 EDT, [facility] #[id number], Partial fill upon patient request if the prescription is for... Start Date: 04/09/23 Status: Ordered polyethylene glycol 3350 oral powder for reconstitution = 17 Gm, By Mouth, Daily, PRN for constipation, dissolve in water before taking, # 255 Gm, 0 Refills, Maintenance, 04/23/23 12:04:00 EDT, REC Powder, [facility] #[id number], Partial fill upon patient request if the prescription is for a schedule... Start Date: 04/23/23 Status: Ordered ZyrTEC-D 5 mg-120 mg oral tablet, extended release 1 tablet, By Mouth, Every 24 hours, # 30 tablet, 2 Refills, Maintenance, 10/22/22 11:49:00 EST, ER Tablet, [facility] #[id number], Partial fill upon patient request if the prescription is for a schedule II opioid drug., 1 tablet By Mouth Every 24... Start Date: 10/22/22 Stop Date: 01/20/23 Status: Ordered Problem List Condition Confirmation Course Effective Dates Status H ealth Status Informant Suspicion of autism in the patient herself and in her first child Confirmed Active Chronic headache Confirmed Active [place] eye Confirmed Active Learning disability. She went through 12th grade but did not get a diploma because she could not pass the math part of the [employer]. She has considered getting a GED Confirmed Active Headaches Confirmed Active Subclinical hypothyroidism Confirmed Active Itchy eyes Confirmed Active Major depression Confirmed Active Vertigo Confirmed Active Vomiting Confirmed Active Vital Signs Most recent to oldest [Reference Range]: 1 Weight 52.8 kg (04/29/23 9:34 AM) Oxygen Saturation [94-100 %] 100 % (04/29/23 9:34 AM) Pulse Rate [55-90 bpm] 77 bpm (04/29/23 9:34 AM) Blood Pressure [90-138/55-84 mm Hg] 112/ 75mm Hg (04/29/23 9:34 AM) Temperature [96.8-100.4 DegF] 98.2 DegF (04/29/23 9:34 AM) Mode of Delivery (Oxygen) Room air (04/29/23 9:34 AM) Blood pressure sites Arm, right (04/29/23 9:34 AM) Temperature Route Oral (04/29/23 9:34 AM) Dry Weight 52.8 kg (04/29/23 9:34 AM) Weight Obtained Via Standing scale (04/29/23 9:34 AM) Dry Weight Obtained Via Standing scale (04/29/23 9:34 AM) Social History Social History Type Response Smoking Status Never (less than 100 in lifetime); Tobacco user in household: No entered on: 04/27/19 Sex Patient Care team information Care Team Personnel Name: Minoo Torres NP Position: S PCO Associate Professional Member Role: PCP Address: Address: [address] [place] [address] Name: Karime Wray NP Position: Reference Physician Member Role: Primary Care Nurse Care Team Related Persons Name: KO ROOT Address: home [address] [place] [address] Name: YU MACK Address: [place] Address: home [address] [address] [place] Name: YANNICK MACK Address: [employer] Address: home [address] [address] [place] Name: NICHOLAS MACK Address: home [address] [address]
--- OUTSIDE RECORDS SUMMARY | 2023-06-05 17:22 | XMS_ITS | Continuity of Care Document ---
Author Name Unknown Organization [facility] Address [address] [place] [address]- Care Team Providers Care Welding Machine Operator Name Role Phone Melissa JEREZ, Minoo Primary Care Physician Encounter [facility] Date(s): 04/20/23 - 05/20/[address] [address]- Allergies, Adverse Reactions, Alerts No Known Medication Allergies Immunizations Given and Recorded Vaccine Date Status Refusal Reason tetanus/diphtheria/pertussis, acel(Tdap) 08/27/22 Recorded tetanus/diphtheria/pertussis, acel(Tdap) 09/06/19 Given tetanus/diphtheria/pertussis, acel(Tdap) 12/31/17 Given tetanus/diphtheria/pertussis, acel(Tdap) 04/18/15 Given tetanus/diphtheria/pertussis, acel(Tdap) 1 03/12/04 Recorded SARS-CoV-2 mRNA (sflfypk-kbul-kxxwx) vax 11/21/21 Recorded influenza virus vaccine, inactivated [...] 03/12/11 Recorded 1Result Comment: [10/07/2016] done at [place] 2Result Comment: [06/10/2017] AI SORIANO [facility] 97385-550-17 3Result Comment: [10/07/2016] done at [place] Medications albuterol CFC free 90 mcg/inh inhalation aerosol 1, puffs, Inhalation, 4 times a day, PRN, # 25 Gm, Refills 0, Tot. Refills 0, Maintenance, 10/22/2310:50:00 EST, Aerosol, Route to Pharmacy Electronically, [id number], [facility] #[id number], 157.2, cm, 08/25/22 9:26:00... Start Date: 10/22/22 Status: Ordered cyclobenzaprine 5 mg oral tablet See Instructions, 1 tablet By Mouth 3 times a day prn x 7 days, # 21 each, 0 Refills, Maintenance, 05/06/23 12:45:00 EDT, Tablet, [facility] #[id number], Partial fill upon patient request if theprescription is for a schedule II opioid drug., 15... Start Date: 05/06/23 Status: Ordered docusate sodium 100 mg oral tablet = 100 mg, By Mouth, 2 times a day, # 180 tablet, 0 Refills, Maintenance, 04/23/23 12:03:00 EDT, Tablet, [facility] #[id number], Partial fill upon patient request if the prescription is for a schedule II opioid drug., 155, cm, 04/20/23 15:46:00 ED... Start Date: 04/23/23 Stop Date: 07/22/23 Status: Ordered fluticasone 50 mcg/inh nasal spray See Instructions, SHAKE LIQUID AND USE 1 SPRAY IN EACH NOSTRIL DAILY IN THE MORNING, # 48 Gm, 11 Refills, 10/22/22 11:49:00 EST, [facility] #[id number], 90, SHAKE LIQUID AND USE 1 SPRAY IN EACH NOSTRIL DAILY IN THE MORNING, 157.2, cm, 08/25/22 9:... Start Date: 10/22/22 Status: Ordered omeprazole 20 mg oral delayed release tablet 1 tablet = 20 mg, By Mouth, Daily, do not crush or chew. rake 30 min before Breakfast, # 30 tablet,1 Refills, Maintenance, 04/06/23 9:39:00 EDT, [facility] #[id number], 157.2, cm, 04/06/23 9:08:00 EDT, Height, 55.4, kg, 07/07/22 11:56:00 EDT, Start Date: 04/06/23 Stop Date: 06/05/23 Status: Ordered ondansetron 8 mg oral tablet, disintegrating 1 tablet = 8 mg, By Mouth, Every 8 hours, Take 1 tablet every 8 hours as needed for nausea/vomiting., # 30 tablet, 0 Refills, Maintenance, 04/09/23 13:34:00 EDT, [facility] #[id number], Partial fill upon patient request if the prescription is for... Start Date: 04/09/23 Status: Ordered polyethylene glycol 3350 oral powder for reconstitution = 17 Gm, By Mouth, Daily, PRN for constipation, dissolve in water before taking, # 255 Gm, 0 Refills, Maintenance, 04/23/23 12:04:00 EDT, REC Powder, [facility] #[id number], Partial fill upon patient request if the prescription is for a schedule... Start Date: 04/23/23 Status: Ordered ZyrTEC-D 5 mg-120 mg oral tablet, extended release 1 tablet, By Mouth, Every 24 hours, # 30 tablet, 2 Refills, Maintenance, 10/22/22 11:49:00 EST, ER Tablet, [facility] #[id number], Partial fill upon patient request if the prescription is for a schedule II opioid drug., 1 tablet By Mouth Every 24... Start Date: 10/22/22 Stop Date: 01/20/23 Status: Ordered Problem List Condition Confirmation Course Effective Dates Status H ealth Status Informant Suspicion of autism in the patient herself and in her first child Confirmed Active Chronic headache Confirmed Active [place] eye Confirmed Active Learning disability. She went [...] Associate Professional Member Role: PCP Address: Address: [address] [place] [address] Name: Karime Wray NP Position: Reference Physician Member Role: Primary Care Nurse Care Team Related Persons Name: KO ROOT Address: home [address] [place] [address] Name: YU MACK Address: [employer] Address: [address] [address] [place] Name: YANNICK MACK [facility] Address: home [address] [place] [id number] [place] Name: NICHOLAS MACK Address: home [address] [address]
--- OUTSIDE RECORDS SUMMARY | 2023-06-05 17:23 | XMS_ITS | Continuity of Care Document ---
Author Name Unknown Organization [facility] Address [address] [place] [address]- Care Team Providers Care Lock Master Name Role Phone Melissa JEREZ, Minoo Primary Care Physician [phone] Encounter [facility] Date(s): 03/02/23 - 04/01/[address] [address]- Allergies, Adverse Reactions, Alerts No Known Medication Allergies Immunizations Given and Recorded Vaccine Date Status Refusal Reason tetanus/diphtheria/pertussis, acel(Tdap) 08/27/22 Recorded tetanus/diphtheria/pertussis, acel(Tdap) 09/06/19 Given tetanus/diphtheria/pertussis, acel(Tdap) 12/31/17 Given tetanus/diphtheria/pertussis, acel(Tdap) 04/18/15 Given tetanus/diphtheria/pertussis, acel(Tdap) 1 03/12/04 Recorded SARS-CoV-2 mRNA (qnohubt-uvbn-inktn) vax 11/21/21 Recorded influenza virus vaccine, inactivated [...] 03/12/11 Recorded 1Result Comment: [10/07/2016] done at [place] 2Result Comment: [06/10/2017] AI SORIANO [facility] 43015-452-20 3Result Comment: incorrect date 4Result Comment: [10/07/2016] done at [place] Medications albuterol CFC free 90 mcg/inh inhalation aerosol 1, puffs, Inhalation, 4 times a day, PRN, # 25 Gm, Refills 0, Tot. Refills 0, Maintenance, 10/22/2310:50:00 EST, Aerosol, Route to Pharmacy Electronically, [id number], [facility] #[id number], 157.2, cm, 08/25/22 9:26:00... Start Date: 10/22/22 Status: Ordered Claritin 10 mg oral tablet 10 mg, 1, tablet, By Mouth, Daily, # 30 tablet, Refills 0, Tot. Refills 0, Maintenance, 10/28/21 15:55:00 EST, Route to Pharmacy Electronically, [facility] #[id number], Partial fill upon patientrequest if the prescription is for a schedule II op... Start Date: 10/28/21 Status: Ordered cyclobenzaprine 10 mg oral tablet 10 mg, 1, tablet, By Mouth, Daily, PRN, As needed for muscle pain/ muscle spasm. caution: can causesleepiness, # 30 tablet, Refills 1, Tot. Refills 1, Maintenance, Pain , Mild, 04/09/22 12:13:00 EDT, Route to Pharmacy Electronically, [facility]... Start Date: 04/09/22 Status: Ordered fluconazole 150 mg oral tablet 1 tablet = 150 mg, By Mouth, Once, epeat dose if still having symptoms in 72 hours, # 2 tablet, 0 Refills, Soft Stop, 04/07/22 16:30:00 EDT, Tablet, [facility] #[id number], Partial fill upon patient request if the prescription is for a schedule I... Start Date: 04/07/22 Status: Ordered fluticasone 50 mcg/inh nasal spray See Instructions, SHAKE LIQUID AND USE 1 SPRAY IN EACH NOSTRIL DAILY IN THE MORNING, # 48 Gm, 11 Refills, 10/22/22 11:49:00 EST, [facility] #[id number], 90, SHAKE LIQUID AND USE 1 SPRAY IN EACH NOSTRIL DAILY IN THE MORNING, 157.2, cm, 08/25/22 9:... Start Date: 10/22/22 Status: Ordered ZyrTEC-D 5 mg-120 mg oral tablet, extended release 1 tablet, By Mouth, Every 24 hours, # 30 tablet, 2 Refills, Maintenance, 10/22/22 11:49:00 EST, ER Tablet, [facility] #[id number], Partial fill upon patient request if the prescription is for a schedule II opioid drug., 1 tablet By Mouth Every 24... Start Date: 10/22/22 Stop Date: 01/20/23 Status: Ordered Problem List Condition Confirmation Course Effective Dates Status H ealth Status Informant Suspicion of autism in the patient herself and in her first child Confirmed Active Chronic headache Confirmed Active [place] eye Confirmed Active Learning disability. She went [...] Associate Professional Member Role: PCP Address: Address: [address] [place] [address] Name: Karime Wray NP Position: Reference Physician Member Role: Primary Care Nurse Care Team Related Persons Name: KO ROOT Address: home [address] [place], [place] Name: YU MACK Address: [employer] Address: [address] [place] Name: YANNICK MACK Address: [employer] Address: home [address] [place] Name: NICHOLAS MACK Address: home [address] [address]
--- OUTSIDE RECORDS SUMMARY | 2023-06-05 17:23 | XMS_ITS | Continuity of Care Document ---
Author Name Unknown Organization [facility] Address [address] [place] [address]- Care Team Providers Care Grip Name Role Phone Melissa JEREZ, Minoo Primary Care Physician [phone] Encounter [facility] Date(s): 05/21/23 - 05/21/[address] [address]- Discharge Disposition: A-D/C Home Attending Physician: Day Toure MD Admitting Physician: Day Toure MD Referring Physician: Not on Staff, Referring MD Allergies, Adverse Reactions, Alerts No Known Medication Allergies Immunizations Given and Recorded Vaccine Date Status Refusal Reason tetanus/diphtheria/pertussis, acel(Tdap) 08/27/22 Recorded tetanus/diphtheria/pertussis, acel(Tdap) 09/06/19 Given tetanus/diphtheria/pertussis, acel(Tdap) 12/31/17 Given tetanus/diphtheria/pertussis, acel(Tdap) 04/18/15 Given tetanus/diphtheria/pertussis, acel(Tdap) 1 03/12/04 Recorded SARS-CoV-2 mRNA (sfdweex-wtaf-ioiyc) vax 11/21/21 Recorded influenza virus vaccine, inactivated [...] 03/12/11 Recorded 1Result Comment: [10/07/2016] done at [place] 2Result Comment: [06/10/2017] AI SORIANO [facility] [id number] 3Result Comment: [10/07/2016] done at [place] Medications albuterol CFC free 90 mcg/inh inhalation aerosol 1, puffs, Inhalation, 4 times a day, PRN, # 25 Gm, Refills 0, Tot. Refills 0, Maintenance, 10/22/2310:50:00 EST, Aerosol, Route to Pharmacy Electronically, [id number], [facility] #[id number], 157.2, cm, 08/25/22 9:26:00... Start Date: 10/22/22 Status: Ordered cyclobenzaprine 5 mg oral tablet See Instructions, 1 tablet By Mouth 3 times a day prn x 7 days, # 21 each, 0 Refills, Maintenance, 05/06/23 12:45:00 EDT, Tablet, [facility] #[id number], Partial fill upon patient request if theprescription is for a schedule II opioid drug., 15... Start Date: 05/06/23 Status: Ordered docusate sodium 100 mg oral tablet = 100 mg, By Mouth, 2 times a day, # 180 tablet, 0 Refills, Maintenance, 04/23/23 12:03:00 EDT, Tablet, [facility] #[id number], Partial fill upon patient request if the prescription is for a schedule II opioid drug., 155, cm, 04/20/23 15:46:00 ED... Start Date: 04/23/23 Stop Date: 07/22/23 Status: Ordered fluticasone 50 mcg/inh nasal spray See Instructions, SHAKE LIQUID AND USE 1 SPRAY IN EACH NOSTRIL DAILY IN THE MORNING, # 48 Gm, 11 Refills, 10/22/22 11:49:00 EST, [facility] #[id number], 90, SHAKE LIQUID AND USE 1 SPRAY IN EACH NOSTRIL DAILY IN THE MORNING, 157.2, cm, 08/25/22 9:... Start Date: 10/22/22 Status: Ordered omeprazole 20 mg oral delayed release tablet 1 tablet = 20 mg, By Mouth, Daily, do not crush or chew. rake 30 min before Breakfast, # 30 tablet,1 Refills, Maintenance, 04/06/23 9:39:00 EDT, [facility] #[id number], 157.2, cm, 04/06/23 9:08:00 EDT, Height, 55.4, kg, 07/07/22 11:56:00 EDT, Start Date: 04/06/23 Stop Date: 06/05/23 Status: Ordered ondansetron 8 mg oral tablet, disintegrating 1 tablet = 8 mg, By Mouth, Every 8 hours, Take 1 tablet every 8 hours as needed for nausea/vomiting., # 30 tablet, 0 Refills, Maintenance, 04/09/23 13:34:00 EDT, [facility] #[id number], Partial fill upon patient request if the prescription is for... Start Date: 04/09/23 Status: Ordered polyethylene glycol 3350 oral powder for reconstitution = 17 Gm, By Mouth, Daily, PRN for constipation, dissolve in water before taking, # 255 Gm, 0 Refills, Maintenance, 04/23/23 12:04:00 EDT, REC Powder, [facility] #[id number], Partial fill upon patient request if the prescription is for a schedule... Start Date: 04/23/23 Status: Ordered ZyrTEC-D 5 mg-120 mg oral tablet, extended release 1 tablet, By Mouth, Every 24 hours, # 30 tablet, 2 Refills, Maintenance, 10/22/22 11:49:00 EST, ER Tablet, [facility] #[id number], Partial fill upon patient request if the prescription is for a schedule II opioid drug., 1 tablet By Mouth Every 24... Start Date: 10/22/22 Stop Date: 01/20/23 Status: Ordered Problem List Condition Confirmation Course Effective Dates Status H ealth Status Informant Suspicion of autism in the patient herself and in her first child Confirmed Active Chronic headache Confirmed Active [place] eye Confirmed Active Learning disability. She went through 12th grade but did not get a diploma because she could not pass the math part of the [employer]. She has considered getting a GED Confirmed Active Headaches Confirmed Active Subclinical hypothyroidism Confirmed Active Itchy eyes Confirmed Active Major depression Confirmed Active Vertigo Confirmed Active Vomiting Confirmed Active Results Radiology Reports * Exam Date Time Procedure Performing Provider Status 05/21/23 5:25 PM Chest 2 Views Frontal and Lat Sanjay Johnson; Logan (Verified) Notes: (Chest 2 Views Frontal and Lat) Reason For Exam: Shortness of Breath, Fever;Other: RESULT: Chest 2 Views Frontal and Lat Chest 2 Views Frontal and Lat Hx of Present Illness: pt c o left upper abdominal pain that radiates into left arm, hx constipation, felt pop when trying to push for bm. Pt states pain intermittent. Pt denies cough. Pt denies fever chills. Pt admits to lightheadendess, nauseousness no vomitting. Pt denies; Reason: Other:; Shortness of Breath, Fever; Clinical Question(s): Pneumonia COMPARISON: 06/05/2022 FINDINGS: LINES AND TUBES: None. LUNGS AND PLEURA: Clear lungs. Normal pulmonary vascularity. No pleural effusion. No pneumothorax. HEART, MEDIASTINUM AND FANTA: Heart is normal in size. Normal mediastinal and hilar contour. BONES AND SOFT TISSUES: No acute abnormality. IMPRESSION: No acute abnormality. WSN: [id number] Ordering Physician: Irena Han MD Dictated By: Fernando Bhat MD Dictated Date/Time: 05/21/23 5:32 pm Reviewed By: Fernando Bhat MD Signed By: Fernando Bhat MD Signed Date/Time: 05/21/23 5:32 pm Transcribed By: PATRICIA Transcribed Date/Time: 05/21/23 5:32 pm Vital Signs Most recent to oldest [Reference Range]: 1 2 3 Oxygen Saturation [94-100 %] 99 % (05/21/23 6:59 PM) 97 % (05/21/23 3:41 PM) 100 % (05/21/23 1:40 PM) Pulse Rate [55-90 bpm] 87 bpm (05/21/23 6:59 PM) 69 bpm (05/21/23 3:41 PM) 75 bpm (05/21/23 1:40 PM) Blood Pressure [90-138/55-84 mm Hg] 123/87mm Hg (05/21/23 6:59 PM) 121/91mm Hg (05/21/23 4:08 PM) 129/92mm Hg (05/21/23 4:06 PM) Respiratory Rate [16-30 br/min] 18 br/min (05/21/23 6:59 PM) 16 br/min (05/21/23 1:40 PM) 18 br/min (05/21/23 11:44 AM) Temperature [96.8-100.4 DegF] 98.1 DegF (05/21/23 3:41 PM) 98.3 DegF (05/21/23 1:40 PM) 98.0 DegF (05/21/23 11:44 AM) Mode of Delivery (Oxygen) Room air (05/21/23 6:59 PM) Room air (05/21/23 3:41 PM) Room air (05/21/23 1:40 PM) Blood pressure sites Arm, right (05/21/23 6:59 PM) Arm, right (05/21/23 4:08 PM) Arm, left (05/21/23 4:06 PM) Temperature Route Oral (05/21/23 3:41 PM) Oral (05/21/23 1:40 PM) Oral (05/21/23 11:44 AM) Social History Social History Type Response Smoking Status Never (less than 100 in lifetime); Tobacco user in household: No entered on: 04/27/19 Sex Patient Care team information Care Team Personnel Name: Minoo Torres NP Position: [facility] PCO Associate Professional Member Role: PCP Address: Address: [address] [place] [address] Name: Karime Wray NP Position: Reference Physician Member Role: Primary Care Nurse Name: Day Bonilla NP Position: [facility] Associate Professional Member Role: ED Physician Director Security Risk Management Address: Address: [address] [place] [address] Name: Meaghan Del Toro RN Position: [facility] ED RN W/OE and Tasks Member Role: Patient Care Provider Name: Irena Han MD Position: [facility] ED Medicine MD Member Role: ED Attending Physician Address: Address: [address] [place] [address] Care Team Related Persons Name: KO ROOT Address: home [address] [place], [place] Name: YU MACK Address: [employer] Address: home [address] [place] Name: YANNICK MACK Address: [employer] Address: [place] [address] [place] Name: NICHOLAS MACK Address: home [address] [address]
--- OUTSIDE RECORDS SUMMARY | 2023-06-05 17:23 | XMS_ITS | Continuity of Care Document ---
Author Name Unknown Organization [facility] Address [address] [place] [address]- Care Team Providers Care Senior Interactive Producer Name Role Phone Melissa JEREZ, Minoo Primary Care Physician [phone] Encounter [facility] Date(s): 04/09/23 - 05/09/[address] [address]- Allergies, Adverse Reactions, Alerts No Known Medication Allergies Immunizations Given and Recorded Vaccine Date Status Refusal Reason tetanus/diphtheria/pertussis, acel(Tdap) 08/27/22 Recorded tetanus/diphtheria/pertussis, acel(Tdap) 09/06/19 Given tetanus/diphtheria/pertussis, acel(Tdap) 12/31/17 Given tetanus/diphtheria/pertussis, acel(Tdap) 04/18/15 Given tetanus/diphtheria/pertussis, acel(Tdap) 1 03/12/04 Recorded SARS-CoV-2 mRNA ([id number]-[id number]-hqlrl) vax 11/21/21 Recorded influenza virus vaccine, inactivated [...] 03/12/11 Recorded 1Result Comment: [10/07/2016] done at [place] 2Result Comment: [06/10/2017] AI SORIANO [facility] 51944-239-03 3Result Comment: [10/07/2016] done at [place] Medications albuterol CFC free 90 mcg/inh inhalation aerosol 1, puffs, Inhalation, 4 times a day, PRN, # 25 Gm, Refills 0, Tot. Refills 0, Maintenance, 10/22/2310:50:00 EST, Aerosol, Route to Pharmacy Electronically, [id number], [facility] #[id number], 157.2, cm, 08/25/22 9:26:00... Start Date: 10/22/22 Status: Ordered cyclobenzaprine 5 mg oral tablet See Instructions, 1 tablet By Mouth 3 times a day prn x 7 days, # 21 each, 0 Refills, Maintenance, 05/06/23 12:45:00 EDT, Tablet, [facility] #[id number], Partial fill upon patient request if theprescription is for a schedule II opioid drug., 15... Start Date: 05/06/23 Status: Ordered docusate sodium 100 mg oral tablet = 100 mg, By Mouth, 2 times a day, # 180 tablet, 0 Refills, Maintenance, 04/23/23 12:03:00 EDT, Tablet, [facility] #[id number], Partial fill upon patient request if the prescription is for a schedule II opioid drug., 155, cm, 04/20/23 15:46:00 ED... Start Date: 04/23/23 Stop Date: 07/22/23 Status: Ordered fluticasone 50 mcg/inh nasal spray See Instructions, SHAKE LIQUID AND USE 1 SPRAY IN EACH NOSTRIL DAILY IN THE MORNING, # 48 Gm, 11 Refills, 10/22/22 11:49:00 EST, [facility] #[id number], 90, SHAKE LIQUID AND USE 1 SPRAY IN EACH NOSTRIL DAILY IN THE MORNING, 157.2, cm, 08/25/22 9:... Start Date: 10/22/22 Status: Ordered omeprazole 20 mg oral delayed release tablet 1 tablet = 20 mg, By Mouth, Daily, do not crush or chew. rake 30 min before Breakfast, # 30 tablet,1 Refills, Maintenance, 04/06/23 9:39:00 EDT, [email or web address] #[id number], 157.2, cm, 04/06/23 9:08:00 EDT, Height, 55.4, kg, 07/07/22 11:56:00 EDT, Start Date: 04/06/23 Stop Date: 06/05/23 Status: Ordered ondansetron 8 mg oral tablet, disintegrating 1 tablet = 8 mg, By Mouth, Every 8 hours, Take 1 tablet every 8 hours as needed for nausea/vomiting., # 30 tablet, 0 Refills, Maintenance, 04/09/23 13:34:00 EDT, [facility] #[id number], Partial fill upon patient request if the prescription is for... Start Date: 04/09/23 Status: Ordered polyethylene glycol 3350 oral powder for reconstitution = 17 Gm, By Mouth, Daily, PRN for constipation, dissolve in water before taking, # 255 Gm, 0 Refills, Maintenance, 04/23/23 12:04:00 EDT, REC Powder, [facility] #[id number], Partial fill upon patient request if the prescription is for a schedule... Start Date: 04/23/23 Status: Ordered ZyrTEC-D 5 mg-120 mg oral tablet, extended release 1 tablet, By Mouth, Every 24 hours, # 30 tablet, 2 Refills, Maintenance, 10/22/22 11:49:00 EST, ER Tablet, [facility] #[id number], Partial fill upon patient request if the prescription is for a schedule II opioid drug., 1 tablet By Mouth Every 24... Start Date: 10/22/22 Stop Date: 01/20/23 Status: Ordered Problem List Condition Confirmation Course Effective Dates Status H ealth Status Informant Suspicion of autism in the patient herself and in her first child Confirmed Active Chronic headache Confirmed Active [place] eye Confirmed Active Learning disability. She went [...] Associate Professional Member Role: PCP Address: Address: [address] [place] [address] Name: Karime Wray NP Position: Reference Physician Member Role: Primary Care Nurse Care Team Related Persons Name: KO ROOT Address: home [address] [place] [address] Name: YU MACK Address[facility] Address: home [address] [place] [address] [place] Name: YANNICK MACK Address: [facility] Address: home [address] [place] [address] [place] Name: NICHOLAS MACK Address: home [address] [place] [address]
--- OUTSIDE RECORDS SUMMARY | 2023-06-05 17:23 | XMS_ITS | Continuity of Care Document ---
Author Name Unknown Organization [facility] Address [address], [address] [place] [address]- Care Team Providers Care Manager Integration Name Role Phone Melissa JEREZ, Minoo Primary Care Physician En[place] [facility] Date(s): 02/25/23 - 04/22/23 [facility] [address], [address] [place] [address]- Attending Physician: Not on Staff, Attending MD Referring Physician: Ayse Londono CNM Allergies, Adverse Reactions, Alerts No Known Medication Allergies Immunizations Given and Recorded Vaccine Date Status Refusal Reason tetanus/diphtheria/pertussis, acel(Tdap) 08/27/22 Recorded tetanus/diphtheria/pertussis, acel(Tdap) 09/06/19 Given tetanus/diphtheria/pertussis, acel(Tdap) 12/31/17 Given tetanus/diphtheria/pertussis, acel(Tdap) 04/18/15 Given tetanus/diphtheria/pertussis, acel(Tdap) 1 03/12/04 Recorded SARS-CoV-2 mRNA ([id number]-atrjf) vax 11/21/21 Recorded influenza virus vaccine, inactivated [...] 03/12/11 Recorded 1Result Comment: [10/07/2016] done at [place] 2Result Comment: [06/10/2017] AI SORIANO [facility] [id number] 3Result Comment: incorrect date 4Result Comment: [10/07/2016] done at [place] Medications albuterol CFC free 90 mcg/inh inhalation aerosol 1, puffs, Inhalation, 4 times a day, PRN, # 25 Gm, Refills 0, Tot. Refills 0, Maintenance, 10/22/2310:50:00 EST, Aerosol, Route to Pharmacy Electronically, [id number], [facility] #[id number], 157.2, cm, 08/25/22 9:26:00... Start Date: 10/22/22 Status: Ordered fluticasone 50 mcg/inh nasal spray See Instructions, SHAKE LIQUID AND USE 1 SPRAY IN EACH NOSTRIL DAILY IN THE MORNING, # 48 Gm, 11 Refills, 10/22/22 11:49:00 EST, [facility] #[id number], 90, SHAKE LIQUID AND USE 1 SPRAY IN EACH NOSTRIL DAILY IN THE MORNING, 157.2, cm, 08/25/22 9:... Start Date: 10/22/22 Status: Ordered omeprazole 20 mg oral delayed release tablet 1 tablet = 20 mg, By Mouth, Daily, do not crush or chew. rake 30 min before Breakfast, # 30 tablet,1 Refills, Maintenance, 04/06/23 9:39:00 EDT, [facility] #[id number], 157.2, cm, 04/06/23 9:08:00 EDT, Height, 55.4, kg, 07/07/22 11:56:00 EDT, Start Date: 04/06/23 Stop Date: 06/05/23 Status: Ordered ondansetron 8 mg oral tablet, disintegrating 1 tablet = 8 mg, By Mouth, Every 8 hours, Take 1 tablet every 8 hours as needed for nausea/vomiting., # 30 tablet, 0 Refills, Maintenance, 04/09/23 13:34:00 EDT, [facility] #[id number], Partial fill upon patient request if the prescription is for... Start Date: 04/09/23 Status: Ordered ZyrTEC-D 5 mg-120 mg oral tablet, extended release 1 tablet, By Mouth, Every 24 hours, # 30 tablet, 2 Refills, Maintenance, 10/22/22 11:49:00 EST, ER Tablet, [facility] #[id number], Partial fill upon patient request if the prescription is for a schedule II opioid drug., 1 tablet By Mouth Every 24... Start Date: 10/22/22 Stop Date: 01/20/23 Status: Ordered Problem List Condition Confirmation Course Effective Dates Status H ealth Status Informant Suspicion of autism in the patient herself and in her first child Confirmed Active Chronic headache Confirmed Active [place] eye Confirmed Active Learning disability. She went [...] Associate Professional Member Role: PCP Address: Address: [address] [place] [address] Name: Karime Wray NP Position: Reference Physician Member Role: Primary Care Nurse Care Team Related Persons Name: KO ROOT Address: home [address] [place], [place] Name: YU MACK Address: [facility] Address: [address] [place] Name: YANNICK MACK Address: [facility] Address: home [address] [place] Name: NICHOLAS MACK Address: home [address] [address]
--- OUTSIDE RECORDS SUMMARY | 2023-06-05 17:23 | XMS_ITS | Continuity of Care Document ---
Author Name Unknown Organization [facility] Address [address] [place] [address]- Care Team Providers Care Assistant Finance Manager Name Role Phone Melissa JEREZ, Minoo Primary Care Physician [phone] Encounter [facility] [id number] Date(s): 03/06/23 - 04/05/[address] [address]- Attending Physician: Maryan Ceballos Admitting Physician: Admtr, ArBertin Referring Physician: Admtr, Ar8 Allergies, Adverse Reactions, Alerts No Known Medication Allergies Immunizations Given and Recorded Vaccine Date Status Refusal Reason tetanus/diphtheria/pertussis, acel(Tdap) 08/27/22 Recorded tetanus/diphtheria/pertussis, acel(Tdap) 09/06/19 Given tetanus/diphtheria/pertussis, acel(Tdap) 12/31/17 Given tetanus/diphtheria/pertussis, acel(Tdap) 04/18/15 Given tetanus/diphtheria/pertussis, acel(Tdap) 1 03/12/04 Recorded SARS-CoV-2 mRNA ([id number]) vax 11/21/21 Recorded influenza virus vaccine, inactivated [...] 03/12/11 Recorded 1Result Comment: [10/07/2016] done at [place] 2Result Comment: [06/10/2017] AI SORIANO [facility] [id number] 3Result Comment: incorrect date 4Result Comment: [10/07/2016] done at [place] Medications albuterol CFC free 90 mcg/inh inhalation aerosol 1, puffs, Inhalation, 4 times a day, PRN, # 25 Gm, Refills 0, Tot. Refills 0, Maintenance, 10/22/2310:50:00 EST, Aerosol, Route to Pharmacy Electronically, [id number], [facility] #[id number], 157.2, cm, 08/25/22 9:26:00... Start Date: 10/22/22 Status: Ordered Claritin 10 mg oral tablet 10 mg, 1, tablet, By Mouth, Daily, # 30 tablet, Refills 0, Tot. Refills 0, Maintenance, 10/28/21 15:55:00 EST, Route to Pharmacy Electronically, [facility] #[id number], Partial fill upon patientrequest if the prescription is for a schedule II op... Start Date: 10/28/21 Status: Ordered cyclobenzaprine 10 mg oral tablet 10 mg, 1, tablet, By Mouth, Daily, PRN, As needed for muscle pain/ muscle spasm. caution: can causesleepiness, # 30 tablet, Refills 1, Tot. Refills 1, Maintenance, Pain , Mild, 04/09/22 12:13:00 EDT, Route to Pharmacy Electronically, [facility] Start Date: 04/09/22 Status: Ordered fluconazole 150 mg oral tablet 1 tablet = 150 mg, By Mouth, Once, epeat dose if still having symptoms in 72 hours, # 2 tablet, 0 Refills, Soft Stop, 04/07/22 16:30:00 EDT, Tablet, [facility] #[id number], Partial fill upon patient request if the prescription is for a schedule I... Start Date: 04/07/22 Status: Ordered fluticasone 50 mcg/inh nasal spray See Instructions, SHAKE LIQUID AND USE 1 SPRAY IN EACH NOSTRIL DAILY IN THE MORNING, # 48 Gm, 11 Refills, 10/22/22 11:49:00 EST, [facility] #[id number], 90, SHAKE LIQUID AND USE 1 SPRAY IN EACH NOSTRIL DAILY IN THE MORNING, 157.2, cm, 08/25/22 9:... Start Date: 10/22/22 Status: Ordered ZyrTEC-D 5 mg-120 mg oral tablet, extended release 1 tablet, By Mouth, Every 24 hours, # 30 tablet, 2 Refills, Maintenance, 10/22/22 11:49:00 EST, ER Tablet, [facility] #[id number], Partial fill upon patient request if the prescription is for a schedule II opioid drug., 1 tablet By Mouth Every 24... Start Date: 10/22/22 Stop Date: 01/20/23 Status: Ordered Problem List Condition Confirmation Course Effective Dates Status H ealth Status Informant Suspicion of autism in the patient herself and in her first child Confirmed Active Chronic headache Confirmed Active [place] eye Confirmed Active Learning disability. She went [...] Team Personnel Name: Minoo Torres NP Position: [facility] PCO Associate Professional Member Role: PCP Address: Address: [address] [place] [address] Name: Karime Wray NP Position: Reference Physician Member Role: Primary Care Nurse Care Team Related Persons Name: KO ROOT Address: home [address] [place] [address] Name: YU MACK Address: [employer] Address: [address] [place] Name: YANNICK MACK Address: [employer] Address: home [address] [address] [place] Name: NICHOLAS MACK Address: home [address] [place] [address]
--- OUTSIDE RECORDS SUMMARY | 2023-06-05 17:23 | XMS_ITS | Continuity of Care Document ---
Author Name Unknown Organization [facility] Address [address] [place] [address]- Care Team Providers Care Shed Hand Name Role Phone Melissa JEREZ, Minoo Primary Care Physician [phone] Encounter [facility] Date(s): 05/05/23 - 06/04/[address] [address]- Allergies, Adverse Reactions, Alerts No Known Medication Allergies Immunizations Given and Recorded Vaccine Date Status Refusal Reason tetanus/diphtheria/pertussis, acel(Tdap) 08/27/22 Recorded tetanus/diphtheria/pertussis, acel(Tdap) 09/06/19 Given tetanus/diphtheria/pertussis, acel(Tdap) 12/31/17 Given tetanus/diphtheria/pertussis, acel(Tdap) 04/18/15 Given tetanus/diphtheria/pertussis, acel(Tdap) 1 03/12/04 Recorded SARS-CoV-2 mRNA ([id number]) vax 11/21/21 Recorded influenza virus vaccine, inactivated [...] 03/12/11 Recorded 1Result Comment: [10/07/2016] done at [place] 2Result Comment: [06/10/2017] AI SORIANO [facility] [id number] 3Result Comment: [10/07/2016] done at [place] Medications albuterol CFC free 90 mcg/inh inhalation aerosol 1, puffs, Inhalation, 4 times a day, PRN, # 25 Gm, Refills 0, Tot. Refills 0, Maintenance, 10/22/2310:50:00 EST, Aerosol, Route to Pharmacy Electronically, [id number], [facility] #[id number], 157.2, cm, 08/25/22 9:26:00... Start Date: 10/22/22 Status: Ordered cyclobenzaprine 5 mg oral tablet See Instructions, 1 tablet By Mouth 3 times a day prn x 7 days, # 21 each, 0 Refills, Maintenance, 05/06/23 12:45:00 EDT, Tablet, [email or web address] #[id number], Partial fill upon patient request if theprescription is for a schedule II opioid drug., 15... Start Date: 05/06/23 Status: Ordered docusate sodium 100 mg oral tablet = 100 mg, By Mouth, 2 times a day, # 180 tablet, 0 Refills, Maintenance, 04/23/23 12:03:00 EDT, Tablet, [email or web address] #[id number], Partial fill upon patient request if the prescription is for a schedule II opioid drug., 155, cm, 04/20/23 15:46:00 ED... Start Date: 04/23/23 Stop Date: 07/22/23 Status: Ordered fluticasone 50 mcg/inh nasal spray See Instructions, SHAKE LIQUID AND USE 1 SPRAY IN EACH NOSTRIL DAILY IN THE MORNING, # 48 Gm, 11 Refills, 10/22/22 11:49:00 EST, [facility] #[id number], 90, SHAKE LIQUID AND USE 1 SPRAY IN EACH NOSTRIL DAILY IN THE MORNING, 157.2, cm, 08/25/22 9:... Start Date: 10/22/22 Status: Ordered omeprazole 20 mg oral delayed release tablet 1 tablet = 20 mg, By Mouth, Daily, do not crush or chew. rake 30 min before Breakfast, # 30 tablet,1 Refills, Maintenance, 04/06/23 9:39:00 EDT, [facility] #[id number], 157.2, cm, 04/06/23 9:08:00 EDT, Height, 55.4, kg, 07/07/22 11:56:00 EDT, Start Date: 04/06/23 Stop Date: 06/05/23 Status: Ordered ondansetron 8 mg oral tablet, disintegrating 1 tablet = 8 mg, By Mouth, Every 8 hours, Take 1 tablet every 8 hours as needed for nausea/vomiting., # 30 tablet, 0 Refills, Maintenance, 04/09/23 13:34:00 EDT, [facility] #[id number], Partial fill upon patient request if the prescription is for... Start Date: 04/09/23 Status: Ordered polyethylene glycol 3350 oral powder for reconstitution = 17 Gm, By Mouth, Daily, PRN for constipation, dissolve in water before taking, # 255 Gm, 0 Refills, Maintenance, 04/23/23 12:04:00 EDT, REC Powder, [facility] #[id number], Partial fill upon patient request if the prescription is for a schedule... Start Date: 04/23/23 Status: Ordered ZyrTEC-D 5 mg-120 mg oral tablet, extended release 1 tablet, By Mouth, Every 24 hours, # 30 tablet, 2 Refills, Maintenance, 10/22/22 11:49:00 EST, ER Tablet, [facility] #[id number], Partial fill upon patient request if the prescription is for a schedule II opioid drug., 1 tablet By Mouth Every 24... Start Date: 10/22/22 Stop Date: 01/20/23 Status: Ordered Problem List Condition Confirmation Course Effective Dates Status H ealth Status Informant Suspicion of autism in the patient herself and in her first child Confirmed Active Chronic headache Confirmed Active [place] eye Confirmed Active Learning disability. She went [...] Team Personnel Name: Minoo Torres NP Position: [facility] PCO Associate Professional Member Role: PCP Address: Address: [address] [place] [address] Name: Karime Wray NP Position: [facility] Associate Professional Member Role: Primary Care Nurse Care Team Related Persons Name: KO ROOT Address: home [address] [place] [address] Name: YU MACK [facility] Address: home [address] [address] [place] Name: YANNICK MACK Address: [facility] Address: home [address] [place] [address] [place] Name: NICHOLAS MACK Address: [address] [address]
--- OUTSIDE RECORDS SUMMARY | 2023-06-05 17:24 | XMS_ITS | Continuity of Care Document ---
Author Name Unknown Organization [facility] ter Address [address] [place] [address]- Care Team Providers Care Office Rep Name Role Phone Minoo Torres NP Primary Care Physician [phone] Encounter [facility] Date(s): 04/20/23 - 04/20/[address] [address]- Encounter Diagnosis Abdominal pain(Final) - 04/20/23 Discharge Disposition: A-D/C Home Attending Physician: Rosanna Younger MD Admitting Physician: Rosanna Younger MD Referring Physician: Not on Staff, Referring MD Allergies, Adverse Reactions, Alerts No Known Medication Allergies Immunizations Given and Recorded Vaccine Date Status Refusal Reason tetanus/diphtheria/pertussis, acel(Tdap) 08/27/22 Recorded tetanus/diphtheria/pertussis, acel(Tdap) 09/06/19 Given tetanus/diphtheria/pertussis, acel(Tdap) 12/31/17 Given tetanus/diphtheria/pertussis, acel(Tdap) 04/18/15 Given tetanus/diphtheria/pertussis, acel(Tdap) 1 03/12/04 Recorded SARS-CoV-2 mRNA ([id number]) vax 11/21/21 Recorded influenza virus vaccine, inactivated [...] 03/12/11 Recorded 1Result Comment: [10/07/2016] done at [facility] 2Result Comment: [06/10/2017] AI SORIANO [facility] [id number] 3Result Comment: incorrect date 4Result Comment: [10/07/2016] done at [facility] Medications albuterol CFC free 90 mcg/inh inhalation aerosol 1, puffs, Inhalation, 4 times a day, PRN, # 25 Gm, Refills 0, Tot. Refills 0, Maintenance, 10/22/2310:50:00 EST, Aerosol, Route to Pharmacy Electronically, [id number], [facility] #[id number], 157.2, cm, 08/25/22 9:26:00... Start Date: 10/22/22 Status: Ordered fluticasone 50 mcg/inh nasal spray See Instructions, SHAKE LIQUID AND USE 1 SPRAY IN EACH NOSTRIL DAILY IN THE MORNING, # 48 Gm, 11 Refills, 10/22/22 11:49:00 EST, [facility] #[id number], 90, SHAKE LIQUID AND USE 1 SPRAY IN EACH NOSTRIL DAILY IN THE MORNING, 157.2, cm, 08/25/22 9:... Start Date: 10/22/22 Status: Ordered omeprazole 20 mg oral delayed release tablet 1 tablet = 20 mg, By Mouth, Daily, do not crush or chew. rake 30 min before Breakfast, # 30 tablet,1 Refills, Maintenance, 04/06/23 9:39:00 EDT, [facility] #[id number], 157.2, cm, 04/06/23 9:08:00 EDT, Height, 55.4, kg, 07/07/22 11:56:00 EDT, Start Date: 04/06/23 Stop Date: 06/05/23 Status: Ordered ondansetron 8 mg oral tablet, disintegrating 1 tablet = 8 mg, By Mouth, Every 8 hours, Take 1 tablet every 8 hours as needed for nausea/vomiting., # 30 tablet, 0 Refills, Maintenance, 04/09/23 13:34:00 EDT, [facility] #[id number], Partial fill upon patient request if the prescription is for... Start Date: 04/09/23 Status: Ordered ZyrTEC-D 5 mg-120 mg oral tablet, extended release 1 tablet, By Mouth, Every 24 hours, # 30 tablet, 2 Refills, Maintenance, 10/22/22 11:49:00 EST, ER Tablet, [facility] #[id number], Partial fill upon patient request if the prescription is for a schedule II opioid drug., 1 tablet By Mouth Every 24... Start Date: 10/22/22 Stop Date: 01/20/23 Status: Ordered Problem List Condition Confirmation Course Effective Dates Status H ealth Status Informant Suspicion of autism in the patient herself and in her first child Confirmed Active Chronic headache Confirmed Active [place] eye Confirmed Active Learning disability. She went [...] Exam Date Time Procedure Performing Provider Status 04/20/23 12:[address] Abd/Pelvis W/ IV Contrast Only Penelope Bruner; Auth (Verified) Notes: (CT Abd/Pelvis W/ IV Contrast Only) Reason For Exam: LLQ abdominal pain;Other: RESULT: CT Abd/Pelvis W/ IV Contrast Only CT Abd/Pelvis W/ IV Contrast Only Hx of Present Illness: Pt reports onging bloating, sharp upper abd pain beginning in late February @ beginning of last menses.Sts pain has persisted, assox chronc constipation, used suppository yestr, had soft bm with blood present on toliet paper; Reason: Other:; LLQ abdominal pain; Clinical Question(s): Obstruction; Order Comment: TECHNIQUE: Spiral CT through the abdomen and pelvis with IV contrast formatted in 3 planes. 75 cc of Omnipaque 300 was administered intravenously. This study was performed without oral contrast. Weight-based protocol using automatic tube modulation was used to optimize exposure parameters. CTDIvol Body: 10.90 mGy, DLP Body: 496 mGy*cm. COMPARISON: None. FINDINGS: Poured Concrete Wall Technician View Findings, Lines and Tubes: None. Visualized Chest: Lung bases are clear. No pleural effusion. The heart is normal in size. No pericardial effusion. Diaphragm: Normal. Liver: Normal. Gallbladder: No CT evidence of gallbladder pathology. Bile ducts: No biliary ductal dilation. Spleen: Normal. Pancreas: Normal. Adrenal glands: Normal. Kidneys and ureters: No hydronephrosis, stones, or suspicious masses. Bladder: Normal. Reproductive organs: Unremarkable. Stomach, small bowel, and large bowel: Questionable mild thickening of the distal gastric antrum, with the stomach in a relatively underdistended state. Areas of submucosal fat deposition within the colon. There is mild rectal wall thickening. Appendix: No evidence of acute appendicitis. Peritoneum and retroperitoneum: Trace pelvic free fluid. No pneumoperitoneum. No omental or mesenteric lesions. Lymph nodes: No enlarged lymph nodes. Blood vessels: Normal. No aneurysm. No evidence of venous thrombosis. Abdominal and pelvic wall: Unremarkable. Bones: No acute abnormality. IMPRESSION: Questionable mild gastric antral wall thickening, can be seen with gastritis. In addition, mild rectal wall thickening can be seen with mild proctitis. WSN: [id number] Ordering Physician: Rosanna Younger Dictated By: Michaela Rojas MD Dictated Date/Time: 04/20/23 12:53 p Reviewed By: Michaela Rojas MD Signed By: Michaela Rojas MD Signed Date/Time: 04/20/23 12:53 pm Transcribed By: PATRICIA Transcribed Date/Time: 04/20/23 12:45 pm Vital Signs Most recent to oldest [Reference Range]: 1 2 3 Height 155 cm (04/20/23 3:46 PM) 155 cm (04/20/23 1:28 PM) 155 cm (04/20/23 9:26 AM) Oxygen Saturation [94-100 %] 99 % (04/20/23 3:46 PM) 99 % (04/20/23 1:28 PM) 100 % (04/20/23 9:26 AM) Pulse Rate [55-90 bpm] 59 bpm (04/20/23 3:46 PM) 66 bpm (04/20/23 1:28 PM) 80 bpm (04/20/23 9:26 AM) Blood Pressure [90-138/55-84 mm Hg] 122/68mm Hg (04/20/23 3:46 PM) 115/72mm Hg (04/20/23 1:28 PM) 116/84mm Hg (04/20/23 9:26 AM) Respiratory Rate [16-30 br/min] 16 br/min (04/20/23 3:46 PM) 16 br/min (04/20/23 1:28 PM) Temperature [96.8-100.4 DegF] 98.4 DegF (04/20/23 3:46 PM) 98.0 DegF (04/20/23 9:26 AM) Mode of Delivery (Oxygen) Room air (04/20/23 3:46 PM) Room air (04/20/23 1:28 PM) Room air (04/20/23 9:26 AM) Blood pressure sites Arm, left (04/20/23 1:28 PM) Arm, right (04/20/23 9:26 AM) Temperature Route Oral (04/20/23 3:46 PM) Oral (04/20/23 9:26 AM) Dry Weight 50 kg (04/20/23 3:46 PM) 50 kg (04/20/23 1:28 PM) 50 kg (04/20/23 9:26 AM) Dry Weight Obtained Via Patient/family s tated (04/20/23 9:26 AM) Social History Social History Type Response Smoking Status Never (less than 100 in lifetime); Tobacco user in household: No entered on: 04/27/19 Sex Patient Care team information Care Team Personnel Name: Minoo Torres NP Position: [facility] PCO Associate Professional Member Role: PCP Address: Address: [address] [place] [id number] Name: Karime Wray NP Position: Reference Physician Member Role: Primary Care Nurse Name: Rosanna Younger MD Position: [facility] ED Medicine MD Member Role: Admitting Physician Address: Address: [address] [place] [id number] Name: Inessa Nix RN Position: [facility] ED RN W/OE and Tasks Member Role: Patient Care Provider Name: Abiodun Leigh Position: [facility] ED TA [facility] Member Role: [employer] Name: Richard Lizarraga Position: [facility] Associate Professional Member Role: ED Physician Public Health Officer Address: Address: [address] [place] [address] [place] [address]- Care Team Related Persons Name: ROOT KO Address: home [address] [place] [address] Name: YU MACK Address: [employer] Address: home [address] [address] [place] Name: YANNICK MACK Address: [employer] Address: home [address] [address] [place] Name: NICHOLAS MACK Address: home [address] [address]
--- OUTSIDE RECORDS SUMMARY | 2023-06-05 17:24 | XMS_ITS | Continuity of Care Document ---
Author Name Unknown Organization [facility] Address [address] [place] [address]- Care Team Providers Care Prosthetic Technician Name Role Phone Melissa JEREZ, Minoo Primary Care Physician Encounter [facility] Date(s): 03/02/23 - 04/01/[address] [address]- Allergies, Adverse Reactions, Alerts No Known Medication Allergies Immunizations Given and Recorded Vaccine Date Status Refusal Reason tetanus/diphtheria/pertussis, acel(Tdap) 08/27/22 Recorded tetanus/diphtheria/pertussis, acel(Tdap) 09/06/19 Given tetanus/diphtheria/pertussis, acel(Tdap) 12/31/17 Given tetanus/diphtheria/pertussis, acel(Tdap) 04/18/15 Given tetanus/diphtheria/pertussis, acel(Tdap) 1 03/12/04 Recorded SARS-CoV-2 mRNA ([id number]) vax 11/21/21 Recorded influenza virus vaccine, inactivated [...] 03/12/11 Recorded 1Result Comment: [10/07/2016] done at [facility] 2Result Comment: [06/10/2017] AI SORIANO [facility] [id number] 3Result Comment: incorrect date 4Result Comment: [10/07/2016] done at [facility] Medications albuterol CFC free 90 mcg/inh inhalation aerosol 1, puffs, Inhalation, 4 times a day, PRN, # 25 Gm, Refills 0, Tot. Refills 0, Maintenance, 10/22/2310:50:00 EST, Aerosol, Route to Pharmacy Electronically, [id number], [facility] #[id number], 157.2, cm, 08/25/22 9:26:00... Start Date: 10/22/22 Status: Ordered Claritin 10 mg oral tablet 10 mg, 1, tablet, By Mouth, Daily, # 30 tablet, Refills 0, Tot. Refills 0, Maintenance, 10/28/21 15:55:00 EST, Route to Pharmacy Electronically, [facility] #[id number], Partial fill upon patientrequest if the prescription is for a schedule II op... Start Date: 10/28/21 Status: Ordered cyclobenzaprine 10 mg oral tablet 10 mg, 1, tablet, By Mouth, Daily, PRN, As needed for muscle pain/ muscle spasm. caution: can causesleepiness, # 30 tablet, Refills 1, Tot. Refills 1, Maintenance, Pain , Mild, 04/09/22 12:13:00 EDT, Route to Pharmacy Electronically, [facility]... Start Date: 04/09/22 Status: Ordered fluconazole 150 mg oral tablet 1 tablet = 150 mg, By Mouth, Once, epeat dose if still having symptoms in 72 hours, # 2 tablet, 0 Refills, Soft Stop, 04/07/22 16:30:00 EDT, Tablet, [facility] #[id number], Partial fill upon patient request if the prescription is for a schedule I... Start Date: 04/07/22 Status: Ordered fluticasone 50 mcg/inh nasal spray See Instructions, SHAKE LIQUID AND USE 1 SPRAY IN EACH NOSTRIL DAILY IN THE MORNING, # 48 Gm, 11 Refills, 10/22/22 11:49:00 EST, [facility] #[id number], 90, SHAKE LIQUID AND USE 1 SPRAY IN EACH NOSTRIL DAILY IN THE MORNING, 157.2, cm, 08/25/22 9:... Start Date: 10/22/22 Status: Ordered ZyrTEC-D 5 mg-120 mg oral tablet, extended release 1 tablet, By Mouth, Every 24 hours, # 30 tablet, 2 Refills, Maintenance, 10/22/22 11:49:00 EST, ER Tablet, [facility] #[id number], Partial fill upon patient request if the prescription is for a schedule II opioid drug., 1 tablet By Mouth Every 24... Start Date: 10/22/22 Stop Date: 01/20/23 Status: Ordered Problem List Condition Confirmation Course Effective Dates Status H ealth Status Informant Suspicion of autism in the patient herself and in her first child Confirmed Active Chronic headache Confirmed Active [place] eye Confirmed Active Learning disability. She went [...] Associate Professional Member Role: PCP Address: Address: [address] [place] [address] Name: Karime Wray NP Position: Reference Physician Member Role: Primary Care Nurse Care Team Related Persons Name: KO ROOT Address: home [address] [place], [place] Name: YU MACK Address: [employer] Address: home [address] [place] Name: YANNICK MACK Address: [employer] Address: home [address] [place] Name: NICHOLAS MACK Address: home [address] [address]
--- OUTSIDE RECORDS SUMMARY | 2023-06-05 17:24 | XMS_ITS | Continuity of Care Document ---
Author Name Unknown Organization [facility] Address [address] [place] [address]- Care Team Providers Care House Director Name Role Phone Melissa JEREZ, Minoo Primary Care Physician [phone] Encounter [facility] Date(s): 04/10/23 - 05/10/[address] [address]- Allergies, Adverse Reactions, Alerts No Known Medication Allergies Immunizations Given and Recorded Vaccine Date Status Refusal Reason tetanus/diphtheria/pertussis, acel(Tdap) 08/27/22 Recorded tetanus/diphtheria/pertussis, acel(Tdap) 09/06/19 Given tetanus/diphtheria/pertussis, acel(Tdap) 12/31/17 Given tetanus/diphtheria/pertussis, acel(Tdap) 04/18/15 Given tetanus/diphtheria/pertussis, acel(Tdap) 1 03/12/04 Recorded SARS-CoV-2 mRNA ([id number]) vax 11/21/21 Recorded influenza virus vaccine, inactivated [...] 03/12/11 Recorded 1Result Comment: [10/07/2016] done at [facility] 2Result Comment: [06/10/2017] AI SORIANO [facility] [id number] 3Result Comment: [10/07/2016] done at [facility] Medications albuterol CFC free 90 mcg/inh inhalation aerosol 1, puffs, Inhalation, 4 times a day, PRN, # 25 Gm, Refills 0, Tot. Refills 0, Maintenance, 10/22/2310:50:00 EST, Aerosol, Route to Pharmacy Electronically, [id number], [facility] #[id number], 157.2, cm, 08/25/22 9:26:00... Start Date: 10/22/22 Status: Ordered cyclobenzaprine 5 mg oral tablet See Instructions, 1 tablet By Mouth 3 times a day prn x 7 days, # 21 each, 0 Refills, Maintenance, 05/06/23 12:45:00 EDT, Tablet, [facility] #[id number], Partial fill upon patient request if theprescription is for a schedule II opioid drug., 15... Start Date: 05/06/23 Status: Ordered docusate sodium 100 mg oral tablet = 100 mg, By Mouth, 2 times a day, # 180 tablet, 0 Refills, Maintenance, 04/23/23 12:03:00 EDT, Tablet, [facility] #[id number], Partial fill upon patient request if the prescription is for a schedule II opioid drug., 155, cm, 04/20/23 15:46:00 ED... Start Date: 04/23/23 Stop Date: 07/22/23 Status: Ordered fluticasone 50 mcg/inh nasal spray See Instructions, SHAKE LIQUID AND USE 1 SPRAY IN EACH NOSTRIL DAILY IN THE MORNING, # 48 Gm, 11 Refills, 10/22/22 11:49:00 EST, [facility] #[id number], 90, SHAKE LIQUID AND USE 1 SPRAY IN EACH NOSTRIL DAILY IN THE MORNING, 157.2, cm, 08/25/22 9:... Start Date: 10/22/22 Status: Ordered omeprazole 20 mg oral delayed release tablet 1 tablet = 20 mg, By Mouth, Daily, do not crush or chew. rake 30 min before Breakfast, # 30 tablet,1 Refills, Maintenance, 04/06/23 9:39:00 EDT, [facility] #[id number], 157.2, cm, 04/06/23 9:08:00 EDT, Height, 55.4, kg, 07/07/22 11:56:00 EDT, Start Date: 04/06/23 Stop Date: 06/05/23 Status: Ordered ondansetron 8 mg oral tablet, disintegrating 1 tablet = 8 mg, By Mouth, Every 8 hours, Take 1 tablet every 8 hours as needed for nausea/vomiting., # 30 tablet, 0 Refills, Maintenance, 04/09/23 13:34:00 EDT, [facility] #[id number], Partial fill upon patient request if the prescription is for... Start Date: 04/09/23 Status: Ordered polyethylene glycol 3350 oral powder for reconstitution = 17 Gm, By Mouth, Daily, PRN for constipation, dissolve in water before taking, # 255 Gm, 0 Refills, Maintenance, 04/23/23 12:04:00 EDT, REC Powder, [facility] #[id number], Partial fill upon patient request if the prescription is for a schedule... Start Date: 04/23/23 Status: Ordered ZyrTEC-D 5 mg-120 mg oral tablet, extended release 1 tablet, By Mouth, Every 24 hours, # 30 tablet, 2 Refills, Maintenance, 10/22/22 11:49:00 EST, ER Tablet, [facility] #[id number], Partial fill upon patient request if the prescription is for a schedule II opioid drug., 1 tablet By Mouth Every 24... Start Date: 10/22/22 Stop Date: 01/20/23 Status: Ordered Problem List Condition Confirmation Course Effective Dates Status H ealth Status Informant Suspicion of autism in the patient herself and in her first child Confirmed Active Chronic headache Confirmed Active [place] eye Confirmed Active Learning disability. She went [...] Associate Professional Member Role: PCP Address: Address: [address] [place] [address] Name: Karime Wray NP Position: Reference Physician Member Role: Primary Care Nurse Care Team Related Persons Name: KO ROOT Address: home [address] [place] [address] Name: YU MACK [facility] Address: home [address] [place] [address] [place] Name: YANNICK MACK [facility] Address: home [address] [place] [address] [place] Name: NICHOLAS MACK Address: home [address] [place] [id number]
--- OUTSIDE RECORDS SUMMARY | 2023-06-05 17:24 | XMS_ITS | Continuity of Care Document ---
Author Name Unknown Organization [facility] Address [address] [place] [address]- Care Team Providers Care House Painter Name Role Phone Melissa JEREZ, Minoo Primary Care Physician Encounter [facility] Date(s): 04/07/23 - 05/07/[address] [address]- Allergies, Adverse Reactions, Alerts No Known Medication Allergies Immunizations Given and Recorded Vaccine Date Status Refusal Reason tetanus/diphtheria/pertussis, acel(Tdap) 08/27/22 Recorded tetanus/diphtheria/pertussis, acel(Tdap) 09/06/19 Given tetanus/diphtheria/pertussis, acel(Tdap) 12/31/17 Given tetanus/diphtheria/pertussis, acel(Tdap) 04/18/15 Given tetanus/diphtheria/pertussis, acel(Tdap) 1 03/12/04 Recorded SARS-CoV-2 mRNA ([id number]) vax 11/21/21 Recorded influenza virus vaccine, inactivated [...] 03/12/11 Recorded 1Result Comment: [10/07/2016] done at [facility] 2Result Comment: [06/10/2017] AI SORIANO [facility] [id number] 3Result Comment: [10/07/2016] done at [facility] Medications albuterol CFC free 90 mcg/inh inhalation aerosol 1, puffs, Inhalation, 4 times a day, PRN, # 25 Gm, Refills 0, Tot. Refills 0, Maintenance, 10/22/2310:50:00 EST, Aerosol, Route to Pharmacy Electronically, [id number], [facility] #[id number], 157.2, cm, 08/25/22 9:26:00... Start Date: 10/22/22 Status: Ordered cyclobenzaprine 5 mg oral tablet See Instructions, 1 tablet By Mouth 3 times a day prn x 7 days, # 21 each, 0 Refills, Maintenance, 05/06/23 12:45:00 EDT, Tablet, [facility] #[id number], Partial fill upon patient request if theprescription is for a schedule II opioid drug., 15... Start Date: 05/06/23 Status: Ordered docusate sodium 100 mg oral tablet = 100 mg, By Mouth, 2 times a day, # 180 tablet, 0 Refills, Maintenance, 04/23/23 12:03:00 EDT, Tablet, [facility] #[id number], Partial fill upon patient request if the prescription is for a schedule II opioid drug., 155, cm, 04/20/23 15:46:00 ED... Start Date: 04/23/23 Stop Date: 07/22/23 Status: Ordered fluticasone 50 mcg/inh nasal spray See Instructions, SHAKE LIQUID AND USE 1 SPRAY IN EACH NOSTRIL DAILY IN THE MORNING, # 48 Gm, 11 Refills, 10/22/22 11:49:00 EST, [facility] #[id number], 90, SHAKE LIQUID AND USE 1 SPRAY IN EACH NOSTRIL DAILY IN THE MORNING, 157.2, cm, 08/25/22 9:... Start Date: 10/22/22 Status: Ordered omeprazole 20 mg oral delayed release tablet 1 tablet = 20 mg, By Mouth, Daily, do not crush or chew. rake 30 min before Breakfast, # 30 tablet,1 Refills, Maintenance, 04/06/23 9:39:00 EDT, [facility] #[id number], 157.2, cm, 04/06/23 9:08:00 EDT, Height, 55.4, kg, 07/07/22 11:56:00 EDT, Start Date: 04/06/23 Stop Date: 06/05/23 Status: Ordered ondansetron 8 mg oral tablet, disintegrating 1 tablet = 8 mg, By Mouth, Every 8 hours, Take 1 tablet every 8 hours as needed for nausea/vomiting., # 30 tablet, 0 Refills, Maintenance, 04/09/23 13:34:00 EDT, [facility] #[id number], Partial fill upon patient request if the prescription is for... Start Date: 04/09/23 Status: Ordered polyethylene glycol 3350 oral powder for reconstitution = 17 Gm, By Mouth, Daily, PRN for constipation, dissolve in water before taking, # 255 Gm, 0 Refills, Maintenance, 04/23/23 12:04:00 EDT, REC Powder, [facility] #[id number], Partial fill upon patient request if the prescription is for a schedule... Start Date: 04/23/23 Status: Ordered ZyrTEC-D 5 mg-120 mg oral tablet, extended release 1 tablet, By Mouth, Every 24 hours, # 30 tablet, 2 Refills, Maintenance, 10/22/22 11:49:00 EST, ER Tablet, [facility] #[id number], Partial fill upon patient request if the prescription is for a schedule II opioid drug., 1 tablet By Mouth Every 24... Start Date: 10/22/22 Stop Date: 01/20/23 Status: Ordered Problem List Condition Confirmation Course Effective Dates Status H ealth Status Informant Suspicion of autism in the patient herself and in her first child Confirmed Active Chronic headache Confirmed Active [place] eye Confirmed Active Learning disability. She went [...] Professional Member Role: PCP Address: Address: [address] [place] [address] Name: Karime Wray NP Position: Reference Physician Member Role: Primary Care Nurse Care Team Related Persons Name: KO ROOT Address: home [address] [place] [address] Name: YU MACK Address: [facility] Address: home [address] [place] [address] [place] Name: YANNICK MACK Address: [facility] Address: home [address] [place] [address] [place] Name: NICHOLAS MACK Address: home [address] [place] [address]
--- OUTSIDE RECORDS SUMMARY | 2023-06-05 17:25 | XMS_ITS | Continuity of Care Document ---
Author Name Unknown Organization [facility] Address [address] [place] [address]- Care Team Providers Care Color Drum Worker Name Role Phone Melissa JEREZ, Minoo Primary Care Physician [phone] Encounter [facility] Date(s): 04/08/23 - 05/08/[address] [address]- Allergies, Adverse Reactions, Alerts No Known Medication Allergies Immunizations Given and Recorded Vaccine Date Status Refusal Reason tetanus/diphtheria/pertussis, acel(Tdap) 08/27/22 Recorded tetanus/diphtheria/pertussis, acel(Tdap) 09/06/19 Given tetanus/diphtheria/pertussis, acel(Tdap) 12/31/17 Given tetanus/diphtheria/pertussis, acel(Tdap) 04/18/15 Given tetanus/diphtheria/pertussis, acel(Tdap) 1 03/12/04 Recorded SARS-CoV-2 mRNA (llypnjk-hged-pimcw) vax 11/21/21 Recorded influenza virus vaccine, inactivated [...] 03/12/11 Recorded 1Result Comment: [10/07/2016] done at [place] 2Result Comment: [06/10/2017] AI SORAINO [facility] [id number] 3Result Comment: [10/07/2016] done at [place] Medications albuterol CFC free 90 mcg/inh inhalation aerosol 1, puffs, Inhalation, 4 times a day, PRN, # 25 Gm, Refills 0, Tot. Refills 0, Maintenance, 10/22/2310:50:00 EST, Aerosol, Route to Pharmacy Electronically, [id number], [email or web address] #[id number], 157.2, cm, 08/25/22 9:26:00... Start Date: 10/22/22 Status: Ordered cyclobenzaprine 5 mg oral tablet See Instructions, 1 tablet By Mouth 3 times a day prn x 7 days, # 21 each, 0 Refills, Maintenance, 05/06/23 12:45:00 EDT, Tablet, [facility] #[id number], Partial fill upon patient request if theprescription is for a schedule II opioid drug., 15... Start Date: 05/06/23 Status: Ordered docusate sodium 100 mg oral tablet = 100 mg, By Mouth, 2 times a day, # 180 tablet, 0 Refills, Maintenance, 04/23/23 12:03:00 EDT, Tablet, [facility] #[id number], Partial fill upon patient request if the prescription is for a schedule II opioid drug., 155, cm, 04/20/23 15:46:00 ED... Start Date: 04/23/23 Stop Date: 07/22/23 Status: Ordered fluticasone 50 mcg/inh nasal spray See Instructions, SHAKE LIQUID AND USE 1 SPRAY IN EACH NOSTRIL DAILY IN THE MORNING, # 48 Gm, 11 Refills, 10/22/22 11:49:00 EST, [email or web address] #[id number], 90, SHAKE LIQUID AND USE 1 SPRAY IN EACH NOSTRIL DAILY IN THE MORNING, 157.2, cm, 08/25/22 9:... Start Date: 10/22/22 Status: Ordered omeprazole 20 mg oral delayed release tablet 1 tablet = 20 mg, By Mouth, Daily, do not crush or chew. rake 30 min before Breakfast, # 30 tablet,1 Refills, Maintenance, 04/06/23 9:39:00 EDT, [facility] #[id number], 157.2, cm, 04/06/23 9:08:00 EDT, Height, 55.4, kg, 07/07/22 11:56:00 EDT, Start Date: 04/06/23 Stop Date: 06/05/23 Status: Ordered ondansetron 8 mg oral tablet, disintegrating 1 tablet = 8 mg, By Mouth, Every 8 hours, Take 1 tablet every 8 hours as needed for nausea/vomiting., # 30 tablet, 0 Refills, Maintenance, 04/09/23 13:34:00 EDT, [email or web address] #[id number], Partial fill upon patient request if the prescription is for... Start Date: 04/09/23 Status: Ordered polyethylene glycol 3350 oral powder for reconstitution = 17 Gm, By Mouth, Daily, PRN for constipation, dissolve in water before taking, # 255 Gm, 0 Refills, Maintenance, 04/23/23 12:04:00 EDT, REC Powder, [email or web address] #[id number], Partial fill upon patient request if the prescription is for a schedule... Start Date: 04/23/23 Status: Ordered ZyrTEC-D 5 mg-120 mg oral tablet, extended release 1 tablet, By Mouth, Every 24 hours, # 30 tablet, 2 Refills, Maintenance, 10/22/22 11:49:00 EST, ER Tablet, [email or web address] #[id number], Partial fill upon patient request if the prescription is for a schedule II opioid drug., 1 tablet By Mouth Every 24... Start Date: 10/22/22 Stop Date: 01/20/23 Status: Ordered Problem List Condition Confirmation Course Effective Dates Status H ealth Status Informant Suspicion of autism in the patient herself and in her first child Confirmed Active Chronic headache Confirmed Active [place] eye Confirmed Active Learning disability. She went [...] Associate Professional Member Role: PCP Address: Address: [address] [place] [address] Name: Karime Wray NP Position: Reference Physician Member Role: Primary Care Nurse Care Team Related Persons Name: KO ROOT Address: home [address] [place] [address] Name: YU MACK Address: [facility] Address: home [address] [place] [id number] [place] Name: YANNICK MACK Address: [facility] Address: home [address] [place] [address] [place] Name: NICHOLAS MACK Address: home [address] [place] [address]
--- OUTSIDE RECORDS SUMMARY | 2023-06-05 17:25 | XMS_ITS | Continuity of Care Document ---
Author Name Unknown Organization [facility] Address [address] [place] [address]- Care Team Providers Care Cloth Washer Operator Name Role Phone Minoo Torres NP Primary Care Physician [place] [facility] Date(s): 05/31/23 - 05/31/[address] [address]- Encounter Diagnosis Vaginal bleeding, menses(Final) - 05/31/23 Discharge Disposition: A-D/C Home Attending Physician: Amy Lam MD Admitting Physician: Amy Lam MD Referring Physician: Not on Staff, Referring MD Allergies, Adverse Reactions, Alerts No Known Medication Allergies Immunizations Given and Recorded Vaccine Date Status Refusal Reason tetanus/diphtheria/pertussis, acel(Tdap) 08/27/22 Recorded tetanus/diphtheria/pertussis, acel(Tdap) 09/06/19 Given tetanus/diphtheria/pertussis, acel(Tdap) 12/31/17 Given tetanus/diphtheria/pertussis, acel(Tdap) 04/18/15 Given tetanus/diphtheria/pertussis, acel(Tdap) 1 03/12/04 Recorded SARS-CoV-2 mRNA (jwxjikx-kyow-ghpqb) vax 11/21/21 Recorded influenza virus vaccine, inactivated [...] 03/12/11 Recorded 1Result Comment: [10/07/2016] done at [place] 2Result Comment: [06/10/2017] AI SORIANO [facility] [id number] 3Result Comment: [10/07/2016] done at [place] Medications albuterol CFC free 90 mcg/inh inhalation aerosol 1, puffs, Inhalation, 4 times a day, PRN, # 25 Gm, Refills 0, Tot. Refills 0, Maintenance, 10/22/2310:50:00 EST, Aerosol, Route to Pharmacy Electronically, [id number], [facility] #[id number], 157.2, cm, 08/25/22 9:26:00... Start Date: 10/22/22 Status: Ordered cyclobenzaprine 5 mg oral tablet See Instructions, 1 tablet By Mouth 3 times a day prn x 7 days, # 21 each, 0 Refills, Maintenance, 05/06/23 12:45:00 EDT, Tablet, [facility] #[id number], Partial fill upon patient request if theprescription is for a schedule II opioid drug., 15... Start Date: 05/06/23 Status: Ordered docusate sodium 100 mg oral tablet = 100 mg, By Mouth, 2 times a day, # 180 tablet, 0 Refills, Maintenance, 04/23/23 12:03:00 EDT, Tablet, [facility] #[id number], Partial fill upon patient request if the prescription is for a schedule II opioid drug., 155, cm, 04/20/23 15:46:00 ED... Start Date: 04/23/23 Stop Date: 07/22/23 Status: Ordered fluticasone 50 mcg/inh nasal spray See Instructions, SHAKE LIQUID AND USE 1 SPRAY IN EACH NOSTRIL DAILY IN THE MORNING, # 48 Gm, 11 Refills, 10/22/22 11:49:00 EST, [facility] #[id number], 90, SHAKE LIQUID AND USE 1 SPRAY IN EACH NOSTRIL DAILY IN THE MORNING, 157.2, cm, 08/25/22 9:... Start Date: 10/22/22 Status: Ordered omeprazole 20 mg oral delayed release tablet 1 tablet = 20 mg, By Mouth, Daily, do not crush or chew. rake 30 min before Breakfast, # 30 tablet,1 Refills, Maintenance, 04/06/23 9:39:00 EDT, [facility] #[id number], 157.2, cm, 04/06/23 9:08:00 EDT, Height, 55.4, kg, 07/07/22 11:56:00 EDT, Start Date: 04/06/23 Stop Date: 06/05/23 Status: Ordered ondansetron 8 mg oral tablet, disintegrating 1 tablet = 8 mg, By Mouth, Every 8 hours, Take 1 tablet every 8 hours as needed for nausea/vomiting., # 30 tablet, 0 Refills, Maintenance, 04/09/23 13:34:00 EDT, [facility] #[id number], Partial fill upon patient request if the prescription is for... Start Date: 04/09/23 Status: Ordered polyethylene glycol 3350 oral powder for reconstitution = 17 Gm, By Mouth, Daily, PRN for constipation, dissolve in water before taking, # 255 Gm, 0 Refills, Maintenance, 04/23/23 12:04:00 EDT, REC Powder, [facility] #[id number], Partial fill upon patient request if the prescription is for a schedule... Start Date: 04/23/23 Status: Ordered ZyrTEC-D 5 mg-120 mg oral tablet, extended release 1 tablet, By Mouth, Every 24 hours, # 30 tablet, 2 Refills, Maintenance, 10/22/22 11:49:00 EST, ER Tablet, [facility] #[id number], Partial fill upon patient request if the prescription is for a schedule II opioid drug., 1 tablet By Mouth Every 24... Start Date: 10/22/22 Stop Date: 01/20/23 Status: Ordered Problem List Condition Confirmation Course Effective Dates Status H ealth Status Informant Suspicion of autism in the patient herself and in her first child Confirmed Active Chronic headache Confirmed Active [address] eye Confirmed Active Learning disability. She went [...] Exam Date Time Procedure Performing Provider Status 05/31/23 1:26 PM US Pelvic Transvaginal Misti Santa; Auth (Verified) Notes: (US Pelvic Transvaginal) Reason For Exam: Pelvic Pain;Other: RESULT: US Pelvic Transvaginal US Pelvic Transabdominal, US Pelvic Doppler Comp, US Pelvic Transvaginal Hx of Present Illness: pt states lower abd pain after having intercourse with partner last night ptstates 3 10 pain and noted vaginal bleeding also noted buring on urination pt states period are irregular and not she if its jsut her peiord. pt denies any chance of ; Reason: Other:; PelvicPain; Clinical Question(s): Torsion; Order Comment: US Pelvic Non-Ob Comp Prep COMPARISON: 05/13/2023 TECHNIQUE: Transabdominal and transvaginal pelvic ultrasound with grayscale, color Doppler, and spectral Doppler analysis. FINDINGS: UTERUS: Size: 7.7 x 4.3 x 4.6 cm, volume 79.7 cc. Endometrial thickness: 1.0 cm. Morphology: Normal configuration and echotexture. RIGHT OVARY: Size: 3.0 x 2.2 x 2.6 cm, volume 8.8 cc. Morphology: Normal echotexture. No pathologic cysts or mass. Normal arterial and venous waveforms. LEFT OVARY: Size: 4.4 x 3.9 x 3.6 cm, volume 31.8 cc. Morphology: Normal echotexture. Simple ovarian cyst measuring 4.1 x 3.1 x 3.4 cm. Normal arterial and venous waveforms. ADNEXA: Normal. No adnexal masses or fluid collections. IMPRESSION: Simple left ovarian cyst measuring 4.1 x 3.1 x 3.4 cm Normal spectral waveforms to each ovary on Doppler evaluation WSN: [id number] Ordering Physician: Amy Lam Dictated By: Darius Nam Jr, MD Dictated Date/Time: 05/31/23 1:50 pm Reviewed By: Darius Nam Jr, MD Signed By: Darius Nam Jr, MD Signed Date/Time: 05/31/23 1:50 pm Transcribed By: PATRICIA Transcribed Date/Time: 05/31/23 1:45 pm * Exam Date Time Procedure Performing Provider Status 05/31/23 1:26 PM US Pelvic Doppler Comp Misti Santa; Logan (Verified) Notes: (US Pelvic Doppler Comp) Reason For Exam: Pelvic Pain;Other: RESULT: US Pelvic Doppler Comp US Pelvic Transabdominal, US Pelvic Doppler Comp, US Pelvic Transvaginal Hx of Present Illness: pt states lower abd pain after having intercourse with partner last night ptstates 3 10 pain and noted vaginal bleeding also noted buring on urination pt states period are irregular and not she if its jsut her peiord. pt denies any chance of ; Reason: Other:; PelvicPain; Clinical Question(s): Torsion; Order Comment: US Pelvic Non-Ob Comp Prep COMPARISON: 05/13/2023 TECHNIQUE: Transabdominal and transvaginal pelvic ultrasound with grayscale, color Doppler, and spectral Doppler analysis. FINDINGS: UTERUS: Size: 7.7 x 4.3 x 4.6 cm, volume 79.7 cc. Endometrial thickness: 1.0 cm. Morphology: Normal configuration and echotexture. RIGHT OVARY: Size: 3.0 x 2.2 x 2.6 cm, volume 8.8 cc. Morphology: Normal echotexture. No pathologic cysts or mass. Normal arterial and venous waveforms. LEFT OVARY: Size: 4.4 x 3.9 x 3.6 cm, volume 31.8 cc. Morphology: Normal echotexture. Simple ovarian cyst measuring 4.1 x 3.1 x 3.4 cm. Normal arterial and venous waveforms. ADNEXA: Normal. No adnexal masses or fluid collections. IMPRESSION: Simple left ovarian cyst measuring 4.1 x 3.1 x 3.4 cm Normal spectral waveforms to each ovary on Doppler evaluation WSN: [id number] Ordering Physician: Amy Lam Dictated By: Darius Nam Jr, MD Dictated Date/Time: 05/31/23 1:50 pm Reviewed By: Darius Nam Jr, MD Signed By: Darius Nam Jr, MD Signed Date/Time: 05/31/23 1:50 pm Transcribed By: PATRICIA Transcribed Date/Time: 05/31/23 1:45 pm * Exam Date Time Procedure Performing Provider Status 05/31/23 1:26 PM US Pelvic Transabdominal Sarah Santa brandon; Auth (Verified) Notes: (US Pelvic Transabdominal) Reason For Exam: Pelvic Pain;Other: RESULT: US Pelvic Transabdominal US Pelvic Transabdominal, US Pelvic Doppler Comp, US Pelvic Transvaginal Hx of Present Illness: pt states lower abd pain after having intercourse with partner last night ptstates 3 10 pain and noted vaginal bleeding also noted buring on urination pt states period are irregular and not she if its jsut her peiord. pt denies any chance of ; Reason: Other:; PelvicPain; Clinical Question(s): Torsion; Order Comment: US Pelvic Non-Ob Comp Prep COMPARISON: 05/13/2023 TECHNIQUE: Transabdominal and transvaginal pelvic ultrasound with grayscale, color Doppler, and spectral Doppler analysis. FINDINGS: UTERUS: Size: 7.7 x 4.3 x 4.6 cm, volume 79.7 cc. Endometrial thickness: 1.0 cm. Morphology: Normal configuration and echotexture. RIGHT OVARY: Size: 3.0 x 2.2 x 2.6 cm, volume 8.8 cc. Morphology: Normal echotexture. No pathologic cysts or mass. Normal arterial and venous waveforms. LEFT OVARY: Size: 4.4 x 3.9 x 3.6 cm, volume 31.8 cc. Morphology: Normal echotexture. Simple ovarian cyst measuring 4.1 x 3.1 x 3.4 cm. Normal arterial and venous waveforms. ADNEXA: Normal. No adnexal masses or fluid collections. IMPRESSION: Simple left ovarian cyst measuring 4.1 x 3.1 x 3.4 cm Normal spectral waveforms to each ovary on Doppler evaluation WSN: [id number] Ordering Physician: Amy Lam Dictated By: Darius Nam Jr, MD Dictated Date/Time: 05/31/23 1:50 pm Reviewed By: Darius Nam Jr, MD Signed By: Darius Nam Jr, MD Signed Date/Time: 05/31/23 1:50 pm Transcribed By: PATRICIA Transcribed Date/Time: 05/31/23 1:45 pm Vital Signs Most recent to oldest [Reference Range]: 1 2 Height 155 cm (05/31/23 9:03 AM) Oxygen Saturation [94-100 %] 99 % (05/31/23 9:03 AM) 97 % (05/31/23 9:01 AM) Pulse Rate [55-90 bpm] 81 bpm (05/31/23 9:03 AM) 116 bpm *H* (05/31/23 9:01 AM) Blood Pressure [90-138/55-84 mm Hg] 121/ 80mm Hg (05/31/23 9:03 AM) Respiratory Rate [16-30 br/min] 18 br/mi n (05/31/23 9:03 AM) Temperature [96.8-100.4 DegF] 97.7 DegF (05/31/23 9:03 AM) Mode of Delivery (Oxygen) Room air (05/31/23 9:03 AM) Room air (05/31/23 9:01 AM) Blood pressure sites Arm, right (05/31/23 9:03 AM) Temperature Route Oral (05/31/23 9:03 AM) Dry Weight 51 kg (05/31/23 9:03 AM) Social History Social History Type Response Smoking Status Never (less than 100 in lifetime); Tobacco user in household: No entered on: 04/27/19 Sex Patient Care team information Care Team Personnel Name: Minoo Torres NP Position: [facility] PCO Associate Professional Member Role: PCP Address: Address: [address] [place] [address] Name: Karime Wray NP Position: Reference Physician Member Role: Primary Care Nurse Name: Amy Lam MD Position: [facility] ED Medicine MD Member Role: Admitting Physician Address: Address: [address] [place] [address] Name: Lorena Fowler RN Position: [facility] ED RN W/OE and Tasks Member Role: Patient Care Provider Name: Richard Lizarraga Position: [facility] Associate Professional Member Role: ED Physician Tapper Hand Address: Address: [address] [place] [address] Care Team Related Persons Name: KO ROOT Address: home [address] [place] [address] Name: YU MACK Address: [employer] Address: home [address] [address] Name: YANNICK MACK Address: [employer] Address: home [address] [address] [place] Name: NICHOLAS MACK Address: home [address] [address]
--- OUTSIDE RECORDS SUMMARY | 2023-06-05 17:25 | XMS_ITS | Continuity of Care Document ---
Author Name Unknown Organization [facility] Address [address] [place] [address]- Care Team Providers Care Sales Development Consultant Name Role Phone Florence Vasquez NP Primary Care Physici an Encounter [facility] Date(s): 02/19/23 - 03/21/[address] [address]- Allergies, Adverse Reactions, Alerts No Known Medication Allergies Immunizations Given and Recorded Vaccine Date Status Refusal Reason tetanus/diphtheria/pertussis, acel(Tdap) 08/27/22 Recorded tetanus/diphtheria/pertussis, acel(Tdap) 09/06/19 Given tetanus/diphtheria/pertussis, acel(Tdap) 12/31/17 Given tetanus/diphtheria/pertussis, acel(Tdap) 04/18/15 Given tetanus/diphtheria/pertussis, acel(Tdap) 1 03/12/04 Recorded SARS-CoV-2 mRNA ([id number]-vmxd-dyqrs) vax 11/21/21 Recorded influenza virus vaccine, inactivated [...] 03/12/11 Recorded 1Result Comment: [10/07/2016] done at [place] 2Result Comment: [06/10/2017] AI SORIANO [facility] [id number] 3Result Comment: incorrect date 4Result Comment: [10/07/2016] done at [place] Medications albuterol CFC free 90 mcg/inh inhalation aerosol 1, puffs, Inhalation, 4 times a day, PRN, # 25 Gm, Refills 0, Tot. Refills 0, Maintenance, 10/22/2310:50:00 EST, Aerosol, Route to Pharmacy Electronically, [id number], [facility] #[id number], 157.2, cm, 08/25/22 9:26:00... Start Date: 10/22/22 Status: Ordered Claritin 10 mg oral tablet 10 mg, 1, tablet, By Mouth, Daily, # 30 tablet, Refills 0, Tot. Refills 0, Maintenance, 10/28/21 15:55:00 EST, Route to Pharmacy Electronically, [facility] #[id number], Partial fill upon patientrequest if the prescription is for a schedule II op... Start Date: 10/28/21 Status: Ordered cyclobenzaprine 10 mg oral tablet 10 mg, 1, tablet, By Mouth, Daily, PRN, As needed for muscle pain/ muscle spasm. caution: can causesleepiness, # 30 tablet, Refills 1, Tot. Refills 1, Maintenance, Pain , Mild, 04/09/22 12:13:00 EDT, Route to Pharmacy Electronically, [facility]... Start Date: 04/09/22 Status: Ordered fluconazole 150 mg oral tablet 1 tablet = 150 mg, By Mouth, Once, epeat dose if still having symptoms in 72 hours, # 2 tablet, 0 Refills, Soft Stop, 04/07/22 16:30:00 EDT, Tablet, [facility] #[id number], Partial fill upon patient request if the prescription is for a schedule I... Start Date: 04/07/22 Status: Ordered fluticasone 50 mcg/inh nasal spray See Instructions, SHAKE LIQUID AND USE 1 SPRAY IN EACH NOSTRIL DAILY IN THE MORNING, # 48 Gm, 11 Refills, 10/22/22 11:49:00 EST, [facility] #[id number], 90, SHAKE LIQUID AND USE 1 SPRAY IN EACH NOSTRIL DAILY IN THE MORNING, 157.2, cm, 08/25/22 9:... Start Date: 10/22/22 Status: Ordered ZyrTEC-D 5 mg-120 mg oral tablet, extended release 1 tablet, By Mouth, Every 24 hours, # 30 tablet, 2 Refills, Maintenance, 10/22/22 11:49:00 EST, ER Tablet, [facility] #[id number], Partial fill upon patient request if the prescription is for a schedule II opioid drug., 1 tablet By Mouth Every 24... Start Date: 10/22/22 Stop Date: 01/20/23 Status: Ordered Problem List Condition Confirmation Course Effective Dates Status H ealth Status Informant Suspicion of autism in the patient herself and in her first child Confirmed Active Chronic headache Confirmed Active [place] eye Confirmed Active Learning disability. She went [...] Team Personnel Name: Florence Vasquez NP Position: [facility] PCO Associate Professional Member Role: PCP Address: Address: [address] [place] [address] Name: Karime Wray NP Position: Reference Physician Member Role: Primary Care Nurse Care Team Related Persons Name: ROOTKO Address: home [address] [place], [place] Name: YU MACK Address: [employer] Address: [address] [place] Name: YANNICK MACK Address: [employer] Address: home [address] [place] Name: NICHOLAS MACK Address: home [address] [address]
--- OUTSIDE RECORDS SUMMARY | 2023-06-05 17:25 | XMS_ITS | Continuity of Care Document ---
Author Name Unknown Organization [facility] Address [address] [place] [address]- Care Team Providers Care Food Demonstrator Name Role Phone Melissa JEREZ, Minoo Primary Care Physician Encounter [facility] Date(s): 03/06/23 - 04/05/[address] [address]- Allergies, Adverse Reactions, Alerts No Known Medication Allergies Immunizations Given and Recorded Vaccine Date Status Refusal Reason tetanus/diphtheria/pertussis, acel(Tdap) 08/27/22 Recorded tetanus/diphtheria/pertussis, acel(Tdap) 09/06/19 Given tetanus/diphtheria/pertussis, acel(Tdap) 12/31/17 Given tetanus/diphtheria/pertussis, acel(Tdap) 04/18/15 Given tetanus/diphtheria/pertussis, acel(Tdap) 1 03/12/04 Recorded SARS-CoV-2 mRNA ([id number]-thhs-tdnpo) vax 11/21/21 Recorded influenza virus vaccine, inactivated [...] 03/12/11 Recorded 1Result Comment: [10/07/2016] done at [place] 2Result Comment: [06/10/2017] AI SORIANO [facility] [id number] 3Result Comment: incorrect date 4Result Comment: [10/07/2016] done at [place] Medications albuterol CFC free 90 mcg/inh inhalation aerosol 1, puffs, Inhalation, 4 times a day, PRN, # 25 Gm, Refills 0, Tot. Refills 0, Maintenance, 10/22/2310:50:00 EST, Aerosol, Route to Pharmacy Electronically, [id number], [facility] #[id number], 157.2, cm, 08/25/22 9:26:00... Start Date: 10/22/22 Status: Ordered Claritin 10 mg oral tablet 10 mg, 1, tablet, By Mouth, Daily, # 30 tablet, Refills 0, Tot. Refills 0, Maintenance, 10/28/21 15:55:00 EST, Route to Pharmacy Electronically, [facility] #[id number], Partial fill upon patientrequest if the prescription is for a schedule II op... Start Date: 10/28/21 Status: Ordered cyclobenzaprine 10 mg oral tablet 10 mg, 1, tablet, By Mouth, Daily, PRN, As needed for muscle pain/ muscle spasm. caution: can causesleepiness, # 30 tablet, Refills 1, Tot. Refills 1, Maintenance, Pain , Mild, 04/09/22 12:13:00 EDT, Route to Pharmacy Electronically, [facility]... Start Date: 04/09/22 Status: Ordered fluconazole 150 mg oral tablet 1 tablet = 150 mg, By Mouth, Once, epeat dose if still having symptoms in 72 hours, # 2 tablet, 0 Refills, Soft Stop, 04/07/22 16:30:00 EDT, Tablet, [facility] #[id number], Partial fill upon patient request if the prescription is for a schedule I... Start Date: 04/07/22 Status: Ordered fluticasone 50 mcg/inh nasal spray See Instructions, SHAKE LIQUID AND USE 1 SPRAY IN EACH NOSTRIL DAILY IN THE MORNING, # 48 Gm, 11 Refills, 10/22/22 11:49:00 EST, [facility] #[id number], 90, SHAKE LIQUID AND USE 1 SPRAY IN EACH NOSTRIL DAILY IN THE MORNING, 157.2, cm, 08/25/22 9:... Start Date: 10/22/22 Status: Ordered ZyrTEC-D 5 mg-120 mg oral tablet, extended release 1 tablet, By Mouth, Every 24 hours, # 30 tablet, 2 Refills, Maintenance, 10/22/22 11:49:00 EST, ER Tablet, [facility] #[id number], Partial fill upon patient request if the prescription is for a schedule II opioid drug., 1 tablet By Mouth Every 24... Start Date: 10/22/22 Stop Date: 01/20/23 Status: Ordered Problem List Condition Confirmation Course Effective Dates Status H ealth Status Informant Suspicion of autism in the patient herself and in her first child Confirmed Active Chronic headache Confirmed Active [place] eye Confirmed Active Learning disability. She went [...] Associate Professional Member Role: PCP Address: Address: [address] [place] [address] Name: Karime Wray NP Position: Reference Physician Member Role: Primary Care Nurse Care Team Related Persons Name: KO ROOT Address: home [address] [place], [place] Name: YU MACK Address: [employer] Address: home [address] [place] Name: YANNICK MACK Address: [employer] Address: home [address] [place] Name: NICHOLAS MACK Address: home [address] [address]
--- OUTSIDE RECORDS SUMMARY | 2023-06-05 17:25 | XMS_ITS | Continuity of Care Document ---
Author Name Unknown Organization [facility] Address [address] [place] [address]- Care Team Providers Care Nut Process Helper Name Role Phone Melissa JEREZ, [place] Primary Care Physician Encounter [facility] Date(s): 04/29/23 - 05/29/[address] [address]- Allergies, Adverse Reactions, Alerts No Known Medication Allergies Immunizations Given and Recorded Vaccine Date Status Refusal Reason tetanus/diphtheria/pertussis, acel(Tdap) 08/27/22 Recorded tetanus/diphtheria/pertussis, acel(Tdap) 09/06/19 Given tetanus/diphtheria/pertussis, acel(Tdap) 12/31/17 Given tetanus/diphtheria/pertussis, acel(Tdap) 04/18/15 Given tetanus/diphtheria/pertussis, acel(Tdap) 1 03/12/04 Recorded SARS-CoV-2 mRNA ([id number]) vax 11/21/21 Recorded influenza virus vaccine, inactivated [...] 03/12/11 Recorded 1Result Comment: [10/07/2016] done at [facility] 2Result Comment: [06/10/2017] [facility] [place] [id number] 3Result Comment: [10/07/2016] done at [facility] Medications albuterol CFC free 90 mcg/inh inhalation aerosol 1, puffs, Inhalation, 4 times a day, PRN, # 25 Gm, Refills 0, Tot. Refills 0, Maintenance, 10/22/2310:50:00 EST, Aerosol, Route to Pharmacy Electronically, [id number], [facility] #[id number], 157.2, cm, 08/25/22 9:26:00... Start Date: 10/22/22 Status: Ordered cyclobenzaprine 5 mg oral tablet See Instructions, 1 tablet By Mouth 3 times a day prn x 7 days, # 21 each, 0 Refills, Maintenance, 05/06/23 12:45:00 EDT, Tablet, [facility] #[id number], Partial fill upon patient request if theprescription is for a schedule II opioid drug., 15... Start Date: 05/06/23 Status: Ordered docusate sodium 100 mg oral tablet = 100 mg, By Mouth, 2 times a day, # 180 tablet, 0 Refills, Maintenance, 04/23/23 12:03:00 EDT, Tablet, [facility] #[id number], Partial fill upon patient request if the prescription is for a schedule II opioid drug., 155, cm, 04/20/23 15:46:00 ED... Start Date: 04/23/23 Stop Date: 07/22/23 Status: Ordered fluticasone 50 mcg/inh nasal spray See Instructions, SHAKE LIQUID AND USE 1 SPRAY IN EACH NOSTRIL DAILY IN THE MORNING, # 48 Gm, 11 Refills, 10/22/22 11:49:00 EST, [facility] #[id number], 90, SHAKE LIQUID AND USE 1 SPRAY IN EACH NOSTRIL DAILY IN THE MORNING, 157.2, cm, 08/25/22 9:... Start Date: 10/22/22 Status: Ordered omeprazole 20 mg oral delayed release tablet 1 tablet = 20 mg, By Mouth, Daily, do not crush or chew. rake 30 min before Breakfast, # 30 tablet,1 Refills, Maintenance, 04/06/23 9:39:00 EDT, [facility] #[id number], 157.2, cm, 04/06/23 9:08:00 EDT, Height, 55.4, kg, 07/07/22 11:56:00 EDT, Start Date: 04/06/23 Stop Date: 06/05/23 Status: Ordered ondansetron 8 mg oral tablet, disintegrating 1 tablet = 8 mg, By Mouth, Every 8 hours, Take 1 tablet every 8 hours as needed for nausea/vomiting., # 30 tablet, 0 Refills, Maintenance, 04/09/23 13:34:00 EDT, [facility] #[id number], Partial fill upon patient request if the prescription is for... Start Date: 04/09/23 Status: Ordered polyethylene glycol 3350 oral powder for reconstitution = 17 Gm, By Mouth, Daily, PRN for constipation, dissolve in water before taking, # 255 Gm, 0 Refills, Maintenance, 04/23/23 12:04:00 EDT, REC Powder, [facility] #[id number], Partial fill upon patient request if the prescription is for a schedule... Start Date: 04/23/23 Status: Ordered ZyrTEC-D 5 mg-120 mg oral tablet, extended release 1 tablet, By Mouth, Every 24 hours, # 30 tablet, 2 Refills, Maintenance, 10/22/22 11:49:00 EST, ER Tablet, [facility] #[id number], Partial fill upon patient request if the prescription is for a schedule II opioid drug., 1 tablet By Mouth Every 24... Start Date: 10/22/22 Stop Date: 01/20/23 Status: Ordered Problem List Condition Confirmation Course Effective Dates Status H ealth Status Informant Suspicion of autism in the patient herself and in her first child Confirmed Active Chronic headache Confirmed Active [place] [facility] Confirmed Active Learning disability. She went [...] Associate Professional Member Role: PCP Address: Address: [address] [place] [address] Name: Karime Wray NP Position: Reference Physician Member Role: Primary Care Nurse Care Team Related Persons Name: KO ROOT Address: home [address] [place] [address] Name: YU MACK Address: [facility] Address: home [address] [address] [place] Name: YANNICK MACK Address: [facility] Address: home [address] [place] [id number] [place] Name: NICHOLAS MACK Address: home [address] [place] [address]
[2023-06-05 17:47] LABS: MANUAL DIFF FLAG NO
[2023-06-05 17:49] LABS: Basophils Absolute Auto 0.1 X10*3/uL (0.0-0.2); Basophils Percent Auto 0.9 % (0-2); Eosinophils Absolute Auto 0.2 X10*3/uL (0.0-0.4); Eosinophils Percent Auto 1.9 % (0-4); Hematocrit 43.8 % (37.0-47.0); Hemoglobin 14.9 g/dl (12.0-16.0); Imm Gran Abs Auto 0.02 X10*3/uL (0.00-0.03); Imm Gran Pct Auto 0.3 % (0.0-0.4); Lymphocytes Absolute Auto 1.6 X10*3/uL (1.2-4.9); Lymphocytes Percent Auto 20.1 % (20-40); Mean Corpuscular Hemoglobin 29.6 pg (27.0-33.0); Mean Corpuscular Volume 87.1 fL (80.0-98.0); Mean Platelet Volume 9.5 fL (9.4-12.3); Monocytes Absolute Auto 0.4 X10*3/uL (0.1-1.2); Monocytes Percent Auto 5.1 % (2-11); Neutrophils Absolute Auto 5.6 x10*3/uL (2.0-8.3); Neutrophils Percent Auto 71.7 % (45-73); Platelet Count 287 X10*3/uL (160-400); Red Blood Count 5.03 X10*6/uL (4.20-5.50); Red Cell Distribution Width 12.4 % (11.0-16.0); White Blood Count 7.9 X10*3/uL (4.8-10.8)
[2023-06-05 18:01] LABS: Alanine Aminotransferase 30 U/L (0-31); Albumin Level 4.6 g/dL (3.5-5.0); Alkaline Phosphatase 75 U/L (39-117); Anion Gap 12 (12-20); Aspartate Amino Transferase 20 U/L (5-31); Bilirubin Total 0.8 mg/dL (0.0-1.0); Blood Urea Nitrogen 11 mg/dL (9-16); Calcium 9.7 mg/dL (8.4-10.2); Carbon Dioxide 28 mmol/L (22-29); Chloride 106 mmol/L (96-108); Creatinine Clr Calc Pharmacy 75.7; Estimated Glomerular Filt Rate > 60; Glucose Random 84 mg/dL (60-115); Potassium 4.3 mmol/L (3.3-5.1); Sodium 142 mmol/L (135-145); Total Protein 7.2 g/dL (6.5-8.0)
[2023-06-05 18:07] LABS: HCG Quantitative < 2 mIU/mL; Troponin-I High Sensitivity < 2.7 ng/L (<3.5-17.0)
[2023-06-05 20:36] VITALS: BP 126/81; PULSE 78; RESP 16; TEMP 36.9; O2SAT 99
--- NOTE | 2023-06-05 20:41 | MHC.EDTECH ---
THIS PCT JUST ASSUMED CARE OF PT ,VITALS SIGN TAKEN AND PATIENT WAS HOOKED UP TO DEPUTY COMMISSIONER ,RN IN ROOM TALKING TO PATIENT .
[2023-06-05 21:40] VITALS: PULSE 82
--- NOTE | 2023-06-05 21:46 | ED_ITS ---
HPI - Chest Pain General Chief Complaint: Chest Pain Stated Complaint: Chest pain Time Seen by Provider: 06/05/23 20:39 History of Present Illness HPI narrative: Patient is a 28-year-old female present today with having chest pain on the left side it has been constant for the last 24-48 hours. It is not affected with deep breath. It is not a sub so shaded with shortness of breath. Not associated with diaphoresis. No long distance travel. No history of blood clots. Not on control pills. Patient denies any fever chills. No coughing or congestion or respiratory symptoms. She had history of similar pain in the chest in the past. Is no specific trigger. Patient had a previous echo done which were okay per patient. No diaphoresis. She has no history of diabetes, hypertension, high cholesterol, smoking, [place]. No family history of coronary artery disease. Related Data Previous Rx's Medication Instructions Recorded naproxen 500 mg tablet (Naprosyn) 500 mg PO BID #20 tabs 08/02/20 ibuprofen 600 mg tablet 600 mg PO Q6H PRN pain #20 tabs 11/22/20 cyclobenzaprine 10 mg tablet 10 mg PO TID PRN muscle spasm #14 02/06/21 tabs ondansetron 4 mg disintegrating 4 mg PO Q8H PRN nausea and 02/06/21 tablet vomiting #20 tabs acetaminophen 500 mg tablet 1,000 mg (2 x 500 mg) PO QID PRN 08/06/21 (Tylenol Extra Strength) fever or pain #14 tabs cyclobenzaprine 10 mg tablet 10 mg PO Q8H PRN Muscle spasm #14 08/06/21 tabs amoxicillin 500 mg tablet 500 mg PO BID #20 tabs 08/13/21 ibuprofen 600 mg tablet 600 mg PO Q8H PRN fever or pain 08/13/21 #20 tabs fluticasone propionate 50 1 spray intranasal BID #1 units 10/11/21 mcg/actuation nasal spray,suspension (Flonase Allergy Relief) codeine 10 mg-guaifenesin 100 mg/5 10 ml PO Q6-8H PRN Cough #240 mL 10/14/21 mL oral liquid acetaminophen 500 mg tablet 1,000 mg (2 x 500 mg) PO Q6H PRN 12/23/21 (Tylenol Extra Strength) pain #240 tabs ibuprofen 400 mg tablet 400 mg PO Q6H PRN pain #240 tabs 12/23/21 naproxen 500 mg tablet 500 mg PO BID PRN pain 10 days #20 06/03/22 tabs amoxicillin 875 mg-potassium 1 tab PO BID dog bit #10 tabs 08/27/22 clavulanate 125 mg tablet famotidine 20 mg tablet 20 mg PO BID #30 tabs 12/01/22 ondansetron 4 mg disintegrating 4 mg PO Q8H PRN nausea and 12/01/22 tablet vomiting #14 tabs prednisone 20 mg tablet 20 mg PO DAILY #4 tabs 02/25/23 prednisone 20 mg tablet 40 mg (2 x 20 mg) PO DAILY #10 tabs 03/01/23 Allergies Allergy/AdvReac Type Severity Reaction Status Date / Time No Known Allergies Allergy Verified 06/05/23 17:19 Review of Systems 2 Review of Systems: Positive left-sided chest pain Yes all other systems are reviewed and are negative [facility] Past Medical History Medical History No known health problems Social History Social History Alcohol intake: current Alcohol intake frequency: holidays/special occasions only Alcohol type: wine Smoked in Last 30 Days: No Use of substances other than those prescribed or required for medical reasons: No Advance Directives: No Advance Directives Information Provided: No Patient : No Physical Exam 2 Vital Signs: Vital Signs: Last Vital Signs Temp 98.5 F 06/05/23 20:36 Pulse 78 06/05/23 20:36 Resp 16 06/05/23 20:36 BP 126/81 06/05/23 20:36 Pulse Ox 99 06/05/23 20:36 O2 Del Method Room Air 06/05/23 20:36 BMI result Body Mass Index 20.8 Appearance: Alert. Oriented X3. No acute distress. Eyes: Pupils equal, round and reactive to light. ENT: Pharynx normal. Neck: Normal inspection. Neck supple. No lymph nodes noted. No crepitus CVS: Normal heart rate and rhythm. Pulses normal. Normal S1 and S2 Respiratory: No respiratory distress. Breath sounds normal. No Wheezing. No rales Abdomen: Soft and nontender. No rigidity. No distention. good BS x4 Skin: Skin warm and dry. Normal skin color. Normal skin turgor. Extremities: No lower extremity edema. Neurovascular intact to all extremities. No Lacerations. No Rash Neuro: Oriented X 3. No motor deficit. No sensory deficit. Moving all extermities. No slurred speech Medical Decision Making Medical Decision Making [facility] Narrative: Patient well appearing no acute distress. Has no cardiac risk factor. Patient's troponin is negative. Chest pain has been ongoing for 24 hours. Pain is atypical. She is 28 years old. Her heart score is less than 3. Unlikely secondary to ACS. Will still have patient follow-up on an outpatient basis with Cardiology. Chest x-ray showed no evidence of pneumonia no evidence for pneumothorax. My interpretation patient's EKG showed a sinus rhythm heart rate is 90 OH QRS QTC within normal limits there is no acute ST segment elevation. My interpretation patient's chest x-ray was negative for pneumonia pneumothorax. Differential Diagnosis Differential Diagnoses: The differential diagnosis associated with the presentation includes Pneumonia pneumothorax PE cardiac causes, musculoskeletal chest pain Lab Data [facility] Lab Attestation statement: I reviewed the patient's lab results. 06/05/23 17:42 06/05/23 17:42 Labs: Lab Results 06/05/23 Range/Units 17:42 WBC 7.9 (4.8-10.8) X10*3/uL RBC 5.03 (4.20-5.50) X10*6/uL Hgb 14.9 (12.0-16.0) g/dl Hct 43.8 (37.0-47.0) % MCV 87.1 (80.0-98.0) fL MCH 29.6 (27.0-33.0) pg MCHC 34.0 (31.0-35.0) g/dl RDW 12.4 (11.0-16.0) % Plt Count 287 (160-400) X10*3/uL MPV 9.5 (9.4-12.3) fL Immature Gran % (Auto) 0.3 (0.0-0.4) % Neut % (Auto) 71.7 (45-73) % Lymph % (Auto) 20.1 (20-40) % [place] % (Auto) 5.1 (2-11) % Eos % (Auto) 1.9 (0-4) % Baso % (Auto) 0.9 (0-2) % Lymph # (Auto) 1.6 (1.2-4.9) X10*3/uL [place] # (Auto) 0.4 (0.1-1.2) X10*3/uL Eos # (Auto) 0.2 (0.0-0.4) X10*3/uL Baso # (Auto) 0.1 (0.0-0.2) X10*3/uL Abs Immat Gran (auto) 0.02 (0.00-0.03) X10*3/uL Absolute Neuts (auto) 5.6 (2.0-8.3) x10*3/uL Absolute Nucleated RBC 0.000 (0.0-0.012) X10*3/uL Nucleated RBC % (auto) 0.0 (0.0-0.2) /100WBC Sodium 142 (135-145) mmol/L Potassium 4.3 (3.3-5.1) mmol/L Chloride 106 (96-108) mmol/L Carbon Dioxide 28 (22-29) mmol/L Anion Gap 12 (12-20) BUN 11 (9-16) mg/dL Creatinine 0.82 (0.5-1.4) mg/dL Estim Creat Clear Calc 75.7 Estimated GFR > 60 Random Glucose 84 (60-115) mg/dL Calcium 9.7 (8.4-10.2) mg/dL Total Bilirubin 0.8 (0.0-1.0) mg/dL AST 20 (5-31) U/L ALT 30 (0-31) U/L Alkaline Phosphatase 75 (39-117) U/L Troponin I High Sens < 2.7 (<3.5-17.0) ng/L Total Protein 7.2 (6.5-8.0) g/dL Albumin 4.6 (3.5-5.0) g/dL Beta HCG, Quant < 2 mIU/mL Independent Interpretation I performed an independent interpretation of an: EKG and Plain X-Ray (Negative for pneumonia pneumothorax) Interpretation: Sinus heart rate is 90 OH QRS QTC within normal limits there is no acute ST Radiology Impression Discussion of test interpretation with radiology: I have reviewed the radiologist's reading. External Record Review External record reviewed: Office record Discharge Plan Discharge Clinical Impression: Chest pain Patient Disposition: Home, Self-Care Instructions: Chest Pain (ED) Prescriptions: No Action naproxen [Naprosyn] 500 mg tablet 500 mg PO BID Qty: 20 0RF ibuprofen 600 mg tablet 600 mg PO Q6H PRN (Reason: pain) Qty: 20 0RF cyclobenzaprine 10 mg tablet 10 mg PO TID PRN (Reason: muscle spasm) Qty: 14 0RF ondansetron 4 mg tablet,disintegrating 4 mg PO Q8H PRN (Reason: nausea and vomiting) Qty: 20 0RF amoxicillin 500 mg tablet 500 mg PO BID Qty: 20 0RF ibuprofen 600 mg tablet 600 mg PO Q8H PRN (Reason: fever or pain) Qty: 20 0RF fluticasone propionate [Flonase Allergy Relief] 50 mcg/actuation spray,suspension 1 spray intranasal BID Qty: 1 0RF Rx Instructions: administer into each nostril codeine-guaifenesin 10-100 mg/5 mL liquid 10 ml PO Q6-8H PRN (Reason: Cough) Qty: 240 0RF naproxen 500 mg tablet 500 mg PO BID PRN (Reason: pain) 10 Days Qty: 20 0RF famotidine 20 mg tablet 20 mg PO BID Qty: 30 0RF ondansetron 4 mg tablet,disintegrating 4 mg PO Q8H PRN (Reason: nausea and vomiting) Qty: 14 0RF cyclobenzaprine 10 mg tablet 10 mg PO Q8H PRN (Reason: Muscle spasm) Qty: 14 0RF acetaminophen [Tylenol Extra Strength] 500 mg tablet 1,000 mg PO QID PRN (Reason: fever or pain) Qty: 14 0RF acetaminophen [Tylenol Extra Strength] 500 mg tablet 1,000 mg PO Q6H PRN (Reason: pain) Qty: 240 0RF ibuprofen 400 mg tablet 400 mg PO Q6H PRN (Reason: pain) Qty: 240 0RF amoxicillin-pot clavulanate 875-125 mg tablet 1 tab PO BID Qty: 10 0RF prednisone 20 mg tablet 20 mg PO DAILY Qty: 4 0RF prednisone 20 mg tablet 40 mg PO DAILY Qty: 10 0RF Referrals: Bert Man MD [Physician] - 06/08/23
== END 2023-06-05 22:00 | disposition home or self-care (01) ==
PROVIDERS: Registered Nurse Emergency; Emergency Provider Emergency Medicine Emergency Medical Services; PCP Nurse Practitioner Family
DX: R07.9 Chest pain, unspecified (principal)
CPT/HCPCS: 36415; 71046; 80053; 84484; 84702; 85025; 93005; 99283; 99285

== ENCOUNTER 2023-07-05 16:01 | Emergency (ER) | payer OTHER, SELFPAY ==
--- NOTE | ~2023-07-05 | XR_ITS ---
EXAMINATION: XR CHEST CLINICAL INFORMATION: Left upper quadrant pain, coughing. COMPARISON: None available. TECHNIQUE: 2 views of the chest were obtained. FINDINGS: No significant abnormality is noted involving the heart, lungs, mediastinum, bony thorax or soft tissues. XR/XR chest 2V IMPRESSION: Unremarkable chest examination
[2023-07-05 16:16] VITALS: BP 123/86; PULSE 83; RESP 18; TEMP 36.8; O2SAT 99; BMI 21.2
--- NOTE | 2023-07-05 16:22 | ECG_ITS ---
Test Reason : LUQ PAIN Blood Pressure : / mmHG Vent. Rate : 080 BPM Atrial Rate : 080 BPM P-R Int : 156 ms QRS Dur : 078 ms QT Int : 342 ms P-R-T Axes : 041 083 029 degrees QTc Int : 394 ms Normal sinus rhythm RSR' or QR pattern in V1 suggests right ventricular conduction delay Otherwise normal ECG When compared with ECG of 05-JUN-2023 17:26, No significant change was found Referred By: Stanislaw Lemus Electronically Signed By:VICTORIA WYNNE MD
--- NOTE | 2023-07-05 16:23 | ED.GENADULT ---
HPI - General Adult General Chief complaint: General Medical Stated complaint: Rib pain for 5 days History of Present Illness HPI narrative: Patient left without complete of treatment by ED provider Related Data Previous Rx's Medication Instructions Recorded naproxen 500 mg tablet (Naprosyn) 500 mg PO BID #20 tabs 08/02/20 ibuprofen 600 mg tablet 600 mg PO Q6H PRN pain #20 tabs 11/22/20 cyclobenzaprine 10 mg tablet 10 mg PO TID PRN muscle spasm #14 02/06/21 tabs ondansetron 4 mg disintegrating 4 mg PO Q8H PRN nausea and 02/06/21 tablet vomiting #20 tabs acetaminophen 500 mg tablet 1,000 mg (2 x 500 mg) PO QID PRN 08/06/21 (Tylenol Extra Strength) fever or pain #14 tabs cyclobenzaprine 10 mg tablet 10 mg PO Q8H PRN Muscle spasm #14 08/06/21 tabs amoxicillin 500 mg tablet 500 mg PO BID #20 tabs 08/13/21 ibuprofen 600 mg tablet 600 mg PO Q8H PRN fever or pain 08/13/21 #20 tabs fluticasone propionate 50 1 spray intranasal BID #1 units 10/11/21 mcg/actuation nasal spray,suspension (Flonase Allergy Relief) codeine 10 mg-guaifenesin 100 mg/5 10 ml PO Q6-8H PRN Cough #240 mL 10/14/21 mL oral liquid acetaminophen 500 mg tablet 1,000 mg (2 x 500 mg) PO Q6H PRN 12/23/21 (Tylenol Extra Strength) pain #240 tabs ibuprofen 400 mg tablet 400 mg PO Q6H PRN pain #240 tabs 12/23/21 naproxen 500 mg tablet 500 mg PO BID PRN pain 10 days #20 06/03/22 tabs amoxicillin 875 mg-potassium 1 tab PO BID dog bit #10 tabs 08/27/22 clavulanate 125 mg tablet famotidine 20 mg tablet 20 mg PO BID #30 tabs 12/01/22 ondansetron 4 mg disintegrating 4 mg PO Q8H PRN nausea and 12/01/22 tablet vomiting #14 tabs prednisone 20 mg tablet 20 mg PO DAILY #4 tabs 02/25/23 prednisone 20 mg tablet 40 mg (2 x 20 mg) PO DAILY #10 tabs 03/01/23 Allergies Allergy/AdvReac Type Severity Reaction Status Date / Time No Known Allergies Allergy Verified 06/05/23 17:19 [facility] Past Medical History Medical History No known health problems Social History Social History Alcohol intake: current Alcohol intake frequency: holidays/special occasions only Alcohol type: wine Advance Directives: No Advance Directives Information Provided: No Physical Exam ED Vital Signs: Vital Signs - 24 hr 07/05/23 16:16 Temperature 98.3 F Pulse Rate 83 Respiratory Rate 18 Blood Pressure 123/86 Pulse Oximetry 99 Oxygen Delivery Method Room Air BMI result Body Mass Index 21.2 Course Course Course Narrative: RME: 28 yold female presents to the ED LUQ pain with coughing for 5 days. patient states no pleurisy, leg swelling, calf pain or shorntes of breath. chest xray, labs, EKG ordered Medical Decision Making Lab Data 07/05/23 16:40 07/05/23 16:40 Labs: Lab Results 07/05/23 Range/Units 16:40 WBC 8.0 (4.8-10.8) X10*3/uL RBC 5.05 (4.20-5.50) X10*6/uL Hgb 14.9 (12.0-16.0) g/dl Hct 44.1 (37.0-47.0) % MCV 87.3 (80.0-98.0) fL MCH 29.5 (27.0-33.0) pg MCHC 33.8 (31.0-35.0) g/dl RDW 12.5 (11.0-16.0) % Plt Count 266 (160-400) X10*3/uL MPV 9.9 (9.4-12.3) fL Immature Gran % (Auto) 0.1 (0.0-0.4) % Neut % (Auto) 75.7 H (45-73) % Lymph % (Auto) 16.9 L (20-40) % [place] % (Auto) 5.0 (2-11) % Eos % (Auto) 1.4 (0-4) % Baso % (Auto) 0.9 (0-2) % Lymph # (Auto) 1.4 (1.2-4.9) X10*3/uL [place] # (Auto) 0.4 (0.1-1.2) X10*3/uL Eos # (Auto) 0.1 (0.0-0.4) X10*3/uL Baso # (Auto) 0.1 (0.0-0.2) X10*3/uL Abs Immat Gran (auto) 0.01 (0.00-0.03) X10*3/uL Absolute Neuts (auto) 6.1 (2.0-8.3) x10*3/uL Absolute Nucleated RBC 0.000 (0.0-0.012) X10*3/uL Nucleated RBC % (auto) 0.0 (0.0-0.2) /100WBC PT 14.8 H (11.1-13.3) SEC INR 1.2 H (0.9-1.1) APTT 29.9 D (26.0-36.4) SEC Sodium 140 (135-145) mmol/L Potassium 3.7 (3.3-5.1) mmol/L Chloride 107 (96-108) mmol/L Carbon Dioxide 24 (22-29) mmol/L Anion Gap 13 (12-20) BUN 10 (9-16) mg/dL Creatinine 0.80 (0.5-1.4) mg/dL Estim Creat Clear Calc 77.5 Estimated GFR > 60 Random Glucose 98 (60-115) mg/dL Calcium 10.1 (8.4-10.2) mg/dL Total Bilirubin 0.9 (0.0-1.0) mg/dL AST 23 (5-31) U/L ALT 30 (0-31) U/L Alkaline Phosphatase 78 (39-117) U/L Troponin I High Sens < 2.7 (<3.5-17.0) ng/L B-Natriuretic Peptide < 10 (<100) pg/mL Total Protein 7.7 (6.5-8.0) g/dL Albumin 4.7 (3.5-5.0) g/dL Lipase 21 (8-78) U/L Beta HCG, Quant < 2 mIU/mL COVID-19 (WILLIAM) Negative (Negative) COVID-19 Clin Com See Note Influenza Type A (JOSE) Negative (Negative) Influenza Type B (JOSE) Negative (Negative) Influenza A & B Note See Note Discharge Plan Discharge Clinical Impression: Rib pain Patient Disposition: Left W/O Completing Treatment Prescriptions: No Action naproxen [Naprosyn] 500 mg tablet 500 mg PO BID Qty: 20 0RF ibuprofen 600 mg tablet 600 mg PO Q6H PRN (Reason: pain) Qty: 20 0RF cyclobenzaprine 10 mg tablet 10 mg PO TID PRN (Reason: muscle spasm) Qty: 14 0RF ondansetron 4 mg tablet,disintegrating 4 mg PO Q8H PRN (Reason: nausea and vomiting) Qty: 20 0RF amoxicillin 500 mg tablet 500 mg PO BID Qty: 20 0RF ibuprofen 600 mg tablet 600 mg PO Q8H PRN (Reason: fever or pain) Qty: 20 0RF fluticasone propionate [Flonase Allergy Relief] 50 mcg/actuation spray,suspension 1 spray intranasal BID Qty: 1 0RF Rx Instructions: administer into each nostril codeine-guaifenesin 10-100 mg/5 mL liquid 10 ml PO Q6-8H PRN (Reason: Cough) Qty: 240 0RF naproxen 500 mg tablet 500 mg PO BID PRN (Reason: pain) 10 Days Qty: 20 0RF famotidine 20 mg tablet 20 mg PO BID Qty: 30 0RF ondansetron 4 mg tablet,disintegrating 4 mg PO Q8H PRN (Reason: nausea and vomiting) Qty: 14 0RF cyclobenzaprine 10 mg tablet 10 mg PO Q8H PRN (Reason: Muscle spasm) Qty: 14 0RF acetaminophen [Tylenol Extra Strength] 500 mg tablet 1,000 mg PO QID PRN (Reason: fever or pain) Qty: 14 0RF acetaminophen [Tylenol Extra Strength] 500 mg tablet 1,000 mg PO Q6H PRN (Reason: pain) Qty: 240 0RF ibuprofen 400 mg tablet 400 mg PO Q6H PRN (Reason: pain) Qty: 240 0RF amoxicillin-pot clavulanate 875-125 mg tablet 1 tab PO BID Qty: 10 0RF prednisone 20 mg tablet 20 mg PO DAILY Qty: 4 0RF prednisone 20 mg tablet 40 mg PO DAILY Qty: 10 0RF Interventions: LWBS Worksheet Last Done: 07/05/23 19:40 Discharge Date/Time: 07/05/23 19:40
[2023-07-05 16:45] LABS: MANUAL DIFF FLAG NO
[2023-07-05 16:47] LABS: Basophils Absolute Auto 0.1 X10*3/uL (0.0-0.2); Basophils Percent Auto 0.9 % (0-2); Eosinophils Absolute Auto 0.1 X10*3/uL (0.0-0.4); Eosinophils Percent Auto 1.4 % (0-4); Hematocrit 44.1 % (37.0-47.0); Hemoglobin 14.9 g/dl (12.0-16.0); Imm Gran Abs Auto 0.01 X10*3/uL (0.00-0.03); Imm Gran Pct Auto 0.1 % (0.0-0.4); Lymphocytes Absolute Auto 1.4 X10*3/uL (1.2-4.9); Lymphocytes Percent Auto 16.9 % (20-40); Mean Corpuscular HGB Conc 33.8 g/dl (31.0-35.0); Mean Corpuscular Hemoglobin 29.5 pg (27.0-33.0); Mean Corpuscular Volume 87.3 fL (80.0-98.0); Mean Platelet Volume 9.9 fL (9.4-12.3); Monocytes Absolute Auto 0.4 X10*3/uL (0.1-1.2); Neutrophils Absolute Auto 6.1 x10*3/uL (2.0-8.3); Neutrophils Percent Auto 75.7 % (45-73); Platelet Count 266 X10*3/uL (160-400); Red Blood Count 5.05 X10*6/uL (4.20-5.50); Red Cell Distribution Width 12.5 % (11.0-16.0)
[2023-07-05 16:53] LABS: INTERNATIONAL NORM RATIO 1.2 (0.9-1.1); Prothrombin Time 14.8 SEC (11.1-13.3)
[2023-07-05 16:56] LABS: Partial Thromboplastin Time 29.9 SEC (26.0-36.4)
[2023-07-05 17:02] LABS: Alanine Aminotransferase 30 U/L (0-31); Albumin Level 4.7 g/dL (3.5-5.0); Alkaline Phosphatase 78 U/L (39-117); Anion Gap 13 (12-20); Aspartate Amino Transferase 23 U/L (5-31); Bilirubin Total 0.9 mg/dL (0.0-1.0); Blood Urea Nitrogen 10 mg/dL (9-16); Calcium 10.1 mg/dL (8.4-10.2); Carbon Dioxide 24 mmol/L (22-29); Chloride 107 mmol/L (96-108); Creatinine Clr Calc Pharmacy 77.5; Estimated Glomerular Filt Rate > 60; Glucose Random 98 mg/dL (60-115); Lipase 21 U/L (8-78); Potassium 3.7 mmol/L (3.3-5.1); Sodium 140 mmol/L (135-145); Total Protein 7.7 g/dL (6.5-8.0)
[2023-07-05 17:07] LABS: HCG Quantitative < 2 mIU/mL
[2023-07-05 17:08] LABS: B Type Natriuretic Peptide < 10 pg/mL (<100); Troponin-I High Sensitivity < 2.7 ng/L (<3.5-17.0)
[2023-07-05 17:12] LABS: COVID-19 Test Negative (Negative); IDNOW Serial# 08D9AD1C; IDNOW Serial# BCCEAD1C; Influenza A Negative (Negative); Influenza B2 Negative (Negative)
--- OUTSIDE RECORDS SUMMARY | 2023-07-05 18:38 | XMS_ITS | Continuity of Care Document ---
Author Name Unknown Organization [facility] Address [address] [place] [address]- Care Team Providers Care Turn Down Worker Name Role Phone Melissa JEREZ, Minoo Primary Care Physician [phone] Encounter [facility] Date(s): 04/22/23 - 06/21/[address] [address]- Attending Physician: Colt Escoto MD Admitting Physician: Colt Escoto MD Allergies, Adverse Reactions, Alerts No Known Medication Allergies Immunizations Given and Recorded Vaccine Date Status Refusal Reason influenza virus vaccine, inactivated 06/19/23 Give n influenza virus vaccine, inactivated 09/02/21 Give n influenza virus vaccine, inactivated 06/13/19 Give n influenza virus vaccine, inactivated 1 06/10/17 Gi breezy influenza virus vaccine, inactivated 10/27/16 Give n influenza virus vaccine, inactivated 07/10/15 Give n tetanus/diphtheria/pertussis, acel(Tdap) 08/27/22 Recorded tetanus/diphtheria/pertussis, acel(Tdap) 09/06/19 Given tetanus/diphtheria/pertussis, acel(Tdap) 12/31/17 Given tetanus/diphtheria/pertussis, acel(Tdap) 04/18/15 Given tetanus/diphtheria/pertussis, acel(Tdap) 2 03/12/04 Recorded SARS-CoV-2 mRNA ([id number]) vax 11/21/21 Recorded SARS-CoV-2 (COVID-19) mRNA BNT-162b2 vac 05/24/21 Recorded SARS-CoV-2 (COVID-19) mRNA BNT-162b2 vac 02/12/21 Recorded SARS-CoV-2 (COVID-19) mRNA BNT-162b2 vac 01/22/21 Recorded Human Papillomavirus Vaccine 3 03/12/11 Recorded 1Result Comment: [06/10/2017] AI SORIANO [facility] [id number] 2Result Comment: [10/07/2016] done at [place] 3Result Comment: [10/07/2016] done at [place] Medications albuterol CFC free 90 mcg/inh inhalation aerosol 1, puffs, Inhalation, 4 times a day, PRN, # 25 Gm, Refills 0, Tot. Refills 0, Maintenance, 10/22/2310:50:00 EST, Aerosol, Route to Pharmacy Electronically, [id number], [facility] #[id number], 157.2, cm, 08/25/22 9:26:00... Start Date: 10/22/22 Status: Ordered cyclobenzaprine 5 mg oral tablet See Instructions, 1 tablet By Mouth 3 times a day prn x 7 days, # 21 each, 0 Refills, Maintenance, 05/06/23 12:45:00 EDT, Tablet, [facility] #[id number], Partial fill upon patient request if theprescription is for a schedule II opioid drug., 15... Start Date: 05/06/23 Status: Ordered docusate sodium 100 mg oral tablet = 100 mg, By Mouth, 2 times a day, # 180 tablet, 0 Refills, Maintenance, 04/23/23 12:03:00 EDT, Tablet, [facility] #[id number], Partial fill upon patient request if the prescription is for a schedule II opioid drug., 155, cm, 04/20/23 15:46:00 ED... Start Date: 04/23/23 Stop Date: 07/22/23 Status: Ordered fluticasone 50 mcg/inh nasal spray See Instructions, SHAKE LIQUID AND USE 1 SPRAY IN EACH NOSTRIL DAILY IN THE MORNING, # 48 Gm, 11 Refills, 10/22/22 11:49:00 EST, [facility] #[id number], 90, SHAKE LIQUID AND USE 1 SPRAY IN EACH NOSTRIL DAILY IN THE MORNING, 157.2, cm, 08/25/22 9:... Start Date: 10/22/22 Status: Ordered omeprazole 20 mg oral delayed release tablet 1 tablet = 20 mg, By Mouth, Daily, do not crush or chew. rake 30 min before Breakfast, # 30 tablet,1 Refills, Maintenance, 04/06/23 9:39:00 EDT, [facility] #[id number], 157.2, cm, 04/06/23 9:08:00 EDT, Height, 55.4, kg, 07/07/22 11:56:00 EDT, Start Date: 04/06/23 Stop Date: 06/05/23 Status: Ordered ondansetron 8 mg oral tablet, disintegrating 1 tablet = 8 mg, By Mouth, Every 8 hours, Take 1 tablet every 8 hours as needed for nausea/vomiting., # 30 tablet, 0 Refills, Maintenance, 04/09/23 13:34:00 EDT, [facility] #[id number], Partial fill upon patient request if the prescription is for... Start Date: 04/09/23 Status: Ordered polyethylene glycol 3350 oral powder for reconstitution = 17 Gm, By Mouth, Daily, PRN for constipation, dissolve in water before taking, # 255 Gm, 0 Refills, Maintenance, 04/23/23 12:04:00 EDT, REC Powder, [facility] #[id number], Partial fill upon patient request if the prescription is for a schedule... Start Date: 04/23/23 Status: Ordered ZyrTEC-D 5 mg-120 mg oral tablet, extended release 1 tablet, By Mouth, Every 24 hours, # 30 tablet, 2 Refills, Maintenance, 10/22/22 11:49:00 EST, ER Tablet, [facility] #[id number], Partial fill upon patient request if the prescription is for a schedule II opioid drug., 1 tablet By Mouth Every 24... Start Date: 10/22/22 Stop Date: 01/20/23 Status: Ordered Problem List Condition Confirmation Course Effective Dates Status H ealth Status Informant Suspicion of autism in the patient herself and in her first child Confirmed Active Chronic headache Confirmed Active [place] eye Confirmed Active Learning disability. She went [...] Team Personnel Name: Minoo Torres NP Position: [facility] PCO Associate Professional Member Role: PCP Address: Address: [address] [place] [address] Name: Karime Wary NP Position: [facility] Associate Professional Member Role: Primary Care Nurse Care Team Related Persons Name: KO ROOT Address: home [address] [place], [place] Name: YU MACK Address: [employer] Address: [address] [place] Name: YANNICK MACK Address: [employer] Address: home [address] [place] [address] [place] Name: NICHOLAS MACK Address: home [address]
--- OUTSIDE RECORDS SUMMARY | 2023-07-05 18:38 | XMS_ITS | Continuity of Care Document ---
Author Name Unknown Organization [facility] Address [address] [place] [address]- Care Team Providers Care Technical Maintenance Technician Name Role Phone Melissa JEREZ, Minoo Primary Care Physician Encounter [facility] Date(s): 04/20/23 - 06/28/[address] [address]- Attending Physician: Minoo Torres NP Admitting Physician: Minoo Torres NP Allergies, Adverse Reactions, Alerts No Known [...] tetanus/diphtheria/pertussis, acel(Tdap) 2 03/12/04 Recorded SARS-CoV-2 mRNA ([id number]) vax 11/21/21 Recorded SARS-CoV-2 (COVID-19) mRNA BNT-162b2 vac 05/24/21 Recorded SARS-CoV-2 (COVID-19) mRNA BNT-162b2 vac 02/12/21 Recorded SARS-CoV-2 (COVID-19) mRNA BNT-162b2 vac 01/22/21 Recorded Human Papillomavirus Vaccine 3 03/12/11 Recorded 1Result Comment: [06/10/2017] AI SORIANO [facility] [id number] 2Result Comment: [10/07/2016] done at [place] 3Result Comment: [10/07/2016] done at [place] Medications albuterol CFC free 90 mcg/inh inhalation aerosol 1, puffs, Inhalation, 4 times a day, PRN, # 25 Gm, Refills 0, Tot. Refills 0, Maintenance, 10/22/2310:50:00 EST, Aerosol, Route to Pharmacy Electronically, [id number], [facility] #[id number], 157.2, cm, 08/25/22 9:26:00... Start Date: 10/22/22 Status: Ordered cyclobenzaprine 5 mg oral tablet See Instructions, 1 tablet By Mouth 3 times a day prn x 7 days, # 21 each, 0 Refills, Maintenance, 05/06/23 12:45:00 EDT, Tablet, [facility] #[id number], Partial fill upon patient request if theprescription is for a schedule II opioid drug., 15... Start Date: 05/06/23 Status: Ordered docusate sodium 100 mg oral tablet = 100 mg, By Mouth, 2 times a day, # 180 tablet, 0 Refills, Maintenance, 04/23/23 12:03:00 EDT, Tablet, [facility] #[id number], Partial fill upon patient request if the prescription is for a schedule II opioid drug., 155, cm, 04/20/23 15:46:00 ED... Start Date: 04/23/23 Stop Date: 07/22/23 Status: Ordered fluticasone 50 mcg/inh nasal spray See Instructions, SHAKE LIQUID AND USE 1 SPRAY IN EACH NOSTRIL DAILY IN THE MORNING, # 48 Gm, 11 Refills, 10/22/22 11:49:00 EST, [facility] #[id number], 90, SHAKE LIQUID AND USE 1 SPRAY IN EACH NOSTRIL DAILY IN THE MORNING, 157.2, cm, 08/25/22 9:... Start Date: 10/22/22 Status: Ordered omeprazole 20 mg oral delayed release tablet 1 tablet = 20 mg, By Mouth, Daily, do not crush or chew. rake 30 min before Breakfast, # 30 tablet,1 Refills, Maintenance, 04/06/23 9:39:00 EDT, [facility] #[id number], 157.2, cm, 04/06/23 9:08:00 EDT, Height, 55.4, kg, 07/07/22 11:56:00 EDT, Start Date: 04/06/23 Stop Date: 06/05/23 Status: Ordered ondansetron 8 mg oral tablet, disintegrating 1 tablet = 8 mg, By Mouth, Every 8 hours, Take 1 tablet every 8 hours as needed for nausea/vomiting., # 30 tablet, 0 Refills, Maintenance, 04/09/23 13:34:00 EDT, [facility] #[id number], Partial fill upon patient request if the prescription is for... Start Date: 04/09/23 Status: Ordered polyethylene glycol 3350 oral powder for reconstitution = 17 Gm, By Mouth, Daily, PRN for constipation, dissolve in water before taking, # 255 Gm, 0 Refills, Maintenance, 04/23/23 12:04:00 EDT, REC Powder, [facility] #[id number], Partial fill upon patient request if the prescription is for a schedule... Start Date: 04/23/23 Status: Ordered ZyrTEC-D 5 mg-120 mg oral tablet, extended release 1 tablet, By Mouth, Every 24 hours, # 30 tablet, 2 Refills, Maintenance, 10/22/22 11:49:00 EST, ER Tablet, [facility] #[id number], Partial fill upon patient request if the prescription is for a schedule II opioid drug., 1 tablet By Mouth Every 24... Start Date: 10/22/22 Stop Date: 01/20/23 Status: Ordered Problem List Condition Confirmation Course Effective Dates Status H ealth Status Informant Suspicion of autism in the patient herself and in her first child Confirmed Active Chronic headache Confirmed Active [place] eye Confirmed Active Learning disability. She went [...] Team Personnel Name: Minoo Torres NP [facility] Associate Professional Member Role: PCP Address: Address: [address] [place] [address] Name: Karime Wray NP [facility] Associate Professional Member Role: Primary Care Nurse Care Team Related Persons Name: KO ROOT Address: home [address] [place] [address] Name: YU MACK Address: [facility] Address: home [address] [address] [place] Name: YANNICK MACK Address: [employer] Address: home [address] [place] [id number] [place] Name: NICHOLAS MACK Address: home [address] [address]
--- OUTSIDE RECORDS SUMMARY | 2023-07-05 18:40 | XMS_ITS | Continuity of Care Document ---
Author Name Unknown Organization [facility] Address [address] [place] [address]- Care Team Providers Care Pipe Caulker Name Role Phone Minoo Torres NP Primary Care Physician [phone] [facility] [id number] Date(s): 06/13/23 - 06/20/23 [facility] [address] [place] [address]- Attending Physician: Nafisa Charles MD Referring Physician: Minoo Torres NP Allergies, Adverse Reactions, [...] tetanus/diphtheria/pertussis, acel(Tdap) 2 03/12/04 Recorded SARS-CoV-2 mRNA ([id number]) vax 11/21/21 Recorded SARS-CoV-2 (COVID-19) mRNA BNT-162b2 vac 05/24/21 Recorded SARS-CoV-2 (COVID-19) mRNA BNT-162b2 vac 02/12/21 Recorded SARS-CoV-2 (COVID-19) mRNA BNT-162b2 vac 01/22/21 Recorded Human Papillomavirus Vaccine 3 03/12/11 Recorded 1Result Comment: [06/10/2017] AI SORIANO [facility] [id number] 2Result Comment: [10/07/2016] done at [place] 3Result Comment: [10/07/2016] done at [place] Medications albuterol CFC free 90 mcg/inh inhalation aerosol 1, puffs, Inhalation, 4 times a day, PRN, # 25 Gm, Refills 0, Tot. Refills 0, Maintenance, 10/22/2310:50:00 EST, Aerosol, Route to Pharmacy Electronically, [id number], [facility] #[id number], 157.2, cm, 08/25/22 9:26:00... Start Date: 10/22/22 Status: Ordered cyclobenzaprine 5 mg oral tablet See Instructions, 1 tablet By Mouth 3 times a day prn x 7 days, # 21 each, 0 Refills, Maintenance, 05/06/23 12:45:00 EDT, Tablet, [facility] #[id number], Partial fill upon patient request if theprescription is for a schedule II opioid drug., 15... Start Date: 05/06/23 Status: Ordered docusate sodium 100 mg oral tablet = 100 mg, By Mouth, 2 times a day, # 180 tablet, 0 Refills, Maintenance, 04/23/23 12:03:00 EDT, Tablet, [facility] #[id number], Partial fill upon patient request if the prescription is for a schedule II opioid drug., 155, cm, 04/20/23 15:46:00 ED... Start Date: 04/23/23 Stop Date: 07/22/23 Status: Ordered fluticasone 50 mcg/inh nasal spray See Instructions, SHAKE LIQUID AND USE 1 SPRAY IN EACH NOSTRIL DAILY IN THE MORNING, # 48 Gm, 11 Refills, 10/22/22 11:49:00 EST, [facility] #[id number], 90, SHAKE LIQUID AND USE 1 SPRAY IN EACH NOSTRIL DAILY IN THE MORNING, 157.2, cm, 08/25/22 9:... Start Date: 10/22/22 Status: Ordered omeprazole 20 mg oral delayed release tablet 1 tablet = 20 mg, By Mouth, Daily, do not crush or chew. rake 30 min before Breakfast, # 30 tablet,1 Refills, Maintenance, 04/06/23 9:39:00 EDT, [facility] #[id number], 157.2, cm, 04/06/23 9:08:00 EDT, Height, 55.4, kg, 07/07/22 11:56:00 EDT, Start Date: 04/06/23 Stop Date: 06/05/23 Status: Ordered ondansetron 8 mg oral tablet, disintegrating 1 tablet = 8 mg, By Mouth, Every 8 hours, Take 1 tablet every 8 hours as needed for nausea/vomiting., # 30 tablet, 0 Refills, Maintenance, 04/09/23 13:34:00 EDT, [facility] #[id number], Partial fill upon patient request if the prescription is for... Start Date: 04/09/23 Status: Ordered polyethylene glycol 3350 oral powder for reconstitution = 17 Gm, By Mouth, Daily, PRN for constipation, dissolve in water before taking, # 255 Gm, 0 Refills, Maintenance, 04/23/23 12:04:00 EDT, REC Powder, [facility] #[id number], Partial fill upon patient request if the prescription is for a schedule... Start Date: 04/23/23 Status: Ordered ZyrTEC-D 5 mg-120 mg oral tablet, extended release 1 tablet, By Mouth, Every 24 hours, # 30 tablet, 2 Refills, Maintenance, 10/22/22 11:49:00 EST, ER Tablet, [facility] #[id number], Partial fill upon patient request if the prescription is for a schedule II opioid drug., 1 tablet By Mouth Every 24... Start Date: 10/22/22 Stop Date: 01/20/23 Status: Ordered Problem List Condition Confirmation Course Effective Dates Status H ealth Status Informant Suspicion of autism in the patient herself and in her first child Confirmed Active Chronic headache Confirmed Active [place] eye Confirmed Active Learning disability. She went [...] oldest [Reference Range]: 1 Height 155 cm (06/13/23 10:31 AM) Oxygen Saturation [94-100 %] 100 % (06/13/23 10:31 AM) Pulse Rate [55-90 bpm] 86 bpm (06/13/23 10:31 AM) Blood Pressure [90-138/55-84 mm Hg] 127/ 77mm Hg (06/13/23 10:31 AM) Temperature [96.8-100.4 DegF] 97.6 DegF (06/13/23 10:31 AM) Mode of Delivery (Oxygen) Room air (06/13/23 10:31 AM) Blood pressure sites Arm, right (06/13/23 10:31 AM) Temperature Route Temporal (06/13/23 10:31 AM) Social History Social History Type Response Smoking Status Never (less than 100 in lifetime); Tobacco user in household: No entered on: 04/27/19 Sex Note * Emily Sutherland: PERFORM, SIGN, VERIFY Event Display: Patient Education/Instruction Authored Date: [id number] [facility] *[facility] Clinical Summary Name GRECIA ROOT Age 28 Years 1995 PCP Melissa JEREZ, Minoo PCP Visit Date 06/13/2023 10:35:00 Additional Instructions: Recommend doing saline nasal spray each nostril twice daily do 10 minutes before her usual Flonase in the morning. Recommend Tylenol as needed for pain or fever. Drink 6 to 8, 8 ounce glasses of water daily. We will contact you with the results of your COVID and flu test should be positive. Recommend following up to the emergency department or here for any worsening symptoms such as worsening fever sinus pain. Scheduled Appointments?? Future Appointments ?*[facility] ?[address]??[place],??[place],??[address] ?Phone:??--?Fax:??-- ?Appt. Date:??06/24/2023?11:00 AM ?Scheduled Provider:??Bry CHATTERJEE , Ayse Solomon ?*[facility] ?[address]??[place],??[place],??[address] ?Phone:??--?Fax:??-- ?Appt. Date:??09/07/2023?9:00 AM ?Scheduled Provider:??Sidney ERNST, Gaston H Follow-Up Instructions ?? Diagnosis Medications: Please continue your medications until treatment is completed or stopped by your provider. Discuss any questions related to medications with your provider. Medications to Continue with No Changes These medications were not printed or sent to your pharmacy Albuterol (albuterol CFC free 90 mcg/inh inhalation aerosol) 1 puff(s) Inhalation 4 times a day as needed for wheezing. Refills: 0. Next Dose: Cetirizine-Pseudoephedrine (ZyrTEC-D 5 mg-120 mg oral tablet, extended release) 1 tab(s) Oral every24 hours for 30 Days. Refills: 2. Next Dose: Cyclobenzaprine (cyclobenzaprine 5 mg oral tablet) 1 tablet By Mouth 3 times a day prn x 7 days. Refills: 0. Next Dose: Docusate (docusate sodium 100 mg oral tablet) 100 Milligram Oral twice a day for 90 Days. Refills: 0. Next Dose: Fluticasone Nasal (fluticasone 50 mcg/inh nasal spray) SHAKE LIQUID AND USE 1 SPRAY IN EACH NOSTRILDAILY IN THE MORNING. Refills: 11. Next Dose: Omeprazole (omeprazole 20 mg oral delayed release tablet) 1 tab(s) Oral Daily for 30 Days. do not crush or chew. rake 30 min before Breakfast. Refills: 1. Next Dose: Ondansetron (ondansetron 8 mg oral tablet, disintegrating) 1 tab(s) Oral every 8 hours. Take 1 tablet every 8 hours as needed for nausea/vomiting.. Refills: 0. Next Dose: Polyethylene Glycol 3350 (polyethylene glycol 3350 oral powder for reconstitution) 17 gram Oral Daily as needed for constipation. dissolve in water before taking. Refills: 0. Next Dose: Allergy Info:?? No Known Medication Allergies Medications Given This Visit Future Orders ?COVID-19 and Influenza A/B PCR? Order Date:06/13/23?- Complete on or after?06/13/23 Vital Signs Height 155 cm Weight BMI Blood Pressure 127 mm Hg/77 mm Hg Temperature 97.6 DegF Pulse Rate 86 bpm Respiratory Rate 02 Sat Mode of Delivery 100 %/Room air You can now view a summary of your hospital visit from the comfort of your home through a free online portal called [employer]. [employer] is a website that allows you to securely view your medical information including discharge summary, medications and follow-up visits. ??You can alsosend a secure electronic message to your doctor???s office to request appointments, renew medications or just ask a question. You can enroll at [email or web address] or register during your next office visit. Disclaimer:?? The information provided is of a general nature and is intended to be used in conjunction with the recommendations and advice of your health care practitioner. ??Every effort has been made to ensure that the information provided is accurate and complete at the time it is provided to you however, as your needs change, or, as new ??information becomes available, different or additional instructions may be required. If you have questions, please consult with your primary care provider or pharmacist, as appropriate. ??This information is not intended to serve as substitution for assessment and evaluation by a qualified health care provider. If you do not have a primary care provider, you may find a [facility] provider by calling [facility] [employer] [facility] at [phone]. [facility], in keeping with [facility] guidance, no longer requires face masks for staff, patientsor visitors in most situations. Similar to time spent indoors at other locations, there is the chance that you were exposed to respiratory viruses during your time with us (such as flu or COVID-19).? If you develop symptoms concerning for a viral respiratory infection, please seek testing (and treatment if indicated) from your medical provider or home test kit. For information about the plan of care including goals and instructions for your diagnosis, please see the patient education orders section of this document. Patient Education Materials?? The content of this educational material or handout may have been modified, supplemented, or adapted from its original content and format to support your individualized medical care. Acute Sinusitis Acute sinusitis is inflammation (irritation and swelling) of the sinuses. It is usually from a bacterial infection that follows an upper respiratory viral infection. Your doctor can help you find relief. Read on to learn more. What is acute sinusitis? Sinuses are air-filled spaces in the skull behind the face. They are kept moist and clean by a lining of mucosa. Things such as pollen, smoke, and chemical fumes can irritate the mucosa. It can then become inflamed (swell up). As a response to irritation, the mucosa makes more mucus and other fluids. Tiny hairlike cilia cover the mucosa. Cilia help transport mucus toward the opening of the sinus.Too much mucus may cause the cilia to stop working. This blocks the sinus opening. A buildup of fluid in the sinuses then leads to symptoms such as pain and pressure. It can also encourage growth of bacteria in the sinuses. Common symptoms of acute sinusitis You may have: ??? Facial soreness??pain ??? Headache ??? Fever ??? Postnasal drip (drainage in the back of the throat) ??? Congestion ??? Drainage that is thick and colored, instead of clear ??? Cough Diagnosis of acute sinusitis The doctor will ask about your symptoms and medical history.??He or she will examine your ear, nose, and throat. X-rays are usually not needed. If your sinusitis recurs, you may have a culture to check for bacteria or imaging tests. An evaluation will be done. A culture (sample of mucus) is sometimes taken to check for bacteria. If you have multiple bouts of sinusitis, imaging (X-rays or CAT scans) may be done to check for an anatomic cause of the infection. Treatment of acute sinusitis Treatment is designed to unblock the sinus opening and help the cilia work again. Antihistamine anddecongestant medications may be prescribed. These can reduce inflammation and decrease fluid production. If a bacterial infection is present, it is??treated with antibiotic medication for 10 to 14 days. This medication should be taken until it is gone, even if you feel better. ?? [id number] [employer]. [address] [place] [address]. All rights reserved. This information is not intended as a substitute for professional medical care. Always follow your healthcare professional's instructions. Patient Care team information Care Team Personnel Name: Minoo Torres NP Position: [facility] PCO Associate Professional Member Role: PCP Address: Address: [address] [place] [address]- Name: Karime Wray NP Position: [facility] Associate Professional Member Role: Primary Care Nurse Care Team Related Persons Name: KO ROOT Address: home [address] [place] [address] Name: YU MACK Address: [employer] Address: home [address] [address] [place] Name: YANNICK MACK Address: [employer] Address: home [address] [address] Name: NICHOLAS MACK Address: home [address] [address]
== END 2023-07-05 19:40 | disposition left against medical advice (07) ==
PROVIDERS: Physician Assistant; Emergency Provider Emergency Medicine; PCP Nurse Practitioner Family
DX: R07.81 Pleurodynia (principal); R10.12 Left upper quadrant pain; R05.9 Cough, unspecified; Z11.52 Encounter for screening for COVID-19; Z20.822 Contact with and (suspected) exposure to COVID-19; Z79.899 Other long term (current) drug therapy
CPT/HCPCS: 36415; 71046; 80053; 83690; 83880; 84484; 84702; 85025; 85610; 85730; 87502; 87635; 93005; 99283

== ENCOUNTER 2023-07-09 16:25 | Emergency (ER) | payer OTHER, SELFPAY ==
--- NOTE | ~2023-07-09 | US_ITS ---
EXAMINATION: US ABDOMEN COMPLETE CLINICAL INFORMATION: Upper abdominal pain, left upper quadrant pain radiating to the back. COMPARISON: CT abdomen/pelvis 03/28/2023. TECHNIQUE: Real-time imaging of the abdominal viscera. FINDINGS: PANCREAS: Normal. ABDOMINAL AORTA: The proximal, mid, and distal segments are normal in caliber. INFERIOR VENA CAVA: Visualized portions are normal. LIVER: Normal. The liver is normal in size. The liver contour is normal. Parenchymal echogenicity is normal. No focal hepatic lesion. There is no intrahepatic biliary duct dilatation seen. GALLBLADDER: Normal. The gallbladder is physiologically distended without evidence of stones, sludge, polyps, wall thickening or pericholecystic fluid. COMMON BILE DUCT: Normal in caliber measuring 0.6 cm in diameter. RIGHT KIDNEY: Normal. No hydronephrosis. No renal calculi or focal parenchymal lesions. The kidney measures 11 cm in maximum dimension. LEFT KIDNEY: Normal. No hydronephrosis. No renal calculi or focal parenchymal lesions. The kidney measures 10 cm in maximum dimension. SPLEEN: Normal. The spleen measures 9.5 cm in maximum dimension. FREE FLUID: None. US/US abdomen complete IMPRESSION: No acute sonographic abnormalities to explain the patient's symptoms.
[2023-07-09 16:47] VITALS: BP 137/96; PULSE 88; RESP 14; TEMP 35.9; O2SAT 98; BMI 21.2
--- NOTE | 2023-07-09 16:53 | ED_ITS ---
HPI - Abdominal Pain General Chief Complaint: Abdominal Pain Stated Complaint: upper abd pain Time Seen by Provider: 07/09/23 21:48 Source: patient, RN notes reviewed and old records reviewed Mode of arrival: ambulatory Limitations: no limitations History of Present Illness HPI narrative: 28-year-old female presents for evaluation of abdominal pain. Patient reports that she has had on and off abdominal pain for the last few months. She was diagnosed with IBD in February She had a CT scan in March as well which showed ovarian cyst. Patient is due to see Gastroenterology in August she reports worsening generalized abdominal pain for the last week. She states last menstrual cycle was last week. Denies vomiting or diarrhea denies any fevers, chills or history abdominal surgeries no urinary complaint Related Data Previous Rx's Medication Instructions Recorded naproxen 500 mg tablet (Naprosyn) 500 mg PO BID #20 tabs 08/02/20 ibuprofen 600 mg tablet 600 mg PO Q6H PRN pain #20 tabs 11/22/20 cyclobenzaprine 10 mg tablet 10 mg PO TID PRN muscle spasm #14 02/06/21 tabs ondansetron 4 mg disintegrating 4 mg PO Q8H PRN nausea and 02/06/21 tablet vomiting #20 tabs acetaminophen 500 mg tablet 1,000 mg (2 x 500 mg) PO QID PRN 08/06/21 (Tylenol Extra Strength) fever or pain #14 tabs cyclobenzaprine 10 mg tablet 10 mg PO Q8H PRN Muscle spasm #14 08/06/21 tabs amoxicillin 500 mg tablet 500 mg PO BID #20 tabs 08/13/21 ibuprofen 600 mg tablet 600 mg PO Q8H PRN fever or pain 08/13/21 #20 tabs fluticasone propionate 50 1 spray intranasal BID #1 units 10/11/21 mcg/actuation nasal spray,suspension (Flonase Allergy Relief) codeine 10 mg-guaifenesin 100 mg/5 10 ml PO Q6-8H PRN Cough #240 mL 10/14/21 mL oral liquid acetaminophen 500 mg tablet 1,000 mg (2 x 500 mg) PO Q6H PRN 12/23/21 (Tylenol Extra Strength) pain #240 tabs ibuprofen 400 mg tablet 400 mg PO Q6H PRN pain #240 tabs 12/23/21 naproxen 500 mg tablet 500 mg PO BID PRN pain 10 days #20 06/03/22 tabs amoxicillin 875 mg-potassium 1 tab PO BID dog bit #10 tabs 08/27/22 clavulanate 125 mg tablet famotidine 20 mg tablet 20 mg PO BID #30 tabs 12/01/22 ondansetron 4 mg disintegrating 4 mg PO Q8H PRN nausea and 12/01/22 tablet vomiting #14 tabs prednisone 20 mg tablet 20 mg PO DAILY #4 tabs 02/25/23 prednisone 20 mg tablet 40 mg (2 x 20 mg) PO DAILY #10 tabs 03/01/23 omeprazole 20 mg capsule,delayed 20 mg PO DAILY #14 caps 07/09/23 release prednisone 20 mg tablet 40 mg (2 x 20 mg) PO DAILY #10 tabs 07/09/23 Allergies Allergy/AdvReac Type Severity Reaction Status Date / Time No Known Allergies Allergy Verified 06/05/23 17:19 Review of Systems Constitutional: Denies chills and Denies fever(s) Cardiovascular: Denies chest pain and Denies dyspnea Respiratory: Denies cough, Denies dyspnea and Denies wheezing Gastrointestinal: Reports abdominal pain, Denies melena, Denies hematochezia, Denies change in stool character, Denies nausea and Denies vomiting Musculoskeletal: Denies back pain Skin/Breast: Denies rash Allergic/Immunologic: Denies wheezing PMFSH Past Medical History Medical History No known health problems Social History Social History Alcohol intake: current Alcohol intake frequency: holidays/special occasions only Alcohol type: wine Advance Directives: No Advance Directives Information Provided: No Physical Exam ED Vital Signs: Vital Signs - 24 hr 07/09/23 16:47 07/09/23 20:08 07/09/23 21:50 Temperature 96.6 F L 8 F L 98.0 F Pulse Rate 88 80 71 Respiratory Rate 14 14 18 Blood Pressure 137/96 H 119/86 132/82 Pulse Oximetry 98 98 100 Oxygen Delivery Method Room Air Room Air BMI result Body Mass Index 21.2 Const General: healthy appearing, comfortable, no acute distress, alert and awake Nutritional Appearance: well nourished Orientation/consciousness: patient oriented x3 HENMT Head: Yes normocephalic and Yes atraumatic Eyes Eyelids: Yes eyelids normal Conjunctivae: conjunctivae normal Sclerae: sclerae normal Corneas: corneas normal Pupils: Equal, round and reactive pupils present EOM: EOMs intact bilaterally Neck Neck: Yes full ROM Resp Effort & Inspection: normal respiratory effort, able to speak in complete sentences and not labored GI Inspection: No distended Palpation (GI): Soft to palpation, not firm, Tenderness to palpation present (GI) in the epigastrum, in the LUQ and in the RUQ; not in the LLQ, not in the RLQ and not suprapubicly, no guarding and not rigid Auscultation: normoactive bowel sounds Skin General skin exam: no rashes or lesions noted and elasticity normal Neuro General: patient oriented x3 Cranial nerves: Yes Equal, round and reactive pupils present and Yes Bilaterally intact EOM present Cognition (Neuro): normal cognition Extrem Other: Moving all extremities well without any obvious deformities Course Course Course Narrative: RME: 28-year-old female complaining of upper abdominal pain radiating to back x2 weeks. Was recently seen in the ED for similar symptoms in triage, had labs but no imaging performed. Reports pain is worsening with associated acid reflux. Admits she has follow-up with Gastroenterology in August. Abdomen soft with upper abdominal and CVAT Labs, UA, ultrasound ordered Full HPI, ROS and PE to be performed by primary ED provider. Reevaluation(s) Reevaluation #1: patient reports mild improvement her symptoms after GI cocktail, we will discharge the patient with omeprazole daily for next 2 weeks. She still has some generalized abdominal discomfort and feels appropriate to treat with a short course of prednisone for suspected IBD. Time: 22:36 Medical Decision Making Medical Decision Making MDM Narrative: 28-year-old female presents for evaluation of abdominal pain. She describes GERD like symptoms. She had initially requested a CT scan of the abdomen pelvis. Reviewed her last 3 CT scans from this year and discussed the patient the risks of radiation. Her abdominal exam is reassuring, her ultrasound was negative for biliary disease. Her labs are reassuring. Her vital signs are stable. I have a low suspicion that we would find anything acute on her CT scan of the abdomen pelvis. The patient ultimately agrees with this and is willing to defer CT scan of the abdomen pelvis at this time. Will treat her pain with the GI up. If there is no improvement with her symptoms after GI cocktail I feel it may be appropriate to start her on a short course of steroids for IBD as this helps her symptoms the past. Differential Diagnosis Differential Diagnoses: The differential diagnosis associated with the presentation includes Abdominal pain IBS IBD Biliary disease UTI Ovarian cyst Lab Data MDM Lab Attestation statement: I reviewed the patient's lab results. no leukocytosis or anemia. No electrolyte abnormalities. 07/09/23 19:57 07/09/23 19:57 Labs: Lab Results 07/09/23 07/09/23 Range/Units 19:57 22:09 WBC 8.9 (4.8-10.8) X10*3/uL RBC 4.86 (4.20-5.50) X10*6/uL Hgb 14.4 (12.0-16.0) g/dl Hct 42.6 (37.0-47.0) % MCV 87.7 (80.0-98.0) fL MCH 29.6 (27.0-33.0) pg MCHC 33.8 (31.0-35.0) g/dl RDW 12.9 (11.0-16.0) % Plt Count 248 (160-400) X10*3/uL MPV 9.9 (9.4-12.3) fL Immature Gran % (Auto) 0.2 (0.0-0.4) % Neut % (Auto) 66.0 (45-73) % Lymph % (Auto) 25.4 (20-40) % [place] % (Auto) 5.9 (2-11) % Eos % (Auto) 1.7 (0-4) % Baso % (Auto) 0.8 (0-2) % Lymph # (Auto) 2.3 (1.2-4.9) X10*3/uL [place] # (Auto) 0.5 (0.1-1.2) X10*3/uL Eos # (Auto) 0.2 (0.0-0.4) X10*3/uL Baso # (Auto) 0.1 (0.0-0.2) X10*3/uL Abs Immat Gran (auto) 0.02 (0.00-0.03) X10*3/uL Absolute Neuts (auto) 5.9 (2.0-8.3) x10*3/uL Absolute Nucleated RBC 0.000 (0.0-0.012) X10*3/uL Nucleated RBC % (auto) 0.0 (0.0-0.2) /100WBC Sodium 141 (135-145) mmol/L Potassium 3.8 (3.3-5.1) mmol/L Chloride 107 (96-108) mmol/L Carbon Dioxide 24 (22-29) mmol/L Anion Gap 14 (12-20) BUN 12 (9-16) mg/dL Creatinine 0.70 (0.5-1.4) mg/dL Estim Creat Clear Calc 88.7 Estimated GFR > 60 Random Glucose 92 (60-115) mg/dL Calcium 10.3 H (8.4-10.2) mg/dL Magnesium 2.1 (1.6-2.6) mg/dL Total Bilirubin 1.0 (0.0-1.0) mg/dL Direct Bilirubin 0.4 (0.0-0.5) mg/dL AST 20 (5-31) U/L ALT 30 (0-31) U/L Alkaline Phosphatase 73 (39-117) U/L Total Protein 7.4 (6.5-8.0) g/dL Albumin 4.5 (3.5-5.0) g/dL Lipase 18 (8-78) U/L Urine Color Dark Yellow Urine Appearance Clear Urine pH 5.5 (5.0-9.0) Ur Specific [place] >= 1.030 H (1.005-1.025) Urine Protein Trace (Neg-Trace) mg/dL Urine Glucose (UA) Negative (Negative) mg/dL Urine Ketones 15 (Negative) mg/dL Urine Blood Negative (Negative) Urine Nitrite Negative (Negative) Ur Leukocyte Esterase Negative (Negative) Urine Test NEGATIVE (NEGATIVE) Radiology Impression Discussion of test interpretation with radiology: I have reviewed the radiologist's reading. Radiologist Impression: no sonographic abnormalities to explain the patient's symptom Tests considered The following testing was considered but not selected: considered CT scan of the abdomen pelvis but ultimately declined Medications Administered Discontinued Medications Generic Name Dose Route Start Last Admin Trade Name Freq PRN Reason Stop Dose Admin Al Hydroxide/Mg Hydroxide 30 ml 07/09/23 21:57 07/09/23 22:22 Magnesium Hydrox/Alum Hydrox 30 Ml Oral.Susp PO 07/09/23 21:58 30 ml ONCE ONE Administration Lidocaine HCl 15 ml 07/09/23 21:57 07/09/23 22:22 Lidocaine Hcl Viscous 2 % 15 Ml Solution MUCOUS MEM 07/09/23 21:58 15 ml ONCE ONE Administration Ondansetron HCl 4 mg 07/09/23 21:57 07/09/23 22:22 Ondansetron Odt 4 Mg Tab.Rapdis TRANSLINGU 07/09/23 21:58 4 mg ONCE ONE Administration Discharge Plan Discharge Clinical Impression: Abdominal pain Patient Disposition: Home, Self-Care Instructions: Abdominal Pain (ED) Additional Instructions: Your workup in the emergency department today was reassuring take omeprazole daily for the next 2 weeks. Take prednisone daily for next 5 days follow-up with your primary doctor call your GI doctor to see if you can get your appointment expedited return for new or worsening symptoms Prescriptions: New prednisone 20 mg tablet 40 mg PO DAILY Qty: 10 0RF omeprazole 20 mg capsule,delayed release(DR/EC) 20 mg PO DAILY Qty: 14 0RF No Action naproxen [Naprosyn] 500 mg tablet 500 mg PO BID Qty: 20 0RF ibuprofen 600 mg tablet 600 mg PO Q6H PRN (Reason: pain) Qty: 20 0RF cyclobenzaprine 10 mg tablet 10 mg PO TID PRN (Reason: muscle spasm) Qty: 14 0RF ondansetron 4 mg tablet,disintegrating 4 mg PO Q8H PRN (Reason: nausea and vomiting) Qty: 20 0RF amoxicillin 500 mg tablet 500 mg PO BID Qty: 20 0RF ibuprofen 600 mg tablet 600 mg PO Q8H PRN (Reason: fever or pain) Qty: 20 0RF fluticasone propionate [Flonase Allergy Relief] 50 mcg/actuation spray,suspension 1 spray intranasal BID Qty: 1 0RF Rx Instructions: administer into each nostril codeine-guaifenesin 10-100 mg/5 mL liquid 10 ml PO Q6-8H PRN (Reason: Cough) Qty: 240 0RF naproxen 500 mg tablet 500 mg PO BID PRN (Reason: pain) 10 Days Qty: 20 0RF famotidine 20 mg tablet 20 mg PO BID Qty: 30 0RF ondansetron 4 mg tablet,disintegrating 4 mg PO Q8H PRN (Reason: nausea and vomiting) Qty: 14 0RF cyclobenzaprine 10 mg tablet 10 mg PO Q8H PRN (Reason: Muscle spasm) Qty: 14 0RF acetaminophen [Tylenol Extra Strength] 500 mg tablet 1,000 mg PO QID PRN (Reason: fever or pain) Qty: 14 0RF acetaminophen [Tylenol Extra Strength] 500 mg tablet 1,000 mg PO Q6H PRN (Reason: pain) Qty: 240 0RF ibuprofen 400 mg tablet 400 mg PO Q6H PRN (Reason: pain) Qty: 240 0RF amoxicillin-pot clavulanate 875-125 mg tablet 1 tab PO BID Qty: 10 0RF prednisone 20 mg tablet 20 mg PO DAILY Qty: 4 0RF prednisone 20 mg tablet 40 mg PO DAILY Qty: 10 0RF
[2023-07-09 20:02] LABS: MANUAL DIFF FLAG NO
[2023-07-09 20:03] LABS: Basophils Absolute Auto 0.1 X10*3/uL (0.0-0.2); Basophils Percent Auto 0.8 % (0-2); Eosinophils Absolute Auto 0.2 X10*3/uL (0.0-0.4); Eosinophils Percent Auto 1.7 % (0-4); Hematocrit 42.6 % (37.0-47.0); Hemoglobin 14.4 g/dl (12.0-16.0); Imm Gran Abs Auto 0.02 X10*3/uL (0.00-0.03); Imm Gran Pct Auto 0.2 % (0.0-0.4); Lymphocytes Absolute Auto 2.3 X10*3/uL (1.2-4.9); Lymphocytes Percent Auto 25.4 % (20-40); Mean Corpuscular HGB Conc 33.8 g/dl (31.0-35.0); Mean Corpuscular Hemoglobin 29.6 pg (27.0-33.0); Mean Corpuscular Volume 87.7 fL (80.0-98.0); Mean Platelet Volume 9.9 fL (9.4-12.3); Monocytes Absolute Auto 0.5 X10*3/uL (0.1-1.2); Monocytes Percent Auto 5.9 % (2-11); Neutrophils Absolute Auto 5.9 x10*3/uL (2.0-8.3); Platelet Count 248 X10*3/uL (160-400); Red Blood Count 4.86 X10*6/uL (4.20-5.50); Red Cell Distribution Width 12.9 % (11.0-16.0); White Blood Count 8.9 X10*3/uL (4.8-10.8)
[2023-07-09 20:08] VITALS: BP 119/86; PULSE 80; RESP 14; TEMP -13.3; TEMP 8; O2SAT 98
[2023-07-09 20:16] LABS: Alanine Aminotransferase 30 U/L (0-31); Albumin Level 4.5 g/dL (3.5-5.0); Alkaline Phosphatase 73 U/L (39-117); Anion Gap 14 (12-20); Aspartate Amino Transferase 20 U/L (5-31); Bilirubin Direct 0.4 mg/dL (0.0-0.5); Blood Urea Nitrogen 12 mg/dL (9-16); Calcium 10.3 mg/dL (8.4-10.2); Carbon Dioxide 24 mmol/L (22-29); Chloride 107 mmol/L (96-108); Creatinine Clr Calc Pharmacy 88.7; Estimated Glomerular Filt Rate > 60; Glucose Random 92 mg/dL (60-115); Lipase 18 U/L (8-78); Magnesium 2.1 mg/dL (1.6-2.6); Potassium 3.8 mmol/L (3.3-5.1); Sodium 141 mmol/L (135-145); Total Protein 7.4 g/dL (6.5-8.0)
[2023-07-09 21:50] VITALS: BP 132/82; PULSE 71; RESP 18; TEMP 36.7; O2SAT 100
[2023-07-09 22:21] LABS: Appearance Urine Clear; Color Urine Dark Yellow; Glucose Urine UA Negative (Negative); Leukocyte Esterase Urine Negative (Negative); Nitrite Urine Negative (Negative); PH 5.5 (5.0-9.0); Specific Gravity - Urine >= 1.030 (1.005-1.025); Urine Blood Negative (Negative); Urine Ketones 15 mg/dL (Negative); Urine Protein Trace mg/dL (Neg-Trace)
[2023-07-09] MEDS: Ondansetron ODT 4 MG TAB.RAPDIS TRANSLINGU (22:22)
[2023-07-09] MEDS: Magnesium Hydrox/Alum Hydrox 30 ML ORAL.SUSP PO (22:22)
[2023-07-09] MEDS: Lidocaine HCl Viscous 2 % 15 ML SOLUTION MUCOUS MEM (22:22)
[2023-07-09 22:26] LABS: UPreg QC Valid YES; Urine Pregnancy NEGATIVE (NEGATIVE)
== END 2023-07-09 23:19 | disposition home or self-care (01) ==
PROVIDERS: Physician Assistant; Emergency Provider Emergency Medicine; PCP Nurse Practitioner Family
DX: R10.9 Unspecified abdominal pain (principal)
CPT/HCPCS: 36415; 76700; 80048; 80076; 81003; 81025; 83690; 83735; 85025; 99284

== ENCOUNTER 2023-08-14 15:51 | Emergency (ER) | payer OTHER, SELFPAY ==
[2023-08-14 16:33] VITALS: BP 138/97; PULSE 83; RESP 20; TEMP 36.2; O2SAT 100; BMI 20.7
--- NOTE | 2023-08-14 16:33 | ED.GENADULT ---
HPI - General Adult General Chief complaint: Neuro Symptoms/Deficit Stated complaint: head pressure, burning on L side of scalp Time Seen by Provider: 08/14/23 19:51 History of Present Illness HPI narrative: Pt is a 28yo female who presents to the ED with intermittent pressure headaches and new onset burning of the left side of the scalp. Pt states that the intermittent pressure headaches sauk-suiattle her head like a rubber band and began 2 days after her endoscopy/colonoscopy on Jul.30. She notes the headaches last about 1hr without medication or 25minutes if she uses tylenol. She notes some relief with tylenol but they are still reoccuring. Additionally she notes a sore throat and left ear pain since yesterday as well as some sinus tenderness. She denies congestion, nausea, vomiting, or changes on bowel patterns. She expresses some lightheadedness today and dizziness upon waking up that resolved spontaneously for the past 2 mornings. Pt notes she is prone to sinus infections as well as headaches with weather changes. Related Data Previous Rx's Medication Instructions Recorded naproxen 500 mg tablet (Naprosyn) 500 mg PO BID #20 tabs 08/02/20 ibuprofen 600 mg tablet 600 mg PO Q6H PRN pain #20 tabs 11/22/20 cyclobenzaprine 10 mg tablet 10 mg PO TID PRN muscle spasm #14 02/06/21 tabs ondansetron 4 mg disintegrating 4 mg PO Q8H PRN nausea and 02/06/21 tablet vomiting #20 tabs acetaminophen 500 mg tablet 1,000 mg (2 x 500 mg) PO QID PRN 08/06/21 (Tylenol Extra Strength) fever or pain #14 tabs cyclobenzaprine 10 mg tablet 10 mg PO Q8H PRN Muscle spasm #14 08/06/21 tabs amoxicillin 500 mg tablet 500 mg PO BID #20 tabs 08/13/21 ibuprofen 600 mg tablet 600 mg PO Q8H PRN fever or pain 08/13/21 #20 tabs fluticasone propionate 50 1 spray intranasal BID #1 units 10/11/21 mcg/actuation nasal spray,suspension (Flonase Allergy Relief) codeine 10 mg-guaifenesin 100 mg/5 10 ml PO Q6-8H PRN Cough #240 mL 10/14/21 mL oral liquid acetaminophen 500 mg tablet 1,000 mg (2 x 500 mg) PO Q6H PRN 12/23/21 (Tylenol Extra Strength) pain #240 tabs ibuprofen 400 mg tablet 400 mg PO Q6H PRN pain #240 tabs 12/23/21 naproxen 500 mg tablet 500 mg PO BID PRN pain 10 days #20 06/03/22 tabs amoxicillin 875 mg-potassium 1 tab PO BID dog bit #10 tabs 08/27/22 clavulanate 125 mg tablet famotidine 20 mg tablet 20 mg PO BID #30 tabs 12/01/22 ondansetron 4 mg disintegrating 4 mg PO Q8H PRN nausea and 12/01/22 tablet vomiting #14 tabs prednisone 20 mg tablet 20 mg PO DAILY #4 tabs 02/25/23 prednisone 20 mg tablet 40 mg (2 x 20 mg) PO DAILY #10 tabs 03/01/23 omeprazole 20 mg capsule,delayed 20 mg PO DAILY #14 caps 07/09/23 release prednisone 20 mg tablet 40 mg (2 x 20 mg) PO DAILY #10 tabs 07/09/23 amoxicillin 500 mg tablet 500 mg PO TID #21 tabs 08/14/23 Allergies Allergy/AdvReac Type Severity Reaction Status Date / Time No Known Allergies Allergy Verified 08/14/23 16:36 Review of Systems Constitutional: Constitutional: Denies body ache(s), Denies chills, Denies fever(s), Reports headache(s) and Denies weakness Eyes: Eyes: Denies change in vision ENT: Reports dizziness, Reports otalgia, Reports headache(s), Denies nasal congestion, Denies nasal discharge, Reports sinus pressure and Reports sore throat Cardiovascular: Cardiovascular: Denies chest pain, Reports lightheadedness and Denies dyspnea Respiratory: Respiratory: Denies chest congestion, Denies cough and Denies dyspnea Gastrointestinal: Gastrointestinal: Denies abdominal pain, Denies change in bowel habits, Denies nausea and Denies vomiting Neurologic: Reports burning sensations (left side of scalp down left side of neck), Reports dizziness, Reports headache(s) and Denies weakness PMFSH Past Medical History Medical History No known health problems Social History Alcohol intake: current Alcohol intake frequency: holidays/special occasions only Alcohol type: wine Advance Directives: No Advance Directives Information Provided: No Physical Exam ED Vital Signs: Vital Signs - 24 hr 08/14/23 16:33 08/14/23 18:31 08/14/23 19:54 Temperature 97.1 F 98.1 F 98.1 F Pulse Rate 83 97 77 Respiratory Rate 20 18 16 Blood Pressure 138/97 H 121/79 131/92 H Pulse Oximetry 100 98 98 Oxygen Delivery Method Room Air Room Air Room Air BMI result Body Mass Index 20.7 Const General: cooperative, no acute distress, alert and awake Orientation/consciousness: patient oriented x3 HENMT Head: Yes normal to inspection, Yes normocephalic and Yes atraumatic Ears: hearing grossly normal bilaterally, external ears normal, TM's normal bilaterally and EAC's normal General nose exam: Normal external nose present and Normal nares present Face and sinus: Yes sinus tenderness Mouth: Normal oral and palatal mucosa present Throat: Yes other (mild erythema of posterior oropharynx) Eyes General: appearance normal, both eyes and all related structures Eyelids: Yes eyelids normal Conjunctivae: conjunctivae normal Sclerae: sclerae normal Pupils: Equal, round and reactive pupils present EOM: EOMs intact bilaterally Direct Ophthalmoscopy: normal light reflex Neck Neck: Yes normal visual inspection and Yes full ROM Lymphatic: no lymphadenopathy noted Chest Chest palpation & inspection: normal inspection of the chest Resp Effort & Inspection: normal respiratory effort and able to speak in complete sentences Auscultation: clear to auscultation bilaterally Cardio Rate: regular rate Rhythm: regular rhythm Heart sounds: S1 normal heart sound present and S2 normal heart sound present Neuro General: patient oriented x3 Cranial nerves: Yes CN's II-XII intact bilaterally and Yes Equal, round and reactive pupils present Motor exam (neuro): 5/5 motor strength present throughout Course Course Course Narrative: This is a rapid medical exam: Additional HPI, ROS, PE not included below will be deferred to primary provider. Patient is a 28-year-old female presenting to the emergency department with complaint of headache/head pressure. Rates current pain at 4 or 5/10. Describes as burning to left pentecostal area. Reports symptoms began 2 days after colonoscopy/endoscopy. States headache has been for 2 weeks but burning sensation began yesterday. Complains of blurred vision in both eyes upon waking in the morning when resolves as the day goes on. Denies chest pain, shortness of breath, fever. No rashes noted on exam. Medical Decision Making Medical Decision Making MDM Narrative: Patient's physical exam is reassuring. Area history exam are most consistent with sinusitis. She has had symptoms with headache for over 2 weeks. Will treat with amoxicillin t.i.d.. She will treat with [id number] meds as well. Differential Diagnosis Differential Diagnoses: The differential diagnosis associated with the presentation includes (acute sinus infection, tension headache, trigeminal neuralgia, cluster headache, viral pharyngitis) Tests considered The following testing was considered but not selected: Considered CT scan of the brain although the patient has a reassuring exam and history. This was deferred Discharge Plan Discharge Clinical Impression: Acute headache, Sinusitis Patient Disposition: Home, Self-Care Instructions: Sinusitis (ED), Acute Headache (ED) Additional Instructions: You may continue using [id number] Flonase, Tylenol for discomfort. Use amoxicillin 3 times daily for the next 7 days for a sinus infection Follow-up with your primary doctor Prescriptions: New amoxicillin 500 mg tablet 500 mg PO TID Qty: 21 0RF No Action naproxen [Naprosyn] 500 mg tablet 500 mg PO BID Qty: 20 0RF ibuprofen 600 mg tablet 600 mg PO Q6H PRN (Reason: pain) Qty: 20 0RF cyclobenzaprine 10 mg tablet 10 mg PO TID PRN (Reason: muscle spasm) Qty: 14 0RF ondansetron 4 mg tablet,disintegrating 4 mg PO Q8H PRN (Reason: nausea and vomiting) Qty: 20 0RF amoxicillin 500 mg tablet 500 mg PO BID Qty: 20 0RF ibuprofen 600 mg tablet 600 mg PO Q8H PRN (Reason: fever or pain) Qty: 20 0RF fluticasone propionate [Flonase Allergy Relief] 50 mcg/actuation spray,suspension 1 spray intranasal BID Qty: 1 0RF Rx Instructions: administer into each nostril codeine-guaifenesin 10-100 mg/5 mL liquid 10 ml PO Q6-8H PRN (Reason: Cough) Qty: 240 0RF naproxen 500 mg tablet 500 mg PO BID PRN (Reason: pain) 10 Days Qty: 20 0RF famotidine 20 mg tablet 20 mg PO BID Qty: 30 0RF ondansetron 4 mg tablet,disintegrating 4 mg PO Q8H PRN (Reason: nausea and vomiting) Qty: 14 0RF cyclobenzaprine 10 mg tablet 10 mg PO Q8H PRN (Reason: Muscle spasm) Qty: 14 0RF acetaminophen [Tylenol Extra Strength] 500 mg tablet 1,000 mg PO QID PRN (Reason: fever or pain) Qty: 14 0RF acetaminophen [Tylenol Extra Strength] 500 mg tablet 1,000 mg PO Q6H PRN (Reason: pain) Qty: 240 0RF ibuprofen 400 mg tablet 400 mg PO Q6H PRN (Reason: pain) Qty: 240 0RF amoxicillin-pot clavulanate 875-125 mg tablet 1 tab PO BID Qty: 10 0RF prednisone 20 mg tablet 20 mg PO DAILY Qty: 4 0RF prednisone 20 mg tablet 40 mg PO DAILY Qty: 10 0RF prednisone 20 mg tablet 40 mg PO DAILY Qty: 10 0RF omeprazole 20 mg capsule,delayed release(DR/EC) 20 mg PO DAILY Qty: 14 0RF
[2023-08-14 18:31] VITALS: BP 121/79; PULSE 97; RESP 18; TEMP 36.7; O2SAT 98
[2023-08-14 19:54] VITALS: BP 131/92; PULSE 77; RESP 16; TEMP 36.7; O2SAT 98
== END 2023-08-14 20:41 | disposition home or self-care (01) ==
PROVIDERS: Emergency Provider Emergency Medicine Emergency Medical Services; PCP Nurse Practitioner Family
DX: R51.9 Headache, unspecified (principal); J01.90 Acute sinusitis, unspecified; Z79.899 Other long term (current) drug therapy
CPT/HCPCS: 99283

== ENCOUNTER 2023-09-01 10:25 | Emergency (ER) | payer OTHER, SELFPAY ==
--- NOTE | ~2023-09-01 | XR_ITS ---
EXAMINATION: XR CHEST 2 VIEW CLINICAL INFORMATION: Chest pain with cough COMPARISON: 07/05/2023 TECHNIQUE: PA and lateral views of the chest obtained. FINDINGS: The lungs are clear. There are no pleural effusions. The cardiomediastinal silhouette is normal. XR/XR chest 2V IMPRESSION: No acute cardiopulmonary disease.
[2023-09-01 11:07] VITALS: BP 146/85; PULSE 104; RESP 15; TEMP 37.3; O2SAT 100; BMI 20.1
--- NOTE | 2023-09-01 11:13 | ECG_ITS ---
Test Reason : cp w cough Blood Pressure : / mmHG Vent. Rate : 101 BPM Atrial Rate : 101 BPM P-R Int : 158 ms QRS Dur : 076 ms QT Int : 312 ms P-R-T Axes : 057 067 025 degrees QTc Int : 404 ms Sinus tachycardia Otherwise normal ECG When compared with ECG of 05-JUL-2023 16:32, No significant change was found Referred By: Heidi Doran Electronically Signed By:Calvin Nye
--- NOTE | 2023-09-01 11:14 | ED_ITS ---
HPI - Abdominal Pain General Chief Complaint: General Medical Stated Complaint: Abd pain, cough, fever Time Seen by Provider: 09/01/23 13:04 Source: patient, RN notes reviewed and old records reviewed Mode of arrival: ambulatory History of Present Illness HPI narrative: 28-year-old female with no significant past medical history presenting to the ED complaining of dry cough, mild SOB & chest discomfort with cough, headache, fever, and intermittent abdominal/back pain x few days. Admits went to [facility] this morning, had EKG, no other workup/labs and LWT'd. Reports she had recent endoscopy/colonoscopy at [facility] on July 30, called GI doctor for follow- up today. Denies chills, N/V/D, urinary sx, incontinence/retention, injury or fall Related Data Previous Rx's Medication Instructions Recorded naproxen 500 mg tablet (Naprosyn) 500 mg PO BID #20 tabs 08/02/20 ibuprofen 600 mg tablet 600 mg PO Q6H PRN pain #20 tabs 11/22/20 cyclobenzaprine 10 mg tablet 10 mg PO TID PRN muscle spasm #14 02/06/21 tabs ondansetron 4 mg disintegrating 4 mg PO Q8H PRN nausea and 02/06/21 tablet vomiting #20 tabs acetaminophen 500 mg tablet 1,000 mg (2 x 500 mg) PO QID PRN 08/06/21 (Tylenol Extra Strength) fever or pain #14 tabs cyclobenzaprine 10 mg tablet 10 mg PO Q8H PRN Muscle spasm #14 08/06/21 tabs amoxicillin 500 mg tablet 500 mg PO BID #20 tabs 08/13/21 ibuprofen 600 mg tablet 600 mg PO Q8H PRN fever or pain 08/13/21 #20 tabs fluticasone propionate 50 1 spray intranasal BID #1 units 10/11/21 mcg/actuation nasal spray,suspension (Flonase Allergy Relief) codeine 10 mg-guaifenesin 100 mg/5 10 ml PO Q6-8H PRN Cough #240 mL 10/14/21 mL oral liquid acetaminophen 500 mg tablet 1,000 mg (2 x 500 mg) PO Q6H PRN 12/23/21 (Tylenol Extra Strength) pain #240 tabs ibuprofen 400 mg tablet 400 mg PO Q6H PRN pain #240 tabs 12/23/21 naproxen 500 mg tablet 500 mg PO BID PRN pain 10 days #20 06/03/22 tabs amoxicillin 875 mg-potassium 1 tab PO BID dog bit #10 tabs 08/27/22 clavulanate 125 mg tablet famotidine 20 mg tablet 20 mg PO BID #30 tabs 12/01/22 ondansetron 4 mg disintegrating 4 mg PO Q8H PRN nausea and 12/01/22 tablet vomiting #14 tabs prednisone 20 mg tablet 20 mg PO DAILY #4 tabs 02/25/23 prednisone 20 mg tablet 40 mg (2 x 20 mg) PO DAILY #10 tabs 03/01/23 omeprazole 20 mg capsule,delayed 20 mg PO DAILY #14 caps 07/09/23 release prednisone 20 mg tablet 40 mg (2 x 20 mg) PO DAILY #10 tabs 07/09/23 amoxicillin 500 mg tablet 500 mg PO TID #21 tabs 08/14/23 Allergies Allergy/AdvReac Type Severity Reaction Status Date / Time No Known Allergies Allergy Verified 08/14/23 16:36 Review of Systems Review of Systems Constitutional: + Fever, No Chills ENT/Mouth: No Ear Pain, + Nasal Congestion, No Sinus Pain, No Hoarseness, No sore throat, No Rhinorrhea, No Swallowing Difficulty Cardiovascular: + Chest Pain w/cough, + SOB w/cough Respiratory: + Cough, No Sputum, No Wheezing Gastrointestinal: No Nausea, No Vomiting, No Diarrhea, No Constipation, + intermittent Abdominal pain Genitourinary: No Dysuria, No Urinary Frequency, No Hematuria, No Urinary Incontinence/retention, No Urgency, No Flank Pain Musculoskeletal: No joint pain, +Myalgias, No Joint Swelling Skin: No Skin Lesions, No rash Neuro: No Weakness, No Numbness, No Paresthesias, +GRIMM Yes all other systems are reviewed and are negative Constitutional: Reports as per HPI Denies Abnormal speech present [facility] Past Medical History Attestation statement: The following information was validated with the patient. Source: old records reviewed Medical History No known health problems Social History Social History Alcohol intake: current Alcohol intake frequency: holidays/special occasions only Alcohol type: wine Advance Directives: No Advance Directives Information Provided: Yes Physical Exam ED Vital Signs: Vital Signs - 24 hr 09/01/23 11:07 09/01/23 13:23 Temperature 99.1 F 98 F Pulse Rate 104 H Respiratory Rate 15 Blood Pressure 146/85 H Pulse Oximetry 100 Oxygen Delivery Method Room Air BMI result Body Mass Index 20.1 Const General: cooperative, healthy appearing and no acute distress Orientation/consciousness: patient oriented x3 Limitations: no limitations HENMT Head: Yes normal to inspection and Yes atraumatic Ears: hearing grossly normal bilaterally General nose exam: Normal external nose present Face and sinus: Yes normal facial exam Eyes General: appearance normal, both eyes and all related structures EOM: EOMs intact bilaterally Neck Neck: Yes normal visual inspection and Yes no meningeal signs Resp Effort & Inspection: normal respiratory effort and no respiratory distress Auscultation: clear to auscultation bilaterally Cardio Rate: regular rate Heart sounds: S1 normal heart sound present and S2 normal heart sound present GI Inspection: Yes normal to inspection Palpation (GI): Soft to palpation, nontender, no guarding and not rigid General: Yes no CVA tenderness Back/Spine/Pelvis Back: no CVA tenderness Skin Rashes: no rashes Wounds: no wounds Neuro General: patient oriented x3, gait normal, tone normal, moves all extremities, no meningeal signs, no focal motor deficits and CN's II-XI intact bilaterally Cranial nerves: Yes CN's II-XII intact bilaterally Cognition (Neuro): normal cognition Speech: No Abnormal speech present Gait exam (Neuro): Normal gait present Extrem General: Yes normal to inspection Course Course Course Narrative: RME: 28yo F w/no significant past medical history presenting to the ED complaining of GRIMM, abdominal pain, back pain, dry cough, chest discomfort with cough, and fever x few days. Admits when to [facility] this morning EKG, no labs EKG, labs, CXR, viral testing ordered Full HPI, ROS and PE to be performed by primary ED provider. -no leukocytosis. Labs otherwise reassuring -UA not infected. -COVID-19 positive XR chest 2V IMPRESSION: No acute cardiopulmonary disease. > on re-evaluation abdomen remains soft and nontender. No CVAT. Discussed recommended follow-up with her GI doctor and PCP. Patient feels comfortable discharge at this time. Results discussed with patient including worrisome signs and symptoms and strict return precautions, and when to return to the emergency department. They verbalized understanding and feel safe for discharge at this time. Medical Decision Making Medical Decision Making MDM Narrative: 28-year-old female with no significant past medical history presenting to the ED complaining of dry cough, mild SOB & chest discomfort with cough, headache, fever, and intermittent abdominal/back pain x few days. On exam low grade temp 99.1, tachycardic likely from fever, abdomen soft nontender, no CVAT, lungs CTA. Concern for viral illness vs bronchitis vs PNA vs gastroenteritis. low suspicion for ACS/PE, SBO/ruptured vicious, appendicitis/diverticulitis renal stone/peylo or ovarian torsion. EKG, labs, UA, CXR, UA, viral testing ordered Please refer to course for remaining clinical decision making, interpretation of labs/imaging results, and discussions with consultants and/or family members. Differential Diagnosis Differential Diagnoses: The differential diagnosis associated with the presentation includes As above Admission/Observation Consideration of admission/observation: Escalation of care including admission/observation considered Lab Data [facility] Lab Attestation statement: I reviewed the patient's lab results. 09/01/23 11:24 09/01/23 11:25 Labs: Lab Results 09/01/23 09/01/23 Range/Units 11:24 11:25 WBC 7.6 (4.8-10.8) X10*3/uL RBC 4.85 (4.20-5.50) X10*6/uL Hgb 14.4 (12.0-16.0) g/dl Hct 43.9 (37.0-47.0) % MCV 90.5 (80.0-98.0) fL MCH 29.7 (27.0-33.0) pg MCHC 32.8 (31.0-35.0) g/dl RDW 12.6 (11.0-16.0) % Plt Count 197 (160-400) X10*3/uL MPV 10.3 (9.4-12.3) fL Immature Gran % (Auto) 0.3 (0.0-0.4) % Neut % (Auto) 85.2 H (45-73) % Lymph % (Auto) 5.8 L (20-40) % Erie % (Auto) 7.5 (2-11) % Eos % (Auto) 0.7 (0-4) % Baso % (Auto) 0.5 (0-2) % Lymph # (Auto) 0.4 L (1.2-4.9) X10*3/uL Erie # (Auto) 0.6 (0.1-1.2) X10*3/uL Eos # (Auto) 0.1 (0.0-0.4) X10*3/uL Baso # (Auto) 0.0 (0.0-0.2) X10*3/uL Abs Immat Gran (auto) 0.02 (0.00-0.03) X10*3/uL Absolute Neuts (auto) 6.5 (2.0-8.3) x10*3/uL Absolute Nucleated RBC 0.000 (0.0-0.012) X10*3/uL Nucleated RBC % (auto) 0.0 (0.0-0.2) /100WBC Sodium 142 (135-145) mmol/L Potassium 4.0 (3.3-5.1) mmol/L Chloride 108 (96-108) mmol/L Carbon Dioxide 23 (22-29) mmol/L Anion Gap 15 (12-20) BUN 7 L (9-16) mg/dL Creatinine 0.77 (0.5-1.4) mg/dL Estim Creat Clear Calc 80.6 Estimated GFR > 60 Random Glucose 89 (60-115) mg/dL Calcium 9.6 D (8.4-10.2) mg/dL Magnesium 1.9 (1.6-2.6) mg/dL Total Bilirubin 0.9 (0.0-1.0) mg/dL Direct Bilirubin 0.4 (0.0-0.5) mg/dL AST 20 (5-31) U/L ALT 21 (0-31) U/L Alkaline Phosphatase 68 (39-117) U/L Total Protein 7.4 (6.5-8.0) g/dL Albumin 4.6 (3.5-5.0) g/dL Lipase 12 (8-78) U/L Urine Color Dark Yellow Urine Appearance Clear Urine pH 5.5 (5.0-9.0) Ur Specific Gatzke >= 1.030 H (1.005-1.025) Urine Protein Trace (Neg-Trace) mg/dL Urine Glucose (UA) Negative (Negative) mg/dL Urine Ketones 80 (Negative) mg/dL Urine Blood Negative (Negative) Urine Nitrite Negative (Negative) Ur Leukocyte Esterase Trace H (Negative) Urine RBC 3-5 H (0-2) /HPF Urine WBC 0-5 (0-5) /HPF Ur Squamous Epith Cells 3-5 (0-2) /HPF Urine Bacteria None Seen (None Seen) Hyaline Casts 0-2 (0-2) /LPF Urine Test NEGATIVE (NEGATIVE) COVID-19 (WILLIAM) Positive A (Negative) COVID-19 Clin Com See Note Influenza Type A (JOSE) Negative (Negative) Influenza Type B (JOSE) Negative (Negative) Influenza A & B Note See Note Independent Interpretation I performed an independent interpretation of an: EKG (My interpretation EKG sinus tachycardia rate 101. Pr interval 158. QTC 404. Nonspecific T-wave changes. No STEMI) and Plain X-Ray Radiology Impression Discussion of test interpretation with radiology: I have reviewed the radiologist's reading. External Record Review External record reviewed: Inpatient record, Office record, Outpatient record, Prior outpatient labs, Prior outpatient radiology, Primary care record and Outside ED record Tests considered The following testing was considered but not selected: As above Prescription Management I considered prescription management with: Pain Medication, Antiviral and Antibiotic Medications Administered Discontinued Medications Generic Name Dose Route Start Last Admin Trade Name Freq PRN Reason Stop Dose Admin Acetaminophen 650 mg 09/01/23 13:00 09/01/23 13:03 Acetaminophen 325 Mg Tablet PO 09/01/23 13:01 650 mg ONCE ONE Administration Discharge Plan Discharge Clinical Impression: COVID-19 Patient Disposition: Home, Self-Care Instructions: COVID-19 (Coronavirus Disease 2019) (ED) Additional Instructions: YOU HAVE COVID-19 At this time you will be okay for discharge. Please self isolate for 5 days. Do not expose yourself to others. You may not go to work or school. Please continue to follow cold instructions and wash your hands frequently. You may take Tylenol / Motrin as directed on the bottle for pain or fever. If you have constant or persistent shortness of breath, fever unresolved with medications, chest pain, or your unable to eat or drink please return to the ED CDC Guidelines for home isolation: - Stay away from others - WEAR A MASK if you are sick AND STAY HOME - Cover your mouth and nose with a tissue when you cough or sneeze. Dispose of tissues in a lined trash can and wash your hands immediately with soap and water for at least 20 seconds. If soap and water are not available, clean hands with alcohol-based hand geothermal powerplant mechanic that contains at least 60% alcohol. - Clean your hands often with soap and water for at least 20 seconds - Avoid touching your eyes, nose and mouth with unwashed hands - Do not share dishes, drinking glasses, cups, eating utensils, towels, or bedding with other people in your home. After using these items, wash them thoroughly with soap and water or put in the industrial robotics mechanic. - Clean high-touch surfaces in your isolation area ( sick room and bathroom) every day; let a caregiver clean and disinfect high-touch surfaces in other areas of the home. Clean the area or item with soap and water or another detergent if it is dirty. Then, use a household disinfectant. - Limit contact with pets and animals: If you must care for a pet, wash your hands before and after interacting with them) Prescriptions: No Action naproxen [Naprosyn] 500 mg tablet 500 mg PO BID Qty: 20 0RF ibuprofen 600 mg tablet 600 mg PO Q6H PRN (Reason: pain) Qty: 20 0RF cyclobenzaprine 10 mg tablet 10 mg PO TID PRN (Reason: muscle spasm) Qty: 14 0RF ondansetron 4 mg tablet,disintegrating 4 mg PO Q8H PRN (Reason: nausea and vomiting) Qty: 20 0RF amoxicillin 500 mg tablet 500 mg PO BID Qty: 20 0RF ibuprofen 600 mg tablet 600 mg PO Q8H PRN (Reason: fever or pain) Qty: 20 0RF fluticasone propionate [Flonase Allergy Relief] 50 mcg/actuation spray,suspension 1 spray intranasal BID Qty: 1 0RF Rx Instructions: administer into each nostril codeine-guaifenesin 10-100 mg/5 mL liquid 10 ml PO Q6-8H PRN (Reason: Cough) Qty: 240 0RF naproxen 500 mg tablet 500 mg PO BID PRN (Reason: pain) 10 Days Qty: 20 0RF famotidine 20 mg tablet 20 mg PO BID Qty: 30 0RF ondansetron 4 mg tablet,disintegrating 4 mg PO Q8H PRN (Reason: nausea and vomiting) Qty: 14 0RF cyclobenzaprine 10 mg tablet 10 mg PO Q8H PRN (Reason: Muscle spasm) Qty: 14 0RF acetaminophen [Tylenol Extra Strength] 500 mg tablet 1,000 mg PO QID PRN (Reason: fever or pain) Qty: 14 0RF acetaminophen [Tylenol Extra Strength] 500 mg tablet 1,000 mg PO Q6H PRN (Reason: pain) Qty: 240 0RF ibuprofen 400 mg tablet 400 mg PO Q6H PRN (Reason: pain) Qty: 240 0RF amoxicillin-pot clavulanate 875-125 mg tablet 1 tab PO BID Qty: 10 0RF amoxicillin 500 mg tablet 500 mg PO TID Qty: 21 0RF prednisone 20 mg tablet 20 mg PO DAILY Qty: 4 0RF prednisone 20 mg tablet 40 mg PO DAILY Qty: 10 0RF prednisone 20 mg tablet 40 mg PO DAILY Qty: 10 0RF omeprazole 20 mg capsule,delayed release(DR/EC) 20 mg PO DAILY Qty: 14 0RF Referrals: Minoo Torres CNP [Primary Care Provider] - 10 days Stand Alone Forms: Work/School Release Interventions: ED Discharge Assessment Last Done: 09/01/23 13:23 Discharge Date/Time: 09/01/23 13:24
[2023-09-01 11:31] LABS: MANUAL DIFF FLAG NO
[2023-09-01 11:35] LABS: Basophils Percent Auto 0.5 % (0-2); Eosinophils Absolute Auto 0.1 X10*3/uL (0.0-0.4); Eosinophils Percent Auto 0.7 % (0-4); Hematocrit 43.9 % (37.0-47.0); Hemoglobin 14.4 g/dl (12.0-16.0); Imm Gran Abs Auto 0.02 X10*3/uL (0.00-0.03); Imm Gran Pct Auto 0.3 % (0.0-0.4); Lymphocytes Absolute Auto 0.4 X10*3/uL (1.2-4.9); Lymphocytes Percent Auto 5.8 % (20-40); Mean Corpuscular HGB Conc 32.8 g/dl (31.0-35.0); Mean Corpuscular Hemoglobin 29.7 pg (27.0-33.0); Mean Corpuscular Volume 90.5 fL (80.0-98.0); Mean Platelet Volume 10.3 fL (9.4-12.3); Monocytes Absolute Auto 0.6 X10*3/uL (0.1-1.2); Monocytes Percent Auto 7.5 % (2-11); Neutrophils Absolute Auto 6.5 x10*3/uL (2.0-8.3); Neutrophils Percent Auto 85.2 % (45-73); Platelet Count 197 X10*3/uL (160-400); Red Blood Count 4.85 X10*6/uL (4.20-5.50); Red Cell Distribution Width 12.6 % (11.0-16.0); White Blood Count 7.6 X10*3/uL (4.8-10.8)
[2023-09-01 11:41] LABS: Appearance Urine Clear; Color Urine Dark Yellow; Glucose Urine UA Negative (Negative); Leukocyte Esterase Urine Trace (Negative); Nitrite Urine Negative (Negative); PH 5.5 (5.0-9.0); Specific Gravity - Urine >= 1.030 (1.005-1.025); UMIC TRIGGER UACC YES; Urine Blood Negative (Negative); Urine Ketones 80 mg/dL (Negative); Urine Protein Trace mg/dL (Neg-Trace)
[2023-09-01 11:45] LABS: UPreg QC Valid YES; Urine Pregnancy NEGATIVE (NEGATIVE)
[2023-09-01 11:49] LABS: Alanine Aminotransferase 21 U/L (0-31); Albumin Level 4.6 g/dL (3.5-5.0); Alkaline Phosphatase 68 U/L (39-117); Anion Gap 15 (12-20); Aspartate Amino Transferase 20 U/L (5-31); Bilirubin Direct 0.4 mg/dL (0.0-0.5); Bilirubin Total 0.9 mg/dL (0.0-1.0); Blood Urea Nitrogen 7 mg/dL (9-16); Calcium 9.6 mg/dL (8.4-10.2); Carbon Dioxide 23 mmol/L (22-29); Chloride 108 mmol/L (96-108); Creatinine Clr Calc Pharmacy 80.6; Estimated Glomerular Filt Rate > 60; Glucose Random 89 mg/dL (60-115); Lipase 12 U/L (8-78); Magnesium 1.9 mg/dL (1.6-2.6); Sodium 142 mmol/L (135-145); Total Protein 7.4 g/dL (6.5-8.0)
[2023-09-01 11:58] LABS: COVID-19 Test Positive (Negative); IDNOW Serial# 08D9AD1C; IDNOW Serial# BCCEAD1C; Influenza A Negative (Negative); Influenza B2 Negative (Negative)
[2023-09-01 12:28] LABS: Bacteria Urine None Seen (None Seen); Hyaline Casts Urine 0-2 /LPF (0-2); WBC Urine 0-5 /HPF (0-5)
[2023-09-01] MEDS: Acetaminophen 325 MG TABLET 650 MG PO (13:03)
[2023-09-01 13:23] VITALS: TEMP 36.6
== END 2023-09-01 13:24 | disposition home or self-care (01) ==
PROVIDERS: Physician Assistant; Emergency Provider Emergency Medicine Emergency Medical Services; PCP Nurse Practitioner Family
DX: U07.1 COVID-19 (principal); R10.30 Lower abdominal pain, unspecified; R05.9 Cough, unspecified; R50.9 Fever, unspecified; R06.02 Shortness of breath; R07.89 Other chest pain; R51.9 Headache, unspecified; Z79.899 Other long term (current) drug therapy
CPT/HCPCS: 71046; 80048; 80076; 81001; 81025; 83690; 83735; 85025; 87502; 87635; 93005; 99283; 99284

== ENCOUNTER → 2023-09-01 11:13 | Outpatient (BNV) | payer OTHER, SELFPAY | PROVIDERS: PCP Nurse Practitioner Family; Visit Provider Internal Medicine Cardiovascular Disease | DX: R00.0 Tachycardia, unspecified (principal); R07.9 Chest pain, unspecified | CPT/HCPCS: 93010 ==

== ENCOUNTER 2023-09-25 08:10 | Emergency (ER) | payer OTHER, SELFPAY ==
[2023-09-25 08:16] VITALS: BP 132/92; PULSE 82; RESP 16; TEMP 36.3; O2SAT 98; BMI 19.9
--- NOTE | 2023-09-25 10:56 | ED.URI ---
HPI - URI/Sore Throat General Chief Complaint: General Medical Stated Complaint: chest pain , left side numbness Time Seen by Provider: 09/25/23 10:41 Source: patient Mode of arrival: ambulatory Limitations: no limitations History of Present Illness HPI Narrative: Patient is a 28-year-old female who presents emergency department for evaluation of chest pain. She states that she was recently COVID - 19 positive. Since 09/16/2023 she has been experiencing pain to the left anterior chest. She states it is constant in nature, reproducible to deep inspiration, cough, and movement. States she was referred by her primary care provider to come to the emergency department to have an x-ray and blood work done. She did have a telehealth visit with her insurance prescribed a muscle relaxant as this has helped in the past when she experienced costochondritis. She admits to taking it yesterday, though she for got the name of the medication, she states that it did improve her symptoms. She expresses concern for a blood clot in her lungs. Denies any personal history of DVT / PE/malignancy. Denies fevers, chills, headache, dizziness, neck pain, neck stiffness, shortness of breath, difficulty breathing, cough, sore throat, nausea, vomiting, abdominal pain, numbness or tingling of the extremities, genitourinary symptoms. Related Data Previous Rx's Medication Instructions Recorded naproxen 500 mg tablet (Naprosyn) 500 mg PO BID #20 tabs 08/02/20 ibuprofen 600 mg tablet 600 mg PO Q6H PRN pain #20 tabs 11/22/20 cyclobenzaprine 10 mg tablet 10 mg PO TID PRN muscle spasm #14 02/06/21 tabs ondansetron 4 mg disintegrating 4 mg PO Q8H PRN nausea and 02/06/21 tablet vomiting #20 tabs acetaminophen 500 mg tablet 1,000 mg (2 x 500 mg) PO QID PRN 08/06/21 (Tylenol Extra Strength) fever or pain #14 tabs cyclobenzaprine 10 mg tablet 10 mg PO Q8H PRN Muscle spasm #14 08/06/21 tabs amoxicillin 500 mg tablet 500 mg PO BID #20 tabs 08/13/21 ibuprofen 600 mg tablet 600 mg PO Q8H PRN fever or pain 08/13/21 #20 tabs fluticasone propionate 50 1 spray intranasal BID #1 units 10/11/21 mcg/actuation nasal spray,suspension (Flonase Allergy Relief) codeine 10 mg-guaifenesin 100 mg/5 10 ml PO Q6-8H PRN Cough #240 mL 10/14/21 mL oral liquid acetaminophen 500 mg tablet 1,000 mg (2 x 500 mg) PO Q6H PRN 12/23/21 (Tylenol Extra Strength) pain #240 tabs ibuprofen 400 mg tablet 400 mg PO Q6H PRN pain #240 tabs 12/23/21 naproxen 500 mg tablet 500 mg PO BID PRN pain 10 days #20 06/03/22 tabs amoxicillin 875 mg-potassium 1 tab PO BID dog bit #10 tabs 08/27/22 clavulanate 125 mg tablet famotidine 20 mg tablet 20 mg PO BID #30 tabs 12/01/22 ondansetron 4 mg disintegrating 4 mg PO Q8H PRN nausea and 12/01/22 tablet vomiting #14 tabs prednisone 20 mg tablet 20 mg PO DAILY #4 tabs 02/25/23 prednisone 20 mg tablet 40 mg (2 x 20 mg) PO DAILY #10 tabs 03/01/23 omeprazole 20 mg capsule,delayed 20 mg PO DAILY #14 caps 07/09/23 release prednisone 20 mg tablet 40 mg (2 x 20 mg) PO DAILY #10 tabs 07/09/23 amoxicillin 500 mg tablet 500 mg PO TID #21 tabs 08/14/23 Allergies Allergy/AdvReac Type Severity Reaction Status Date / Time No Known Allergies Allergy Verified 08/14/23 16:36 Review of Systems Review of Systems: Yes all other systems are reviewed and are negative PMFSH Past Medical History Attestation statement: The following information was validated with the patient. Source: old records reviewed Onset Date is defined in the Problem List Problems that require an onset date and time if occurred within 24 hrs of arrival to the ED Aortic Dissection and Rupture; Neurologic impairment; Cardiopulmonary Arrest; Endotracheal Intubation; Insertion or Replacement of Mechanical Circulatory Assist Device Medical History No known health problems Social History Social History Alcohol intake: current Alcohol intake frequency: holidays/special occasions only Alcohol type: wine Advance Directives: No Advance Directives Information Provided: Yes Physical Exam Vital Signs: Vital Signs: Last Vital Signs Temp 97.4 F 09/25/23 08:16 Pulse 82 09/25/23 08:16 Resp 16 09/25/23 08:16 BP 132/92 H 09/25/23 08:16 Pulse Ox 98 09/25/23 08:16 O2 Del Method Room Air 09/25/23 08:16 BMI result Body Mass Index 19.9 Appearance: Alert.?Oriented to person, place and time. No acute distress.?Normal affect. Eyes: Pupils equal, round and reactive to light.? ENT: TM normal bilaterally. Pharynx normal.?? Neck: Normal inspection.? Neck supple.??No cervical adenopathy CVS: Heart sounds normal. Normal heart rate and rhythm.? Pulses normal.?? Respiratory: No respiratory distress.? Lung sounds clear to auscultation bilaterally?? Tenderness upon palpation to the left anterior lateral chest wall. Abdomen: Soft and non-tender. Normoactive bowel sounds. Skin: Skin warm and dry.? Normal skin color.? ? Extremities: No lower extremity edema.? Neuro: Moves all extremities spontaneously. Sensation intact bilaterally. No motor deficits. Ambulates with normal steady gait. Medical Decision Making Medical Decision Making MDM Narrative: Patient is a 28-year-old female presenting for evaluation of Reproducible left anterior chest pain as per HPI. At this time history and physical exam not less consistent with ACS/PE/pneumonia, suspect pleuritic pain as etiology for symptoms. No risk factors for ACS. Wells negtive, D-dimer negative. CXR is without evidence of cardiopulmonary abnormality.. Well-appearing, nontoxic, afebrile, no tachycardia or tachypnea/hypoxia. Speaking clear full sentences, ambulatory with steady gait. Discussed conservative treatment including rest, hydration, Tylenol as needed for Pain, muscle relaxant as prescribed by her primary care provider, she states she cannot take NSAIDs due to gastrointestinal issue. Advised to follow-up with primary care provider as needed, discussed reasons to return back to the emergency department. All questions were answered. Patient discharged home in stable condition. Differential Diagnosis Differential Diagnoses: The differential diagnosis associated with the presentation includes ( See narrative above) Admission/Observation Consideration of admission/observation: Escalation of care including admission/observation considered ( see narrative above) Lab Data MDM Lab Attestation statement: I reviewed the patient's lab results. ( see narrative above) CBC is without leukocytosis or anemia. CMP is overall unremarkable. D-dimer _. 09/25/23 08:21 09/25/23 08:21 Labs: Lab Results 09/25/23 09/25/23 Range/Units 08:21 10:56 WBC 4.7 L (4.8-10.8) X10*3/uL RBC 4.88 (4.20-5.50) X10*6/uL Hgb 14.4 (12.0-16.0) g/dl Hct 42.6 (37.0-47.0) % MCV 87.3 (80.0-98.0) fL MCH 29.5 (27.0-33.0) pg MCHC 33.8 (31.0-35.0) g/dl RDW 12.5 (11.0-16.0) % Plt Count 246 (160-400) X10*3/uL MPV 9.9 (9.4-12.3) fL Immature Gran % (Auto) 0.2 (0.0-0.4) % Neut % (Auto) 58.3 (45-73) % Lymph % (Auto) 31.3 (20-40) % Fountain % (Auto) 7.2 (2-11) % Eos % (Auto) 2.1 (0-4) % Baso % (Auto) 0.9 (0-2) % Lymph # (Auto) 1.5 (1.2-4.9) X10*3/uL Fountain # (Auto) 0.3 (0.1-1.2) X10*3/uL Eos # (Auto) 0.1 (0.0-0.4) X10*3/uL Baso # (Auto) 0.0 (0.0-0.2) X10*3/uL Abs Immat Gran (auto) 0.01 (0.00-0.03) X10*3/uL Absolute Neuts (auto) 2.7 (2.0-8.3) x10*3/uL Absolute Nucleated RBC 0.000 (0.0-0.012) X10*3/uL Nucleated RBC % (auto) 0.0 (0.0-0.2) /100WBC D-Dimer High Sensitivty < 150 NG/ML Sodium 143 (135-145) mmol/L Potassium 3.6 (3.3-5.1) mmol/L Chloride 108 (96-108) mmol/L Carbon Dioxide 26 (22-29) mmol/L Anion Gap 13 (12-20) BUN 12 (9-16) mg/dL Creatinine 0.76 (0.5-1.4) mg/dL Estim Creat Clear Calc 81.4 Estimated GFR > 60 Random Glucose 100 (60-115) mg/dL Calcium 10.0 (8.4-10.2) mg/dL Independent Interpretation I performed an independent interpretation of an: Plain X-Ray ( I personally interpreted chest x-ray and agree with radiologist impression.) Radiology Impression Discussion of test interpretation with radiology: I have reviewed the radiologist's reading. Radiologist Impression: XR/XR chest 2V IMPRESSION: Unremarkable chest examination. External Record Review External record reviewed: Outpatient record Prescription Management I considered prescription management with: Pain Medication ( acetaminophen/ibuprofen) Discharge Plan Discharge Clinical Impression: Costochondritis Patient Disposition: Home, Self-Care Instructions: Costochondritis (ED) Additional Instructions: your blood work today is overall very reassuring, there is no evidence of a blood clot. Your chest x-ray does not show any evidence of pneumonia. As discussed the pain you are currently experiencing is most likely due to an inflammation of the musculature within your chest wall after your recent COVID- 19 infection. Continue taking the muscle relaxant medication as prescribed by her primary care provider. You can take ibuprofen 200 mg, 3 tablets (600mg) every 6-8 hours as needed for pain, in addition to Tylenol 500 mg, 2 tablets (1,000mg) every 4-6 hours as needed for pain, but not to exceed 3 doses daily (3,000mg).? Follow-up with your primary care provider next week for persistent symptoms. Return back to emergency department any new or worsening symptoms or concerns. Prescriptions: No Action naproxen [Naprosyn] 500 mg tablet 500 mg PO BID Qty: 20 0RF ibuprofen 600 mg tablet 600 mg PO Q6H PRN (Reason: pain) Qty: 20 0RF cyclobenzaprine 10 mg tablet 10 mg PO TID PRN (Reason: muscle spasm) Qty: 14 0RF ondansetron 4 mg tablet,disintegrating 4 mg PO Q8H PRN (Reason: nausea and vomiting) Qty: 20 0RF amoxicillin 500 mg tablet 500 mg PO BID Qty: 20 0RF ibuprofen 600 mg tablet 600 mg PO Q8H PRN (Reason: fever or pain) Qty: 20 0RF fluticasone propionate [Flonase Allergy Relief] 50 mcg/actuation spray,suspension 1 spray intranasal BID Qty: 1 0RF Rx Instructions: administer into each nostril codeine-guaifenesin 10-100 mg/5 mL liquid 10 ml PO Q6-8H PRN (Reason: Cough) Qty: 240 0RF naproxen 500 mg tablet 500 mg PO BID PRN (Reason: pain) 10 Days Qty: 20 0RF famotidine 20 mg tablet 20 mg PO BID Qty: 30 0RF ondansetron 4 mg tablet,disintegrating 4 mg PO Q8H PRN (Reason: nausea and vomiting) Qty: 14 0RF cyclobenzaprine 10 mg tablet 10 mg PO Q8H PRN (Reason: Muscle spasm) Qty: 14 0RF acetaminophen [Tylenol Extra Strength] 500 mg tablet 1,000 mg PO QID PRN (Reason: fever or pain) Qty: 14 0RF acetaminophen [Tylenol Extra Strength] 500 mg tablet 1,000 mg PO Q6H PRN (Reason: pain) Qty: 240 0RF ibuprofen 400 mg tablet 400 mg PO Q6H PRN (Reason: pain) Qty: 240 0RF amoxicillin-pot clavulanate 875-125 mg tablet 1 tab PO BID Qty: 10 0RF amoxicillin 500 mg tablet 500 mg PO TID Qty: 21 0RF prednisone 20 mg tablet 20 mg PO DAILY Qty: 4 0RF prednisone 20 mg tablet 40 mg PO DAILY Qty: 10 0RF prednisone 20 mg tablet 40 mg PO DAILY Qty: 10 0RF omeprazole 20 mg capsule,delayed release(DR/EC) 20 mg PO DAILY Qty: 14 0RF Referrals: Minoo Torres, [facility] [Primary Care Provider] -
== END 2023-09-25 11:33 | disposition home or self-care (01) ==
PROVIDERS: Emergency Provider Student in an Organized Health Care Education/Training Program; PCP Nurse Practitioner Family
DX: M94.0 Chondrocostal junction syndrome [Tietze] (principal); R07.89 Other chest pain; R20.0 Anesthesia of skin; Z79.899 Other long term (current) drug therapy
CPT/HCPCS: 36415; 71046; 80048; 85025; 85379; 99282; 99283

== ENCOUNTER 2023-10-09 11:06 | Emergency (ER) | payer OTHER, SELFPAY ==
--- NOTE | ~2023-10-09 | XR_ITS ---
EXAMINATION: XR CHEST CLINICAL INFORMATION: Chest pain COMPARISON: 09/25/2019 TECHNIQUE: 2 views of the chest were obtained. FINDINGS: No significant abnormality is noted involving the heart, lungs, mediastinum, bony thorax or soft tissues. XR/XR chest 2V IMPRESSION: Unremarkable examination, without interval change.
[2023-10-09 11:13] VITALS: BP 139/62; PULSE 102; O2SAT 99
[2023-10-09 11:23] VITALS: BP 139/90; PULSE 98; RESP 16; TEMP 36.4; O2SAT 97; BMI 19.3
--- NOTE | 2023-10-09 11:24 | ED_ITS ---
HPI - Chest Pain General Chief Complaint: Chest Pain Stated Complaint: CHEST PAIN Source: patient Mode of arrival: ambulatory Limitations: no limitations History of Present Illness HPI narrative: 28yoF presenting to the ER with complaints of midsternal chest pain that radiates to left. Pain between breast bones. Sitting, standing and laying makes its worse. Some relief with muscle relaxer yesterday. Had some SOB yesterday and lightnesses which has resolved. She reports this started after she woke up while she was getting her kids ready. She reports she tried muscle relaxers today and no symptomatic relief. She reports she takes medications for chronic GI problems. Denies any recent travel, leg swelling, calf tenderness, immobilization, history of DVT or PE, any estrogen usage, or recent surgery. Reports family history of cardiac disease although unaware of any sudden cardiac . MD complaint: chest pain Onset (ago): day(s) (today this morning ) Timing of current episode: constant Prior episodes: Yes Onset: during exertion Pain location: substernal Severity: mild Quality: aching Relieving factors: nothing Exacerbating factors: exertion, supine, palpation and movement Treatment prior to arrival: none Risk Factors Coronary artery disease risk factors: none Thoracic aortic dissection risk factors: none Related Data On Oral Contraceptives: No Previous Rx's Medication Instructions Recorded naproxen 500 mg tablet (Naprosyn) 500 mg PO BID #20 tabs 08/02/20 ibuprofen 600 mg tablet 600 mg PO Q6H PRN pain #20 tabs 11/22/20 cyclobenzaprine 10 mg tablet 10 mg PO TID PRN muscle spasm #14 02/06/21 tabs ondansetron 4 mg disintegrating 4 mg PO Q8H PRN nausea and 02/06/21 tablet vomiting #20 tabs acetaminophen 500 mg tablet 1,000 mg (2 x 500 mg) PO QID PRN 08/06/21 (Tylenol Extra Strength) fever or pain #14 tabs cyclobenzaprine 10 mg tablet 10 mg PO Q8H PRN Muscle spasm #14 08/06/21 tabs amoxicillin 500 mg tablet 500 mg PO BID #20 tabs 08/13/21 ibuprofen 600 mg tablet 600 mg PO Q8H PRN fever or pain 08/13/21 #20 tabs fluticasone propionate 50 1 spray intranasal BID #1 units 10/11/21 mcg/actuation nasal spray,suspension (Flonase Allergy Relief) codeine 10 mg-guaifenesin 100 mg/5 10 ml PO Q6-8H PRN Cough #240 mL 10/14/21 mL oral liquid acetaminophen 500 mg tablet 1,000 mg (2 x 500 mg) PO Q6H PRN 12/23/21 (Tylenol Extra Strength) pain #240 tabs ibuprofen 400 mg tablet 400 mg PO Q6H PRN pain #240 tabs 12/23/21 naproxen 500 mg tablet 500 mg PO BID PRN pain 10 days #20 06/03/22 tabs amoxicillin 875 mg-potassium 1 tab PO BID dog bit #10 tabs 08/27/22 clavulanate 125 mg tablet famotidine 20 mg tablet 20 mg PO BID #30 tabs 12/01/22 ondansetron 4 mg disintegrating 4 mg PO Q8H PRN nausea and 12/01/22 tablet vomiting #14 tabs prednisone 20 mg tablet 20 mg PO DAILY #4 tabs 02/25/23 prednisone 20 mg tablet 40 mg (2 x 20 mg) PO DAILY #10 tabs 03/01/23 omeprazole 20 mg capsule,delayed 20 mg PO DAILY #14 caps 07/09/23 release prednisone 20 mg tablet 40 mg (2 x 20 mg) PO DAILY #10 tabs 07/09/23 amoxicillin 500 mg tablet 500 mg PO TID #21 tabs 08/14/23 cyclobenzaprine 10 mg tablet 10 mg PO Q8H #10 tabs 10/09/23 naproxen 500 mg tablet 500 mg PO BID PRN pain #10 tabs 10/09/23 Allergies Allergy/AdvReac Type Severity Reaction Status Date / Time No Known Allergies Allergy Verified 10/09/23 11:22 Review of Systems 2 Review of Systems: Constitutional : No Weight loss, No Fever, No Chills, No Night Sweats, No Fatigue, No Malaise ENT/Mouth : No Hearing loss, No Ear Pain, No Nasal Congestion, No Sinus Pain, No Hoarseness, No sore throat, No Rhinorrhea, No Swallowing Difficulty Eyes: No Eye Pain, No Swelling, No Redness, No Foreign Body, No Discharge, No Vision Changes Cardiovascular : + Chest Pain, No SOB, No Dyspnea on Exertion, No Orthopnea, No Edema, No Palpitations Respiratory : No Cough, No Sputum, No Wheezing, No Smoke Exposure, No Dyspnea Gastrointestinal : No Nausea, No Vomiting, No Diarrhea, No Constipation, No abdominal Pain, No Hematochezia, No Melena Genitourinary : no irregular bleeding, No Dysuria, No Urinary Frequency, No Hematuria, No Urinary Incontinence, No Urgency, No Flank Pain, No Urinary Flow Changes, No Hesitancy Musculoskeletal : No joint pain, No Myalgias, No Joint Swelling Skin : No Skin Lesions, No rash Neuro : No Weakness, No Numbness, No Paresthesias, No Loss of Consciousness, No Dizziness, No Headache Psych : No Anxiety/Panic, No Depression, No SI/HI/AH/VH, No Social Issues, Heme/Lymph: No Bruising, No Bleeding,No Lymphadenopathy Endocrine : No Polyuria, No Polydipsia, No Temperature Intolerance Yes all other systems are reviewed and are negative [facility] Past Medical History Attestation statement: The following information was validated with the patient. Source: old records reviewed and nursing notes reviewed Onset Date is defined in the Problem List Problems that require an onset date and time if occurred within 24 hrs of arrival to the ED Aortic Dissection and Rupture; Neurologic impairment; Cardiopulmonary Arrest; Endotracheal Intubation; Insertion or Replacement of Mechanical Circulatory Assist Device Medical History No known health problems Social History Social History Alcohol intake: current Alcohol intake frequency: holidays/special occasions only Alcohol type: wine Physical Exam 2 Vital Signs: Vital Signs: Last Vital Signs Temp 97.1 F 10/09/23 18:13 Pulse 80 10/09/23 18:13 Resp 18 10/09/23 18:13 BP 137/100 H 10/09/23 18:13 Pulse Ox 98 10/09/23 18:13 O2 Del Method Room Air 10/09/23 18:13 BMI result Body Mass Index 19.3 Vital signs reviewed. Blood pressure normal. Pulse normal. Respiration normal. Oxygen normal. Temperature normal. Appearance: Alert. Oriented X3. No acute distress. Head: Normal external exam. Normocephalic. Atraumatic. Eyes: PERRLA. EOMI. Conjunctiva and sclera normal. Eyelids normal. ENT: EAC normal. TM's Normal. Pharynx normal. Uvula midline. Moist mucous membranes. No lesions/ulcerations or masses noted on the tongue. Normal voice. No trismus noted. No drooling noted. No muffled voice noted. Neck: Normal inspection. Neck supple. FROM. No adenopathy. Thyroid Normal. No meningeal signs. CVS: Normal heart rate and rhythm. Heart sound normal. Pulses normal throughout. No murmurs/rales/gallops. Respiratory: No respiratory distress. Painless inspiration. Breath sounds normal. No wheezes/rales/rhonchi noted. Chest tenderness to palpation to anterior chest wall. No crepitus is noted. No signs of infection. No rashes noted. No accessory muscle usage noted or decreased air movement noted. Abdomen: Soft and nontender. Back: Full range of motion noted. Nontender. Skin: Skin warm and dry. Normal skin color. Normal skin turgor. No rashes/lesions/lacerations noted. Extremities: Extremities exhibit normal range of motion and nontender. Neuro: Oriented X 3. No motor deficit. No sensory deficit. Reflexes normal. Normal steady gait. No focal neuro deficits noted. CN's II-XII intact bilaterally? Vascular: + radial pulses. Normal cap refill. No cyanosis noted to upper extremity nails Course Course Course Narrative: 11:27am-RME - 28yoF presenting to the ER with complaints of midsternal chest pain that radiates to left. Pain between breast bones. Sitting, standing and laying makes its worse. Some relief with muscle relaxer yesterday. Had some SOB yesterday and lightnesses which has resolved. She reports this started after she woke up while she was getting her kids ready. She reports she tried muscle relaxers today and no symptomatic relief. She reports she takes medications for chronic GI problems. Denies any recent travel, leg swelling, calf tenderness, immobilization, history of DVT or PE, any estrogen usage, or recent surgery. Reports family history of cardiac disease although unaware of any sudden cardiac . Plan: Patient was brought by EMS IV to left AC removed by nurse in triage. Patient is stable to go back to the waiting room. Labs, EKG, troponin along with chest x-ray ordered at this time. Reevaluation(s) Reevaluation #1: This patient presents with chest pain, with symptoms suggestive of noncardiac chest pain. History without high risk features (e.g., not substernal, no exertional component, not relieved with rest). Minimal CAD risk factors (including age). Exam without evidence of volume overload. EKG without signs of active ischemia. HEART score: 1. Given the timing of pain to ER presentation, plan to send single troponin to evaluate for NSTEMI. Presentation not consistent with acute PE (Wells low risk /PERC negative), pneumothorax, thoracic arotic dissection, cardiac effusion or tamponade. Labs are obtained and all labs within normal limits. Patient had negative troponin. EKG LVH otherwise no acute ischemic change are noted. Chest x-ray within normal limits. Therefore patient most likely muscular skeletal pain. Will DC home with naproxen and Flexeril with instructions to follow-up with PCP and to return if any new or worsening symptoms. Patient understands agrees with this plan. Time: 18:21 Medical Decision Making Medical Decision Making MDM Narrative: see course Differential Diagnosis Differential Diagnoses: The differential diagnosis associated with the presentation includes see course Lab Data [facility] Lab Attestation statement: I reviewed the patient's lab results. 10/09/23 11:52 10/09/23 11:52 Labs: Lab Results 10/09/23 Range/Units 11:52 WBC 6.9 (4.8-10.8) X10*3/uL RBC 5.16 (4.20-5.50) X10*6/uL Hgb 15.2 (12.0-16.0) g/dl Hct 44.7 (37.0-47.0) % MCV 86.6 (80.0-98.0) fL MCH 29.5 (27.0-33.0) pg MCHC 34.0 (31.0-35.0) g/dl RDW 12.7 (11.0-16.0) % Plt Count 234 (160-400) X10*3/uL MPV 9.8 (9.4-12.3) fL Immature Gran % (Auto) 0.1 (0.0-0.4) % Neut % (Auto) 69.7 (45-73) % Lymph % (Auto) 21.9 (20-40) % Liberty % (Auto) 6.5 (2-11) % Eos % (Auto) 1.2 (0-4) % Baso % (Auto) 0.6 (0-2) % Lymph # (Auto) 1.5 (1.2-4.9) X10*3/uL Liberty # (Auto) 0.5 (0.1-1.2) X10*3/uL Eos # (Auto) 0.1 (0.0-0.4) X10*3/uL Baso # (Auto) 0.0 (0.0-0.2) X10*3/uL Abs Immat Gran (auto) 0.01 (0.00-0.03) X10*3/uL Absolute Neuts (auto) 4.8 (2.0-8.3) x10*3/uL Absolute Nucleated RBC 0.000 (0.0-0.012) X10*3/uL Nucleated RBC % (auto) 0.0 (0.0-0.2) /100WBC PT 14.1 H (11.1-13.3) SEC INR 1.2 H (0.9-1.1) Sodium 141 (135-145) mmol/L Potassium 3.9 (3.3-5.1) mmol/L Chloride 109 H (96-108) mmol/L Carbon Dioxide 22 (22-29) mmol/L Anion Gap 14 (12-20) BUN 9 (9-16) mg/dL Creatinine 0.80 (0.5-1.4) mg/dL Estim Creat Clear Calc 75.1 Estimated GFR > 60 Random Glucose 90 (60-115) mg/dL Calcium 9.9 (8.4-10.2) mg/dL Magnesium 2.1 (1.6-2.6) mg/dL Total Bilirubin 0.8 (0.0-1.0) mg/dL AST 16 (5-31) U/L ALT 19 (0-31) U/L Alkaline Phosphatase 58 (39-117) U/L Troponin I High Sens < 2.7 (<3.5-17.0) ng/L Total Protein 7.5 (6.5-8.0) g/dL Albumin 4.6 (3.5-5.0) g/dL Lipase 17 (8-78) U/L Beta HCG, Quant < 2 mIU/mL Independent Interpretation I performed an independent interpretation of an: EKG (Normal sinus rhythm with LVH no acute ischemic change are noted.) and Plain X-Ray (Chest x-ray within normal limits no acute processes noted.) Radiology Impression Discussion of test interpretation with radiology: I have reviewed the radiologist's reading. (I agree with the radiology report reviewed images myself.) Radiologist Impression: FINDINGS: No significant abnormality is noted involving the heart, lungs, mediastinum, bony thorax or soft tissues. XR/XR chest 2V IMPRESSION: Unremarkable examination, without interval change. Independent Historian Clinical information obtained from an independent historian. History obtained from or confirmed by: Other (Patient, medical records and nurse's notes) External Record Review External record reviewed: Inpatient record, Office record, Outpatient record, Prior outpatient labs, Prior outpatient radiology, Primary care record and Outside ED record Prescription Management I considered prescription management with: Pain Medication Social Determinants Patient?s care significantly limited by Social Determinants of Health including: Low income and Other Social Determinant of Health Discharge Plan Discharge Clinical Impression: Atypical chest pain Patient Disposition: Home, Self-Care Instructions: Noncardiac Chest Pain (ED) Prescriptions: New naproxen 500 mg tablet 500 mg PO BID PRN (Reason: pain) Qty: 10 0RF cyclobenzaprine 10 mg tablet 10 mg PO Q8H Qty: 10 0RF No Action naproxen [Naprosyn] 500 mg tablet 500 mg PO BID Qty: 20 0RF ibuprofen 600 mg tablet 600 mg PO Q6H PRN (Reason: pain) Qty: 20 0RF cyclobenzaprine 10 mg tablet 10 mg PO TID PRN (Reason: muscle spasm) Qty: 14 0RF ondansetron 4 mg tablet,disintegrating 4 mg PO Q8H PRN (Reason: nausea and vomiting) Qty: 20 0RF amoxicillin 500 mg tablet 500 mg PO BID Qty: 20 0RF ibuprofen 600 mg tablet 600 mg PO Q8H PRN (Reason: fever or pain) Qty: 20 0RF fluticasone propionate [Flonase Allergy Relief] 50 mcg/actuation spray,suspension 1 spray intranasal BID Qty: 1 0RF Rx Instructions: administer into each nostril codeine-guaifenesin 10-100 mg/5 mL liquid 10 ml PO Q6-8H PRN (Reason: Cough) Qty: 240 0RF naproxen 500 mg tablet 500 mg PO BID PRN (Reason: pain) 10 Days Qty: 20 0RF famotidine 20 mg tablet 20 mg PO BID Qty: 30 0RF ondansetron 4 mg tablet,disintegrating 4 mg PO Q8H PRN (Reason: nausea and vomiting) Qty: 14 0RF cyclobenzaprine 10 mg tablet 10 mg PO Q8H PRN (Reason: Muscle spasm) Qty: 14 0RF acetaminophen [Tylenol Extra Strength] 500 mg tablet 1,000 mg PO QID PRN (Reason: fever or pain) Qty: 14 0RF acetaminophen [Tylenol Extra Strength] 500 mg tablet 1,000 mg PO Q6H PRN (Reason: pain) Qty: 240 0RF ibuprofen 400 mg tablet 400 mg PO Q6H PRN (Reason: pain) Qty: 240 0RF amoxicillin-pot clavulanate 875-125 mg tablet 1 tab PO BID Qty: 10 0RF amoxicillin 500 mg tablet 500 mg PO TID Qty: 21 0RF prednisone 20 mg tablet 20 mg PO DAILY Qty: 4 0RF prednisone 20 mg tablet 40 mg PO DAILY Qty: 10 0RF prednisone 20 mg tablet 40 mg PO DAILY Qty: 10 0RF omeprazole 20 mg capsule,delayed release(DR/EC) 20 mg PO DAILY Qty: 14 0RF Referrals: Minoo Torres CNP [Primary Care Provider] - 1 day
--- NOTE | 2023-10-09 11:29 | ECG_ITS ---
Test Reason : CHEST PAIN Blood Pressure : / mmHG Vent. Rate : 098 BPM Atrial Rate : 098 BPM P-R Int : 146 ms QRS Dur : 078 ms QT Int : 324 ms P-R-T Axes : 065 087 043 degrees QTc Int : 413 ms Normal sinus rhythm Possible Left atrial enlargement Borderline ECG When compared with ECG of 01-SEP-2023 11:18, No significant change was found Referred By: Liane Burger Electronically Signed By:ROGERIO HIGGINS
[2023-10-09 11:56] LABS: MANUAL DIFF FLAG NO
[2023-10-09 12:01] LABS: Basophils Percent Auto 0.6 % (0-2); Eosinophils Absolute Auto 0.1 X10*3/uL (0.0-0.4); Eosinophils Percent Auto 1.2 % (0-4); Hematocrit 44.7 % (37.0-47.0); Hemoglobin 15.2 g/dl (12.0-16.0); Imm Gran Abs Auto 0.01 X10*3/uL (0.00-0.03); Imm Gran Pct Auto 0.1 % (0.0-0.4); Lymphocytes Absolute Auto 1.5 X10*3/uL (1.2-4.9); Lymphocytes Percent Auto 21.9 % (20-40); Mean Corpuscular Hemoglobin 29.5 pg (27.0-33.0); Mean Corpuscular Volume 86.6 fL (80.0-98.0); Mean Platelet Volume 9.8 fL (9.4-12.3); Monocytes Absolute Auto 0.5 X10*3/uL (0.1-1.2); Monocytes Percent Auto 6.5 % (2-11); Neutrophils Absolute Auto 4.8 x10*3/uL (2.0-8.3); Neutrophils Percent Auto 69.7 % (45-73); Platelet Count 234 X10*3/uL (160-400); Red Blood Count 5.16 X10*6/uL (4.20-5.50); Red Cell Distribution Width 12.7 % (11.0-16.0); White Blood Count 6.9 X10*3/uL (4.8-10.8)
[2023-10-09 12:04] LABS: INTERNATIONAL NORM RATIO 1.2 (0.9-1.1); Prothrombin Time 14.1 SEC (11.1-13.3)
[2023-10-09 12:19] LABS: Alanine Aminotransferase 19 U/L (0-31); Albumin Level 4.6 g/dL (3.5-5.0); Alkaline Phosphatase 58 U/L (39-117); Anion Gap 14 (12-20); Aspartate Amino Transferase 16 U/L (5-31); Bilirubin Total 0.8 mg/dL (0.0-1.0); Blood Urea Nitrogen 9 mg/dL (9-16); Calcium 9.9 mg/dL (8.4-10.2); Carbon Dioxide 22 mmol/L (22-29); Chloride 109 mmol/L (96-108); Creatinine Clr Calc Pharmacy 75.1; Estimated Glomerular Filt Rate > 60; Glucose Random 90 mg/dL (60-115); Lipase 17 U/L (8-78); Magnesium 2.1 mg/dL (1.6-2.6); Potassium 3.9 mmol/L (3.3-5.1); Sodium 141 mmol/L (135-145); Total Protein 7.5 g/dL (6.5-8.0)
[2023-10-09 12:21] LABS: HCG Quantitative < 2 mIU/mL
[2023-10-09 12:24] LABS: Troponin-I High Sensitivity < 2.7 ng/L (<3.5-17.0)
[2023-10-09 18:13] VITALS: BP 137/100; PULSE 80; RESP 18; TEMP 36.2; O2SAT 98
== END 2023-10-09 18:21 | disposition home or self-care (01) ==
LOC: HO.ED 18:20
PROVIDERS: Physician Assistant Medical; Emergency Provider Emergency Medicine Emergency Medical Services; PCP Nurse Practitioner Family
DX: R07.89 Other chest pain (principal); R06.02 Shortness of breath
CPT/HCPCS: 36415; 71046; 80053; 83690; 83735; 84484; 84702; 85025; 85610; 93005; 99283

== ENCOUNTER → 2023-10-09 11:29 | Outpatient (BNV) | payer OTHER, SELFPAY | PROVIDERS: PCP Nurse Practitioner Family; Visit Provider Internal Medicine | DX: R07.9 Chest pain, unspecified (principal) | CPT/HCPCS: 93010 ==

== ENCOUNTER 2023-11-20 17:02 | Emergency (ER) | payer OTHER, SELFPAY ==
--- NOTE | ~2023-11-20 | XR_ITS ---
EXAMINATION: XR CHEST CLINICAL INFORMATION: Pain. Injury. COMPARISON: Previous chest x-ray September 2023 TECHNIQUE: 2 views of the chest were obtained. FINDINGS: No significant abnormality is noted involving the heart, lungs, mediastinum, bony thorax or soft tissues. XR/XR chest 2V IMPRESSION: Unremarkable examination.
--- NOTE | 2023-11-20 17:08 | ECG_ITS ---
Test Reason : CP Blood Pressure : / mmHG Vent. Rate : 099 BPM Atrial Rate : 099 BPM P-R Int : 150 ms QRS Dur : 074 ms QT Int : 310 ms P-R-T Axes : 059 080 049 degrees QTc Int : 397 ms Normal sinus rhythm with sinus arrhythmia Normal ECG When compared with ECG of 09-OCT-2023 11:45, No significant change was found Referred By: Generic ED Physician Electronically Signed By:ROGERIO HIGGINS
[2023-11-20 17:23] VITALS: BP 148/89; PULSE 90; RESP 18; TEMP 36.2; O2SAT 99; BMI 20.2
--- NOTE | 2023-11-20 17:54 | ED_ITS ---
HPI - Chest Pain General Chief Complaint: Chest Pain Stated Complaint: Chest pain/pressure Time Seen by Provider: 11/20/23 21:18 Source: patient Mode of arrival: ambulatory Limitations: no limitations History of Present Illness HPI narrative: Patient is a 28 year old assigned female at with a history of chronic costochondritis presenting to the emergency department today with chest heaviness. Patient states that since yesterday, she has had left sided chest heaviness that radiates into her left arm and shoulder. Patient denies any dizziness, lightheadedness, abdominal pain, nausea, vomiting, fever, chills, blurry vision, double vision, loss of vision, difficulty breathing, shortness of breath, back pain, night sweats, pain with urination, increased urinary frequency, increased urinary urgency, blood in her urine or stool, syncope or a near syncopal episode, recent trauma or falls, bowel incontinence, bladder incontinence, bowel retention, bladder retention, or any other complaints at this time. MD complaint: chest pain Related Data Previous Rx's Medication Instructions Recorded naproxen 500 mg tablet (Naprosyn) 500 mg PO BID #20 tabs 08/02/20 ibuprofen 600 mg tablet 600 mg PO Q6H PRN pain #20 tabs 11/22/20 cyclobenzaprine 10 mg tablet 10 mg PO TID PRN muscle spasm #14 02/06/21 tabs ondansetron 4 mg disintegrating 4 mg PO Q8H PRN nausea and 02/06/21 tablet vomiting #20 tabs acetaminophen 500 mg tablet 1,000 mg (2 x 500 mg) PO QID PRN 08/06/21 (Tylenol Extra Strength) fever or pain #14 tabs cyclobenzaprine 10 mg tablet 10 mg PO Q8H PRN Muscle spasm #14 08/06/21 tabs amoxicillin 500 mg tablet 500 mg PO BID #20 tabs 08/13/21 ibuprofen 600 mg tablet 600 mg PO Q8H PRN fever or pain 08/13/21 #20 tabs fluticasone propionate 50 1 spray intranasal BID #1 units 10/11/21 mcg/actuation nasal spray,suspension (Flonase Allergy Relief) codeine 10 mg-guaifenesin 100 mg/5 10 ml PO Q6-8H PRN Cough #240 mL 10/14/21 mL oral liquid acetaminophen 500 mg tablet 1,000 mg (2 x 500 mg) PO Q6H PRN 12/23/21 (Tylenol Extra Strength) pain #240 tabs ibuprofen 400 mg tablet 400 mg PO Q6H PRN pain #240 tabs 12/23/21 naproxen 500 mg tablet 500 mg PO BID PRN pain 10 days #20 06/03/22 tabs amoxicillin 875 mg-potassium 1 tab PO BID dog bit #10 tabs 08/27/22 clavulanate 125 mg tablet famotidine 20 mg tablet 20 mg PO BID #30 tabs 12/01/22 ondansetron 4 mg disintegrating 4 mg PO Q8H PRN nausea and 12/01/22 tablet vomiting #14 tabs prednisone 20 mg tablet 20 mg PO DAILY #4 tabs 02/25/23 prednisone 20 mg tablet 40 mg (2 x 20 mg) PO DAILY #10 tabs 03/01/23 omeprazole 20 mg capsule,delayed 20 mg PO DAILY #14 caps 07/09/23 release prednisone 20 mg tablet 40 mg (2 x 20 mg) PO DAILY #10 tabs 07/09/23 amoxicillin 500 mg tablet 500 mg PO TID #21 tabs 08/14/23 cyclobenzaprine 10 mg tablet 10 mg PO Q8H #10 tabs 10/09/23 naproxen 500 mg tablet 500 mg PO BID PRN pain #10 tabs 10/09/23 prednisone 20 mg tablet 20 mg PO DAILY 7 days #7 tabs 11/20/23 Allergies Allergy/AdvReac Type Severity Reaction Status Date / Time No Known Allergies Allergy Verified 10/09/23 11:22 Review of Systems 2 Constitutional: Constitutional: Reports no additional constitutional complaints, Denies chills, Denies fever(s) and Denies night sweats Eyes: Eyes: Reports no additional eye complaints, Denies blurry vision, Denies change in vision, Denies diplopia, Denies eye discharge, Denies loss of vision and Denies eye pain ENT: Denies dizziness Cardiovascular: Cardiovascular: Reports no additional cardiovascular complaints, Reports chest pain, Denies lightheadedness, Denies Loss of Consciousness and Denies dyspnea Respiratory: Respiratory: Reports no additional respiratory complaints and Denies dyspnea Gastrointestinal: Gastrointestinal: Reports no additional gastrointestinal complaints, Denies abdominal pain, Denies melena, Denies hematochezia, Denies change in bowel habits and Denies change in stool character Genitourinary: Genitourinary: Denies hematuria, Denies urinary frequency, Denies dysuria, Denies urinary incontinence, Denies urinary hesitancy and Denies urinary urgency Musculoskeletal: Musculoskeletal: Reports no additional musculoskeletal complaints, Denies numbness and Denies tingling Neurologic: Denies dizziness, Denies loss of vision, Denies numbness and Denies tingling Psychiatric: Psychiatric: Reports no additional psychiatric complaints Endocrine: Endocrine: Reports no additional endocrine complaints Hematologic/Lymphatic: Hematologic/Lymphatic: Reports no additional hematologic/lymphatic complaints Allergic/Immunologic: Allergic/Immunologic: Reports no additional allergic/immunologic complaints [facility] Past Medical History Attestation statement: The following information was validated with the patient. Source: old records reviewed and nursing notes reviewed Medical History No known health problems Social History Social History Alcohol intake: current Alcohol intake frequency: holidays/special occasions only Alcohol type: wine Smoked in Last 30 Days: No Use of substances other than those prescribed or required for medical reasons: No Advance Directives: No Advance Directives Information Provided: No Patient : No Physical Exam 2 Vital Signs: Vital Signs: Last Vital Signs Temp 97.6 F 11/20/23 22:14 Pulse 97 11/20/23 22:14 Resp 18 11/20/23 22:14 BP 117/86 11/20/23 22:14 Pulse Ox 98 11/20/23 22:14 O2 Del Method Room Air 11/20/23 22:14 BMI result Body Mass Index 20.2 Const: General: cooperative, no acute distress, alert and awake Nutritional Appearance: well nourished Orientation/consciousness: patient oriented x3 Limitations: no limitations HEENT: Head: Yes normal to inspection and Yes atraumatic Ears: hearing grossly normal bilaterally and external ears normal General nose exam: Normal external nose present, no nasal discharge noted and no epistaxis Face and sinus: Yes normal facial exam, No abrasion and No laceration Mouth: Normal oral and palatal mucosa present, no drooling and no muffled voice Eyes: General: appearance normal, both eyes and all related structures P eriorbital: periorbital findings normal Eyelids: Yes eyelids normal C onjunctivae: conjunctivae normal Pupils: Equal, round and reactive pupils present EOM: EOMs intact bilaterally Neck: Neck: Yes normal visual inspection, Yes full ROM and Yes no lymphadenopathy Chest: Chest palpation & inspection: normal inspection of the chest Resp: Effort & Inspection: normal respiratory effort and able to speak in complete sentences GI: Inspection: Yes normal to inspection Neuro: General: patient oriented x3 and moves all extremities Cranial nerves: Yes Equal, round and reactive pupils present Cognition (Neuro): n ormal cognition Motor exam (neuro): 5/5 motor strength present throughout Sensory Exam: Normal double simultaneous stimulation for sensation C oordination: [id number] test normal Extrem: General: Yes normal to inspection, Yes full ROM and Yes capillary refill normal Psych: Appearance: grossly normal Mental Status: mental status grossly normal Affect: normal affect Attitude: cooperative Thought process: N ormal thought process present Thought content: Normal thought content present Insight: Good insight present (Psych) Course Course Course Narrative: RME- 28 old female presents for evaluation of left-sided chest tightness that started yesterday. She also reports her heart rate being ?120. ? Plan for cardiac workup Medications Administered Discontinued Medications Generic Name Dose Route Start Last Admin Trade Name Freq PRN Reason Stop Dose Admin Prednisone 20 mg 11/20/23 21:54 11/20/23 22:10 Prednisone 20 Mg Tablet PO 11/20/23 21:55 20 mg ONCE ONE Administration Medical Decision Making Medical Decision Making [facility] Narrative: Patient is a 28 year old assigned female at with a history of chronic costochondritis presenting to the emergency department today with left sided chest pain that radiates into her left arm. Patient's physical exam was unremarkable. Patient's blood work showed a mild elevation of the WBC count of 12.6 but was otherwise unremarkable. Patient's EKG was unremarkable. Patient's chest x-ray showed no acute process. I explained my physical exam findings as well as all test results to the patient. I answered all questions asked by the patient. I stressed the importance of the patient taking her medication as prescribed. I stressed the importance of the patient following up with her primary care provider. I stressed the importance of the patient returning to the emergency department immediately if her symptoms were to worsen or if she were to develop any dizziness, shortness of breath, difficulty breathing, chest pain, blurry vision, loss of vision, nausea, vomiting, abdominal pain, fever, chills, back pain, or any other complaints. Patient verbalized agreement and understanding with this treatment plan and discharge. Differential Diagnosis Differential Diagnoses: The differential diagnosis associated with the presentation includes Viral illness COVID-19 Influenza Chest pain Costochondritis Admission/Observation Consideration of admission/observation: Escalation of care including admission/observation considered Patient would have been admitted to the hospital had her work up had any findings where hospital admission was appropriate and her clinical presentation warranted hospital admission. Lab Data [facility] Lab Attestation statement: I reviewed the patient's lab results. My interpretation of these results are in the [facility] Rationale portion of this note. 11/20/23 19:18 11/20/23 19:18 Labs: Lab Results 11/20/23 Range/Units 19:18 WBC 12.6 H (4.8-10.8) X10*3/uL RBC 5.34 (4.20-5.50) X10*6/uL Hgb 16.1 H (12.0-16.0) g/dl Hct 47.1 H (37.0-47.0) % MCV 88.2 (80.0-98.0) fL MCH 30.1 (27.0-33.0) pg MCHC 34.2 (31.0-35.0) g/dl RDW 13.0 (11.0-16.0) % Plt Count 313 D (160-400) X10*3/uL MPV 9.9 (9.4-12.3) fL Immature Gran % (Auto) 0.2 (0.0-0.4) % Neut % (Auto) 82.1 H (45-73) % Lymph % (Auto) 12.3 L (20-40) % [place] % (Auto) 3.9 (2-11) % Eos % (Auto) 0.8 (0-4) % Baso % (Auto) 0.7 (0-2) % Lymph # (Auto) 1.6 (1.2-4.9) X10*3/uL [place] # (Auto) 0.5 (0.1-1.2) X10*3/uL Eos # (Auto) 0.1 (0.0-0.4) X10*3/uL Baso # (Auto) 0.1 (0.0-0.2) X10*3/uL Abs Immat Gran (auto) 0.03 (0.00-0.03) X10*3/uL Absolute Neuts (auto) 10.3 H (2.0-8.3) x10*3/uL Absolute Nucleated RBC 0.000 (0.0-0.012) X10*3/uL Nucleated RBC % (auto) 0.0 (0.0-0.2) /100WBC PT 13.7 H (11.1-13.3) SEC INR 1.1 (0.9-1.1) APTT 31.6 (26.0-36.8) SEC Sodium 143 (135-145) mmol/L Potassium 4.1 (3.3-5.1) mmol/L Chloride 106 (96-108) mmol/L Carbon Dioxide 28 (22-29) mmol/L Anion Gap 13 (12-20) BUN 7 L (9-16) mg/dL Creatinine 0.81 (0.5-1.4) mg/dL Estim Creat Clear Calc 76.6 Estimated GFR > 60 Random Glucose 102 (60-115) mg/dL Calcium 10.1 (8.4-10.2) mg/dL Magnesium 2.3 (1.6-2.6) mg/dL Total Bilirubin 0.6 (0.0-1.0) mg/dL AST 22 (5-31) U/L ALT 28 (0-31) U/L Alkaline Phosphatase 77 (39-117) U/L Troponin I High Sens < 2.7 (<3.5-17.0) ng/L Total Protein 8.1 H (6.5-8.0) g/dL Albumin 4.8 (3.5-5.0) g/dL Beta HCG, Quant < 2 mIU/mL Influenza Type A (PCR) NEGATIVE (Negative) Influenza Type B (PCR) NEGATIVE (Negative) RSV RNA Qual (PCR) NEGATIVE (Negative) SARS-CoV-2 RNA (RT-PCR) NEGATIVE (Negative) Independent Interpretation I performed an independent interpretation of an: EKG and Plain X-Ray Interpretation: My interpretation is in agreement with the radiologist's impression of this imaging study. - EXAMINATION: XR CHEST CLINICAL INFORMATION: Pain. Injury. COMPARISON: Previous chest x-ray September 2023 TECHNIQUE: 2 views of the chest were obtained. FINDINGS: No significant abnormality is noted involving the heart, lungs, mediastinum, bony thorax or soft tissues. XR/XR chest 2V IMPRESSION: Unremarkable examination. Dictated By: Shabnam Sharma MD Signed By: Electronically signed by Shabnam Sharma MD 11/20/23 1838 - Vent. Rate: 099 BPM Atrial Rate: 099 BPM P-R Int: 150 ms QRS Dur: 074 ms QT Int: 310 ms P-R-T Axes: 059 080 049 degrees QTc Int: 397 ms Normal sinus rhythm with sinus arrhythmia Normal ECG 11/20/23 2085 Radiology Impression Discussion of test interpretation with radiology: I have reviewed the radiologist's reading. Scores Heart Score History: -0- slightly suspicious ECG: -0- normal Age: -0- < or = 45 Risk factory: -0- no risk factors known Troponin: -0- < or = normal limit Score: 0 Risk: 1.7% Discharge Plan Discharge Clinical Impression: Atypical chest pain, Viral illness Patient Disposition: Home, Self-Care Instructions: Chest Pain (ED), Viral Syndrome (ED) Additional Instructions: Follow up with your primary care provider. Return to the emergency department immediately if your symptoms worsen or if you develop any dizziness, shortness of breath, difficulty breathing, chest pain, blurry vision, loss of vision, nausea, vomiting, abdominal pain, fever, chills, back pain, or any other complaints. Prescriptions: New prednisone 20 mg tablet 20 mg PO DAILY 7 Days Qty: 7 0RF No Action naproxen [Naprosyn] 500 mg tablet 500 mg PO BID Qty: 20 0RF ibuprofen 600 mg tablet 600 mg PO Q6H PRN (Reason: pain) Qty: 20 0RF cyclobenzaprine 10 mg tablet 10 mg PO TID PRN (Reason: muscle spasm) Qty: 14 0RF ondansetron 4 mg tablet,disintegrating 4 mg PO Q8H PRN (Reason: nausea and vomiting) Qty: 20 0RF amoxicillin 500 mg tablet 500 mg PO BID Qty: 20 0RF ibuprofen 600 mg tablet 600 mg PO Q8H PRN (Reason: fever or pain) Qty: 20 0RF fluticasone propionate [Flonase Allergy Relief] 50 mcg/actuation spray,suspension 1 spray intranasal BID Qty: 1 0RF Rx Instructions: administer into each nostril codeine-guaifenesin 10-100 mg/5 mL liquid 10 ml PO Q6-8H PRN (Reason: Cough) Qty: 240 0RF naproxen 500 mg tablet 500 mg PO BID PRN (Reason: pain) 10 Days Qty: 20 0RF famotidine 20 mg tablet 20 mg PO BID Qty: 30 0RF ondansetron 4 mg tablet,disintegrating 4 mg PO Q8H PRN (Reason: nausea and vomiting) Qty: 14 0RF cyclobenzaprine 10 mg tablet 10 mg PO Q8H PRN (Reason: Muscle spasm) Qty: 14 0RF acetaminophen [Tylenol Extra Strength] 500 mg tablet 1,000 mg PO QID PRN (Reason: fever or pain) Qty: 14 0RF acetaminophen [Tylenol Extra Strength] 500 mg tablet 1,000 mg PO Q6H PRN (Reason: pain) Qty: 240 0RF ibuprofen 400 mg tablet 400 mg PO Q6H PRN (Reason: pain) Qty: 240 0RF amoxicillin-pot clavulanate 875-125 mg tablet 1 tab PO BID Qty: 10 0RF amoxicillin 500 mg tablet 500 mg PO TID Qty: 21 0RF naproxen 500 mg tablet 500 mg PO BID PRN (Reason: pain) Qty: 10 0RF cyclobenzaprine 10 mg tablet 10 mg PO Q8H Qty: 10 0RF prednisone 20 mg tablet 20 mg PO DAILY Qty: 4 0RF prednisone 20 mg tablet 40 mg PO DAILY Qty: 10 0RF prednisone 20 mg tablet 40 mg PO DAILY Qty: 10 0RF omeprazole 20 mg capsule,delayed release(DR/EC) 20 mg PO DAILY Qty: 14 0RF Referrals: Minoo Torres CNP [Primary Care Provider] - Stand Alone Forms: Work/School Release Interventions: ED Discharge Assessment Last Done: 11/20/23 22:14 Discharge Date/Time: 11/20/23 22:15 Print Language: Luxem[place]ish
[2023-11-20 19:24] LABS: MANUAL DIFF FLAG NO
[2023-11-20 19:26] LABS: Basophils Absolute Auto 0.1 X10*3/uL (0.0-0.2); Basophils Percent Auto 0.7 % (0-2); Eosinophils Absolute Auto 0.1 X10*3/uL (0.0-0.4); Eosinophils Percent Auto 0.8 % (0-4); Hematocrit 47.1 % (37.0-47.0); Hemoglobin 16.1 g/dl (12.0-16.0); Imm Gran Abs Auto 0.03 X10*3/uL (0.00-0.03); Imm Gran Pct Auto 0.2 % (0.0-0.4); Lymphocytes Absolute Auto 1.6 X10*3/uL (1.2-4.9); Lymphocytes Percent Auto 12.3 % (20-40); Mean Corpuscular HGB Conc 34.2 g/dl (31.0-35.0); Mean Corpuscular Hemoglobin 30.1 pg (27.0-33.0); Mean Corpuscular Volume 88.2 fL (80.0-98.0); Mean Platelet Volume 9.9 fL (9.4-12.3); Monocytes Absolute Auto 0.5 X10*3/uL (0.1-1.2); Monocytes Percent Auto 3.9 % (2-11); Neutrophils Absolute Auto 10.3 x10*3/uL (2.0-8.3); Neutrophils Percent Auto 82.1 % (45-73); Platelet Count 313 X10*3/uL (160-400); Red Blood Count 5.34 X10*6/uL (4.20-5.50); White Blood Count 12.6 X10*3/uL (4.8-10.8)
[2023-11-20 19:38] LABS: INTERNATIONAL NORM RATIO 1.1 (0.9-1.1); Prothrombin Time 13.7 SEC (11.1-13.3)
[2023-11-20 19:41] LABS: Partial Thromboplastin Time 31.6 SEC (26.0-36.8)
[2023-11-20 19:45] LABS: Alanine Aminotransferase 28 U/L (0-31); Albumin Level 4.8 g/dL (3.5-5.0); Alkaline Phosphatase 77 U/L (39-117); Anion Gap 13 (12-20); Aspartate Amino Transferase 22 U/L (5-31); Bilirubin Total 0.6 mg/dL (0.0-1.0); Blood Urea Nitrogen 7 mg/dL (9-16); Calcium 10.1 mg/dL (8.4-10.2); Carbon Dioxide 28 mmol/L (22-29); Chloride 106 mmol/L (96-108); Creatinine Clr Calc Pharmacy 76.6; Estimated Glomerular Filt Rate > 60; Glucose Random 102 mg/dL (60-115); HCG Quantitative < 2 mIU/mL; Magnesium 2.3 mg/dL (1.6-2.6); Potassium 4.1 mmol/L (3.3-5.1); Sodium 143 mmol/L (135-145); Total Protein 8.1 g/dL (6.5-8.0)
[2023-11-20 19:46] LABS: Troponin-I High Sensitivity < 2.7 ng/L (<3.5-17.0)
[2023-11-20 20:00] LABS: Influenza A PCR NEGATIVE (Negative); Influenza B PCR NEGATIVE (Negative); Resp Syncy Virus RNA Qual PCR NEGATIVE (Negative); SARS COV2 PCR INHOUSE NEGATIVE (Negative)
[2023-11-20 21:23] VITALS: BP 129/98; PULSE 111; RESP 18; TEMP 37.1; O2SAT 98
--- NOTE | 2023-11-20 21:27 | PC.NURSE ---
pt from home, a&ox4, respirations even and unlabored. pt reports onset of midsternal chest pain radiating to the left breast and left upper arm causing left arm numbness. pt denies n/v/d at this time. pt normal sinus on tele 95-99 bpm. provider at bedside discussing pt care.
[2023-11-20] MEDS: predniSONE 20 MG TABLET PO (22:10)
--- NOTE | 2023-11-20 22:12 | PC.NURSE ---
pt medicated per mar.
[2023-11-20 22:14] VITALS: BP 117/86; PULSE 97; RESP 18; TEMP 36.4; O2SAT 98
== END 2023-11-20 22:15 | disposition home or self-care (01) ==
PROVIDERS: Physician Assistant Medical; Emergency Provider Emergency Medicine; PCP Nurse Practitioner Family
DX: R07.89 Other chest pain (principal); B34.9 Viral infection, unspecified; Z11.52 Encounter for screening for COVID-19; Z20.828 Contact with and (suspected) exposure to other viral communicable diseases
CPT/HCPCS: 0241U; 71046; 80053; 83735; 84484; 84702; 85025; 85610; 85730; 93005; 99283; 99285

== ENCOUNTER → 2023-11-20 17:08 | Outpatient (BNV) | payer OTHER, SELFPAY | PROVIDERS: Emergency Provider Emergency Medicine; PCP Nurse Practitioner Family; Visit Provider Internal Medicine | DX: R07.9 Chest pain, unspecified (principal) | CPT/HCPCS: 93010 ==

== ENCOUNTER 2024-01-22 17:28 | Emergency (ER) | payer OTHER, SELFPAY ==
[2024-01-22 17:49] VITALS: BP 157/97; PULSE 100; RESP 14; TEMP 36.4; O2SAT 100; BMI 19.8
--- NOTE | 2024-01-22 17:49 | ED_ITS ---
HPI - General Adult General Chief complaint: General Medical Stated complaint: hang nail R thumb, infection? Source: patient Mode of arrival: ambulatory Limitations: no limitations History of Present Illness HPI narrative: Patient is a 28-year-old female presenting to the emergency department with complaint of right thumb pain and redness after picking at a hangnail. Denies biting nails. Reports small amount of purulent drainage. Denies fevers. MD complaint: thumb pain Onset (ago): day(s) Associated symptoms: denies other symptoms Treatments prior to arrival: none Related Data Previous Rx's ?Medication ?Instructions ?Recorded naproxen 500 mg tablet (Naprosyn) 500 mg PO BID #20 tabs 08/02/20 ibuprofen 600 mg tablet 600 mg PO Q6H PRN pain #20 tabs 11/22/20 cyclobenzaprine 10 mg tablet 10 mg PO TID PRN muscle spasm #14 02/06/21 tabs ondansetron 4 mg disintegrating 4 mg PO Q8H PRN nausea and 02/06/21 tablet vomiting #20 tabs acetaminophen 500 mg tablet 1,000 mg (2 x 500 mg) PO QID PRN 08/06/21 (Tylenol Extra Strength) fever or pain #14 tabs cyclobenzaprine 10 mg tablet 10 mg PO Q8H PRN Muscle spasm #14 08/06/21 tabs amoxicillin 500 mg tablet 500 mg PO BID #20 tabs 08/13/21 ibuprofen 600 mg tablet 600 mg PO Q8H PRN fever or pain 08/13/21 #20 tabs fluticasone propionate 50 1 spray intranasal BID #1 units 10/11/21 mcg/actuation nasal spray,suspension (Flonase Allergy Relief) codeine 10 mg-guaifenesin 100 mg/5 10 ml PO Q6-8H PRN Cough #240 mL 10/14/21 mL oral liquid acetaminophen 500 mg tablet 1,000 mg (2 x 500 mg) PO Q6H PRN 12/23/21 (Tylenol Extra Strength) pain #240 tabs ibuprofen 400 mg tablet 400 mg PO Q6H PRN pain #240 tabs 12/23/21 naproxen 500 mg tablet 500 mg PO BID PRN pain 10 days #20 06/03/22 tabs amoxicillin 875 mg-potassium 1 tab PO BID dog bit #10 tabs 08/27/22 clavulanate 125 mg tablet famotidine 20 mg tablet 20 mg PO BID #30 tabs 12/01/22 ondansetron 4 mg disintegrating 4 mg PO Q8H PRN nausea and 12/01/22 tablet vomiting #14 tabs prednisone 20 mg tablet 20 mg PO DAILY #4 tabs 02/25/23 prednisone 20 mg tablet 40 mg (2 x 20 mg) PO DAILY #10 tabs 03/01/23 omeprazole 20 mg capsule,delayed 20 mg PO DAILY #14 caps 07/09/23 release prednisone 20 mg tablet 40 mg (2 x 20 mg) PO DAILY #10 tabs 07/09/23 amoxicillin 500 mg tablet 500 mg PO TID #21 tabs 08/14/23 cyclobenzaprine 10 mg tablet 10 mg PO Q8H #10 tabs 10/09/23 naproxen 500 mg tablet 500 mg PO BID PRN pain #10 tabs 10/09/23 prednisone 20 mg tablet 20 mg PO DAILY 7 days #7 tabs 11/20/23 cephalexin 500 mg capsule 500 mg PO QID 5 days #20 caps 01/22/24 Allergies Allergy/AdvReac Type Severity Reaction Status Date / Time valacyclovir Allergy Nausea Verified 01/22/24 17:52 Review of Systems 2 Review of Systems: As per HPI Yes all other systems are reviewed and are negative Constitutional: Constitutional: Reports as per HPI [facility] Past Medical History Medical History No known health problems Social History Social History Alcohol intake: current Alcohol intake frequency: holidays/special occasions only Alcohol type: wine Physical Exam ED Const General: cooperative, healthy appearing and no acute distress Orientation/consciousness: oriented to person, oriented to place, oriented to time and patient oriented x3 Limitations: no limitations HENMT Head: Yes normocephalic and Yes atraumatic Ears: external ears normal General nose exam: Normal external nose present Face and sinus: Yes face symmetric Mouth: oropharynx normal and moist mucous membranes Throat: Yes uvula midline Eyes Pupils: Equal, round and reactive pupils present Neck Neck: Yes normal visual inspection and Yes supple Resp Effort & Inspection: normal respiratory effort and able to speak in complete sentences Auscultation: clear to auscultation bilaterally Cardio Rate: regular rate Rhythm: regular rhythm Heart sounds: S1 normal heart sound present and S2 normal heart sound present GI Palpation (GI): Soft to palpation and nontender Auscultation: normoactive bowel sounds General: Yes no CVA tenderness Back/Spine/Pelvis Back: no CVA tenderness Skin General skin exam: elasticity normal and turgor normal Neuro General: oriented to person, oriented to place, oriented to time, patient oriented x3, moves all extremities, no focal motor deficits and CN's II-XI intact bilaterally Cranial nerves: Yes Equal, round and reactive pupils present Cognition (Neuro): normal cognition Extrem General: Yes full ROM, Yes no pedal edema and Yes no calf tenderness Hand/finger images: 2 1. erythema to radial side of R thumb nail without drainage or discharge Psych Mental Status: mental status grossly normal Affect: normal affect Thought process: Normal thought process present Medical Decision Making Medical Decision Making MDM Narrative: Patient is a 28-year-old female presenting to the emergency department with complaint of right thumb pain and redness after picking at a hangnail. On exam patient is awake, A+Ox3, VS WNL, afebrile, normal neurological exam without focal deficits, physical exam findings as above. Given reported symptoms and physical exam findings, initial differential includes paronychia, cellulitis. Do not suspect felon. Will treat patient with course of Keflex, advised her to soak them in warm water with salt several times daily. Return precautions discussed at bedside. Instructed patient follow-up with primary care provider. Patient verbalized understanding and agreement with plan. Differential Diagnosis Differential Diagnoses: The differential diagnosis associated with the presentation includes As per MDM. External Record Review External record reviewed: Inpatient record, Office record and Outpatient record Prescription Management I considered prescription management with: Antibiotic Discharge Plan Discharge Clinical Impression: Paronychia of thumb, right Patient Disposition: Home, Self-Care Instructions: Paronychia (ED) Additional Instructions: You were evaluated in the emergency department today for right thumb pain and redness. You are being treated for a paronychia which is an infection of the skin surrounding your nail with antibiotics. Please complete the full course of antibiotics prescribed even if your symptoms improve. You can soak your thumb in warm water with salt for 10-15 minutes several times daily. Please follow up with your primary care provider. Return to the emergency department if you develop increased redness, swelling, thick yellow drainage, redness streaking up your hand, fever or any other concerning symptoms. Prescriptions: New cephalexin 500 mg capsule 500 mg PO QID 5 Days Qty: 20 0RF No Action naproxen [Naprosyn] 500 mg tablet 500 mg PO BID Qty: 20 0RF ibuprofen 600 mg tablet 600 mg PO Q6H PRN (Reason: pain) Qty: 20 0RF cyclobenzaprine 10 mg tablet 10 mg PO TID PRN (Reason: muscle spasm) Qty: 14 0RF ondansetron 4 mg tablet,disintegrating 4 mg PO Q8H PRN (Reason: nausea and vomiting) Qty: 20 0RF amoxicillin 500 mg tablet 500 mg PO BID Qty: 20 0RF ibuprofen 600 mg tablet 600 mg PO Q8H PRN (Reason: fever or pain) Qty: 20 0RF fluticasone propionate [Flonase Allergy Relief] 50 mcg/actuation spray,suspension 1 spray intranasal BID Qty: 1 0RF Rx Instructions: administer into each nostril codeine-guaifenesin 10-100 mg/5 mL liquid 10 ml PO Q6-8H PRN (Reason: Cough) Qty: 240 0RF naproxen 500 mg tablet 500 mg PO BID PRN (Reason: pain) 10 Days Qty: 20 0RF famotidine 20 mg tablet 20 mg PO BID Qty: 30 0RF ondansetron 4 mg tablet,disintegrating 4 mg PO Q8H PRN (Reason: nausea and vomiting) Qty: 14 0RF cyclobenzaprine 10 mg tablet 10 mg PO Q8H PRN (Reason: Muscle spasm) Qty: 14 0RF acetaminophen [Tylenol Extra Strength] 500 mg tablet 1,000 mg PO QID PRN (Reason: fever or pain) Qty: 14 0RF acetaminophen [Tylenol Extra Strength] 500 mg tablet 1,000 mg PO Q6H PRN (Reason: pain) Qty: 240 0RF ibuprofen 400 mg tablet 400 mg PO Q6H PRN (Reason: pain) Qty: 240 0RF amoxicillin-pot clavulanate 875-125 mg tablet 1 tab PO BID Qty: 10 0RF amoxicillin 500 mg tablet 500 mg PO TID Qty: 21 0RF naproxen 500 mg tablet 500 mg PO BID PRN (Reason: pain) Qty: 10 0RF cyclobenzaprine 10 mg tablet 10 mg PO Q8H Qty: 10 0RF prednisone 20 mg tablet 20 mg PO DAILY Qty: 4 0RF prednisone 20 mg tablet 40 mg PO DAILY Qty: 10 0RF prednisone 20 mg tablet 40 mg PO DAILY Qty: 10 0RF omeprazole 20 mg capsule,delayed release(DR/EC) 20 mg PO DAILY Qty: 14 0RF prednisone 20 mg tablet 20 mg PO DAILY 7 Days Qty: 7 0RF Print Language: [place] Irish
[2024-01-22 18:02] VITALS: BP 00/00; PULSE 0; RESP 16; TEMP -17.7; TEMP 0
== END 2024-01-22 18:03 | disposition home or self-care (01) ==
PROVIDERS: Emergency Provider Student in an Organized Health Care Education/Training Program; PCP Nurse Practitioner Family
DX: L03.011 Cellulitis of right finger (principal)
CPT/HCPCS: 99282; 99283

== ENCOUNTER 2024-02-25 12:21 | Emergency (ER) | payer OTHER, SELFPAY ==
--- NOTE | ~2024-02-25 | XR_ITS ---
EXAMINATION: XR CHEST CLINICAL INFORMATION: Chest pain COMPARISON: 11/20/2023 TECHNIQUE: 2 views of the chest were obtained. FINDINGS: No significant abnormality is noted involving the heart, lungs, mediastinum, bony thorax or soft tissues. XR/XR chest 2V IMPRESSION: Unremarkable examination.
[2024-02-25 12:26] VITALS: BP 122/76; PULSE 115; O2SAT 98
--- NOTE | 2024-02-25 12:28 | ECG_ITS ---
Test Reason : chest pressure Blood Pressure : / mmHG Vent. Rate : 103 BPM Atrial Rate : 103 BPM P-R Int : 146 ms QRS Dur : 078 ms QT Int : 332 ms P-R-T Axes : 053 080 034 degrees QTc Int : 434 ms Sinus tachycardia Otherwise normal ECG When compared with ECG of 20-NOV-2023 17:08, No significant change was found Referred By: Jayden Sandra Electronically Signed By:SOURAV ALMONTE MD
[2024-02-25 12:30] VITALS: BP 146/94; PULSE 104; RESP 18; TEMP 36.7; O2SAT 98; BMI 19.4
--- NOTE | 2024-02-25 12:30 | ED.CHESTPAIN ---
HPI - Chest Pain General Chief Complaint: Chest Pain Stated Complaint: NAUSEA,WEAK,L CHEST TO ARM PRESSURE X1D PER EMS Time Seen by Provider: 02/25/24 12:28 Source: patient Mode of arrival: ambulatory Limitations: no limitations History of Present Illness ED Provider: Dr. Jayden Sandra HPI narrative: 28 year old female PMH: history of chronic costochondritis who presents to the ER with chest pain nausea weakness for the past day. Last seen for this in November. Related Data Previous Rx's ?Medication ?Instructions ?Recorded naproxen 500 mg tablet (Naprosyn) 500 mg PO BID #20 tabs 08/02/20 ibuprofen 600 mg tablet 600 mg PO Q6H PRN pain #20 tabs 11/22/20 cyclobenzaprine 10 mg tablet 10 mg PO TID PRN muscle spasm #14 02/06/21 tabs ondansetron 4 mg disintegrating 4 mg PO Q8H PRN nausea and 02/06/21 tablet vomiting #20 tabs acetaminophen 500 mg tablet 1,000 mg (2 x 500 mg) PO QID PRN 08/06/21 (Tylenol Extra Strength) fever or pain #14 tabs cyclobenzaprine 10 mg tablet 10 mg PO Q8H PRN Muscle spasm #14 08/06/21 tabs amoxicillin 500 mg tablet 500 mg PO BID #20 tabs 08/13/21 ibuprofen 600 mg tablet 600 mg PO Q8H PRN fever or pain 08/13/21 #20 tabs fluticasone propionate 50 1 spray intranasal BID #1 units 10/11/21 mcg/actuation nasal spray,suspension (Flonase Allergy Relief) codeine 10 mg-guaifenesin 100 mg/5 10 ml PO Q6-8H PRN Cough #240 mL 10/14/21 mL oral liquid acetaminophen 500 mg tablet 1,000 mg (2 x 500 mg) PO Q6H PRN 12/23/21 (Tylenol Extra Strength) pain #240 tabs ibuprofen 400 mg tablet 400 mg PO Q6H PRN pain #240 tabs 12/23/21 naproxen 500 mg tablet 500 mg PO BID PRN pain 10 days #20 06/03/22 tabs amoxicillin 875 mg-potassium 1 tab PO BID dog bit #10 tabs 08/27/22 clavulanate 125 mg tablet famotidine 20 mg tablet 20 mg PO BID #30 tabs 12/01/22 ondansetron 4 mg disintegrating 4 mg PO Q8H PRN nausea and 12/01/22 tablet vomiting #14 tabs prednisone 20 mg tablet 20 mg PO DAILY #4 tabs 02/25/23 prednisone 20 mg tablet 40 mg (2 x 20 mg) PO DAILY #10 tabs 03/01/23 omeprazole 20 mg capsule,delayed 20 mg PO DAILY #14 caps 07/09/23 release prednisone 20 mg tablet 40 mg (2 x 20 mg) PO DAILY #10 tabs 07/09/23 amoxicillin 500 mg tablet 500 mg PO TID #21 tabs 08/14/23 cyclobenzaprine 10 mg tablet 10 mg PO Q8H #10 tabs 10/09/23 naproxen 500 mg tablet 500 mg PO BID PRN pain #10 tabs 10/09/23 prednisone 20 mg tablet 20 mg PO DAILY 7 days #7 tabs 11/20/23 cephalexin 500 mg capsule 500 mg PO QID 5 days #20 caps 01/22/24 famotidine 20 mg tablet (Pepcid) 20 mg PO BID PRN abdominal 02/25/24 discomfort #60 tabs ondansetron 4 mg disintegrating 4 mg PO Q6H #14 tabs 02/25/24 tablet prednisone 20 mg tablet 60 mg (3 x 20 mg) PO DAILY Asthma 02/25/24 5 days #15 tabs Allergies Allergy/AdvReac Type Severity Reaction Status Date / Time valacyclovir Allergy Nausea Verified 02/25/24 12:47 Review of Systems Review of Systems: Review of systems: General: Fatigue Patient denies any fever chills recent illness or falls Musculoskeletal: Denies back pain or body aches or other injuries HEENT: denies headache, runny nose, ear pain Respiratory: denies shortness of breath, cough Cardiovascular: chest pain or palpitations : denies dysuria, frequency Abdomen: no nausea vomiting denies abdominal pain Extremities: no swelling, no pain Skin: no diaphoresis Yes all other systems are reviewed and are negative PMFSH Past Medical History Medical History No known health problems Social History Social History Alcohol intake: never Smoked in Last 30 Days: No Use of substances other than those prescribed or required for medical reasons: No Advance Directives: No Advance Directives Information Provided: No Do you have a plan to hurt others: No Plan Physical Exam Vital Signs: Vital Signs: Last Vital Signs Temp 98.1 F 02/25/24 12:30 Pulse 104 H 02/25/24 12:30 Resp 18 02/25/24 12:30 BP 146/94 H 02/25/24 12:30 Pulse Ox 98 02/25/24 12:30 O2 Del Method Room Air 02/25/24 12:30 BMI result Body Mass Index 19.4 General: Well-appearing well-nourished in no signs of distress HEENT: Normocephalic atraumatic Neck: No signs of JVD, no masses no tenderness or lymphadenopathy Cardiovascular: Regular rate and rhythm pain is reproducible to the chest wall Respiratory: Clear to auscultation bilaterally Abdomen: Soft nontender no masses Extremities: Normal pedal pulses no signs of edema Skin: Dry warm no rashes Back: No tenderness full ROM Course Course Course Narrative: Patient is feeling better x-ray and labs are all unremarkable I will discharge the patient home with Pepcid and prednisone and follow up with her primary care doctor she is happy with this plan. Medications Administered Discontinued Medications Generic Name Dose Route Start Last Admin Trade Name Freq PRN Reason Stop Dose Admin Acetaminophen 650 mg 02/25/24 12:52 02/25/24 13:43 Acetaminophen 325 Mg Tablet PO 02/25/24 12:53 650 mg ONCE ONE Administration Aspirin 324 mg 02/25/24 12:31 02/25/24 13:54 Aspirin 81 Mg Tab.Chew PO 02/25/24 12:32 Not Given ONCE ONE Famotidine 20 mg 02/25/24 12:31 02/25/24 13:46 Famotidine/Pf 20 Mg/2 Ml Vial IVPUSH 02/25/24 12:32 20 mg ONCE ONE Administration Sodium Chloride 1,000 mls @ 999 mls/hr 02/25/24 12:45 02/25/24 13:44 Ns IV 02/25/24 13:45 999 mls/hr .Q1H1M SHIRAZ Administration Prednisone 60 mg 02/25/24 12:52 02/25/24 13:43 Prednisone 20 Mg Tablet PO 02/25/24 12:53 60 mg ONCE ONE Administration Medical Decision Making Medical Decision Making [facility] Narrative: I will start the patient prednisone I will check labs x-ray and reassess Differential Diagnosis Differential Diagnoses: The differential diagnosis associated with the presentation includes Acute on chronic costochondritis dehydration electrolyte abnormality anxiety depression less likely ACS Admission/Observation Consideration of admission/observation: Escalation of care including admission/observation considered Lab Data [facility] Lab Attestation statement: I reviewed the patient's lab results. 02/25/24 13:00 02/25/24 13:00 Labs: Lab Results 02/25/24 Range/Units 13:00 WBC 7.3 (4.8-10.8) X10*3/uL RBC 4.86 (4.20-5.50) X10*6/uL Hgb 14.5 (12.0-16.0) g/dl Hct 43.0 (37.0-47.0) % MCV 88.5 (80.0-98.0) fL MCH 29.8 (27.0-33.0) pg MCHC 33.7 (31.0-35.0) g/dl RDW 12.7 (11.0-16.0) % Plt Count 245 (160-400) X10*3/uL MPV 10.0 (9.4-12.3) fL Immature Gran % (Auto) 0.4 (0.0-0.4) % Neut % (Auto) 75.0 H (45-73) % Lymph % (Auto) 18.0 L (20-40) % Spencer % (Auto) 4.5 (2-11) % Eos % (Auto) 1.1 (0-4) % Baso % (Auto) 1.0 (0-2) % Lymph # (Auto) 1.3 (1.2-4.9) X10*3/uL Spencer # (Auto) 0.3 (0.1-1.2) X10*3/uL Eos # (Auto) 0.1 (0.0-0.4) X10*3/uL Baso # (Auto) 0.1 (0.0-0.2) X10*3/uL Abs Immat Gran (auto) 0.03 (0.00-0.03) X10*3/uL Absolute Neuts (auto) 5.5 (2.0-8.3) x10*3/uL Absolute Nucleated RBC 0.000 (0.0-0.012) X10*3/uL Nucleated RBC % (auto) 0.0 (0.0-0.2) /100WBC Sodium 143 (135-145) mmol/L Potassium 3.7 (3.3-5.1) mmol/L Chloride 110 H (96-108) mmol/L Carbon Dioxide 26 (22-29) mmol/L Anion Gap 11 L (12-20) BUN 8 L (9-16) mg/dL Creatinine 0.77 (0.5-1.4) mg/dL Estim Creat Clear Calc 78.5 Estimated GFR > 60 Random Glucose 93 (60-115) mg/dL Calcium 10.0 (8.4-10.2) mg/dL Total Bilirubin 1.1 H (0.0-1.0) mg/dL Direct Bilirubin 0.4 (0.0-0.5) mg/dL AST 25 (5-31) U/L ALT 39 H (0-31) U/L Alkaline Phosphatase 60 (39-117) U/L Troponin I High Sens < 2.7 (<3.5-17.0) ng/L Total Protein 7.2 (6.5-8.0) g/dL Albumin 4.5 (3.5-5.0) g/dL Lipase 17 (8-78) U/L Independent Interpretation I performed an independent interpretation of an: EKG, Rhythm Strip and Plain X-Ray External Record Review External record reviewed: Inpatient record, Office record and Outpatient record Scores Heart Score History: -0- slightly suspicious ECG: -0- normal Age: -0- < or = 45 Risk factory: -0- no risk factors known Troponin: -0- < or = normal limit Score: 0 Risk: 1.7% Discharge Plan Discharge Clinical Impression: Chest pain Patient Disposition: Home, Self-Care Instructions: Chest Pain (DC) Additional Instructions: You were seen today in the emergency room for chest pain and fatigue and nausea. You were give him medications you had x-rays and labs were drawn unremarkable. If you have any other concerns please do not hesitate to come back to emergency department Prescriptions: New prednisone 20 mg tablet 60 mg PO DAILY 5 Days Qty: 15 0RF famotidine [Pepcid] 20 mg tablet 20 mg PO BID PRN (Reason: abdominal discomfort) Qty: 60 0RF ondansetron 4 mg tablet,disintegrating 4 mg PO Q6H Qty: 14 0RF No Action naproxen [Naprosyn] 500 mg tablet 500 mg PO BID Qty: 20 0RF ibuprofen 600 mg tablet 600 mg PO Q6H PRN (Reason: pain) Qty: 20 0RF cyclobenzaprine 10 mg tablet 10 mg PO TID PRN (Reason: muscle spasm) Qty: 14 0RF ondansetron 4 mg tablet,disintegrating 4 mg PO Q8H PRN (Reason: nausea and vomiting) Qty: 20 0RF amoxicillin 500 mg tablet 500 mg PO BID Qty: 20 0RF ibuprofen 600 mg tablet 600 mg PO Q8H PRN (Reason: fever or pain) Qty: 20 0RF fluticasone propionate [Flonase Allergy Relief] 50 mcg/actuation spray,suspension 1 spray intranasal BID Qty: 1 0RF Rx Instructions: administer into each nostril codeine-guaifenesin 10-100 mg/5 mL liquid 10 ml PO Q6-8H PRN (Reason: Cough) Qty: 240 0RF naproxen 500 mg tablet 500 mg PO BID PRN (Reason: pain) 10 Days Qty: 20 0RF famotidine 20 mg tablet 20 mg PO BID Qty: 30 0RF ondansetron 4 mg tablet,disintegrating 4 mg PO Q8H PRN (Reason: nausea and vomiting) Qty: 14 0RF cyclobenzaprine 10 mg tablet 10 mg PO Q8H PRN (Reason: Muscle spasm) Qty: 14 0RF acetaminophen [Tylenol Extra Strength] 500 mg tablet 1,000 mg PO QID PRN (Reason: fever or pain) Qty: 14 0RF acetaminophen [Tylenol Extra Strength] 500 mg tablet 1,000 mg PO Q6H PRN (Reason: pain) Qty: 240 0RF ibuprofen 400 mg tablet 400 mg PO Q6H PRN (Reason: pain) Qty: 240 0RF amoxicillin-pot clavulanate 875-125 mg tablet 1 tab PO BID Qty: 10 0RF amoxicillin 500 mg tablet 500 mg PO TID Qty: 21 0RF naproxen 500 mg tablet 500 mg PO BID PRN (Reason: pain) Qty: 10 0RF cyclobenzaprine 10 mg tablet 10 mg PO Q8H Qty: 10 0RF cephalexin 500 mg capsule 500 mg PO QID 5 Days Qty: 20 0RF prednisone 20 mg tablet 20 mg PO DAILY Qty: 4 0RF prednisone 20 mg tablet 40 mg PO DAILY Qty: 10 0RF prednisone 20 mg tablet 40 mg PO DAILY Qty: 10 0RF omeprazole 20 mg capsule,delayed release(DR/EC) 20 mg PO DAILY Qty: 14 0RF prednisone 20 mg tablet 20 mg PO DAILY 7 Days Qty: 7 0RF Print Language: Vietnamese
[2024-02-25 13:04] LABS: MANUAL DIFF FLAG NO
[2024-02-25 13:13] LABS: Basophils Absolute Auto 0.1 X10*3/uL (0.0-0.2); Eosinophils Absolute Auto 0.1 X10*3/uL (0.0-0.4); Eosinophils Percent Auto 1.1 % (0-4); Hemoglobin 14.5 g/dl (12.0-16.0); Imm Gran Abs Auto 0.03 X10*3/uL (0.00-0.03); Imm Gran Pct Auto 0.4 % (0.0-0.4); Lymphocytes Absolute Auto 1.3 X10*3/uL (1.2-4.9); Mean Corpuscular HGB Conc 33.7 g/dl (31.0-35.0); Mean Corpuscular Hemoglobin 29.8 pg (27.0-33.0); Mean Corpuscular Volume 88.5 fL (80.0-98.0); Monocytes Absolute Auto 0.3 X10*3/uL (0.1-1.2); Monocytes Percent Auto 4.5 % (2-11); Neutrophils Absolute Auto 5.5 x10*3/uL (2.0-8.3); Platelet Count 245 X10*3/uL (160-400); Red Blood Count 4.86 X10*6/uL (4.20-5.50); Red Cell Distribution Width 12.7 % (11.0-16.0); White Blood Count 7.3 X10*3/uL (4.8-10.8)
[2024-02-25 13:22] LABS: Alanine Aminotransferase 39 U/L (0-31); Albumin Level 4.5 g/dL (3.5-5.0); Alkaline Phosphatase 60 U/L (39-117); Anion Gap 11 (12-20); Aspartate Amino Transferase 25 U/L (5-31); Bilirubin Direct 0.4 mg/dL (0.0-0.5); Bilirubin Total 1.1 mg/dL (0.0-1.0); Blood Urea Nitrogen 8 mg/dL (9-16); Carbon Dioxide 26 mmol/L (22-29); Chloride 110 mmol/L (96-108); Creatinine Clr Calc Pharmacy 78.5; Estimated Glomerular Filt Rate > 60; Glucose Random 93 mg/dL (60-115); Lipase 17 U/L (8-78); Potassium 3.7 mmol/L (3.3-5.1); Sodium 143 mmol/L (135-145); Total Protein 7.2 g/dL (6.5-8.0)
[2024-02-25 13:33] LABS: Troponin-I High Sensitivity < 2.7 ng/L (<3.5-17.0)
[2024-02-25] MEDS: predniSONE 20 MG TABLET 60 MG PO (13:43)
[2024-02-25] MEDS: Acetaminophen 325 MG TABLET 650 MG PO (13:43)
[2024-02-25] MEDS: 0.9 % Sodium Chloride 1,000 ML 999 ML IV (13:44)
[2024-02-25] MEDS: Famotidine/PF 20 MG/2 ML VIAL IVPUSH (13:46)
--- NOTE | 2024-02-25 14:03 | PC.NURSE ---
Patient requesting to finish fluids prior to discharge.
[2024-02-25 15:46] VITALS: BP 146/94; PULSE 104; RESP 18; TEMP 36.7; O2SAT 98
== END 2024-02-25 15:47 | disposition home or self-care (01) ==
PROVIDERS: Emergency Provider Student in an Organized Health Care Education/Training Program; PCP Nurse Practitioner Family
DX: R07.89 Other chest pain (principal); R53.1 Weakness; R11.2 Nausea with vomiting, unspecified; Z79.899 Other long term (current) drug therapy
CPT/HCPCS: 36415; 71046; 80048; 80076; 83690; 84484; 85025; 93005; 96361; 96374; 99284; 99285

== ENCOUNTER → 2024-02-25 12:28 | Outpatient (BNV) | payer OTHER, SELFPAY | PROVIDERS: Emergency Provider Student in an Organized Health Care Education/Training Program; PCP Nurse Practitioner Family; Visit Provider Internal Medicine Cardiovascular Disease | DX: R07.9 Chest pain, unspecified (principal) | CPT/HCPCS: 93010 ==

== ENCOUNTER 2024-12-03 16:11 | Emergency (ER) | payer OTHER, SELFPAY ==
--- NOTE | ~2024-12-03 | XR_ITS ---
CLINICAL HISTORY: chest pain 2 view chest x-ray Comparison: CR/NM/SR - XR CHEST 2V - 02/25/24 13:13 EDT Findings: Heart size is normal. No consolidation, pleural effusion or pneumothorax. No acute fracture. IMPRESSION: 1. No acute findings. This document has been electronically signed by: Kristen Noguera MD on 12/03/2024 17:04:51
--- NOTE | 2024-12-03 16:13 | ECG_ITS ---
Test Reason : chest pain Blood Pressure : */* mmHG Vent. Rate : 93 BPM Atrial Rate : 93 BPM P-R Int : 152 ms QRS Dur : 76 ms QT Int : 318 ms P-R-T Axes : 71 86 64 degrees QTcB Int : 395 ms Normal sinus rhythm with sinus arrhythmia Normal ECG When compared with ECG of 25-Feb-2024 12:40, No significant change was found Referred By: Kelsi Cespedes Electronically Signed By: ROGERIO HIGGINS
[2024-12-03 16:23] VITALS: BP 132/84; PULSE 94; RESP 18; TEMP 37; O2SAT 99; BMI 18.8
--- NOTE | 2024-12-03 16:23 | ED_ITS ---
HPI - General Adult General Chief complaint: General Medical Stated complaint: Chest pain, numbness in limbs, and diarrhea Time Seen by Provider: 12/03/24 16:38 Source: patient Mode of arrival: ambulatory Limitations: no limitations History of Present Illness ED Provider: Walt Fischer DO HPI narrative: 29-year-old female with past medical history including costochondritis And migraine headaches treated by PCP presents to the emergency department for multiple symptoms including headaches and numbness of the bilateral hips as well as chest pain radiating to the back and left arm starting yesterday as well as diarrhea. patient states her headache started early in the week which are typical after her menstrual cycle. She had a normal day a few days ago but then developed anterior wall chest pain that she describes as tightness which occasionally radiates to her back around her left side as well as her left arm with associated tingling symptoms. She denies any new neck pain, lightheaded dizziness, exertional symptoms, associated dyspnea, abdominal pain, nausea or vomiting. She states she was worked up for her headaches and had an unremarkable MRI in the fall of 2023. She has not followed up with a neurologist. She states her chest pain episodes will come and go, lasting several minutes at a time but have no clear mitigating or exacerbating factors. She denies tobacco, alcohol or illicit drug use. She denies any true numbness of her legs or other neurologic symptoms. No persistent tingling of legs. Related Data Previous Rx's ?Medication ?Instructions ?Recorded naproxen 500 mg tablet (Naprosyn) 500 mg PO BID #20 tabs 08/02/20 ibuprofen 600 mg tablet 600 mg PO Q6H PRN pain #20 tabs 11/22/20 cyclobenzaprine 10 mg tablet 10 mg PO TID PRN muscle spasm #14 02/06/21 tabs ondansetron 4 mg disintegrating 4 mg PO Q8H PRN nausea and 02/06/21 tablet vomiting #20 tabs acetaminophen 500 mg tablet 1,000 mg (2 x 500 mg) PO QID PRN 08/06/21 (Tylenol Extra Strength) fever or pain #14 tabs cyclobenzaprine 10 mg tablet 10 mg PO Q8H PRN Muscle spasm #14 08/06/21 tabs amoxicillin 500 mg tablet 500 mg PO BID #20 tabs 08/13/21 ibuprofen 600 mg tablet 600 mg PO Q8H PRN fever or pain 08/13/21 #20 tabs fluticasone propionate 50 1 spray intranasal BID #1 units 10/11/21 mcg/actuation nasal spray,suspension (Flonase Allergy Relief) codeine 10 mg-guaifenesin 100 mg/5 10 ml PO Q6-8H PRN Cough #240 mL 10/14/21 mL oral liquid acetaminophen 500 mg tablet 1,000 mg (2 x 500 mg) PO Q6H PRN 12/23/21 (Tylenol Extra Strength) pain #240 tabs ibuprofen 400 mg tablet 400 mg PO Q6H PRN pain #240 tabs 12/23/21 naproxen 500 mg tablet 500 mg PO BID PRN pain 10 days #20 06/03/22 tabs amoxicillin 875 mg-potassium 1 tab PO BID dog bit #10 tabs 08/27/22 clavulanate 125 mg tablet famotidine 20 mg tablet 20 mg PO BID #30 tabs 12/01/22 ondansetron 4 mg disintegrating 4 mg PO Q8H PRN nausea and 12/01/22 tablet vomiting #14 tabs prednisone 20 mg tablet 20 mg PO DAILY #4 tabs 02/25/23 prednisone 20 mg tablet 40 mg (2 x 20 mg) PO DAILY #10 tabs 03/01/23 omeprazole 20 mg capsule,delayed 20 mg PO DAILY #14 caps 07/09/23 release prednisone 20 mg tablet 40 mg (2 x 20 mg) PO DAILY #10 tabs 07/09/23 amoxicillin 500 mg tablet 500 mg PO TID #21 tabs 08/14/23 cyclobenzaprine 10 mg tablet 10 mg PO Q8H #10 tabs 10/09/23 naproxen 500 mg tablet 500 mg PO BID PRN pain #10 tabs 10/09/23 prednisone 20 mg tablet 20 mg PO DAILY 7 days #7 tabs 11/20/23 cephalexin 500 mg capsule 500 mg PO QID 5 days #20 caps 01/22/24 famotidine 20 mg tablet (Pepcid) 20 mg PO BID PRN abdominal 02/25/24 discomfort #60 tabs ondansetron 4 mg disintegrating 4 mg PO Q6H #14 tabs 02/25/24 tablet prednisone 20 mg tablet 60 mg (3 x 20 mg) PO DAILY Asthma 02/25/24 5 days #15 tabs Allergies Allergy/AdvReac Type Severity Reaction Status Date / Time valacyclovir Allergy Nausea Verified 12/03/24 16:25 Review of Systems 2 Review of Systems: Yes all other systems are reviewed and are negative [facility] Past Medical History Medical History No known health problems Social History Social History Alcohol intake: never Smoked in Last 30 Days: No Use of substances other than those prescribed or required for medical reasons: No Advance Directives: No Advance Directives Information Provided: No Patient : No Physical Exam ED Vital Signs: Vital Signs - 24 hr 12/03/24 16:23 12/03/24 18:21 Temperature 98.6 F 98.1 F Pulse Rate 94 77 Respiratory Rate 18 18 Blood Pressure 132/84 123/81 Pulse Oximetry 99 100 Oxygen Delivery Method Room Air Room Air BMI result Body Mass Index 18.8 Constitutional: Alert, oriented, speaking in full sentences HEENT: Normocephalic, atraumatic. Moist mucous membranes Eyes: PERRL, EOMI Neck: Supple, nontender Chest: No chest wall tenderness Respiratory: Lungs clear to auscultation, no increased work of breathing Cardio: Regular rate and rhythm, no murmur, 2+ radial and DP pulses symmetrically GI: Soft, nondistended, nontender Back: Normal range of motion, nontender Skin: No rash, no lesions Neuro: Mental Status: Patient is alert, attentive, and fully oriented Speech: Clear and fluent CN II: Visual betts are full, pupils are equal and briskly reactive to light CN III, IV, : Extra ocular motions are intact in all directions. No ptosis. CN V: Facial sensation intact, both upper and lower face CN VII: Symmetric facial movements CN VIII: Hearing is grossly normal CN IX, X: Symmetric elevation of palate, normal phonation CN XI: Shoulder shrug 5/5 strength bilaterally CN XII: Tongue protrudes midline Motor: No pronator drift bilaterally. 5/5 strength all 4 extremities. Normal muscle bulk and tone. Sensory: Sensation intact all 4 extremities to light touch without reported paresthesias. Coordination: No dysmetria on finger to nose bilaterally. No truncal ataxia noted. Extremities: No swelling or tenderness, full range of motion Psych: Calm, alert and cooperative, appropriate behavior Course Course Course Narrative: RME performed by Kelsi Cespedes PA-C. Patient is a 29 year old assigned female at presenting to the emergency department with a headache and feeling generally unwell. Detailed physical exam and review of systems are deferred to the director auto. EKG, labs, and swabs ordered. Patient placed back in the waiting room pending room availability and results. Medical Decision Making Medical Decision Making [facility] Narrative: Patient presenting with multiple symptoms which may be related to a viral syndrome or an IBS flare. She has no tenderness on exam and I do not suspect intra-abdominal etiology that warrants imaging. She is low risk for ACS and has an unremarkable initial troponin which we will repeat. She has no ischemic changes on ECG. She has no symptoms concerning for stroke and her neurologic exam is completely unremarkable. I doubt multiple sclerosis flare given her recent imaging but I did discuss with her the importance to follow up with a neurologist. She has no concerning symptoms at this time that warrants treatment. Her labs are unremarkable here. I discussed return precautions and follow up with PCP and neurologist. Repeat troponin negative. Stable for discharge. Admission/Observation Consideration of admission/observation: Escalation of care including admission/observation considered Lab Data [facility] Lab Attestation statement: I reviewed the patient's lab results. Unremarkable CBC. 12/03/24 16:30 12/03/24 16:30 Labs: Lab Results 12/03/24 12/03/24 Range/Units 16:30 18:36 WBC 9.4 (4.8-10.8) X10*3/uL RBC 4.69 (4.20-5.50) X10*6/uL Hgb 13.9 (12.0-16.0) g/dl Hct 39.6 (37.0-47.0) % MCV 84.4 (80.0-98.0) fL MCH 29.6 (27.0-33.0) pg MCHC 35.1 H (31.0-35.0) g/dl RDW 13.4 (11.0-16.0) % Plt Count 274 (160-400) X10*3/uL MPV 9.8 (9.4-12.3) fL Immature Gran % (Auto) 0.3 (0.0-0.4) % Neut % (Auto) 77.5 H (45-73) % Lymph % (Auto) 16.6 L (20-40) % [place] % (Auto) 3.8 (2-11) % Eos % (Auto) 1.2 (0-4) % Baso % (Auto) 0.6 (0-2) % Lymph # (Auto) 1.6 (1.2-4.9) X10*3/uL [place] # (Auto) 0.4 (0.1-1.2) X10*3/uL Eos # (Auto) 0.1 (0.0-0.4) X10*3/uL Baso # (Auto) 0.1 (0.0-0.2) X10*3/uL Abs Immat Gran (auto) 0.03 (0.00-0.03) X10*3/uL Absolute Neuts (auto) 7.3 (2.0-8.3) x10*3/uL Absolute Nucleated RBC 0.000 (0.0-0.012) X10*3/uL Nucleated RBC % (auto) 0.0 (0.0-0.2) /100WBC Sodium 142 (135-145) mmol/L Potassium 3.7 (3.3-5.1) mmol/L Chloride 109 H (96-108) mmol/L Carbon Dioxide 24 (22-29) mmol/L Anion Gap 13 (12-20) BUN 8 L (9-16) mg/dL Creatinine 0.79 (0.5-1.4) mg/dL Estim Creat Clear Calc 73.4 Estimated GFR > 60 Random Glucose 103 (60-115) mg/dL Calcium 9.4 (8.4-10.2) mg/dL Magnesium 1.9 (1.6-2.6) mg/dL Total Bilirubin 0.7 (0.0-1.0) mg/dL AST 22 (5-31) U/L ALT 28 (0-31) U/L Alkaline Phosphatase 63 (39-117) U/L Troponin I High Sens 2.9 < 2.7 (<3.5-17.0) ng/L Total Protein 7.4 (6.5-8.0) g/dL Albumin 4.3 (3.5-5.0) g/dL Beta HCG, Quant < 2 mIU/mL Influenza Type A (PCR) NEGATIVE (Negative) Influenza Type B (PCR) NEGATIVE (Negative) RSV RNA Qual (PCR) NEGATIVE (Negative) SARS-CoV-2 RNA (RT-PCR) NEGATIVE (Negative) Independent Interpretation I performed an independent interpretation of an: EKG and Plain X-Ray Interpretation: Normal sinus rhythm at 93 beats per minute, normal axis, unremarkable intervals, no diagnostic ST or T-wave abnormalities, no prior for comparison. Chest x-ray per my independent interpretation shows no acute cardiopulmonary abnormalities. Discharge Plan Discharge Clinical Impression: Chest pain Qualifiers: Chest pain type: unspecified Qualified Code(s): R07.9 - Chest pain, unspecified Patient Disposition: Home, Self-Care Instructions: Chest Pain (ED) Additional Instructions: You have been evaluated in the emergency department for chest pain today.? Although it was determined that there was not an immediately life threatening cause for your chest pain, it is very important that you follow up with your primary care physician.? Further cardiac (heart) testing may be recommended. Please be aware that if your condition changes or worsens in any way while you are at home, you should return to the emergency department immediately for further care.? This is especially true for worsening / recurrent pain, shortness of breath, vomiting, sweating, palpitations, lightheadedness or passing out.? These may be signs of an emergency condition and you should call 911 if these symptoms occur. Also, please follow up with a neurologist for your chronic symptoms of headache and tingling arms and legs. Thank you for choosing us for your care. Prescriptions: No Action naproxen [Naprosyn] 500 mg tablet 500 mg PO BID Qty: 20 0RF ibuprofen 600 mg tablet 600 mg PO Q6H PRN (Reason: pain) Qty: 20 0RF cyclobenzaprine 10 mg tablet 10 mg PO TID PRN (Reason: muscle spasm) Qty: 14 0RF ondansetron 4 mg tablet,disintegrating 4 mg PO Q8H PRN (Reason: nausea and vomiting) Qty: 20 0RF amoxicillin 500 mg tablet 500 mg PO BID Qty: 20 0RF ibuprofen 600 mg tablet 600 mg PO Q8H PRN (Reason: fever or pain) Qty: 20 0RF fluticasone propionate [Flonase Allergy Relief] 50 mcg/actuation spray,suspension 1 spray intranasal BID Qty: 1 0RF Rx Instructions: administer into each nostril codeine-guaifenesin 10-100 mg/5 mL liquid 10 ml PO Q6-8H PRN (Reason: Cough) Qty: 240 0RF naproxen 500 mg tablet 500 mg PO BID PRN (Reason: pain) 10 Days Qty: 20 0RF famotidine 20 mg tablet 20 mg PO BID Qty: 30 0RF ondansetron 4 mg tablet,disintegrating 4 mg PO Q8H PRN (Reason: nausea and vomiting) Qty: 14 0RF cyclobenzaprine 10 mg tablet 10 mg PO Q8H PRN (Reason: Muscle spasm) Qty: 14 0RF acetaminophen [Tylenol Extra Strength] 500 mg tablet 1,000 mg PO QID PRN (Reason: fever or pain) Qty: 14 0RF acetaminophen [Tylenol Extra Strength] 500 mg tablet 1,000 mg PO Q6H PRN (Reason: pain) Qty: 240 0RF ibuprofen 400 mg tablet 400 mg PO Q6H PRN (Reason: pain) Qty: 240 0RF amoxicillin-pot clavulanate 875-125 mg tablet 1 tab PO BID Qty: 10 0RF amoxicillin 500 mg tablet 500 mg PO TID Qty: 21 0RF naproxen 500 mg tablet 500 mg PO BID PRN (Reason: pain) Qty: 10 0RF cyclobenzaprine 10 mg tablet 10 mg PO Q8H Qty: 10 0RF cephalexin 500 mg capsule 500 mg PO QID 5 Days Qty: 20 0RF prednisone 20 mg tablet 60 mg PO DAILY 5 Days Qty: 15 0RF famotidine [Pepcid] 20 mg tablet 20 mg PO BID PRN (Reason: abdominal discomfort) Qty: 60 0RF ondansetron 4 mg tablet,disintegrating 4 mg PO Q6H Qty: 14 0RF prednisone 20 mg tablet 20 mg PO DAILY Qty: 4 0RF prednisone 20 mg tablet 40 mg PO DAILY Qty: 10 0RF prednisone 20 mg tablet 40 mg PO DAILY Qty: 10 0RF omeprazole 20 mg capsule,delayed release(DR/EC) 20 mg PO DAILY Qty: 14 0RF prednisone 20 mg tablet 20 mg PO DAILY 7 Days Qty: 7 0RF Referrals: [facility] [place] Family Medicine [Provider Group] Jessika Torre MD [Physician] - (chronic headaches and tingling of arms and legs. No formal diagnosis, reports unremarkable outpatient MRI in 2023) Print Language: Honduran
[2024-12-03 16:35] LABS: MANUAL DIFF FLAG NO
[2024-12-03 16:43] LABS: Basophils Absolute Auto 0.1 X10*3/uL (0.0-0.2); Basophils Percent Auto 0.6 % (0-2); Eosinophils Absolute Auto 0.1 X10*3/uL (0.0-0.4); Eosinophils Percent Auto 1.2 % (0-4); Hematocrit 39.6 % (37.0-47.0); Hemoglobin 13.9 g/dl (12.0-16.0); Imm Gran Abs Auto 0.03 X10*3/uL (0.00-0.03); Imm Gran Pct Auto 0.3 % (0.0-0.4); Lymphocytes Absolute Auto 1.6 X10*3/uL (1.2-4.9); Lymphocytes Percent Auto 16.6 % (20-40); Mean Corpuscular HGB Conc 35.1 g/dl (31.0-35.0); Mean Corpuscular Hemoglobin 29.6 pg (27.0-33.0); Mean Corpuscular Volume 84.4 fL (80.0-98.0); Mean Platelet Volume 9.8 fL (9.4-12.3); Monocytes Absolute Auto 0.4 X10*3/uL (0.1-1.2); Monocytes Percent Auto 3.8 % (2-11); Neutrophils Absolute Auto 7.3 x10*3/uL (2.0-8.3); Neutrophils Percent Auto 77.5 % (45-73); Platelet Count 274 X10*3/uL (160-400); Red Blood Count 4.69 X10*6/uL (4.20-5.50); Red Cell Distribution Width 13.4 % (11.0-16.0); White Blood Count 9.4 X10*3/uL (4.8-10.8)
--- OUTSIDE RECORDS SUMMARY | 2024-12-03 16:50 | XMS_ITS | Encounter Summary ---
Author Organization [facility] Address [address] [place] [phone] Phone Care Team Providers Care Automotive Specialty Technician Name Role Phone Negar Judd MD Primary Care Provider Unava ilable Encounter Details Date Type Department Care Team (Late st Contact Info) Description 08/12/2011 Documentation [facility] [place] Family Medicine [address] [place], [place] [phone] Family Medicine, Physician [address] [place] [address] Social History Tobacco Use Types Packs/Day Years Used Date Smoking Tobacco: Never Assessed Comments Unknown Sex and Gender Information Value Date Recorded Sex Assigned at Not on file Legal Sex Female 4:51 PM EDT Gender Identity Not on file Sexual Orientation Not on file documented as of this encounter Plan of Treatment Not on file documented as of this encounter Visit Diagnoses Not on filedocumented in this encounter Care Teams Automotive Specialty Technician Relationship Specialty Start Date End Date Negar Judd MD PCP - General 05/01/17 documented as of this encounter
--- OUTSIDE RECORDS SUMMARY | 2024-12-03 16:50 | XMS_ITS | Encounter Summary ---
Author Organization [facility] Address [address] [place] [address] Phone Care Team Providers Care Piggyback Clerk Name Role Phone Negar Judd MD Primary Care Provider Unava ilable Encounter Details Date Type Department Care Team (Late st Contact Info) Description 05/20/2011 Documentation [facility] [place] Family Medicine [address] [place], [place] [phone] Family Medicine, Physician [address] [place] [address] Social History Tobacco Use Types Packs/Day Years [...] on filedocumented in this encounter Care Teams Piggyback Clerk Relationship Specialty Start Date End Date Negar Judd MD PCP - General 05/01/17 documented as of this encounter
--- OUTSIDE RECORDS SUMMARY | 2024-12-03 16:50 | XMS_ITS | Encounter Summary ---
Author Organization [facility] Address [address] [place] [address] Phone Care Team Providers Care Educational Program Assistant Name Role Phone Negar Judd MD Primary Care Provider Unava ilable Encounter Details Date Type Department Care Team (Late st Contact Info) Description 05/03/2013 Documentation [facility] [place] Family Medicine [address] [place] [address] Family Medicine, Physician [address] [place] [address] Social History Tobacco Use Types Packs/Day Years [...] on filedocumented in this encounter Care Teams Educational Program Assistant Relationship Specialty Start Date End Date Negar Judd MD PCP - General 05/01/17 documented as of this encounter
--- OUTSIDE RECORDS SUMMARY | 2024-12-03 16:50 | XMS_ITS | Clinical Summary ---
Author Organization [facility] Address [address] [place] [address] Phone Care Team Providers Care Biomed Tech Name Role Phone Negar Judd MD Primary Care Provider Unacriselda ilable Immunizations Immunization Administration Dates Next Due DTP 10/21/1994, 4,1993,05/21 DTaP 5 09/20/1997 HPV, Quadrivalent 05/19/2011,12/02/2010,06/11/20 10 Hep B, ped/adol 02/18/1994,1993,1993 Hib (HbOC) 07/21/1994, 4,1993,05/21 IPV 09/20/1997, 4,1993,05/21 Influenza Split 05/19/2011,05/30/2010 MMR 09/20/1997,07/21/1994 Meningococcal Conj (Menactra) MCV4P 06/25/2007 Td (adult) (MBL), 2 Lf tetan us toxoid, PF, adsorbed 03/31/2005 Tdap 11/02/2008 Family History Relation Name Status Comments Father Alive Father: Alive a nd well Mother Alive Mother: Alive a nd well Sister 1 Alive Sister: Alive a nd well, Alive and well, Alive and well Sister 2 Alive Sister: Alive a nd well, Alive and well, Alive and well Sister 3 Alive Sister: Alive a nd well, Alive and well, Alive and well Social History Tobacco Use Types Packs/Day Years Used Date Smoking Tobacco: Never Comments:Never smoker Comments Unknown Sex and Gender Information Value Date Recorded Sex Assigned at Not on file Legal Sex Female 4:51 PM EDT Gender Identity Not on file Sexual Orientation Not on file Last Filed Vital Signs Vital Sign Reading Time Taken Comments Blood Pressure 116/64 03/23/2014 12:00 AM EDT Pulse 72 11/28/2010 12:00 AM EST Temperature 36.7 ??C (98 ??F) 03/23/2014 12:00 AM EDT Respiratory Rate - - Oxygen Saturation 100% 11/28/2010 12:00 AM EST Inhaled Oxygen Concentration - - Weight 52.4 kg (115 lb 9.6 oz) 03/23/2014 12:00 AM EDT Height 153.9 cm (5' 0.6 ) 03/23/2014 12:00 AM ED T Body Mass Index 22.13 03/23/2014 12:00 AM EDT Plan of Treatment Health Maintenance Due Date Last Done Comments Varicella Vaccines (1 of 2 - 13+ 2-dose series) 2006 DTaP,Tdap,and Td Vaccines (7 - Td or Tdap) 11/02/2018 11/02/2008, 03/31/2005, 09/20/1997, Additional history exists Influenza Vaccines (#1) 2024 05/19/2011, 05/30 COVID-19 Vaccine ( season) 2024 Hepatitis B Vaccines Completed 02/18/1994, 1993, 1993 HIB Vaccines Completed 07/21/1994, 01/21, 1993, Additional history exists IPV Vaccines Completed 09/20/1997, 01/21, 1993, Additional history exists MMR Vaccines Completed 09/20/1997, 07/21/1994 Meningococcal Vaccine Aged Out 06/25/2007 No krzysztof nicola eligible based on patient's age to complete this topic HPV Vaccines Completed 05/19/2011, 11/19, 06/11/2010 Hepatitis A Vaccines Aged Out No long er eligible based on patient's age to complete this topic Men B Vaccine Aged Out No longer elig ible based on patient's age to complete this topic Pneumococcal Vaccine Aged Out No long er eligible based on patient's age to complete this topic Procedures * Due to [place] state law, this organization might not be sharing sensitive test results. Procedure Name Priority Date/Time Associated Diagnosis Comments CHLAMYDIA AND GONORRHEA, AMPLIFIED Routine 11/28/2013 2:13 PM EDT from Last 3 Months or Most Recently Relevant to Health Maintenance Results * Due to [place] state law, this organization might not be sharing sensitive test results. * Chlamydia and Gonorrhoea, Amplified (11/28/2013 2:13 PM EDT) URINE CHLAMYDIA AMP PROBE NEGATIVE [facility] Comment: NO CHLAMYDIA TRACHOMATIS RNA DETECTED IN THIS PATIENT'S SAMPLE. (REFERENCE RANGE/NORMAL VALUE: NOT DETECTED) URINE GC AMP PROBE NEGATIVE [facility] Comment: NO NEISSERIA GONORRHOEAE RNA DETECTED IN THIS PATIENT'S SAMPLE. (REFERENCE RANGE/NORMAL VALUE: NOT DETECTED) NOTE: This test uses manager diversity-mediated amplification method to detect rRNA from C.Trachomatis and N.Gonorrhoeae. A negative result does not preclude infection. In the case of a negative urine result, testing of an endocervical(female) or urethral(male) specimen is recommended if there is high clinical suspicion of infection. The performance characteristics of this test have not been evaluated in children. The Aptima Combo2 assay is not intended for the evaluation of suspected sexual abuse or for other medico-legal indications. The ordering provider should assess if the patient had consensual sex without risk of sexual abuse. Consult the [facility] if needed. Contact phone number . Therapeutic failure or success cannot be determined with the Aptima Combo2 assay since nucleic acid may persist following appropriate antimicrobial therapy. The Centers for Disease Control and Prevention (CDC) recommends confirmatory retesting using culture or a different nucleic acid amplification test when positive results occur, if indicated. Testing performed or reported by [facility], a Service of [facility], [address] [place] [id number] Wale Wagner, Clinical Informatics Spec 11/28/2013 2:13 PM EDT Narrative [facility] - 11/28/2013 2:13 PM EDT URINE CHLAMYDIA GC AMP PROBE us Sushila Nogueira MD LAB MICROBIOLOGY - GENERAL ORDERABLES Final Result [facility] [address] [place] [address], [place] from Last 3 Months or Most Recently Relevant to Health Maintenance Care Teams Biomed Tech Relationship Specialty Start Date End Date Negar Judd MD PCP - General 05/01/17
--- OUTSIDE RECORDS SUMMARY | 2024-12-03 16:50 | XMS_ITS | Encounter Summary ---
Author Organization [facility] Address [address] [place] [address] Phone Care Team Providers Care Transit [employer] Police Officer Name Role Phone Negar Judd MD Primary Care Provider Unava ilable Encounter Details Date Type Department Care Team (Late st Contact Info) Description 11/25/2012 Documentation [facility] [place] [place] Family Medicine [address] [place] [address] Family Medicine, Physician [address] [place] [address] Social History Tobacco Use Types Packs/Day Years [...] on filedocumented in this encounter Care Teams [employer] Police Officer Relationship Specialty Start Date End Date Negar Judd MD PCP - General 05/01/17 documented as of this encounter
--- OUTSIDE RECORDS SUMMARY | 2024-12-03 16:50 | XMS_ITS | Encounter Summary ---
Author Organization [facility] Address [address] [place] [phone] Phone Care Team Providers Care Psychiatric Security Nurse Name Role Phone Negar Judd MD Primary Care Provider Unava ilable Encounter Details Date Type Department Care Team (Late st Contact Info) Description 08/12/2011 Documentation [facility] [place] Family Medicine [address] [place], [place] [phone] Family Medicine, Physician [address] [place] [address] Social History Tobacco Use Types Packs/Day Years [...] on filedocumented in this encounter Care Teams Psychiatric Security Nurse Relationship Specialty Start Date End Date Negar Judd MD PCP - General 05/01/17 documented as of this encounter
--- OUTSIDE RECORDS SUMMARY | 2024-12-03 16:50 | XMS_ITS | Encounter Summary ---
Author Organization [facility] Address [address] [place] [phone] Phone Care Team Providers Care Alarm Signaler Name Role Phone Negar Judd MD Primary Care Provider Unava ilable Encounter Details Date Type Department Care Team (Late st Contact Info) Description 05/07/2017 Conversion Encounter [facility] - [address] [phone] Social History Tobacco Use Types Packs/Day Years [...] on filedocumented in this encounter Care Teams Alarm Signaler Relationship Specialty Start Date End Date Negar Judd MD PCP - General 05/01/17 documented as of this encounter
--- OUTSIDE RECORDS SUMMARY | 2024-12-03 16:50 | XMS_ITS | Clinical Summary ---
Author Organization [facility] Address [address] [place] [address] Care Team Providers Care Supervisor Customer Complaint Service Name Role Phone Mimi Ro [facility] Primary Care Provider [phone] Source Comments PLEASE NOTE, if this patient is a minor, it may be UNLAWFUL to discuss sensitive information that is contained in these records (such as FAMILY PLANNING, MENTAL HEALTH or SUBSTANCE ABUSE) with the minor patient's parent or other person without the patient's specific authorization.[facility] Allergies No known active allergies Medications loratadine (CLARITIN) 10 mg tabletIndications: Acute allergic conjunctivitis of right eye Take 1 Tab by mouth once daily as needed for allergies 30 Tab 2 9 Active fluticasone (FLONASE) 50 mcg/actuation nasal sprayIndications:A cute allergic conjunctivitis of right eye Place 1 [place] in both nostrils once daily 16 g 2 9 Active ibuprofen 800 mg tablet TAKE 1 TABLET BY MOUTH EVERY 8 HOURS FOR 5 DAYS 1 Active cholecalciferol, vitamin D3, (VITAMIN D3) 1,250 mcg (50,000 unit) tab tabletIndications: Low vitamin D level Take 1 Tablet by mouth once a week 12 Tablet 3 1 Active sertraline (ZOLOFT) 50 mg tabletIndications: Current mild episode of major depressive disorder without prior episode ([facility]) TAKE 1/2 TABLET BY MOUTH EVERY DAY FOR 7 DAYS, THEN 1 TABLET BY MOUTH EVERY DAY 30 Tablet 2 1 Active Active Problems No known active problems Resolved Problems Problem Noted Date Diagnosed Date Resolved Date Irregular periods 10/18/2018 01/31/2021 Infertility 10/18/2018 01/31/2021 Immunizations Name Administration Dates Next Due DTAP (DAPTACEL),5 PERTUSSIS ANTIGENS 09/20/1997 DTP 10/21/1994, 4,1993,05/21 HEP B, PED/ADOL 02/18/1994,1993,1993 HPV, QUADRIVALENT 05/19/2011,12/02/2010,06/11/20 10 Hib (HbOC) 07/21/1994, 4,1993,05/21 IPV 09/20/1997, 4,1993,05/21 MENINGOCOCCAL MCV4P (MENACTRA) 06/25/2007 MMR (MMR II/Priorix) 09/20/1997,07/21/1994 PFIZER COVID VACCINE, PURPLE CAP, 12+ 01/22/2021 [facility] State Funded Flu Vaccine 05/19/2011, 010 TDAP 11/02/2008 Td(adult),2 Lf tetanus toxoid,preservative free 03/31/2005 Family History Medical History Relation Name Comments Mental illness Father PTSD Hypertension Mother Hypothyroidism Mother No Known Problems Sister Relation Name Status Comments Father Alive Mother Alive Sister Alive Social History Tobacco Use Types Packs/Day Years Used Date Smoking Tobacco: Never Smokeless Tobacco: Never Alcohol Use Standard Drinks/Week Comments Yes 0 (1 standard drink = 0.6 oz pur e alcohol) ocasionaly some wine Social Connections Answer Date Recorded Connectedness 0 05/28/2024 Financial Resource Strain Answer Date R ecorded Financial Resource Strain 0 2018 Stress Answer Date Recorded Stress 0 05/16/2019 Physical Activity Answer Date Recorded Physical Activity 0 05/16/2019 Food Insecurity Answer Date Recorded Food 0 06/16/2024 Transportation Needs Answer Date Record ed Transportation 0 05/16/2019 Housing Stability Answer Date Recorded Housing 0 05/16/2019 Safety and Environment Answer Date J Carlos rded Safety 0 01/31/2021 Utilities Answer Date Recorded Utilities 0 05/16/2019 Employment Answer Date Recorded Employment 0 05/16/2019 Comments No Sex and Gender Information Value Date Recorded Sex Assigned at Female 03/03/2018 2:07 PM PDT Legal Sex Female 10:47 AM PDT Gender Identity Female 03/03/2018 2:07 PM PDT Sexual Orientation Straight 03/03/2018 2: 07 PM PDT Last Filed Vital Signs Vital Sign Reading Time Taken Comments Blood Pressure 108/78 01/31/2021 3:44 PM EDT Pulse 86 01/31/2021 3:44 PM EDT Temperature 37 ??C (98.6 ??F) 01/31/2021 3:44 PM EDT Respiratory Rate 16 01/31/2021 3:44 PM EDT Oxygen Saturation 100% 01/31/2021 3:44 PM EDT Inhaled Oxygen Concentration - - Weight 51.2 kg (112 lb 12.8 oz) 01/31/2021 3:44 PM EDT Height 154 cm (5' 0.63 ) 01/31/2021 3:44 PM EDT Body Mass Index 21.57 01/31/2021 3:44 PM EDT Plan of Treatment Health Maintenance Due Date Last Done Comments HPV Screening 1993 Pap + HPV 1993 Tobacco Screening 1993 Imm-DTaP/Tdap/Td (7 - Td or Tdap) 11/02/2018 11/02/2008, 03/31/2005, 09/20/1997, Additional history exists Annual Preventive Care Visit 02/16/2019 02/16/2018 Cervical Cancer Screening 10/24/2019 Pap Smear 10/24/2019 10/24/2016 Relationship Safety Screening/Counseling 01/31/2022 01/31/2021 Hypertension Screening (#1) 01/31/2024 [id number] ( season) 2024 11/21/2021, 05/24/2021, 02/12/2021, Additional history exists Imm-Influenza (#1) 2024 09/02/2021, 0 05/19/2011, 05/30/2010 Alcohol and Drug Screen 09/21/2024 02/01/20, 10/18/2018, 02/16/2018, Additional history exists Depression Annual Screen 09/21/2024 01/31/2021, 01/20 Imm-Hepatitis B Completed 02/18/1994, 04/23, 1993 HIV Screening Completed 02/07/2021 Hepatitis C Screening Completed 02/07/2021 Cervical Ablation/Cold-Knife Conization Discontinued Cervical Cryotherapy Discontinued Colposcopy Discontinued Endometrial Biopsy Discontinued Excision/Leep Discontinued HPV Genotyping Discontinued Vaginal Pap Discontinued Vulvoscopy Discontinued Procedures Procedure Name Priority Date/Time Associated Diagnosis Comments HIV 1/2 AG & AB W/RFLX (4TH GEN) Routine 02/07/2021 1:38 PM EDT Hair loss HEPATITIS C AB W/RFLX HCV RNA, QT, RT PCR Routine 02/07/2021 1:38 PM EDT Hair loss PAP SMEAR Routine 10/24/2016 from Last 3 Months or Most Recently Relevant to Health Maintenance Results * HEPATITIS C AB W/RFLX HCV RNA, QT, RT PCR (02/07/2021 1:38 PM EDT) Pathologist [facility] [place] HEPATITIS C ANTIBODY NON-REACT DAV NON-REACT DAV [facility] SIGNAL TO CUT-OFF 0.01 <1.00 [employer] Comment: HCV antibody was non-reactive. There is no laboratory evidence of HCV infection. In most cases, no further action is required. However, if recent HCV exposure is suspected, a test for HCV RNA (test code 68935) is suggested. For additional information please refer to http://education.[employer]vaak/faq/KZH03l0 (This link is being provided for informational/ educational purposes only.) Blood Blood / Unknown 02/07/2021 1 :38 PM EDT 02/07/2021 1:38 PM EDT Narrative [facility] - 02/08/2021 5:35 AM EDT FASTING:NO Mimi Ro [facility] - BLOOD DRAW Final Result [facility] [address] [id number], [facility] [address] [address] * HIV 1/2 AG & AB W/RFLX (4TH GEN) (02/07/2021 1:38 PM EDT) HIV AG/AB, 4TH GEN NON-REAC TIVE NON-REAC TIVE [facility] Comment: HIV-1 antigen and HIV-1/HIV-2 antibodies were not detected. There is no laboratory evidence of HIV infection. PLEASE NOTE: This information has been disclosed to you from records whose confidentiality may be protected by state law. ??If your state requires such protection, then the state law prohibits you from making any further disclosure of the information without the specific written consent of the person to whom it pertains, or as otherwise permitted by law. A general authorization for the release of medical or other information is NOT sufficient for this purpose. ?? For additional information please refer to http://education.Avaak/faq/FWV282 (This link is being provided for informational/ educational purposes only.) The performance of this assay has not been clinically validated in patients less than 2 years old. Blood Blood / Unknown 02/07/2021 1 :38 PM EDT 02/07/2021 1:38 PM EDT Narrative [facility] [place] [facility] - 02/08/2021 6:23 AM EDT FASTING:NO Mimi [facility] - BLOOD DRAW Final Result [facility] [address] [address], [facility] [address] [address] * PAP SMEAR, ABSTRACTED (10/24/2016) PAP SMEAR INTERPRETATION NORMAL NORMAL [facility] 10/24/2016 Impressions [facility] - 10/28/2016 12:19 PM EST Negative for intraepithelial lesion or malignancy us Provider [facility] - NO BLOOD DRAW Final Result [facility] [address] [place] [address], from Last 3 Months or Most Recently Relevant to Health Maintenance Insurance [employer] Care Teams Supervisor Customer Complaint Service Relationship Specialty Start Date End Date Mimi Ro FNP [address] [place] [id number] PCP - General 04/04/19
--- OUTSIDE RECORDS SUMMARY | 2024-12-03 16:50 | XMS_ITS | Data Portability ---
Author Organization [facility], [facility] Address [address] [place] [address] Assessment No assessment recorded. Plan of Treatment Reminders Order Date Submit Date Provider Last Modified By Organization Details Last Modified Time Details Appointments None recorded. Lab urinalysis , dipstick 2022 023 BRANDY [facility], [address] [place] [address], [address], 18:23:21 Referral emergency medicine referral - Dull aching pain x 1 month. on/off . RLQ abdominal pain. need to rule out appendicit is. 2022 023 [email or web address] 1 [facility] [address] [place] [address], [id number], 3 18:50:49 Procedures None recorded. Surgeries None recorded. Imaging None recorded. Medication Orders None recorded. Patient TargetsNo targets recorded. Patient Instructions Encounter Date Encounter Id Patient Instructions Last Modified By Organization Details Last Modified Time 02/25/2023 [id number] Abdominal pain can have a wide variety of causes. we cannot totally exclude the possibility of your symptoms being due a serious underlying problem. Unless ALL of your symptoms have COMPLETELY resolved, you should follow up at the nearest Emergency Department in 6 hours to be rechecked. If your pain worsens, you should not hesitate to go to the Emergency Department to have your condition further evaluated. You should also follow up immediately if you develop any new symptoms which concern you, such as fever, nausea, vomiting, rectal bleeding, or any other symptom that concerns you. Failure to follow up as instructed above may result in serious adverse health consequences, including permanent disability or . [email or web address] Not available 02/25/2023 18:16:16 Reason for Referral Emergency Medicine Referral for Abdominal pain Dull aching pain x 1 month. on/off . RLQ abdominal pain. need to rule out appendicitis. Referring Physician: Regulo Maza, Urgent Care, Encounter Date: 02/25/2023 Results Created Date Observation Date Name Description Value Unit Range Abnormal Flag Note LastModifiedBy Organization Detail LastModifiedTime 02/26/2002/25/2023 urina lysis , dipst ick Unknown Analyte Normal = light yellow Not Available [facility] [address], [place], [address], 02/25/2023 17:34:40 02/26/2002/25/2023 urina lysis , dipst ick Unknown Analyte Dark Yellow Not Available [address] [place] [address], [place], [address], 02/25/2023 17:34:40 02/26/20 23 02/25/2023 urina lysis , dipst ick Unknown Analyte Normal = clear Not Available [address] [place] [address], [place], [address], 02/25/2023 17:34:40 02/26/2002/25/2023 urina lysis , dipst ick Unknown Analyte Slight ly Cloudy Not Available [address] [place] [address], [place], [address], 02/25/2023 17:34:40 02/26/20 23 02/25/2023 urina lysis , dipst ick Unknown Analyte Normal = negati ve Not Available [address], [place], [address], 02/25/2023 17:34:40 02/26/20 23 02/25/2023 urina lysis , dipst ick Unknown Analyte Negati ve Not Available lesly ann [address], [place], [address], 02/25/2023 17:34:40 02/26/20 23 02/25/2023 urina lysis , dipst ick Unknown Analyte Normal = Negati ve Not Available lesly [address], [place], [address], 02/25/2023 17:34:40 02/26/20 23 02/25/2023 urina lysis , dipst ick Unknown Analyte Negati ve Not Available lesly ann [address], [place], [address], 02/25/2023 17:34:40 02/26/20 23 02/25/2023 urina lysis , dipst ick Unknown Analyte Normal = Negati ve Not Available lesly [address], [place], [address], 02/25/2023 17:34:40 02/26/20 23 02/25/2023 urina lysis , dipst ick Unknown Analyte Trace Not Available [address], [place], [address], 02/25/2023 17:34:40 02/26/20 23 02/25/2023 urina lysis , dipst ick Unknown Analyte Normal = 1.010, 1.015, 1.020 Not Available lesly [address], [place], [address], 02/25/2023 17:34:40 02/26/20 23 02/25/2023 urina lysis , dipst ick Unknown Analyte 1.030 Not Available [address], [place], [address], 02/25/2023 17:34:40 02/26/20 23 02/25/2023 urina lysis , dipst ick Unknown Analyte Normal = Negati ve Not Available [address], [place], [address], 02/25/2023 17:34:40 02/26/20 23 02/25/2023 urina lysis , dipst ick Unknown Analyte Trace- intact Not Available [address] ann [address], [place], [address], 02/25/2023 17:34:40 02/26/20 23 02/25/2023 urina lysis , dipst ick Unknown Analyte Normal = 6.5, 7.0, 7.5, 8.0 Not Available [address], [place], [address], 02/25/2023 17:34:40 02/26/20 23 02/25/2023 urina lysis , dipst ick Unknown Analyte 5.0 Not Available [address] [place] [address], [place], [address], 02/25/2023 17:34:40 02/26/20 23 02/25/2023 urina lysis , dipst ick Unknown Analyte Normal = Negati ve Not Available [address], [place], [address], 02/25/2023 17:34:40 02/26/20 23 02/25/2023 urina lysis , dipst ick Unknown Analyte Negati ve Not Available [address] ann [address], [place], [address], 02/25/2023 17:34:40 02/26/20 23 02/25/2023 urina lysis , dipst ick Unknown Analyte Normal = 0.2, 1.0 Not Available [address], [place], [address], 02/25/2023 17:34:40 02/26/2002/25/2023 urina lysis , dipst ick Unknown Analyte 0.2 E.U./d L Not Available [address], [place], [address], 02/25/2023 17:34:40 02/26/2002/25/2023 urina lysis , dipst ick Unknown Analyte Normal = Negati ve Not Available [address] [place] [address], [place], [address], 02/25/2023 17:34:40 02/26/2002/25/2023 urina lysis , dipst ick Unknown Analyte Negati ve Not Available [address] [place] [address], [place], [address], 02/25/2023 17:34:40 02/26/20 23 02/25/2023 urina lysis , dipst ick Unknown Analyte Normal = Negati ve Not Available [address] [place] [address], [place], [address], 02/25/2023 17:34:40 02/26/2002/25/2023 urina lysis , dipst ick Unknown Analyte Negati ve Not Available [address] [place] [address] [place], [address], 02/25/2023 17:34:40 Result Notes None recorded. Problems No Known Problems Medical Equipment None Reported. Allergies No known drug allergies Medications Name Sig Start Date Stop Date Status Note LastModified by Organization Details LastModified Time Flonase Allergy Relief active Not Available Not Available Not Available Vitals Date Recorded Body height Body mass index (BMI) Body weight Oxygen saturation Oxygen saturation in Arterial blood by Pulse oximetry Heart rate Respiratory rate Body temperature Systolic blood pressure Diastolic blood pressure Provider Name and Address Organization Details Last Updated DateTime 3 154.94 cm 22.7 kg/m2 66299.0 8 g 98 % 98 % 70 /min 18 /min 97.9 [degF] 127 mm[Hg] 87 mm[Hg] FLORINDA Gomez [facility] 3 17:34:58 Social History Question Answer Notes LastModified by Organizat ion Details LastModified Time Tobacco Smoking Status Never Smoker NEDA Scott [facility] 02/25/2023 17:32:44 What Is Your Level Of Alcohol Consumption? Occasional Information not available 02/25/2023 Have You Had Direct Contact, Or Contact During Intimacy, With Monkeypox Rash, Scabs, Or Body Fluids From A Person With Monkeypox? No Information not available 02/25/2023 Do You Use Any Illicit Or Recreational Drugs? No Information not available 02/25/2023 Have You Recently Traveled Abroad? No Information not available 02/25/2023 Sex: Unknown Functional Status None recorded. Mental Status None recorded. Family History Relationship Description Onset Age of this Age Resolved Age Notes LastModified by Organization Details LastModified Time Father No current problems or disability Not available 03/2023 17:32:35 Mother No current problems or disability Not available 03/2023 17:32:35 Medical History No medical history recorded. Gynecological History Statement/Question Response Date of LMP 02/15/2023 Is there any chance of ? No Obstetrics History GPAL:G 0 P 0 0 0 0 Immunizations Vaccine Type Date Status Note Provider Nam e and Address Organization Details Recorded Time COVID-19, mRNA, LNP-S, PF, 30 mcg/0.3 mL dose 1 completed FLORINDA culver PA Patricia [facility] 02/25/2023 17:31:48 COVID-19, mRNA, LNP-S, PF, 30 mcg/0.3 mL dose 1 completed FLORINDA culver PA Patricia [facility] 02/25/2023 17:31:48 COVID-19, mRNA, LNP-S, PF, 30 mcg/0.3 mL dose 1 completed FLORINDA MEHTA null, [place] - [facility] 02/25/2023 17:31:48 COVID-19, mRNA, LNP-S, PF, 30 mcg/0.3 mL dose, sidney-sucrose 2 completed FLORINDA MEHTA null, PA - [facility] 02/25/2023 17:31:48 Tdap 2 completed FLORINDA MEHTA null, [place] - [facility] 02/25/2023 17:31:48 Influenza, split virus, trivalent, preservative 1 completed FLORINDA MEHTA null, [place] - [facility] 02/25/2023 17:31:48 Past Encounters Encounter ID Performer Location Encounter Start Date Encounter Closed Date Diagnosis/Indication Diagnosis SNOMED-CT Code Diagnosis ICD10 Code Diagnosis Note [id number] [facility] [address] [place] [address] 09/05/2018 15:27:26 09/05/2018 16:01:05 [id number] [facility] [address] [place] [address] 05/12/2018 16:17:11 05/12/2018 17:07:16 [id number] [facility] [address] [place] [address] 12/30/2017 16:55:48 12/30/2017 17:57:46 [id number] [facility] [address] [place] [address] 10/04/2018 08:43:47 10/04/2018 09:09:35 [id number] [facility] [address] [place] [address] 06/26/2019 13:38:51 06/26/2019 13:57:59 [id number] [facility] [address] [place] [address] 10/28/2018 12:15:37 10/28/2018 13:05:56 [id number] [facility] [address] [place] [address] 12/29/2018 13:20:12 12/29/2018 14:11:39 [id number] [facility] [address] [place] [address] 09/17/2018 13:22:40 09/17/2018 13:53:25 [id number] [facility] [address] [place] [address] 08/19/2019 11:00:00 08/19/2019 12:20:45 [id number] [facility] [address] [place] [address] 06/21/2018 14:09:55 06/21/2018 15:15:50 [id number] [facility] [address] [place] [address] 09/18/2020 13:13:58 09/18/2020 18:56:07 [id number] [facility] [address] [place] [address] 11/02/2019 15:48:28 11/02/2019 16:45:41 [id number] [facility] [address] [place] [address] 11/29/2018 18:04:28 11/29/2018 19:21:52 [id number] [facility] [address] [place] [address] 09/20/2018 13:56:29 09/20/2018 14:36:03 [id number] [facility] [address] [place] [address] 11/13/2018 10:00:48 11/13/2018 11:11:26 [id number] [facility] [address] [place] [address] 12/14/2018 17:10:50 12/14/2018 17:29:07 [id number] [facility] [address] [place] [address] 07/06/2021 12:14:34 07/06/2021 13:35:25 [id number] [facility] [address] [place] [address] 09/10/2021 14:05:19 09/10/2021 15:15:35 [id number] [facility] [address] [place] [address] 12/18/2020 18:51:24 12/18/2020 20:36:35 [id number] [facility] [address] [place] [address] 10/14/2018 12:38:23 10/14/2018 13:58:48 [id number] [facility] [address] [place] [address] 10/03/2020 11:51:53 10/03/2020 16:00:46 [id number] [facility] [address] [place] [address] 05/29/2020 11:54:12 05/29/2020 12:42:59 [id number] [facility] [address] [place] [address] 06/26/2020 17:29:04 06/26/2020 18:36:58 [id number] [facility] [address] [place] [address] 03/26/2020 16:42:31 03/26/2020 18:10:59 [id number] [facility] [address] [place] [address] 01/25/2019 13:21:46 01/25/2019 13:56:08 [id number] [facility] [address] [place] [address] 12/01/2019 12:18:52 12/01/2019 12:58:06 [id number] Regulo Maza NP [facility] [address] [place] [address] 02/25/2023 16:04:55 02/25/2023 18:25:19 Abdominal pain 55169521 R10.9 Right lowe r quadrant pain [id number] R10.31 Health Concerns Section Related Observation LastModified by Organization Detai ls LastModified Time None Recorded Concern Status LastModified by Organization Details LastModified Time None Recorded Advance Directives Directive None Recorded Payers Encounter Date Sequence Insurance Name Policy Number Policy Barbosa Covered Member ID Barbosa Member ID Guarantor Name 10/03/2020 1 [facility] (MEDICAID HMO) [id number] Ivette A Arana [id number] Ivette A Arana 12/18/2020 1 [facility] (MEDICAID HMO) [id number] Ivette A Arana [id number] Ivette A Arana 07/06/2021 1 [facility] (MEDICAID HMO) [id number] Ivette A Arana [id number] Ivette A Arana 09/10/2021 1 [facility] (MEDICAID HMO) [id number] Ivette A Arana [id number] Ivette A Arana 02/25/2023 1 [facility] (MEDICAID HMO) [id number] Ivette A Arana [id number] Ivette A Arana Notes Date Note Type Note Provider Name and Address Organization Details Recorded Time 02/25/2023 text/html Abdominal PainReported bypatient.source of patient information; Patient arrived at Urgent Care ambulatory; learning styles: auditory Location:[facility] Quality:aching;dul l;pain Severity:mild Onset/Timing:gone now; improving; gradual; wax/wane; going on x 1 month on/.off Context:no travel Modifying Factors:eating Associated Symptoms:no fever; no chills; no nausea; no vomiting; no diarrhea; no constipation; no blood in the urine; no heartburn; no shortness of breath; no change in bowel/bladder habits Other:denies possible Regulo Maza NP [address] [place], [address], [place] - [facility] 02/25/2023 19:57:39 OBGyn Episode No OBEpisode recorded.
--- OUTSIDE RECORDS SUMMARY | 2024-12-03 16:50 | XMS_ITS | Encounter Summary ---
Author Organization [facility] Address [address] [place] [address] Phone Care Team Providers Care Professor Of Communication Arts Name Role Phone Negar Judd MD Primary Care Provider Unava ilable Encounter Details Date Type Department Care Team (Late st Contact Info) Description 08/12/2011 Documentation [facility] [address] [place], [place] [id number] Family Medicine, Physician [address] [place] [address] Social History Tobacco Use Types Packs/Day Years [...] on filedocumented in this encounter Care Teams Professor Of Communication Arts Relationship Specialty Start Date End Date Negar Judd MD PCP - General 05/01/17 documented as of this encounter
--- OUTSIDE RECORDS SUMMARY | 2024-12-03 16:50 | XMS_ITS | Encounter Summary ---
Author Organization [facility] Address [address] [place] [address] Phone Care Team Providers Care [employer] Name Role Phone Negar Judd MD Primary Care Provider Unava ilable Encounter Details Date Type Department Care Team (Late st Contact Info) Description 02/25/2011 Documentation [facility] Family Medicine [address] [place], [place] [id number] Family Medicine, Physician [address] [place] [address] Social History Tobacco Use Types Packs/Day Years [...] on filedocumented in this encounter Care Teams [employer] Relationship Specialty Start Date End Date Negar Judd MD PCP - General 05/01/17 documented as of this encounter
--- OUTSIDE RECORDS SUMMARY | 2024-12-03 16:50 | XMS_ITS | Encounter Summary ---
Author Organization [facility] Address [address] [place] [address] Phone Care Team Providers Care Sharepoint Developer Name Role Phone Negar Judd MD Primary Care Provider Unava ilable Encounter Details Date Type Department Care Team (Late st Contact Info) Description 03/01/2014 Documentation [facility] [place] [address] [place], [place] [id number] Family Medicine, Physician [address] [place] [address] Social History Tobacco Use Types Packs/Day Years [...] on filedocumented in this encounter Care Teams Sharepoint Developer Relationship Specialty Start Date End Date Negar Judd MD PCP - General 05/01/17 documented as of this encounter
[2024-12-03 16:54] LABS: Alanine Aminotransferase 28 U/L (0-31); Albumin Level 4.3 g/dL (3.5-5.0); Alkaline Phosphatase 63 U/L (39-117); Anion Gap 13 (12-20); Aspartate Amino Transferase 22 U/L (5-31); Bilirubin Total 0.7 mg/dL (0.0-1.0); Blood Urea Nitrogen 8 mg/dL (9-16); Calcium 9.4 mg/dL (8.4-10.2); Carbon Dioxide 24 mmol/L (22-29); Chloride 109 mmol/L (96-108); Creatinine Clr Calc Pharmacy 73.4; Estimated Glomerular Filt Rate > 60; Glucose Random 103 mg/dL (60-115); Magnesium 1.9 mg/dL (1.6-2.6); Potassium 3.7 mmol/L (3.3-5.1); Sodium 142 mmol/L (135-145); Total Protein 7.4 g/dL (6.5-8.0)
[2024-12-03 17:01] LABS: Troponin-I High Sensitivity 2.9 ng/L (<3.5-17.0)
[2024-12-03 17:50] LABS: Influenza A PCR NEGATIVE (Negative); Influenza B PCR NEGATIVE (Negative); Resp Syncy Virus RNA Qual PCR NEGATIVE (Negative); SARS COV2 PCR INHOUSE NEGATIVE (Negative)
[2024-12-03 18:08] LABS: HCG Quantitative < 2 mIU/mL
[2024-12-03 18:21] VITALS: BP 123/81; PULSE 77; RESP 18; TEMP 36.7; O2SAT 100
[2024-12-03 19:20] LABS: Troponin-I High Sensitivity < 2.7 ng/L (<3.5-17.0)
[2024-12-03 19:55] VITALS: BP 123/81; PULSE 77; RESP 18; TEMP 36.7; O2SAT 100
== END 2024-12-03 19:55 | disposition home or self-care (01) ==
PROVIDERS: Physician Assistant Medical; Emergency Provider Emergency Medicine; PCP Nurse Practitioner Family
DX: R07.9 Chest pain, unspecified (principal); R51.9 Headache, unspecified; Z03.818 Encounter for observation for suspected exposure to other biological agents ruled out
CPT/HCPCS: 0241U; 36415; 71046; 80053; 83735; 84484; 84702; 85025; 93005; 99283; 99284

== ENCOUNTER → 2024-12-03 16:13 | Outpatient (BNV) | payer OTHER, SELFPAY | PROVIDERS: Emergency Provider Emergency Medicine; PCP Nurse Practitioner Family; Visit Provider Internal Medicine | DX: R07.9 Chest pain, unspecified (principal) | CPT/HCPCS: 93010 ==

== ENCOUNTER → 2024-12-03 16:24 | Outpatient (BNV) | payer OTHER, SELFPAY | PROVIDERS: Emergency Provider Emergency Medicine; PCP Nurse Practitioner Family; Visit Provider Specialist | DX: R07.9 Chest pain, unspecified (principal) | CPT/HCPCS: 71046 ==